=== PATIENT | male | born 1950 | race Caucasian/White ===

== ENCOUNTER 2021-11-23 09:53 | Inpatient (IN) | payer MEDICARE, MEDICAID, SELFPAY ==
[2021-11-23] VITALS (8 sets, daily range): BP systolic 106–170; BP diastolic 70–114; PULSE 82–105; RESP 17–20; TEMP 36.7–37.1; O2SAT 89–100; BMI 19.8; BMI 19.2
--- NOTE | ~2021-11-23 | US_ITS ---
EXAMINATION: US VENOUS ULTRASOUND WITH DOPPLER LOWER EXTREMITY, BILATERAL CLINICAL INFORMATION: Bilateral lower extremity swelling COMPARISON: None TECHNIQUE: Ultrasound of the deep veins is performed from the hip to the calf with compression sonography and color and pulse Doppler assessment. Spectral analysis with color-flow imaging is performed. FINDINGS: RIGHT: There is normal venous compression and respiratory variation and augmented flow. The visualized common femoral vein, superficial femoral vein, profunda femoral vein, popliteal vein, and the trifurcation region shows no evidence of deep venous thrombosis. There is no significant popliteal fossa cyst. LEFT: There is normal venous compression and respiratory variation and augmented flow. The visualized common femoral vein, superficial femoral vein, profunda femoral vein, popliteal vein, and the trifurcation region shows no evidence of deep venous thrombosis. There is no significant popliteal fossa cyst. If the patient's symptoms persist, followup ultrasound in 5 days 7 days might be of value to exclude proximal propagation from a non-visualized calf vein. US/US venous duplex LE BI IMPRESSION: No DVT demonstrated in either lower extremity.
--- NOTE | ~2021-11-23 | CT_ITS ---
EXAMINATION: CT ABDOMEN AND PELVIS WITHOUT CONTRAST CLINICAL INFORMATION: Abdominal pain and vomiting. COMPARISON: None TECHNIQUE: Multidetector volumetric imaging was performed from the superior aspect of the liver through the pubic symphysis. Sagittal and coronal reformatted images were obtained on the technologist's workstation. This CT examination was performed using dose optimization techniques as appropriate, variously including the following: *Automated exposure control *Adjustment of mA and/or kV according to patient size (this includes techniques or standardized protocols for targeted exams where dose is matched to indication/reason for exam; i.e. extremities or head) *Use of iterative reconstruction technique DLP: 376 mGy-cm FINDINGS: LUNG BASES: Severe emphysematous changes are present at the lung bases with what appears to be a large septated bullae at the left base. Small bilateral pleural effusions are seen. LIVER, GALLBLADDER, AND BILIARY TREE: The liver is normal in size, shape, and attenuation. Some mild periportal edema is present. No focal hepatic lesion or biliary ductal dilatation is present on this noncontrast study. The gallbladder is not well seen, if present. A tiny amount of ascites is present. PANCREAS: Unremarkable. SPLEEN: Unremarkable. ADRENAL GLANDS: Unremarkable. KIDNEYS AND URETERS: The kidneys are normal in size, shape, and attenuation. No hydronephrosis, hydroureter, or calculi seen. A right lower pole Bosniak class I renal cyst is present which needs no further imaging or follow up. No solid renal masses. No perinephric stranding. BLADDER: Unremarkable. GASTROINTESTINAL TRACT: Moderate diverticular disease is present especially in the sigmoid without evidence of diverticulitis. The small and large bowel are otherwise unremarkable. The appendix is unremarkable. ABDOMINAL WALL: No significant hernia is appreciated. LYMPH NODES: No retroperitoneal lymphadenopathy. VASCULAR: Aortoiliofemoral calcific atherosclerotic changes present without aneurysm. PELVIC VISCERA: Calcifications are present in the prostate which is upper limits of normal in size. OSSEOUS STRUCTURES: Generalized osteopenia is present with some mild degenerative changes. Vacuum phenomenon present at L2-L3. CT/CT abdomen pelvis wo con IMPRESSION: A cause for the patient's abdominal pain and vomiting is not found. Incidental note made of severe emphysema, mild periportal edema, bilateral pleural effusions, tiny amount of ascites and colonic diverticulosis. Fleischner guidelines were followed.
--- NOTE | ~2021-11-23 | XR_ITS ---
EXAMINATION: XR CHEST CLINICAL INFORMATION: Shortness of breath COMPARISON: None TECHNIQUE: Frontal view of the chest was obtained. FINDINGS: Coarsened interstitial lung markings throughout the bilateral lung rodriguez, nonspecific, may represent severe emphysematous changes versus interstitial lung disease versus prominence of the pulmonary vasculature. Bibasilar atelectasis. Biapical pleural parenchymal scarring. Bilateral pleural effusions, trace on the right and small on the left. No pneumothorax. Trachea is midline. Cardiomediastinal silhouette is enlarged. Aorta demonstrates atherosclerotic calcifications. Degenerative changes of the thoracolumbar spine. Soft tissues are unremarkable. XR/XR chest 1V IMPRESSION: 1. Coarsened interstitial lung markings throughout the bilateral lung rodriguez, nonspecific, may represent severe emphysematous changes versus interstitial lung disease versus prominence of the pulmonary vasculature. 2. Bibasilar atelectasis. 3. Biapical pleural parenchymal scarring. 4. Bilateral pleural effusions, trace on the right and small on the left.
--- NOTE | 2021-11-23 10:09 | ECG_ITS ---
Test Reason : sob Blood Pressure : / mmHG Vent. Rate : 081 BPM Atrial Rate : 081 BPM P-R Int : 156 ms QRS Dur : 090 ms QT Int : 396 ms P-R-T Axes : 077 -20 210 degrees QTc Int : 460 ms Sinus rhythm with Premature ventricular complexes or Fusion complexes Possible Left atrial enlargement Left ventricular hypertrophy with repolarization abnormality ( Sokolow-Brown , Narinder product , Romhilt-Brennan ) Abnormal ECG No previous ECGs available Referred By: Jeison Mandel Electronically Signed By:PIA AGUILAR
--- NOTE | 2021-11-23 10:11 | ED.GENADULT ---
HPI - General Adult General Chief complaint: Dyspnea Stated complaint: SOB,NAUSEA Time Seen by Provider: 11/23/21 10:08 Source: patient and EMS Mode of arrival: EMS Limitations: no limitations History of Present Illness HPI narrative: 71 years old male came in for evaluation of shortness of breath and nausea, abdominal pain. 71 years old male who is smoker and having seen a doctor for many years with no known medical problems woke up this morning with shortness of breath and feeling nausea with dry heaving and abdominal discomfort. Symptoms started since this morning at 03:00 o'clock in the morning with no improvement, patient for the past few days been waking up with shortness of breath, admitted to bilateral lower extremity swelling, no obvious gaining weight, no chest pain, no fever, no chills. Complains of abdominal pain with dry heaving and nausea but actual vomiting, chills. Normal bowel movement, dysuria frequency urination, no past abdominal surgical history. Related Data Home Medications Medication Instructions Recorded Confirmed buprenorphine HCl 8 mg sublingual 8 mg sublingual TID 11/23/21 11/23/21 tablet bupropion HCl 150 mg tablet,12 hr 150 mg PO BID 11/23/21 11/23/21 sustained-release escitalopram oxalate 20 mg tablet 20 mg PO DAILY 11/23/21 11/23/21 ibuprofen 800 mg tablet 800 mg PO Q8H PRN Pain (Scale 11/23/21 11/23/21 Score 4-6) linaclotide 290 mcg capsule 290 mcg PO DAILY 11/23/21 11/23/21 (Linzess) pantoprazole 40 mg tablet,delayed 1 tab PO DAILY 11/23/21 11/23/21 release sennosides 8.6 mg-docusate sodium 2 tab PO BEDTIME constipation 11/23/21 11/23/21 50 mg tablet (Senexon-S) tamsulosin 0.4 mg capsule 0.4 mg PO DAILY 11/23/21 11/23/21 Allergies Allergy/AdvReac Type Severity Reaction Status Date / Time No Known Allergies Allergy Verified 11/23/21 10:09 Review of Systems Review of Systems: All other systems are reviewed and are negative Constitutional: Reports as per HPI and Reports no additional constitutional complaints Eyes: Reports as per HPI and Reports no additional eye complaints Reports system reviewed and no additional complaints, except as documented Cardiovascular: Reports as per HPI and Reports no additional cardiovascular complaints Respiratory: Reports as per HPI and Reports no additional respiratory complaints Gastrointestinal: Reports as per HPI and Reports no additional gastrointestinal complaints Genitourinary: Reports no additional female genitourinary complaints Musculoskeletal: Reports no additional musculoskeletal complaints Skin/Breast: Reports system reviewed and no additional complaints, except as docu Psychiatric: Reports no additional psychiatric complaints Endocrine: Reports no additional endocrine complaints Hematologic/Lymphatic: Reports no additional hematologic/lymphatic complaints Allergic/Immunologic: Reports no additional allergic/immunologic complaints Reports system reviewed and no additional complaints, except as documented and Reports Abnormal speech present [facility] Past Medical History Medical History BPH (benign prostatic hyperplasia) COPD (chronic obstructive pulmonary disease) Endocarditis GERD (gastroesophageal reflux disease) HCV (hepatitis C virus) Opiate dependence Peripheral artery disease Family History Family History Mother Alzheimer disease Social History Social History Alcohol intake: never Patient Tobacco Use Status: Current everyday Tobacco user Use of substances other than those prescribed or required for medical reasons: No Substance Use Type Other:: remote history of iv opiates Advance Directives: No Advance Directives Information Provided: No Physical Exam ED Vital Signs: Vital Signs - 24 hr 11/23/21 10:23 11/23/21 12:13 11/23/21 12:12 Temperature 98.0 F Pulse Rate 90 95 Respiratory Rate 18 20 Blood Pressure 148/110 H 147/114 H Pulse Oximetry 93 92 89 L Oxygen Delivery Method Room Air Room Air Nasal Cannula Nasal Cannula Oxygen Flow Rate 4 2 BMI result Body Mass Index 19.8 Vital signs have been reviewed as appeared to be correct. Blood pressure normal. Heart rate normal. Respiration rate normal. Temperature normal. Oxygen saturation normal. Appearance: Alert. Oriented X3. No acute distress. Head: Normal external exam. Normocephalic. Atraumatic. No Dong signs noted. No raccoon eyes noted Eyes: PERRLA. EOMI. Conjunctiva and sclera normal. Eyelids normal. ENT: TM's Normal. Pharynx normal. Uvula midline. Moist mucous membranes. No trismus noted. No drooling noted. No muffled voice noted. Neck: Normal inspection. Neck supple. FROM. No adenopathy. Thyroid Normal. No meningeal signs. No neck mass noted. CVS: Normal heart rate and rhythm. Heart sound normal. No murmurs noted. Pulses normal throughout. Respiratory: No respiratory distress. Painless inspiration. Breath sounds normal. No wheezes/rhonchi noted, fine bilateral basilar rales.. Chest nontender. No accessory muscle usage noted or decreased air movement noted. Abdomen: Soft and nontender. Bowel sounds normal in all 4 quadrants. No distention noted. No organomegaly noted. No visible injury noted. Back: No CVA tenderness. Full range of motion noted. Skin: Skin warm and dry. Normal skin color. Normal skin turgor. No rashes/lesions/lacerations noted. Extremities: +1 lower extremity edema. Extremities exhibit normal range of motion. Extremities nontender. Neuro: Oriented X 3. Cranial nerve exam: II-XII are grossly intact No motor deficit. No sensory deficit. Reflexes normal. Course Course Course Narrative: Assessment and plan. 71-year-old male history of smoking came in with difficulty breathing, physical exam/finding on the x-ray/labs are consistent with new onset congestive heart failure. Will start the patient on Lasix in the ED and admitted for further cardiology evaluation. Medical Decision Making Lab Data Lab results reviewed: Yes I reviewed the patient's lab results. Result diagrams: 11/23/21 11:36 11/23/21 11:36 Labs: Lab Results 11/23/21 11/23/21 11/23/21 Range/Units 10:39 11:35 11:36 WBC 11.4 H (4.8-10.8) X10*3/uL RBC 4.71 (4.60-5.80) X10*6/uL Hgb 14.7 (14.0-18.0) g/dl Hct 44.6 (42.0-52.0) % MCV 94.7 (80.0-98.0) fL MCH 31.2 (27.0-33.0) pg MCHC 33.0 (31.0-36.0) g/dl RDW 13.9 (11.0-16.0) % Plt Count 221 (160-400) X10*3/uL MPV 10.0 (9.4-12.4) fL Immature Gran % (Auto) 0.3 (0.0-0.4) % Neut % (Auto) 81.0 H (45-73) % Lymph % (Auto) 11.3 L (20-40) % Gall[place] % (Auto) 5.7 (2-11) % Eos % (Auto) 1.2 (0-4) % Baso % (Auto) 0.5 (0-2) % Lymph # (Auto) 1.3 (1.2-4.9) X10*3/uL Gall[place] # (Auto) 0.7 (0.1-1.2) X10*3/uL Eos # (Auto) 0.1 (0.0-0.4) X10*3/uL Baso # (Auto) 0.1 (0.0-0.2) X10*3/uL Abs Immat Gran (auto) 0.04 H (0.00-0.03) X10*3/uL Absolute Neuts (auto) 9.3 H (2.0-8.3) x10*3/uL Absolute Nucleated RBC 0.000 (0.0-0.012) X10*3/uL Nucleated RBC % (auto) 0.0 (0.0-0.2) /100WBC Sodium (135-145) mmol/L Potassium (3.3-5.1) mmol/L Chloride (96-108) mmol/L Carbon Dioxide (22-29) mmol/L Anion Gap (12-20) BUN (9-16) mg/dL Creatinine (0.5-1.4) mg/dL Estim Creat Clear Calc Estimated GFR POC Glucose 130 H (60-115) mg/dL Random Glucose (60-115) mg/dL Calcium (8.4-10.2) mg/dL Total Bilirubin (0.0-1.0) mg/dL Direct Bilirubin (0.0-0.5) mg/dL AST (5-37) U/L ALT (0-40) U/L Alkaline Phosphatase (39-117) U/L Troponin I High Sens (<3.5-35.0) ng/L B-Natriuretic Peptide (<100) pg/mL Total Protein (6.5-8.0) g/dL Albumin (3.5-5.0) g/dL Lipase (8-78) U/L Urine Color Urine Appearance Urine pH (5.0-8.0) Ur Specific [place] (1.005-1.025) Urine Protein (NEG-TRACE) MG/DL Urine Glucose (UA) (NEG) MG/DL Urine Ketones (NEG) MG/DL Urine Blood (NEG) Urine Nitrite (NEG) Ur Leukocyte Esterase (NEG) Influenza Type A (PCR) NEGATIVE (Negative) Influenza Type B (PCR) NEGATIVE (Negative) RSV RNA Qual (PCR) NEGATIVE (Negative) SARS-CoV-2 RNA (RT-PCR) NEGATIVE (Negative) 11/23/21 11/23/21 11/23/21 Range/Units 11:36 11:36 12:20 WBC (4.8-10.8) X10*3/uL RBC (4.60-5.80) X10*6/uL Hgb (14.0-18.0) g/dl Hct (42.0-52.0) % MCV (80.0-98.0) fL MCH (27.0-33.0) pg MCHC (31.0-36.0) g/dl RDW (11.0-16.0) % Plt Count (160-400) X10*3/uL MPV (9.4-12.4) fL Immature Gran % (Auto) (0.0-0.4) % Neut % (Auto) (45-73) % Lymph % (Auto) (20-40) % Gallia % (Auto) (2-11) % Eos % (Auto) (0-4) % Baso % (Auto) (0-2) % Lymph # (Auto) (1.2-4.9) X10*3/uL [place] # (Auto) (0.1-1.2) X10*3/uL Eos # (Auto) (0.0-0.4) X10*3/uL Baso # (Auto) (0.0-0.2) X10*3/uL Abs Immat Gran (auto) (0.00-0.03) X10*3/uL Absolute Neuts (auto) (2.0-8.3) x10*3/uL Absolute Nucleated RBC (0.0-0.012) X10*3/uL Nucleated RBC % (auto) (0.0-0.2) /100WBC Sodium 138 (135-145) mmol/L Potassium 4.2 (3.3-5.1) mmol/L Chloride 103 (96-108) mmol/L Carbon Dioxide 27 (22-29) mmol/L Anion Gap 12 (12-20) BUN 22 H (9-16) mg/dL Creatinine 1.07 (0.5-1.4) mg/dL Estim Creat Clear Calc 61.6 Estimated GFR > 60 POC Glucose (60-115) mg/dL Random Glucose 146 H (60-115) mg/dL Calcium 9.0 (8.4-10.2) mg/dL Total Bilirubin 0.7 (0.0-1.0) mg/dL Direct Bilirubin 0.4 (0.0-0.5) mg/dL AST 78 H (5-37) U/L ALT 55 H (0-40) U/L Alkaline Phosphatase 154 H (39-117) U/L Troponin I High Sens 78.3 H (<3.5-35.0) ng/L B-Natriuretic Peptide 3987 H (<100) pg/mL Total Protein 6.7 (6.5-8.0) g/dL Albumin 3.9 (3.5-5.0) g/dL Lipase 22 (8-78) U/L Urine Color YELLOW Urine Appearance CLEAR Urine pH 5.5 (5.0-8.0) Ur Specific [place] >= 1.030 H (1.005-1.025) Urine Protein TRACE (NEG-TRACE) MG/DL Urine Glucose (UA) NEG (NEG) MG/DL Urine Ketones NEG (NEG) MG/DL Urine Blood NEG (NEG) Urine Nitrite NEG (NEG) Ur Leukocyte Esterase NEG (NEG) Influenza Type A (PCR) (Negative) Influenza Type B (PCR) (Negative) RSV RNA Qual (PCR) (Negative) SARS-CoV-2 RNA (RT-PCR) (Negative) Imaging Data Chest x-ray: Attestation: I personally reviewed and interpreted this imaging study as follows: Radiologist's impression: 1.? Coarsened interstitial lung markings throughout the bilateral lung rodriguez, nonspecific, may represent severe emphysematous changes versus interstitial lung disease versus prominence of the pulmonary vasculature. 2.? Bibasilar atelectasis. 3.? Biapical pleural parenchymal scarring. 4.? Bilateral pleural effusions, trace on the right and small on the left. ? CT scan - abdomen: Attestation: I personally reviewed and interpreted this imaging study as follows: Radiologist's impression: A cause for the patient's abdominal pain and vomiting is not found. Incidental note made of severe emphysema, mild periportal edema, bilateral pleural effusions, tiny amount of ascites and colonic diverticulosis.? ? Bilateral lower extremities venous ultrasound: Attestation: I personally reviewed and interpreted this imaging study as follows: Radiologist's impression: No DVT ECG Data Attestation: I personally reviewed and interpreted this ECG as follows: Interpretation: Normal sinus rhythm at 81 beats per minutes with PVCs, LVH Discharge Plan Discharge Clinical Impression: Congestive heart failure Patient Disposition: Admitted As Inpatient
[2021-11-23 10:42] LABS: Glucose, Whole Blood 130 mg/dL (60-115)
[2021-11-23 11:49] LABS: MANUAL DIFF FLAG NO
[2021-11-23 11:51] LABS: Basophils Absolute Auto 0.1 X10*3/uL (0.0-0.2); Basophils Percent Auto 0.5 % (0-2); Eosinophils Absolute Auto 0.1 X10*3/uL (0.0-0.4); Eosinophils Percent Auto 1.2 % (0-4); Hematocrit 44.6 % (42.0-52.0); Hemoglobin 14.7 g/dl (14.0-18.0); Imm Gran Abs Auto 0.04 X10*3/uL (0.00-0.03); Imm Gran Pct Auto 0.3 % (0.0-0.4); Lymphocytes Absolute Auto 1.3 X10*3/uL (1.2-4.9); Lymphocytes Percent Auto 11.3 % (20-40); Mean Corpuscular Hemoglobin 31.2 pg (27.0-33.0); Mean Corpuscular Volume 94.7 fL (80.0-98.0); Monocytes Absolute Auto 0.7 X10*3/uL (0.1-1.2); Monocytes Percent Auto 5.7 % (2-11); Neutrophils Absolute Auto 9.3 x10*3/uL (2.0-8.3); Platelet Count 221 X10*3/uL (160-400); Red Blood Count 4.71 X10*6/uL (4.60-5.80); Red Cell Distribution Width 13.9 % (11.0-16.0); White Blood Count 11.4 X10*3/uL (4.8-10.8)
[2021-11-23 12:05] LABS: Alanine Aminotransferase 55 U/L (0-40); Albumin Level 3.9 g/dL (3.5-5.0); Alkaline Phosphatase 154 U/L (39-117); Anion Gap 12 (12-20); Aspartate Amino Transferase 78 U/L (5-37); Bilirubin Direct 0.4 mg/dL (0.0-0.5); Bilirubin Total 0.7 mg/dL (0.0-1.0); Blood Urea Nitrogen 22 mg/dL (9-16); Carbon Dioxide 27 mmol/L (22-29); Chloride 103 mmol/L (96-108); Creatinine Clr Calc Pharmacy 61.6; Estimated Glomerular Filt Rate > 60; Glucose Random 146 mg/dL (60-115); Lipase 22 U/L (8-78); Potassium 4.2 mmol/L (3.3-5.1); Sodium 138 mmol/L (135-145); Total Protein 6.7 g/dL (6.5-8.0)
[2021-11-23 12:11] LABS: B Type Natriuretic Peptide 3987 pg/mL (<100); Troponin-I High Sensitivity 78.3 ng/L (<3.5-35.0)
--- NOTE | 2021-11-23 12:24 | PC.NURSE ---
pt just stood up on the side of the bed to use the urinal, started to feel very sob already on oxygen at 2l, sating at 89%, pt is diaphoretic, this rn can barely hear any lung sounds on the left lower bases, very diminished, pt bumped up to 4l and sating only 91%, hr 92 respirations about 19 and capnography at 27
[2021-11-23 12:31] LABS: Influenza A PCR NEGATIVE (Negative); Influenza B PCR NEGATIVE (Negative); Resp Syncy Virus RNA Qual PCR NEGATIVE (Negative); SARS COV2 PCR INHOUSE NEGATIVE (Negative)
[2021-11-23 12:36] LABS: Appearance Urine CLEAR; Color Urine YELLOW; Glucose Urine UA NEG (NEG); Leukocyte Esterase Urine NEG (NEG); Nitrite Urine NEG (NEG); PH 5.5 (5.0-8.0); Specific Gravity - Urine >= 1.030 (1.005-1.025); Urine Blood NEG (NEG); Urine Ketones NEG (NEG); Urine Protein TRACE MG/DL (NEG-TRACE)
[2021-11-23] MEDS: Furosemide 40 MG/4 ML VIAL IVPUSH ×2 (13:13→18:08)
--- NOTE | 2021-11-23 14:04 | PM.IMHP ---
History of Present Illness Date of Service: 11/23/21 Chief Complaint: sob 71M presented with sob. patient reports that over several days he has been having progressive sob, worst in the early AM, usually improving over the day. was still able to tolerate moderate exertion such as lawncare. however, on day of admission was severely sob even at rest so called EMS. patient also reporting productive cough with yellow sputum. he does notice occasional leg edema, currently does have L>R lower extremity edema. denies fever, chills, chest pain, orthopnea, PND, weight loss, loss of appetite. in ED found to be hypoxic, 86% on room air, low 90s on 4L. CXR shows evidence of severe emphysema, possible chf, bnp 3987. Review of Systems Review of Systems: Constitutional: Denies fever, denies Chills Eyes: denies blurry vision ENT: denies sore throat CVS: denies chest pain Respiratory: dyspnea GI: no abdominal pain : denies dysuria MSK: denies neck pain Skin: denies rash Neuro: denies specific motor weakness Psych: denies suicidal ideation Endocrine: denies heat/cold intolerance Hematologic: denies easy bleeding Allergy: denies hives [facility] Medical History BPH (benign prostatic hyperplasia) COPD (chronic obstructive pulmonary disease) Endocarditis GERD (gastroesophageal reflux disease) HCV (hepatitis C virus) Opiate dependence Peripheral artery disease Family History Mother Alzheimer disease Social History Alcohol intake: never Patient Tobacco Use Status: Current everyday Tobacco user Use of substances other than those prescribed or required for medical reasons: No Substance Use Type Other:: remote history of iv opiates Advance Directives: No Advance Directives Information Provided: No Meds Allergies Allergy/AdvReac Type Severity Reaction Status Date / Time No Known Allergies Allergy Verified 11/23/21 10:09 Active Medications: Current Medications Albuterol/Ipratropium (Albuterol/Iprat 2.5/0.5mg 3 Ml Ampul.Neb) 3 ml INHALE RQ4H PRN PRN Reason: sob Furosemide (Furosemide 40 Mg/4 Ml Vial) 40 mg IVPUSH BID@0900,1800 DWAYNE; Protocol Methylprednisolone Sodium Succinate (Methylprednisolone Sod Succ 40 Mg/Ml Vial) 40 mg IVPUSH Q12H [facility] Pharmacy Consult (Consult Rx Perform Med Rec) 1 each MISCELLANE ONCE PRN PRN Reason: Consult order Home Medications Medication Instructions Recorded Confirmed Last Taken Type buprenorphine HCl 8 mg sublingual 8 mg sublingual DAILY 11/23/21 Unknown History tablet bupropion HCl 150 mg tablet,12 hr 150 mg PO BID 11/23/21 11/23/21 Unknown History sustained-release escitalopram oxalate 20 mg tablet 20 mg PO DAILY 11/23/21 Unknown History ibuprofen 800 mg tablet 800 mg PO Q8H PRN Pain (Scale 11/23/21 11/23/21 Unknown History Score 4-6) linaclotide 290 mcg capsule 290 mcg PO DAILY 11/23/21 Unknown History (Linzess) pantoprazole 40 mg tablet,delayed 1 tab PO DAILY 11/23/21 Unknown History release sennosides 8.6 mg-docusate sodium 2 tab PO BEDTIME constipation 11/23/21 Unknown History 50 mg tablet (Senexon-S) tamsulosin 0.4 mg capsule 0.4 mg PO DAILY 11/23/21 Unknown History Physical Exam Vital Signs and Narrative: Vital Signs: Last Vital Signs Temp 98.0 F 11/23/21 10:23 Pulse 95 11/23/21 12:13 Resp 20 11/23/21 12:13 BP 147/114 H 11/23/21 12:13 Pulse Ox 92 11/23/21 12:13 O2 Del Method Nasal Cannula 11/23/21 12:13 O2 Flow Rate 4 11/23/21 12:13 BMI result Body Mass Index 19.8 General: lethargic, cachexic appearing HEENT: atraumatic, temporal wasting Neck: normal to visual inspection CVS: S1, S2, RRR Resp: diminshed sounds throughout Chest: non tender GI: soft, non tender, non distended : no CVA tenderness Skin: no rashes Extremities: R>L lower extremity edema Neuro: Oriented X3, grossly intact Psych: cooperative Results Labs CBC and Chem 7: 11/23/21 11:36 11/23/21 11:36 Labs: Laboratory Results - last 24 hr 11/23/21 11/23/21 11/23/21 10:39 11:35 11:36 MCV 94.7 MCH 31.2 MCHC 33.0 RDW 13.9 Plt Count 221 MPV 10.0 Immature Gran % (Auto) 0.3 Neut % (Auto) 81.0 H Lymph % (Auto) 11.3 L Wright % (Auto) 5.7 Eos % (Auto) 1.2 Baso % (Auto) 0.5 Lymph # (Auto) 1.3 Wright # (Auto) 0.7 Eos # (Auto) 0.1 Baso # (Auto) 0.1 Abs Immat Gran (auto) 0.04 H Absolute Neuts (auto) 9.3 H Absolute Nucleated RBC 0.000 Nucleated RBC % (auto) 0.0 Anion Gap Estim Creat Clear Calc Estimated GFR POC Glucose 130 H Random Glucose Calcium Total Bilirubin Direct Bilirubin AST ALT Alkaline Phosphatase Troponin I High Sens B-Natriuretic Peptide Total Protein Albumin Lipase Urine Color Urine Appearance Urine pH Ur Specific [place] Urine Protein Urine Glucose (UA) Urine Ketones Urine Blood Urine Nitrite Ur Leukocyte Esterase Influenza Type A (PCR) NEGATIVE Influenza Type B (PCR) NEGATIVE RSV RNA Qual (PCR) NEGATIVE SARS-CoV-2 RNA (RT-PCR) NEGATIVE 11/23/21 11/23/21 11/23/21 11:36 11:36 12:20 MCV MCH MCHC RDW Plt Count MPV Immature Gran % (Auto) Neut % (Auto) Lymph % (Auto) Wright % (Auto) Eos % (Auto) Baso % (Auto) Lymph # (Auto) Wright # (Auto) Eos # (Auto) Baso # (Auto) Abs Immat Gran (auto) Absolute Neuts (auto) Absolute Nucleated RBC Nucleated RBC % (auto) Anion Gap 12 Estim Creat Clear Calc 61.6 Estimated GFR > 60 POC Glucose Random Glucose 146 H Calcium 9.0 Total Bilirubin 0.7 Direct Bilirubin 0.4 AST 78 H ALT 55 H Alkaline Phosphatase 154 H Troponin I High Sens 78.3 H B-Natriuretic Peptide 3987 H Total Protein 6.7 Albumin 3.9 Lipase 22 Urine Color YELLOW Urine Appearance CLEAR Urine pH 5.5 Ur Specific [place] >= 1.030 H Urine Protein TRACE Urine Glucose (UA) NEG Urine Ketones NEG Urine Blood NEG Urine Nitrite NEG Ur Leukocyte Esterase NEG Influenza Type A (PCR) Influenza Type B (PCR) RSV RNA Qual (PCR) SARS-CoV-2 RNA (RT-PCR) Imaging Radiologist's Impressions: Impressions Chest X-Ray 11/23/21 10:37 IMPRESSION: 1. Coarsened interstitial lung markings throughout the bilateral lung rodriguez, nonspecific, may represent severe emphysematous changes versus interstitial lung disease versus prominence of the pulmonary vasculature. 2. Bibasilar atelectasis. 3. Biapical pleural parenchymal scarring. 4. Bilateral pleural effusions, trace on the right and small on the left. Assessment and Plan (1) Congestive heart failure: Status: Acute Plan 71M presented with sob acute hypoxic respiratory failure due to acute unspecified chf and copd with decompensation IV lasix, echo, monitor bmp iv solumedrol, bronchodilators wean o2 as tolerated, keep sats 90-94% check abg, venous us elevated lfts suspect hepatic congestion, follow up ctabd pvd would put on asa and statin motrin with gi prophylaxis mood disorder continue buproprion, lexapro opiate dependence suboxone bph flomax dvt prophylaxis - lovenox full code pateint is singificantly ill with acute hypoxia,advanced copd, chf, frailty, advanced age, therefore, likely to require atleast to midnights Quality Stroke Does the patient have a stroke diagnosis?: No VTE Prior VTE?: No VTE Risk Level:: Medical - moderate - high VTE Device Contraindication: Treatment Not Indicated VTE Drug Contraindication: N/A - Med Ordered
--- NOTE | 2021-11-23 14:11 | PHA.MEDREC ---
MED REC COMPLETE, NO ISSUES Pharmacy Consult ? Medication Reconciliation Pharmacy has completed the medication reconciliation.
[2021-11-23 14:34] LABS: ABG Refer to POC result
[2021-11-23 14:35] LABS: ABG HCO3 23 mmol/L (22-26); ABG pCO2 40 mmHg (32-45); ABG pH 7.36 (7.35-7.45); ABG pO2 58 mmHg (83-108)
[2021-11-23] MEDS: Enoxaparin Sodium 40 MG/0.4 ML SYRINGE SUBCUT (16:09)
[2021-11-23] MEDS: 0.9 % Sodium Chloride Flush 3 ML SYRINGE IVFLUSH ×2 (16:12→21:59)
--- NOTE | 2021-11-23 17:50 | PC.NURSE ---
called pharmacy in regards to suboxone, continuing on waiting for the medication
[2021-11-23] MEDS: methylPREDNISolone Sod Succ 40 MG/ML VIAL IVPUSH (18:08)
[2021-11-23] MEDS: Buprenorphine HCL 8 MG TAB.SUBL SUBLINGUAL ×2 (18:08→21:59)
--- NOTE | 2021-11-23 19:00 | PC.NURSE ---
Took report from Deweysaira to assume care of Pt, Pt resting, call light in reach, this RN continues to monitor.
[2021-11-23] MEDS: Atorvastatin Calcium 40 MG TABLET PO (21:59)
[2021-11-23] MEDS: Sennosides/Docusate Sodium TABLET 2 TAB PO (21:59)
[2021-11-24] VITALS (10 sets, daily range): BP systolic 114–165; BP diastolic 72–96; PULSE 59–86; RESP 17–20; TEMP 36.2–36.9; O2SAT 86–99
[2021-11-24] MEDS: methylPREDNISolone Sod Succ 40 MG/ML VIAL IVPUSH ×2 (05:44→17:34)
[2021-11-24 06:18] LABS: Hematocrit 42.8 % (42.0-52.0); Hemoglobin 14.3 g/dl (14.0-18.0); Mean Corpuscular HGB Conc 33.4 g/dl (31.0-36.0); Mean Corpuscular Hemoglobin 31.2 pg (27.0-33.0); Mean Corpuscular Volume 93.4 fL (80.0-98.0); Mean Platelet Volume 10.1 fL (9.4-12.4); Platelet Count 202 X10*3/uL (160-400); Red Blood Count 4.58 X10*6/uL (4.60-5.80); Red Cell Distribution Width 13.9 % (11.0-16.0); White Blood Count 11.3 X10*3/uL (4.8-10.8)
[2021-11-24 06:51] LABS: Anion Gap 13 (12-20); Blood Urea Nitrogen 22 mg/dL (9-16); Calcium 8.6 mg/dL (8.4-10.2); Carbon Dioxide 32 mmol/L (22-29); Chloride 102 mmol/L (96-108); Creatinine Clr Calc Pharmacy 58.8; Estimated Glomerular Filt Rate > 60; Glucose Fasting 118 mg/dL (60-99); Magnesium 1.6 mg/dL (1.6-2.6); Potassium 4.5 mmol/L (3.3-5.1); Sodium 142 mmol/L (135-145)
--- NOTE | 2021-11-24 07:00 | CA_ITS ---
Transthoracic Echocardiogram Patient (Last, First, Middle): Freddy Alanis, Gender: Male Date of : 1950 Age: 71 Procedure Date: 11/24/2021 Procedure Type: Transthoracic Echocardiogram Location: [facility] [place] Height: 187.96 cm Weight: 69.85 kg BSA: 1.94 m2 Heart Rate: bpm BP: 147 / 114 mmHg Latin American Studies Director: Referring MD: Prakash Tijerina MD Symptoms: chf Study Quality: Good/Contrast ECG Rhythm: Sinus Conclusions: - The left ventricular systolic function is severely decreased. The visually estimated ejection fraction is <10%. - No obvious valvular pathology seen on this study. - There is mild mitral valve regurgitation. - There is mild to moderate tricuspid valve regurgitation. - Moderate pulmonary hypertension is present. Findings Procedure Information Contrast agent, definity, is being given per protocol without apparent complications. Left Ventricle Mildly increased left ventricular cavity size. There is normal left ventricular wall thickness. The left ventricular systolic function is severely decreased. The visually estimated ejection fraction is <10%. There is severe global hypokinesis. E/E prime ratio is >15, consistent with elevated filling pressures. Evidence suggests grade I (mild) diastolic dysfunction. Right Ventricle Normal right ventricular cavity size. There is normal right ventricular systolic function. Atria The left atrium is severely dilated. The right atrium is normal in size. Aortic Valve The aortic valve was not well visualized. There is no aortic valve stenosis. There is no aortic valve regurgitation. Mitral Valve The mitral valve appears normal. There is mild mitral valve regurgitation. There is no mitral valve stenosis. Pulmonic Valve The pulmonic valve is likely normal. Tricuspid Valve Normal tricuspid valve structure. There is mild to moderate tricuspid valve regurgitation. The right ventricular systolic pressure is 53 mmHg. Moderate pulmonary hypertension is present. Great Vessels The aorta was not well visualized. The sinuses of valsalva is normal in size. Venous The inferior vena cava is normal in size and collapses greater than 50% with inspiration. Pericardium/Pleural There is no evidence of pericardial effusion. Prior Study Comparison No prior study available for comparison. Recommendations, Care & Conclusions No obvious valvular pathology seen on this study. Measurements 2D Linear Measurements IVSd: 1.01 0.6-0.9/0.6-1.0 cm LVIDd: 6.04 3.9-5.3/4.2-5.9 cm LVIDd Index: 3.11 2.4-3.2/2.2-3.1 cm/m2 LVIDs: 5.66 2.0-3.6 cm LVPWd: 0.99 0.7-1.1 cm Ao Root: 3.10 2.1-3.5 cm LA Diam: 4.70 2.7-3.8/3.0-4.0 cm LAIDs Index: 2.42 1.5-2.3 cm/m2 LV Mass: 310.94 67-162/88-224 g LV Mass Index: 160.28 43-95/49-115 g/m2 LVOT Diam: 2.00 3.0+(-)1.3 cm 2D Systolic Function EF 4C: 11.20 >55% EF 2C: 11.70 >55% EF BiP: 8.81 >55% Mitral Valve MV Pk E: 0.76 MV PK A: 1.22 MV Decel Time: 166.00 E/A: 0.60 E'Lateral: 3.26 E'Medial: 2.83 E/E' Med: 26.80 E/E' Lat: 23.30 PHT: 49.00 MVA PHT: 4.49 Decel Sterling: 4.57 Aortic Valve AoV Pk Stephan: 1.07 AoV Mn Stephan: 0.64 AoV VTI: 0.18 AoV Pk Grad: 5.00 Aov Mn Grad: 2.00 ALMAZ Cont.VTI: 1.87 LVOT LVOT Pk Stephan: 0.59 LVOT Mn Stephan: 0.37 LVOT VTI: 0.11 LVOT Pk Grad: 1.00 LVOT Mn Grad: 1.00 LVOT Diam: 2.00 LVOT Area: 3.14 Diastolic Function MV Pk E: 0.76 MV Pk A: 1.22 E/A: 0.60 E'Medial: 2.83 E/E' Med: 26.80 E' Laterial: 3.26 E/E' Lat: 23.30 Right Ventricle TAPSE (mm): 23.00 TVS' Stephan: 10.70 Tricuspid Valve TR Pk Stephan: 3.34 TR Pk Grad: 45.00 RA Press: 5.50 RVSP: 53.00 Great Vessels Aorta Ao Root-2D: 3.10 2.0-3.7 cm Sinus of Valsalva: 3.10 2.0-3.5 cm Pulmonary Valve PV Pk Stephan: 0.86 Peak PV Grad: 3.00 Updated in Other Vendor System with Status of Final Mustapha Newton MD electronically signed on 11/24/2021 2:48:07 PM with status of Final
[2021-11-24 07:51] LABS: Prothrombin Time 11.3 SEC (9.9-13.0)
[2021-11-24] MEDS: buPROPion HCl XL 300 MG TAB.ER.24H PO (08:51)
[2021-11-24] MEDS: Aspirin Enteric Coated 81 MG TABLET.DR PO (08:52)
[2021-11-24] MEDS: Omeprazole 20 MG CAPSULE.DR PO (08:52)
[2021-11-24] MEDS: Tamsulosin HCL 0.4 MG CAPSULE PO (08:52)
[2021-11-24] MEDS: Buprenorphine HCL 8 MG TAB.SUBL SUBLINGUAL ×3 (08:53→20:14)
[2021-11-24] MEDS: Escitalopram Oxalate 20 MG TABLET PO (08:53)
[2021-11-24] MEDS: Furosemide 40 MG/4 ML VIAL IVPUSH ×2 (08:53→17:34)
[2021-11-24] MEDS: 0.9 % Sodium Chloride Flush 3 ML SYRINGE IVFLUSH ×3 (08:53→20:14)
--- NOTE | 2021-11-24 09:00 | MHC.CM.PN ---
CM met with Patient at bedside. 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 Patient has a history of Opiate Dependence and he gets his Suboxone from [facility]. Patient has received 2 Moderna/Covid vax X2 and his PCP is DR. Bhaskar Villafuerte.
--- NOTE | 2021-11-24 11:30 | P.PNIM_ITS ---
Subjective Subjective Date of Service: 11/24/21 Interval History: cc: sob interval history:sob this morning, but now feeling much better Cardiovascular Cardiovascular: Reports no additional cardiovascular complaints Respiratory Respiratory: Reports no additional respiratory complaints Physical Exam Vital Signs: Vital Signs: Last Vital Signs Temp 97.3 F 11/24/21 11:19 Pulse 75 11/24/21 11:19 Resp 20 11/24/21 11:19 BP 123/79 11/24/21 11:19 Pulse Ox 92 11/24/21 11:19 O2 Del Method 11/24/21 11:19 O2 Flow Rate 1 11/24/21 11:19 BMI result Body Mass Index 19.2 General: AO X 3, no acute distress, cachexic appearing Resp: diminsihed bilateral, no accessory muscles used CVS: S1,S2,RRR, 1+ edema r>L GI: soft, non tender, non distended Neuro: motor grossly intact, alert Psych: appropriate affect, appropriate insight Objective Data Active Medications Acetaminophen (Acetaminophen 325 Mg Tablet) 650 mg PO Q6H PRN PRN Reason: Pain, Mild (Pain Scale 1-3) Albuterol/Ipratropium (Albuterol/Iprat 2.5/0.5mg 3 Ml Ampul.Neb) 3 ml INHALE RQ4H PRN PRN Reason: sob Aspirin (Aspirin Enteric Coated 81 Mg Tablet.) 81 mg PO DAILY [facility] Last Admin: 11/24/21 08:52 Dose: 81 mg Documented By: NARCISO Atorvastatin Calcium (Atorvastatin Calcium 40 Mg Tablet) 40 mg PO BEDTIME [facility] Last Admin: 11/23/21 21:59 Dose: 40 mg Documented By: YEIMY Buprenorphine HCl (Buprenorphine Hcl 8 Mg Tab.Subl) 8 mg SUBLINGUAL TID [facility] Last Admin: 11/24/21 08:53 Dose: 8 mg Documented By: NARCISO Bupropion HCl (Bupropion Hcl Xl 300 Mg Tab.Er.24h) 300 mg PO DAILY [facility] Last Admin: 11/24/21 08:51 Dose: 300 mg Documented By: NARCISO Enoxaparin Sodium (Enoxaparin Sodium 40 Mg/0.4 Ml Syringe) 40 mg SUBCUT Q24H [facility] Last Admin: 11/23/21 16:09 Dose: 40 mg Documented By: KOKO Escitalopram Oxalate (Escitalopram Oxalate 20 Mg Tablet) 20 mg PO DAILY [facility] Last Admin: 11/24/21 08:53 Dose: 20 mg Documented By: NARCISO Furosemide (Furosemide 40 Mg/4 Ml Vial) 40 mg IVPUSH BID@0900,1800 [facility]; Protocol Last Admin: 11/24/21 08:53 Dose: 40 mg Documented By: NARCISO Ibuprofen (Ibuprofen 800 Mg Tablet) 800 mg PO Q8H PRN PRN Reason: Pain (Scale Score 4-6) Methylprednisolone Sodium Succinate (Methylprednisolone Sod Succ 40 Mg/Ml Vial) 40 mg IVPUSH Q12H [facility] Last Admin: 11/24/21 05:44 Dose: 40 mg Documented By: YEIMY Non-Formulary Medication (Linaclotide [Linzess]) 290 mcg PO DAILY [facility] Omeprazole (Omeprazole 20 Mg Capsule.Dr) 20 mg PO DAILY [facility] Last Admin: 11/24/21 08:52 Dose: 20 mg Documented By: NARCISO Pharmacy Consult (Consult Rx Perform Med Rec) 1 each MISCELLANE ONCE PRN PRN Reason: Consult order Senna/Docusate Sodium (Sennosides/Docusate Sodium Tablet) 2 tab PO BEDTIME [facility] Last Admin: 11/23/21 21:59 Dose: 2 tab Documented By: YEIMY Sodium Chloride (0.9 % Sodium Chloride Flush 3 Ml Syringe) 3 ml IVFLUSH QSHIFT [facility] Last Admin: 11/24/21 08:53 Dose: 3 ml Documented By: NARCISO Tamsulosin HCl (Tamsulosin Hcl 0.4 Mg Capsule) 0.4 mg PO DAILY [facility] Last Admin: 11/24/21 08:52 Dose: 0.4 mg Documented By: NARCISO Labs CBC & Chem 7: 11/24/21 05:56 11/24/21 05:56 Labs: Laboratory Results - last 24 hr 11/23/21 11/23/21 11/23/21 11:35 11:36 11:36 MCV 94.7 MCH 31.2 MCHC 33.0 RDW 13.9 Plt Count 221 MPV 10.0 Immature Gran % (Auto) 0.3 Neut % (Auto) 81.0 H Lymph % (Auto) 11.3 L Waller % (Auto) 5.7 Eos % (Auto) 1.2 Baso % (Auto) 0.5 Lymph # (Auto) 1.3 Waller # (Auto) 0.7 Eos # (Auto) 0.1 Baso # (Auto) 0.1 Abs Immat Gran (auto) 0.04 H Absolute Neuts (auto) 9.3 H Absolute Nucleated RBC 0.000 Nucleated RBC % (auto) 0.0 PT INR O2 Saturation ABG pH at Pt Temp ABG pCO2 at Pt Temp ABG pO2 at Pt Temp ABG HCO3 ABG Base Excess (Actual) Anion Gap 12 Estim Creat Clear Calc 61.6 Estimated GFR > 60 Random Glucose 146 H Fasting Glucose Calcium 9.0 Magnesium Total Bilirubin 0.7 Direct Bilirubin 0.4 AST 78 H ALT 55 H Alkaline Phosphatase 154 H Troponin I High Sens B-Natriuretic Peptide Total Protein 6.7 Albumin 3.9 Lipase 22 Urine Color Urine Appearance Urine pH Ur Specific [place] Urine Protein Urine Glucose (UA) Urine Ketones Urine Blood Urine Nitrite Ur Leukocyte Esterase Influenza Type A (PCR) NEGATIVE Influenza Type B (PCR) NEGATIVE RSV RNA Qual (PCR) NEGATIVE SARS-CoV-2 RNA (RT-PCR) NEGATIVE 11/23/21 11/23/21 11/23/21 11:36 12:20 14:27 MCV MCH MCHC RDW Plt Count MPV Immature Gran % (Auto) Neut % (Auto) Lymph % (Auto) Wall[place] % (Auto) Eos % (Auto) Baso % (Auto) Lymph # (Auto) Waller # (Auto) Eos # (Auto) Baso # (Auto) Abs Immat Gran (auto) Absolute Neuts (auto) Absolute Nucleated RBC Nucleated RBC % (auto) PT INR O2 Saturation 85.0 ABG pH at Pt Temp 7.36 ABG pCO2 at Pt Temp 40 ABG pO2 at Pt Temp 58 L ABG HCO3 23 ABG Base Excess (Actual) -2.0 Anion Gap Estim Creat Clear Calc Estimated GFR Random Glucose Fasting Glucose Calcium Magnesium Total Bilirubin Direct Bilirubin AST ALT Alkaline Phosphatase Troponin I High Sens 78.3 H B-Natriuretic Peptide 3987 H Total Protein Albumin Lipase Urine Color YELLOW Urine Appearance CLEAR Urine pH 5.5 Ur Specific [place] >= 1.030 H Urine Protein TRACE Urine Glucose (UA) NEG Urine Ketones NEG Urine Blood NEG Urine Nitrite NEG Ur Leukocyte Esterase NEG Influenza Type A (PCR) Influenza Type B (PCR) RSV RNA Qual (PCR) SARS-CoV-2 RNA (RT-PCR) 11/24/21 11/24/21 11/24/21 05:56 05:56 06:56 MCV 93.4 MCH 31.2 MCHC 33.4 RDW 13.9 Plt Count 202 MPV 10.1 Immature Gran % (Auto) Neut % (Auto) Lymph % (Auto) Waller % (Auto) Eos % (Auto) Baso % (Auto) Lymph # (Auto) Waller # (Auto) Eos # (Auto) Baso # (Auto) Abs Immat Gran (auto) Absolute Neuts (auto) Absolute Nucleated RBC 0.000 Nucleated RBC % (auto) 0.0 PT 11.3 INR 1.0 O2 Saturation ABG pH at Pt Temp ABG pCO2 at Pt Temp ABG pO2 at Pt Temp ABG HCO3 ABG Base Excess (Actual) Anion Gap 13 Estim Creat Clear Calc 58.8 Estimated GFR > 60 Random Glucose Fasting Glucose 118 H Calcium 8.6 Magnesium 1.6 Total Bilirubin Direct Bilirubin AST ALT Alkaline Phosphatase Troponin I High Sens B-Natriuretic Peptide Total Protein Albumin Lipase Urine Color Urine Appearance Urine pH Ur Specific [place] Urine Protein Urine Glucose (UA) Urine Ketones Urine Blood Urine Nitrite Ur Leukocyte Esterase Influenza Type A (PCR) Influenza Type B (PCR) RSV RNA Qual (PCR) SARS-CoV-2 RNA (RT-PCR) Assessment and Plan (1) BPH (benign prostatic hyperplasia): Status: Acute Plan 71M presented with sob acute hypoxic respiratory failure due to acute unspecified chf and copd with decompensation some improvement continue IV lasix, follow up echo, monitor bmp iv solumedrol, bronchodilators wean o2 as tolerated, keep sats 90-94% venous us negative for dvt elevated lfts suspect hepatic congestion, pvd asa, statin motrin with gi prophylaxis mood disorder continue buproprion, lexapro opiate dependence suboxone bph flomax dvt prophylaxis - lovenox full code reason for continued hospitalization: still hypoxic, needing iv diuresis Quality Stroke Does the patient have a stroke diagnosis?: No VTE Prior VTE?: No VTE Risk Level:: Medical - moderate - high VTE Device Contraindication: Treatment Not Indicated VTE Drug Contraindication: N/A - Med Ordered
[2021-11-24] MEDS: Enoxaparin Sodium 40 MG/0.4 ML SYRINGE SUBCUT (15:06)
[2021-11-24] MEDS: Atorvastatin Calcium 40 MG TABLET PO (20:14)
[2021-11-24] MEDS: Sennosides/Docusate Sodium TABLET 2 TAB PO (20:14)
[2021-11-25] VITALS (8 sets, daily range): BP systolic 106–154; BP diastolic 73–87; PULSE 66–88; RESP 16–18; TEMP 36.3–37; O2SAT 94–97
[2021-11-25 05:36] LABS: Hematocrit 42.8 % (42.0-52.0); Hemoglobin 14.2 g/dl (14.0-18.0); Mean Corpuscular HGB Conc 33.2 g/dl (31.0-36.0); Mean Corpuscular Hemoglobin 31.4 pg (27.0-33.0); Mean Corpuscular Volume 94.7 fL (80.0-98.0); Mean Platelet Volume 10.4 fL (9.4-12.4); Platelet Count 203 X10*3/uL (160-400); Red Blood Count 4.52 X10*6/uL (4.60-5.80); White Blood Count 13.5 X10*3/uL (4.8-10.8)
[2021-11-25 05:54] LABS: Anion Gap 13 (12-20); Blood Urea Nitrogen 35 mg/dL (9-16); Calcium 9.1 mg/dL (8.4-10.2); Carbon Dioxide 36 mmol/L (22-29); Chloride 98 mmol/L (96-108); Creatinine Clr Calc Pharmacy 55.2; Estimated Glomerular Filt Rate > 60; Glucose Fasting 107 mg/dL (60-99); Sodium 143 mmol/L (135-145)
[2021-11-25] MEDS: methylPREDNISolone Sod Succ 40 MG/ML VIAL IVPUSH (05:54)
--- NOTE | 2021-11-25 10:40 | P.CONCA_ITS ---
History of Present Illness History of Present Illness Date of Service: 11/25/21 Chief complaint: CHF, hypoxia, copd Narrative: This is a cardiology consultation regarding cardiomyopathy. Patient was primarily admitted for acute onset shortness of breath. He has a long history of cigarette smoking and continues to smoke till the time of admission. There is also history of heroin use but last use was many years ago. Otherwise patient denies any cardiac issues like coronary artery disease myocardial infarction or cardiomyopathy or in fact any cardiac issues whatsoever in the past. He is admitted mainly for acute shortness of breath that has been happening in the last few days when he gets up in the morning. Some shortness of breath with activity as well. No anginal-type symptoms or other cardiac complaints. He got echocardiogram that showed markedly diminished LVEF and he nce we were consulted. Review of Systems Review of Systems: Yes all other systems are reviewed and are negative Constitutional: Constitutional: Reports as per HPI Eyes: Eyes: Reports as per HPI ENT: Reports as per HPI Cardiovascular: Cardiovascular: Reports as per HPI, Denies acrocyanosis, Denies cool extremities, Denies chest pain, Denies leg edema, Denies lightheadedness, Denies palpitations and Reports dyspnea Respiratory: Respiratory: Reports as per HPI, Reports no additional respiratory complaints and Reports dyspnea Gastrointestinal: Gastrointestinal: Reports as per HPI and Reports no additional gastrointestinal complaints Genitourinary: Genitourinary: Reports no additional male genitourinary complaints and Reports as per HPI Musculoskeletal: Musculoskeletal: Reports no additional musculoskeletal complaints and Reports as per HPI Integumentary/Breasts: Skin/Breast: Reports system reviewed and no additional complaints, except as docu Neurologic: Reports system reviewed and no additional complaints, except as documented and Reports as per HPI Psychiatric: Psychiatric: Reports no additional psychiatric complaints and Reports as per HPI Endocrine: Endocrine: Reports no additional endocrine complaints, Reports as per HPI and Denies palpitations Hematologic/Lymphatic: Hematologic/Lymphatic: Reports no additional hematologic/lymphatic complaints and Reports as per HPI Allergic/Immunologic: Allergic/Immunologic: Reports no additional allergic/immunologic complaints and Reports as per HPI [facility] Past Medical History Medical History BPH (benign prostatic hyperplasia) COPD (chronic obstructive pulmonary disease) Endocarditis GERD (gastroesophageal reflux disease) HCV (hepatitis C virus) Opiate dependence Peripheral artery disease Family History Family History (Updated 11/25/21 @ 10:42 by Mustapha Newton MD) Mother Alzheimer disease Father Myocardial infarct Social History Social History Household Members: Other Household Members Other:: daughter and grandaughter. Housing: House Do you presently have visiting nurse or other home services: No Alcohol intake: never Patient Tobacco Use Status: Current everyday Tobacco user Tobacco use type: Cigarette Cigarette Packs Per Day: 1 Cigarettes Per Day: 20.0 Years Smoked: 50 Substance Use Type: Marijuana service: Yes Current occupational status: [employer] Allergies Allergy/AdvReac Type Severity Reaction Status Date / Time No Known Allergies Allergy Verified 11/23/21 22:16 Active Medications: Current Medications Acetaminophen (Acetaminophen 325 Mg Tablet) 650 mg PO Q6H PRN PRN Reason: Pain, Mild (Pain Scale 1-3) Albuterol/Ipratropium (Albuterol/Iprat 2.5/0.5mg 3 Ml Ampul.Neb) 3 ml INHALE RQ4H PRN PRN Reason: sob Aspirin (Aspirin Enteric Coated 81 Mg Tablet.Dr) 81 mg PO DAILY [facility] Last Admin: 11/24/21 08:52 Dose: 81 mg Atorvastatin Calcium (Atorvastatin Calcium 40 Mg Tablet) 40 mg PO BEDTIME [facility] Last Admin: 11/24/21 20:14 Dose: 40 mg Buprenorphine HCl (Buprenorphine Hcl 8 Mg Tab.Subl) 8 mg SUBLINGUAL TID [facility] Last Admin: 11/24/21 20:14 Dose: 8 mg Bupropion HCl (Bupropion Hcl Xl 300 Mg Tab.Er.24h) 300 mg PO DAILY [facility] Last Admin: 11/24/21 08:51 Dose: 300 mg Enoxaparin Sodium (Enoxaparin Sodium 40 Mg/0.4 Ml Syringe) 40 mg SUBCUT Q24H [facility] Last Admin: 11/24/21 15:06 Dose: 40 mg Escitalopram Oxalate (Escitalopram Oxalate 20 Mg Tablet) 20 mg PO DAILY [facility] Last Admin: 11/24/21 08:53 Dose: 20 mg Methylprednisolone Sodium Succinate (Methylprednisolone Sod Succ 40 Mg/Ml Vial) 40 mg IVPUSH Q12H [facility] Last Admin: 11/25/21 05:54 Dose: 40 mg Non-Formulary Medication (Linaclotide [Linzess]) 290 mcg PO DAILY [facility] Omeprazole (Omeprazole 20 Mg Capsule.) 20 mg PO DAILY [facility] Last Admin: 11/24/21 08:52 Dose: 20 mg Pharmacy Consult (Consult Rx Perform Med Rec) 1 each MISCELLANE ONCE PRN PRN Reason: Consult order Sacubitril/Valsartan (Sacubitril/Valsartan 1 Tab Tablet) 1 tab PO BID [facility]; Protocol Senna/Docusate Sodium (Sennosides/Docusate Sodium Tablet) 2 tab PO BEDTIME [facility] Last Admin: 11/24/21 20:14 Dose: 2 tab Sodium Chloride (0.9 % Sodium Chloride Flush 3 Ml Syringe) 3 ml IVFLUSH QSHIFT [facility] Last Admin: 11/24/21 20:14 Dose: 3 ml Tamsulosin HCl (Tamsulosin Hcl 0.4 Mg Capsule) 0.4 mg PO DAILY [facility] Last Admin: 11/24/21 08:52 Dose: 0.4 mg Home Medications Medication Instructions Recorded Confirmed Last Taken Type buprenorphine HCl 8 mg sublingual 8 mg sublingual TID 11/23/21 11/23/21 Unknown History tablet bupropion HCl 150 mg tablet,12 hr 150 mg PO BID 11/23/21 11/23/21 Unknown History sustained-release escitalopram oxalate 20 mg tablet 20 mg PO DAILY 11/23/21 11/23/21 Unknown History ibuprofen 800 mg tablet 800 mg PO Q8H PRN Pain (Scale 11/23/21 11/23/21 Unknown History Score 4-6) linaclotide 290 mcg capsule 290 mcg PO DAILY 11/23/21 11/23/21 Unknown History (Kileyzess) pantoprazole 40 mg tablet,delayed 1 tab PO DAILY 11/23/21 11/23/21 Unknown History release sennosides 8.6 mg-docusate sodium 2 tab PO BEDTIME constipation 11/23/21 11/23/21 Unknown History 50 mg tablet (Senexon-S) tamsulosin 0.4 mg capsule 0.4 mg PO DAILY 11/23/21 11/23/21 Unknown History Physical Exam Vital Signs: Vital Signs: Last Vital Signs Temp 98.5 F 11/25/21 07:36 Pulse 82 11/25/21 07:36 Resp 16 11/25/21 07:36 BP 154/86 H 11/25/21 07:36 Pulse Ox 95 11/25/21 07:36 O2 Del Method 11/25/21 07:36 O2 Flow Rate 1 11/25/21 07:36 BMI result Body Mass Index 19.2 Const: General: comfortable and no acute distress Orientation/consci ousness: patient oriented x3 HEENT: Other: Unremarkable Head: Yes normal to inspection Neck: Neck: Yes normal visual inspection Chest: Chest palpation & inspection: normal inspection of the chest Resp: Other: few crackles Auscultation: diminished lung sounds Cardio: Palpation: normal PMI Heart sounds: S1 normal heart sound present, S2 normal heart sound present, no gallops, no murmurs and no rubs GI: Palpation (GI): Soft to palpation Back/Spine/Pelvis: Other: unremarkable Skin: General skin exam: no rashes or lesions noted Neuro: General: patient oriented x3 Extrem: General: Yes normal to inspection Psych: Mental Status: mental status grossly normal Objective Labs and Meds Result diagrams: 11/25/21 05:24 11/25/21 05:24 Lab results: Laboratory Results - last 24 hr 11/25/21 11/25/21 05:24 05:24 WBC 13.5 H RBC 4.52 L Hgb 14.2 Hct 42.8 MCV 94.7 MCH 31.4 MCHC 33.2 RDW 14.0 Plt Count 203 MPV 10.4 Absolute Nucleated RBC 0.000 Nucleated RBC % (auto) 0.0 Sodium 143 Potassium 4.0 Chloride 98 Carbon Dioxide 36 H Anion Gap 13 BUN 35 H D Creatinine 1.16 Estim Creat Clear Calc 55.2 Estimated GFR > 60 Fasting Glucose 107 H Calcium 9.1 ECG Interpretation: EKG with sinus rhythm at 81/Min; left ventricular hypertrophy with strain pattern with lateral T inversions. PVC. Assessment and Plan (1) Acute combined systolic and diastolic CHF, NYHA class 3: Status: Acute Plan High sensitivity troponin 78.3. Cardiac BNP 3987. Echocardiogram with severely depressed LVEF at less than 10%. There is mild mitral regurgitation; [id number] tricuspid regurgitation and moderate pulmonary hypertension. Overall, his shortness of breath is probably cardiac with additional co ntribution from pulmonary/COPD. Empiric diuresis although he does not look to volume overload at this time. We can start Entresto. Eventually some beta-blockers after the acute heart failure improves. He will need a diagnostic cardiac catheterization to assess coronary anatomy. Hence we will transfer to [facility] tomorrow. Discussed with patient about this and he understands. Discussed with Dr. Tijerina. Procedures Date of Service Date of Service: 11/25/21
--- NOTE | 2021-11-25 10:42 | HO.PM.IMPN ---
Subjective Subjective Date of Service: 11/25/21 Interval History: cc: sob interval history: much improved Cardiovascular Cardiovascular: Reports no additional cardiovascular complaints Respiratory Respiratory: Reports no additional respiratory complaints Physical Exam Vital Signs: Vital Signs: Last Vital Signs Temp 98.5 F 11/25/21 07:36 Pulse 82 11/25/21 07:36 Resp 16 11/25/21 07:36 BP 154/86 H 11/25/21 07:36 Pulse Ox 95 11/25/21 07:36 O2 Del Method 11/25/21 07:36 O2 Flow Rate 1 11/25/21 07:36 BMI result Body Mass Index 19.2 General: AO X 3, no acute distress, cachexic appearing Resp: diminsihed bilateral, no accessory muscles used CVS: S1,S2,RRR, edema resolved GI: soft, non tender, non distended Neuro: motor grossly intact, alert Psych: appropriate affect, appropriate insight Objective Data Active Medications Acetaminophen (Acetaminophen 325 Mg Tablet) 650 mg PO Q6H PRN PRN Reason: Pain, Mild (Pain Scale 1-3) Albuterol/Ipratropium (Albuterol/Iprat 2.5/0.5mg 3 Ml Ampul.Neb) 3 ml INHALE RQ4H PRN PRN Reason: sob Aspirin (Aspirin Enteric Coated 81 Mg Tablet.) 81 mg PO DAILY REPLACED BY [facility] Last Admin: 11/24/21 08:52 Dose: 81 mg Documented By: NARCISO Atorvastatin Calcium (Atorvastatin Calcium 40 Mg Tablet) 40 mg PO BEDTIME REPLACED BY [facility] Last Admin: 11/24/21 20:14 Dose: 40 mg Documented By: OSITO Buprenorphine HCl (Buprenorphine Hcl 8 Mg Tab.Subl) 8 mg SUBLINGUAL TID REPLACED BY [facility] Last Admin: 11/24/21 20:14 Dose: 8 mg Documented By: OSITO Bupropion HCl (Bupropion Hcl Xl 300 Mg Tab.Er.24h) 300 mg PO DAILY [facility]PL[facility] Last Admin: 11/24/21 08:51 Dose: 300 mg Documented By: NARCISO Enoxaparin Sodium (Enoxaparin Sodium 40 Mg/0.4 Ml Syringe) 40 mg SUBCUT Q24H REPLACED BY [facility] Last Admin: 11/24/21 15:06 Dose: 40 mg Documented By: NARCISO Escitalopram Oxalate (Escitalopram Oxalate 20 Mg Tablet) 20 mg PO DAILY [facility]PLAC[facility] BY [facility] Last Admin: 11/24/21 08:53 Dose: 20 mg Documented By: NARCISO Methylprednisolone Sodium Succinate (Methylprednisolone Sod Succ 40 Mg/Ml Vial) 40 mg IVPUSH Q12H REPLACED BY [facility] Last Admin: 11/25/21 05:54 Dose: 40 mg Documented By: OSITO Non-Formulary Medication (Linaclotide [Linzess]) 290 mcg PO DAILY REPLACED BY [facility] Omeprazole (Omeprazole 20 Mg Capsule.) 20 mg PO DAILY [facility] BY [facility] Last Admin: 11/24/21 08:52 Dose: 20 mg Documented By: NARCISO Pharmacy Consult (Consult Rx Perform Med Rec) 1 each MISCELLANE ONCE PRN PRN Reason: Consult order Sacubitril/Valsartan (Sacubitril/Valsartan 1 Tab Tablet) 1 tab PO BID [facility]PL[facility]ED BY [facility]; Protocol Senna/Docusate Sodium (Sennosides/Docusate Sodium Tablet) 2 tab PO BEDTIME REPLACED BY [facility] Last Admin: 11/24/21 20:14 Dose: 2 tab Documented By: OSITO Sodium Chloride (0.9 % Sodium Chloride Flush 3 Ml Syringe) 3 ml IVFLUSH QSHIFT REPLACED BY [facility] Last Admin: 11/24/21 20:14 Dose: 3 ml Documented By: OSITO Tamsulosin HCl (Tamsulosin Hcl 0.4 Mg Capsule) 0.4 mg PO DAILY REPLACED BY [facility] Last Admin: 11/24/21 08:52 Dose: 0.4 mg Documented By: NARCISO Labs CBC & Chem 7: 11/25/21 05:24 11/25/21 05:24 Labs: Laboratory Results - last 24 hr 11/25/21 11/25/21 05:24 05:24 MCV 94.7 MCH 31.4 MCHC 33.2 RDW 14.0 Plt Count 203 MPV 10.4 Absolute Nucleated RBC 0.000 Nucleated RBC % (auto) 0.0 Anion Gap 13 Estim Creat Clear Calc 55.2 Estimated GFR > 60 Fasting Glucose 107 H Calcium 9.1 Assessment and Plan (1) BPH (benign prostatic hyperplasia): Status: Acute Plan 71M presented with sob acute hypoxic respiratory failure due to acute systolic chf and copd with acute decompensation sob much improved echo with EF<10%, moderate pulm htn diuresed well, will dc lasix, needs ischemic work up, plan for transfer tomorrow to [facility] [place] for cath on 11/27/21 starting entresto - monitor bmp holding off on beta blockers for now change to prednisone, nebs as needed wean o2 as tolerated, keep sats 90-94% venous us negative for dvt elevated lfts suspect hepatic congestion pvd asa, statin mood disorder continue buproprion, lexapro opiate dependence suboxone bph flomax dvt prophylaxis - lovenox full code reason for continued hospitalization: severely depressed EF, plan for cath prior to dc Quality Stroke Does the patient have a stroke diagnosis?: No VTE Prior VTE?: No VTE Risk Level:: Medical - moderate - high VTE Device Contraindication: Treatment Not Indicated VTE Drug Contraindication: N/A - Med Ordered
[2021-11-25] MEDS: Escitalopram Oxalate 20 MG TABLET PO (11:26)
[2021-11-25] MEDS: Aspirin Enteric Coated 81 MG TABLET.DR PO (11:26)
[2021-11-25] MEDS: Sacubitril/Valsartan 24/26 1 TAB TABLET PO ×2 (11:26→20:56)
[2021-11-25] MEDS: buPROPion HCl XL 300 MG TAB.ER.24H PO (11:27)
[2021-11-25] MEDS: Tamsulosin HCL 0.4 MG CAPSULE PO (11:27)
[2021-11-25] MEDS: 0.9 % Sodium Chloride Flush 3 ML SYRINGE IVFLUSH ×3 (11:27→20:57)
[2021-11-25] MEDS: Omeprazole 20 MG CAPSULE.DR PO (11:27)
[2021-11-25] MEDS: Buprenorphine HCL 8 MG TAB.SUBL SUBLINGUAL ×3 (11:45→20:57)
[2021-11-25] MEDS: Enoxaparin Sodium 40 MG/0.4 ML SYRINGE SUBCUT (14:48)
[2021-11-25] MEDS: Sennosides/Docusate Sodium TABLET 2 TAB PO (20:56)
[2021-11-25] MEDS: Atorvastatin Calcium 40 MG TABLET PO (20:56)
[2021-11-26 02:55] VITALS: BP 130/72; PULSE 78; RESP 18; TEMP 36.4; O2SAT 97
[2021-11-26 06:19] LABS: Hematocrit 42.4 % (42.0-52.0); Mean Platelet Volume 10.5 fL (9.4-12.4); Platelet Count 183 X10*3/uL (160-400); Red Blood Count 4.51 X10*6/uL (4.60-5.80); Red Cell Distribution Width 13.7 % (11.0-16.0); White Blood Count 10.4 X10*3/uL (4.8-10.8)
[2021-11-26 07:29] LABS: Anion Gap 13 (12-20); Blood Urea Nitrogen 29 mg/dL (9-16); Calcium 8.7 mg/dL (8.4-10.2); Carbon Dioxide 30 mmol/L (22-29); Chloride 101 mmol/L (96-108); Creatinine Clr Calc Pharmacy 79.1; Estimated Glomerular Filt Rate > 60; Glucose Fasting 86 mg/dL (60-99); Potassium 3.5 mmol/L (3.3-5.1); Sodium 140 mmol/L (135-145)
[2021-11-26 07:51] VITALS: BP 131/88; PULSE 92; RESP 18; TEMP 36.8; O2SAT 97
[2021-11-26] MEDS: buPROPion HCl XL 300 MG TAB.ER.24H PO (09:38)
[2021-11-26] MEDS: 0.9 % Sodium Chloride Flush 3 ML SYRINGE IVFLUSH (09:38)
[2021-11-26] MEDS: Buprenorphine HCL 8 MG TAB.SUBL SUBLINGUAL (09:38)
[2021-11-26] MEDS: Aspirin Enteric Coated 81 MG TABLET.DR PO (09:38)
[2021-11-26] MEDS: Tamsulosin HCL 0.4 MG CAPSULE PO (09:38)
[2021-11-26] MEDS: predniSONE 20 MG TABLET 40 MG PO (09:38)
[2021-11-26] MEDS: Escitalopram Oxalate 20 MG TABLET PO (09:38)
[2021-11-26] MEDS: Omeprazole 20 MG CAPSULE.DR PO (09:39)
[2021-11-26] MEDS: Sacubitril/Valsartan 24/26 1 TAB TABLET PO (09:39)
--- NOTE | 2021-11-26 09:41 | P.DS_ITS ---
DS: Providers Provider Date of Service: 11/26/21 Date of admission: 11/23/21 14:02 Primary care physician: Bhaskar Villafuerte DO Consults: 11/24/21 14:49 Consult to Cardiology Routine Consulting Provider: Mustapha Newton Reason for consultation: chf DS: Diagnosis Discharge Diagnosis (1) BPH (benign prostatic hyperplasia): Status: Acute DS: Summary Hospital Course Hospital Course: from initial hpi: Chief Complaint: sob 71M presented with sob. patient reports that over several days he has been having progressive sob, worst in the early AM, usually improving over the day. was still able to tolerate moderate exertion such as lawncare. however, on day of admission was severely sob even at rest so called EMS. patient also reporting productive cough with yellow sputum. he does notice occasional leg edema, currently does have L>R lower extremity edema. denies fever, chills, chest pain, orthopnea, PND, weight loss, loss of appetite. in ED found to be hypoxic, 86% on room air, low 90s on 4L. CXR shows evidence of severe emphysema, possible chf, bnp 3987. hospital course: Patient was admitted for acute hypoxic respiratory failure found to be secondary to acute systolic CHF and COPD with acute decompensation. Patient was given IV Lasix and Solu-Medrol with bronchodilators. His echocardiogram revealed an EF of less than 10% with moderate pulmonary hypertension. He was seen by Cardiology recommended starting Entresto, holding off on beta-blockers for now, and transferring to [facility] for cardiac catheterization. Patient diuresed well and symptoms significantly improved. He feels like his breathing is back to baseline. For his peripheral vascular disease he continue aspirin statin, for his mood disorder he will continue bupropion and Lexapro. For his opiate dependence he reports long-term remission and is on Suboxone. For his BPH he is on Flomax. Time Spent with Patient Time attestation: Total time spent providing and/or coordinating discharge services: Discharge coordination time: Greater than 30 minutes Quality: Safe Use of Opioids Does Pt have an Active Cancer Diagnosis on the Problem List?: No Quality: Stroke Does the patient have a stroke diagnosis?: No Physical Exam Vital Signs: Vital Signs: Last Vital Signs Temp 98.3 F 11/26/21 07:51 Pulse 92 11/26/21 07:51 Resp 18 11/26/21 07:51 BP 131/88 11/26/21 07:51 Pulse Ox 97 11/26/21 07:51 O2 Del Method 11/26/21 07:51 O2 Flow Rate 0.5 11/26/21 07:51 BMI result Body Mass Index 19.2 General: AO X 3, no acute distress, cachexic appearing Resp: diminsihed bilateral, no accessory muscles used CVS: S1,S2,RRR, edema resolved GI: soft, non tender, non distended Neuro: motor grossly intact, alert Psych: appropriate affect, appropriate insight DS: Data Data Completed and Pending Labs on day of discharge: Laboratory Results - last 24 hr 11/26/21 11/26/21 05:32 06:45 WBC 10.4 RBC 4.51 L Hgb 14.0 Hct 42.4 MCV 94.0 MCH 31.0 MCHC 33.0 RDW 13.7 Plt Count 183 MPV 10.5 Absolute Nucleated RBC 0.000 Nucleated RBC % (auto) 0.0 Sodium 140 Potassium 3.5 Chloride 101 Carbon Dioxide 30 H Anion Gap 13 BUN 29 H Creatinine 0.81 Estim Creat Clear Calc 79.1 Estimated GFR > 60 Fasting Glucose 86 Calcium 8.7 Discharge Plan Discharge Patient Disposition: Xfer Acute Care Hospital Discharge Diagnosis: chf Referrals: Bhaskar Villafuerte DO [Primary Care Provider] - 1 Week Discharge Medications: New atorvastatin 40 mg Tablet 40 mg PO BEDTIME Qty: 0 0RF aspirin 81 mg Tablet,Delayed Release (Dr/Ec) 81 mg PO DAILY Qty: 0 0RF Entresto 24-26 mg Tablet 1 tab PO BID Qty: 0 0RF Protocol: Hold for SBP< HOLD for SBP < : 90 Continued bupropion HCl 150 mg tablet sustained-release 12 hr 150 mg PO BID Rx Instructions: PATIENT HAS NOT YET STARTED THIS MEDICATION YET sennosides-docusate sodium [Senexon-S] 8.6-50 mg tablet 2 tab PO BEDTIME tamsulosin 0.4 mg capsule 0.4 mg PO DAILY pantoprazole 40 mg tablet,delayed release (DR/EC) 1 tab PO DAILY escitalopram oxalate 20 mg tablet 20 mg PO DAILY buprenorphine HCl 8 mg tablet, sublingual 8 mg SUBLINGUAL TID Linzess 290 mcg capsule 290 mcg PO DAILY Discontinued ibuprofen 800 mg tablet 800 mg PO Q8H PRN (Reason: Pain (Scale Score 4-6)) Diet: advance to usual diet Activity on Discharge: As tolerated Stand Alone Forms: Patient Portal Discharge page Care Plan Goals: manage chf Health Concerns: chf, copd Plan of Treatment: transfer to [facility] [place] for cath Assessment: see above
--- NOTE | 2021-11-26 10:57 | PM.PNCARD ---
Subjective Subjective Date of Service: 11/26/21 Interval history: He states that he feels okay. Shortness of breath is improved. Review of Systems Review of Systems Yes all other systems are reviewed and are negative Constitutional: Reports as per HPI Eyes: Reports as per HPI Reports as per HPI Cardiovascular: Reports as per HPI, Denies acrocyanosis, Denies cool extremities, Denies chest pain, Denies leg edema, Denies lightheadedness, Denies palpitations and Denies dyspnea Respiratory: Reports as per HPI, Reports no additional respiratory complaints and Denies dyspnea Gastrointestinal: Reports as per HPI and Reports no additional gastrointestinal complaints Genitourinary: Reports no additional male genitourinary complaints and Reports as per HPI Musculoskeletal: Reports no additional musculoskeletal complaints and Reports as per HPI Skin/Breast: Reports system reviewed and no additional complaints, except as docu Reports system reviewed and no additional complaints, except as documented and Reports as per HPI Psychiatric: Reports no additional psychiatric complaints and Reports as per HPI Endocrine: Reports no additional endocrine complaints, Reports as per HPI and Denies palpitations Hematologic/Lymphatic: Reports no additional hematologic/lymphatic complaints and Reports as per HPI Allergic/Immunologic: Reports no additional allergic/immunologic complaints and Reports as per HPI Physical Exam Vital Signs: Last Vital Signs Temp 98.3 F 11/26/21 07:51 Pulse 92 11/26/21 07:51 Resp 18 11/26/21 07:51 BP 131/88 11/26/21 07:51 Pulse Ox 97 11/26/21 07:51 O2 Del Method 11/26/21 07:51 O2 Flow Rate 0.5 11/26/21 07:51 BMI result Body Mass Index 19.2 Const General: comfortable and no acute distress Orientation/consciousness: patient oriented x3 HEENT Other: Unremarkable Head: Yes normal to inspection Neck Neck: Yes normal visual inspection Chest Chest palpation & inspection: normal inspection of the chest Resp Other: few crackles Auscultation: diminished lung sounds Cardio Palpation: normal PMI Heart sounds: S1 normal heart sound present, S2 normal heart sound present, no gallops, no murmurs and no rubs GI Palpation (GI): Soft to palpation Back/Spine/Pelvis Other: unremarkable Skin General skin exam: no rashes or lesions noted Neuro General: patient oriented x3 Extrem General: Yes normal to inspection Psych Mental Status: mental status grossly normal Objective Labs and Meds Result diagrams: 11/26/21 05:32 11/26/21 06:45 Lab results: Laboratory Results - last 24 hr 11/26/21 11/26/21 05:32 06:45 WBC 10.4 RBC 4.51 L Hgb 14.0 Hct 42.4 MCV 94.0 MCH 31.0 MCHC 33.0 RDW 13.7 Plt Count 183 MPV 10.5 Absolute Nucleated RBC 0.000 Nucleated RBC % (auto) 0.0 Sodium 140 Potassium 3.5 Chloride 101 Carbon Dioxide 30 H Anion Gap 13 BUN 29 H Creatinine 0.81 Estim Creat Clear Calc 79.1 Estimated GFR > 60 Fasting Glucose 86 Calcium 8.7 Progress Note: A&P Assessment and plan (1) Acute combined systolic and diastolic CHF, NYHA class 3: Status: Acute Plan High sensitivity troponin 78.3. Cardiac BNP 3987. Echocardiogram with severely depressed LVEF at less than 10%. There is mild mitral regurgitation; [id number] tricuspid regurgitation and moderate pulmonary hypertension. Received IV diuretics but now clinically euvolemic. We will start Entresto. Eventually beta-blockers and more stable. Discussed with patient about a diagnostic catheterization to assess coronary status and he is agreeable. Will transfer to [facility] today. Plan for cardiac catheterization the next day or so. Discussed with . Time Spent With Patient Time: Total time spent is greater than 50% in coordination of care (as documented) at patient's floor/unit and/or counseling patient: 35min. Progress Note: Quality Stroke Does the patient have a stroke diagnosis?: No Procedures Date of Service Date of Service: 11/26/21
[2021-11-26 11:42] VITALS: BP 127/80; PULSE 85; RESP 18; TEMP 37.2; O2SAT 96
== END 2021-11-26 14:40 | disposition short-term general hospital (02) | DRG 291 ==
LOC: HO.ED 12:59 → HO.EDOVER 14:13 → HO.IMC 19:58
PROVIDERS: Admitting Provider Internal Medicine; Emergency Provider Emergency Medicine; PCP Internal Medicine; Visit Provider Internal Medicine
DX: I50.43 Acute on chronic combined systolic (congestive) and diastolic (congestive) heart failure (principal); J96.01 Acute respiratory failure with hypoxia; F11.20 Opioid dependence, uncomplicated; J44.1 Chronic obstructive pulmonary disease with (acute) exacerbation; K21.9 Gastro-esophageal reflux disease without esophagitis; N40.0 Benign prostatic hyperplasia without lower urinary tract symptoms; I08.1 Rheumatic disorders of both mitral and tricuspid valves; Z86.19 Personal history of other infectious and parasitic diseases; F17.210 Nicotine dependence, cigarettes, uncomplicated; Z20.822 Contact with and (suspected) exposure to COVID-19; Z71.6 Tobacco abuse counseling; Z79.82 Long term (current) use of aspirin; Z79.899 Other long term (current) drug therapy
CPT/HCPCS: 0241U; 36415; 71045; 74176; 80048; 80076; 81003; 82803; 82947; 83690; 83735; 83880; 84484; 85025; 85027; 85610; 93005; 93306; 93970; 96374; 99285; J0571; J1650; J1940; J2920; Q9957

== ENCOUNTER → 2021-12-12 15:20 | Outpatient (BNVA) | payer MEDICARE, MEDICAID, SELFPAY | PROVIDERS: PCP Internal Medicine; Visit Provider Internal Medicine | DX: I42.8 Other cardiomyopathies (principal); I25.10 Atherosclerotic heart disease of native coronary artery without angina pectoris; F17.210 Nicotine dependence, cigarettes, uncomplicated | CPT/HCPCS: 99212 ==

== ENCOUNTER 2022-01-16 09:46 | Inpatient (IN) | payer MEDICARE, MEDICAID, SELFPAY ==
[2022-01-16] VITALS (8 sets, daily range): BP systolic 121–138; BP diastolic 90–109; PULSE 87–119; RESP 14–25; TEMP 36.5–36.9; O2SAT 88–100; BMI 20.5; BMI 18.1
--- NOTE | ~2022-01-16 | CT_ITS ---
EXAMINATION: CT CHEST WITHOUT CONTRAST CLINICAL INFORMATION: Shortness of breath COMPARISON: Previous chest x-ray and abdominal and pelvic CT November 2021 and chest x-ray 01/16/2022 TECHNIQUE: Multidetector volumetric CT imaging of the chest was done. Axial MIP volume rendering provided. Sagittal and coronal reformatted images were obtained. This CT examination was performed using dose optimization techniques as appropriate, variously including the following: *Automated exposure control *Adjustment of mA and/or kV according to patient size (this includes techniques or standardized protocols for targeted exams where dose is matched to indication/reason for exam; i.e. extremities or head) *Use of iterative reconstruction technique DLP: 126 mGy-cm FINDINGS: LUNGS: There is evidence of emphysema. There is consolidation or airspace disease and cystic changes seen in the right lower lobe suggestive of pneumonia. There is consolidation and air bronchograms seen in the left lower lobe and inferior segment of the lingula. There is compressive atelectasis of the left lower lobe from the loculated left hydropneumothorax or large left. There are scattered areas of airspace disease change in both central upper lobes questionable pneumonia as well. No endobronchial or endotracheal lesion. MEDIASTINUM: The heart is upper normal in size. There is coronary artery calcification. The thoracic aorta is calcified but normal in caliber. There is question of a small amount of fluid seen in the posterior mediastinum surrounding the lower thoracic esophagus. There are no enlarged hilar or mediastinal lymph nodes. PLEURA: There is a small to moderate right pleural effusion. There is a large air-fluid levels seen in the posterior lower left chest adjacent to the left lower lobe. This is not appear appreciably changed from lung windows from abdominal and pelvic CT November 2021 and may be chronic. Differential would include a loculated hydropneumothorax and large bulla. This causes mass effect on the left lower lobe. AXILLA: No lymphadenopathy. UPPER ABDOMEN: Unremarkable. OSSEOUS STRUCTURES: Old left lateral and posterior rib fractures. Degenerative changes of the spine. CT/CT chest wo con IMPRESSION: Emphysema. Bilateral patchy areas of consolidation and cystic changes probably representing pneumonia largest in the bilateral lower lobes. Small to moderate right pleural effusion. Large air-fluid level adjacent to the posterior left lower lobe similar to lung windows from abdominal and pelvic CT scan 11/23/2021. Differential would fluid a loculated left hydropneumothorax and large labral bulla in the left lower lobe adjacent left pleural effusion. This appears chronic 4 unchanged from November 2021 exam and causes mass effect or compressive atelectasis of the left lower lobe. CT consultation is recommended. Left pigtail chest tube placement to see if the left lower lobe can reexpand may be helpful. Atherosclerotic disease and coronary artery calcification. Question small amount of fluid in the posterior mediastinum surrounding the distal thoracic esophagus. Fleischner guidelines were followed.
--- NOTE | ~2022-01-16 | XR_ITS ---
EXAMINATION: XR CHEST CLINICAL INFORMATION: Shortness of breath COMPARISON: Chest radiographs 11/23/2021, CT abdomen 11/23/2021 TECHNIQUE: Portable upright AP x2 views of the chest are obtained. FINDINGS: There are severe emphysematous changes with superimposed coarsening interstitial markings, left lower zone bulla, and small bilateral effusions similar to prior studies. There are chronic bilateral Francesca B lines which may suggest superimposed interstitial edema. No pneumothorax. Heart size normal. No lobar or segmental airspace consolidation is demonstrated. There is coarsening of the bronchovascular markings since prior exam and some vague right perihilar infrahilar round glass opacity which may represent early pneumonia. XR/XR chest 1V IMPRESSION: -Severe emphysematous changes with coarsened interstitial markings and small basilar effusions similar to prior exam. No pneumothorax. -Vague right perihilar and infrahilar groundglass opacity suspicious for early pneumonia.
--- NOTE | 2022-01-16 09:56 | ECG_ITS ---
Test Reason : SOB Blood Pressure : / mmHG Vent. Rate : 098 BPM Atrial Rate : 098 BPM P-R Int : 154 ms QRS Dur : 158 ms QT Int : 382 ms P-R-T Axes : 085 -62 103 degrees QTc Int : 487 ms Sinus rhythm with Premature atrial complexes Left axis deviation Left bundle branch block Abnormal ECG When compared with ECG of 23-NOV-2021 10:53, Fusion complexes are no longer Present Premature ventricular complexes are no longer Present Premature atrial complexes are now Present Left bundle branch block is now Present Referred By: Generic ED Physician Electronically Signed By:LONI JORDAN MD
--- NOTE | 2022-01-16 11:19 | ED.SOB ---
HPI - SOB/Dyspnea General Chief Complaint: Dyspnea Stated Complaint: Abnormal EKG Time Seen by Provider: 01/16/22 11:09 Source: patient Mode of arrival: wheelchair Limitations: no limitations History of Present Illness HPI Narrative: Patient comes to the emergency room from the cardiology office. Patient states that over the last 3 days, he has been having increased shortness of breath. Patient is known to have CHF with an ejection fraction of less than 10%, COPD. Patient complaining of chills, no fever. Today at the Cardiology visit, patient was short of breath, patient was sent to the emergency room. Patient states he has no chest pain but is complaining of shortness of breath. Patient states that lately he has been having trouble sleeping since he cannot lie flat and also due to frequent urination. Patient states that he ran out of Lasix approximately 2 weeks ago. At this time, patient complaining of feeling weak, tired, chills and short of breath, no chest pain. Related Data Home Medications Medication Instructions Recorded Confirmed buprenorphine HCl 8 mg sublingual 8 mg sublingual TID 11/23/21 01/16/22 tablet linaclotide 290 mcg capsule 290 mcg PO DAILY 11/23/21 01/16/22 (Linzess) pantoprazole 40 mg tablet,delayed 1 tab PO DAILY 11/23/21 01/16/22 release sennosides 8.6 mg-docusate sodium 2 tab PO BEDTIME constipation 11/23/21 01/16/22 50 mg tablet (Senexon-S) furosemide 20 mg tablet 20 mg PO DAILY 12/12/21 01/16/22 cilostazol 100 mg tablet 1 tab PO DAILY 01/16/22 01/16/22 fluticasone furoate 100 1 ea inhalation DAILY 01/16/22 01/16/22 mcg-vilanterol 25 mcg/dose inhalation powder (Breo Ellipta) Previous Rx's Medication Instructions Recorded aspirin 81 mg tablet,delayed 81 mg PO DAILY #0 tabs 11/26/21 release atorvastatin 40 mg tablet 40 mg PO BEDTIME #90 tabs 12/12/21 sacubitril 24 mg-valsartan 26 mg 1 tab PO BID #180 tabs 12/12/21 tablet (Entresto) Allergies Allergy/AdvReac Type Severity Reaction Status Date / Time No Known Allergies Allergy Verified 01/16/22 09:33 Review of Systems Review of Systems: Constitutional : No Weight loss, No Fever, complaining of Chills, No Night Sweats, bleeding of fatigue, generalized malaise ENT/Mouth : No Hearing loss, No Ear Pain, No Nasal Congestion, No Sinus Pain, No Hoarseness, No sore throat, No Rhinorrhea, No Swallowing Difficulty Eyes: No Eye Pain, No Swelling, No Redness, No Foreign Body, No Discharge, No Vision Changes Cardiovascular : No Chest Pain, complaining of shortness of breath, worse with exertion, complaining of orthopnea, no additional lower extremity edema than at baseline Respiratory : No Cough, No Sputum, No Wheezing, No Smoke Exposure, complaining of Dyspnea Gastrointestinal : No Nausea, No Vomiting, No Diarrhea, No Constipation, No abdominal Pain, No Hematochezia, No Melena Genitourinary : No Dysuria, No Urinary Frequency, No Hematuria, No Urinary Incontinence, No Urgency, No Flank Pain, No Urinary Flow Changes, No Hesitancy Musculoskeletal : No joint pain, No Myalgias, No Joint Swelling Skin : No Skin Lesions, No rash Neuro : No Weakness, No Numbness, No Paresthesias, No Loss of Consciousness, No Dizziness, No Headache Psych : No Anxiety/Panic, No Depression, No SI/HI/AH/VH, No Social Issues, Heme/Lymph: No Bruising, No Bleeding,No Lymphadenopathy Endocrine : No Polyuria, No Polydipsia, No Temperature Intolerance [facility] Past Medical History Medical History BPH (benign prostatic hyperplasia) COPD (chronic obstructive pulmonary disease) Endocarditis GERD (gastroesophageal reflux disease) HCV (hepatitis C virus) Opiate dependence Peripheral artery disease Surgical History History of cardiac catheterization Family History Family History Mother Alzheimer disease Father Myocardial infarct Social History Social History Household Members: Other Household Members Other:: daughter and grandaughter. Housing: House Do you presently have visiting nurse or other home services: No Alcohol intake: never Patient Tobacco Use Status: Current everyday Tobacco user Tobacco use type: Cigarette Cigarette Packs Per Day: 1 Cigarettes Per Day: 20.0 Years Smoked: 50 Substance Use Type: Marijuana Advance Directives: No Advance Directives Information Provided: Yes service: Yes Current occupational status: retired Physical Exam Vital Signs: Vital Signs: Last Vital Signs Temp 97.7 F 01/16/22 14:08 Pulse 108 H 01/16/22 14:08 Resp 24 H 01/16/22 15:41 BP 138/104 H 01/16/22 14:08 Pulse Ox 88 L 01/16/22 14:08 O2 Del Method 01/16/22 14:08 O2 Flow Rate 15 01/16/22 14:08 BMI result Body Mass Index 20.5 Const: Other: Appearance: Alert. Oriented X3. No acute distress. Seems weak Eyes: Pupils equal, round and reactive to light. ENT: Pharynx normal. Neck: Normal inspection. Neck supple. No lymph nodes noted. No crepitus CVS: Normal heart rate and rhythm. Pulses normal. Normal S1 and S2 Respiratory: No respiratory distress. Mild bibasilar crackles, no wheezing, no rales, oxygen saturation drops to 89% on 3 L when talking are with minimal exertion Abdomen: Soft and nontender. No rigidity. No distention. Skin: Skin warm and dry. Normal skin color. Normal skin turgor. Extremities: No lower extremity edema. No Lacerations. No Rash Neuro: Oriented X 3. No motor deficit. No sensory deficit. Moving all extremities. No slurred speech. CN 2 through 12 grossly intact Psych: calm, cooperative, normal affect Course Course Course Narrative: All patient's labs are pending. Patient likely to be admitted. Patient is not oxygen dependent, currently needing up to 3 L to keep an oxygen saturation in the low 90, with any exertion including talking, oxygen saturation dropped to the high 80s on 3 L Patients stood up from bed, oxygen saturation went to the mid 70s, patient was switched to a non-rebreather, oxygen saturation 100% , patient now on OxyMask. Patient was given 40 mg of IV Lasix, patient has a CHF exacerbation, additionally, patient has COVID. Patient states that he has been immunized for COVID. Chest x-ray shows opacities suspicious for early pneumonia. This is likely a viral pneumonia. Patient will be empirically covered with Levaquin. His lactic acid is 2.1, likely secondary to hypoxia. Sepsis is not suspected. I discussed the patient with nurse practitioner Hossein, patient being admitted MDM - SOB/Dyspnea MDM Narrative Medical decision making narrative: Patient's lactic is 4.0. Likely secondary to being hypoxic. Sepsis not suspected. Patient will not be receiving any fluids, patient has severe CHF, ejection fraction less than 10%, patient currently has a CHF exacerbation Lab Data Result diagrams: 01/16/22 11:35 01/16/22 11:35 Labs: Lab Results 01/16/22 01/16/22 01/16/22 Range/Units 11:35 11:35 11:35 WBC 11.9 H (4.8-10.8) X10*3/uL RBC 4.53 L (4.60-5.80) X10*6/uL Hgb 14.0 (14.0-18.0) g/dl Hct 43.1 (42.0-52.0) % MCV 95.1 (80.0-98.0) fL MCH 30.9 (27.0-33.0) pg MCHC 32.5 (31.0-36.0) g/dl RDW 14.3 (11.0-16.0) % Plt Count 218 (160-400) X10*3/uL MPV 10.3 (9.4-12.4) fL Immature Gran % (Auto) 0.3 (0.0-0.4) % Neut % (Auto) 82.4 H (45-73) % Lymph % (Auto) 10.1 L (20-40) % [place] % (Auto) 5.9 (2-11) % Eos % (Auto) 1.0 (0-4) % Baso % (Auto) 0.3 (0-2) % Lymph # (Auto) 1.2 (1.2-4.9) X10*3/uL [place] # (Auto) 0.7 (0.1-1.2) X10*3/uL Eos # (Auto) 0.1 (0.0-0.4) X10*3/uL Baso # (Auto) 0.0 (0.0-0.2) X10*3/uL Abs Immat Gran (auto) 0.04 H (0.00-0.03) X10*3/uL Absolute Neuts (auto) 9.8 H (2.0-8.3) x10*3/uL Absolute Nucleated RBC 0.000 (0.0-0.012) X10*3/uL Nucleated RBC % (auto) 0.0 (0.0-0.2) /100WBC PT 11.1 (10.0-13.1) SEC INR 1.0 (0.9-1.1) VBG pH (7.32-7.43) VBG pCO2 mmHg VBG pO2 mmHg VBG HCO3 (22-26) mmol/L VBG O2 Saturation % VBG Base Excess mmol/L Sodium 141 (135-145) mmol/L Potassium 4.9 D (3.3-5.1) mmol/L Chloride 105 (96-108) mmol/L Carbon Dioxide 24 (22-29) mmol/L Anion Gap 17 (12-20) BUN 23 H (9-16) mg/dL Creatinine 1.05 (0.5-1.4) mg/dL Estim Creat Clear Calc 65.2 Estimated GFR > 60 Random Glucose 138 H (60-115) mg/dL Lactic Acid (0.5-2.0) mmol/L Calcium 9.8 D (8.4-10.2) mg/dL Magnesium 2.0 (1.6-2.6) mg/dL Total Bilirubin 2.1 H (0.0-1.0) mg/dL Direct Bilirubin 0.9 H (0.0-0.5) mg/dL AST 31 D (5-37) U/L ALT 18 (0-40) U/L Alkaline Phosphatase 137 H (39-117) U/L Troponin I High Sens (<3.5-35.0) ng/L B-Natriuretic Peptide (<100) pg/mL Total Protein 7.7 (6.5-8.0) g/dL Albumin 4.3 (3.5-5.0) g/dL COVID-19 (LIS) (Negative) COVID-19 Clin Com 01/16/22 01/16/22 01/16/22 Range/Units 11:35 11:36 11:36 WBC (4.8-10.8) X10*3/uL RBC (4.60-5.80) X10*6/uL Hgb (14.0-18.0) g/dl Hct (42.0-52.0) % MCV (80.0-98.0) fL MCH (27.0-33.0) pg MCHC (31.0-36.0) g/dl RDW (11.0-16.0) % Plt Count (160-400) X10*3/uL MPV (9.4-12.4) fL Immature Gran % (Auto) (0.0-0.4) % Neut % (Auto) (45-73) % Lymph % (Auto) (20-40) % [place] % (Auto) (2-11) % Eos % (Auto) (0-4) % Baso % (Auto) (0-2) % Lymph # (Auto) (1.2-4.9) X10*3/uL [place] # (Auto) (0.1-1.2) X10*3/uL Eos # (Auto) (0.0-0.4) X10*3/uL Baso # (Auto) (0.0-0.2) X10*3/uL Abs Immat Gran (auto) (0.00-0.03) X10*3/uL Absolute Neuts (auto) (2.0-8.3) x10*3/uL Absolute Nucleated RBC (0.0-0.012) X10*3/uL Nucleated RBC % (auto) (0.0-0.2) /100WBC PT (10.0-13.1) SEC INR (0.9-1.1) VBG pH (7.32-7.43) VBG pCO2 mmHg VBG pO2 mmHg VBG HCO3 (22-26) mmol/L VBG O2 Saturation % VBG Base Excess mmol/L Sodium (135-145) mmol/L Potassium (3.3-5.1) mmol/L Chloride (96-108) mmol/L Carbon Dioxide (22-29) mmol/L Anion Gap (12-20) BUN (9-16) mg/dL Creatinine (0.5-1.4) mg/dL Estim Creat Clear Calc Estimated GFR Random Glucose (60-115) mg/dL Lactic Acid 2.1 H* (0.5-2.0) mmol/L Calcium (8.4-10.2) mg/dL Magnesium (1.6-2.6) mg/dL Total Bilirubin (0.0-1.0) mg/dL Direct Bilirubin (0.0-0.5) mg/dL AST (5-37) U/L ALT (0-40) U/L Alkaline Phosphatase (39-117) U/L Troponin I High Sens 44.2 H (<3.5-35.0) ng/L B-Natriuretic Peptide 9490 H (<100) pg/mL Total Protein (6.5-8.0) g/dL Albumin (3.5-5.0) g/dL COVID-19 (LIS) Positive A (Negative) COVID-19 Clin Com See Note 01/16/22 Range/Units 11:40 WBC (4.8-10.8) X10*3/uL RBC (4.60-5.80) X10*6/uL Hgb (14.0-18.0) g/dl Hct (42.0-52.0) % MCV (80.0-98.0) fL MCH (27.0-33.0) pg MCHC (31.0-36.0) g/dl RDW (11.0-16.0) % Plt Count (160-400) X10*3/uL MPV (9.4-12.4) fL Immature Gran % (Auto) (0.0-0.4) % Neut % (Auto) (45-73) % Lymph % (Auto) (20-40) % [place] % (Auto) (2-11) % Eos % (Auto) (0-4) % Baso % (Auto) (0-2) % Lymph # (Auto) (1.2-4.9) X10*3/uL [place] # (Auto) (0.1-1.2) X10*3/uL Eos # (Auto) (0.0-0.4) X10*3/uL Baso # (Auto) (0.0-0.2) X10*3/uL Abs Immat Gran (auto) (0.00-0.03) X10*3/uL Absolute Neuts (auto) (2.0-8.3) x10*3/uL Absolute Nucleated RBC (0.0-0.012) X10*3/uL Nucleated RBC % (auto) (0.0-0.2) /100WBC PT (10.0-13.1) SEC INR (0.9-1.1) VBG pH 7.31 L (7.32-7.43) VBG pCO2 39 mmHg VBG pO2 41 mmHg VBG HCO3 20 L (22-26) mmol/L VBG O2 Saturation 58.0 % VBG Base Excess -4.9 mmol/L Sodium (135-145) mmol/L Potassium (3.3-5.1) mmol/L Chloride (96-108) mmol/L Carbon Dioxide (22-29) mmol/L Anion Gap (12-20) BUN (9-16) mg/dL Creatinine (0.5-1.4) mg/dL Estim Creat Clear Calc Estimated GFR Random Glucose (60-115) mg/dL Lactic Acid (0.5-2.0) mmol/L Calcium (8.4-10.2) mg/dL Magnesium (1.6-2.6) mg/dL Total Bilirubin (0.0-1.0) mg/dL Direct Bilirubin (0.0-0.5) mg/dL AST (5-37) U/L ALT (0-40) U/L Alkaline Phosphatase (39-117) U/L Troponin I High Sens (<3.5-35.0) ng/L B-Natriuretic Peptide (<100) pg/mL Total Protein (6.5-8.0) g/dL Albumin (3.5-5.0) g/dL COVID-19 (LIS) (Negative) COVID-19 Clin Com Imaging Data Chest x-ray: Radiologist's impression: FINDINGS: There are severe emphysematous changes with superimposed coarsening interstitial markings, left lower zone bulla, and small bilateral effusions similar to prior studies. There are chronic bilateral Francesca B lines which may suggest superimposed interstitial edema. No pneumothorax. Heart size normal. No lobar or segmental airspace consolidation is demonstrated. There is coarsening of the bronchovascular markings since prior exam and some vague right perihilar infrahilar round glass opacity which may represent early pneumonia. XR/XR chest 1V IMPRESSION: -Severe emphysematous changes with coarsened interstitial markings and small basilar effusions similar to prior exam. No pneumothorax. ? -Vague right perihilar and infrahilar groundglass opacity suspicious for early pneumonia. Critical Care Time Critical Care Time Critical Care Time: Yes Total Critical Care Time: 60 Attestation: I have personally provided critical care time. Time includes review of lab data, radiology results, discussion with consultants, and monitoring for potential decompensation. Intervention performed as documented. Discharge Plan Discharge Clinical Impression: COVID-19, CHF (congestive heart failure) Patient Disposition: Admitted As Inpatient
[2022-01-16 11:42] LABS: MANUAL DIFF FLAG NO
[2022-01-16 11:44] LABS: Basophils Percent Auto 0.3 % (0-2); Eosinophils Absolute Auto 0.1 X10*3/uL (0.0-0.4); Hematocrit 43.1 % (42.0-52.0); Imm Gran Abs Auto 0.04 X10*3/uL (0.00-0.03); Imm Gran Pct Auto 0.3 % (0.0-0.4); Lymphocytes Absolute Auto 1.2 X10*3/uL (1.2-4.9); Lymphocytes Percent Auto 10.1 % (20-40); Mean Corpuscular HGB Conc 32.5 g/dl (31.0-36.0); Mean Corpuscular Hemoglobin 30.9 pg (27.0-33.0); Mean Corpuscular Volume 95.1 fL (80.0-98.0); Mean Platelet Volume 10.3 fL (9.4-12.4); Monocytes Absolute Auto 0.7 X10*3/uL (0.1-1.2); Monocytes Percent Auto 5.9 % (2-11); Neutrophils Absolute Auto 9.8 x10*3/uL (2.0-8.3); Neutrophils Percent Auto 82.4 % (45-73); Platelet Count 218 X10*3/uL (160-400); Red Blood Count 4.53 X10*6/uL (4.60-5.80); Red Cell Distribution Width 14.3 % (11.0-16.0); White Blood Count 11.9 X10*3/uL (4.8-10.8)
[2022-01-16 11:45] LABS: VBG Base Excess -4.9 mmol/L; VBG HCO3 20 mmol/L (22-26); VBG pCO2 39 mmHg; VBG pH 7.31 (7.32-7.43); VBG pO2 41 mmHg
[2022-01-16] MEDS: Furosemide 40 MG/4 ML VIAL IVPUSH ×2 (11:46→17:16)
[2022-01-16 11:47] LABS: Venous Blood Gas Refer to POC result
[2022-01-16 11:49] LABS: Prothrombin Time 11.1 SEC (10.0-13.1)
[2022-01-16 12:00] LABS: COVID-19 Test Positive (Negative)
[2022-01-16 12:03] LABS: Alanine Aminotransferase 18 U/L (0-40); Albumin Level 4.3 g/dL (3.5-5.0); Alkaline Phosphatase 137 U/L (39-117); Anion Gap 17 (12-20); Aspartate Amino Transferase 31 U/L (5-37); Bilirubin Direct 0.9 mg/dL (0.0-0.5); Bilirubin Total 2.1 mg/dL (0.0-1.0); Blood Urea Nitrogen 23 mg/dL (9-16); Calcium 9.8 mg/dL (8.4-10.2); Carbon Dioxide 24 mmol/L (22-29); Chloride 105 mmol/L (96-108); Creatinine Clr Calc Pharmacy 65.2; Estimated Glomerular Filt Rate > 60; Glucose Random 138 mg/dL (60-115); Potassium 4.9 mmol/L (3.3-5.1); Sodium 141 mmol/L (135-145); Total Protein 7.7 g/dL (6.5-8.0)
[2022-01-16 12:04] LABS: Lactic Acid 2.1 mmol/L (0.5-2.0)
[2022-01-16 12:14] LABS: Troponin-I High Sensitivity 44.2 ng/L (<3.5-35.0)
[2022-01-16 12:36] LABS: B Type Natriuretic Peptide 9490 pg/mL (<100)
--- NOTE | 2022-01-16 13:16 | PHA.MEDREC ---
Pharmacy Consult ? Medication Reconciliation Pharmacy has completed the medication reconciliation. Patient states he has stopped bupropion, escitalopram and tamsulosin.
[2022-01-16 13:40] LABS: Reflex Lactate? Lactic Acid Added
[2022-01-16] MEDS: levoFLOXacin/D5W 500 MG/100 ML PIGGYBACK 100 MG IV (13:56)
--- NOTE | 2022-01-16 13:59 | PM.IMHP ---
History of Present Illness Date of Service: 01/16/22 Chief Complaint: sob 71M sent from cardiology office for sob. 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 was treated with aspirin, entresto, no beta jose guadalupe due to low BPs. incidentally tested positive for covid 11/26/21 at [facility] and had mild course. on discharge patient was doing well. he did run out of lasix about 2-3 weeks prior to presentation. he has been having progressive sob over last several days, worse on exertion, positive orthopnea. pedal edema. was at [facility] office and sent to ED. in ED, severely hypoxic, saturating 70s on 3L, 90% on 15L. covid positive, cxr with coarse interstilial markings. Review of Systems Review of Systems: Constitutional: Denies fever, denies Chills Eyes: denies blurry vision ENT: denies sore throat CVS: denies chest pain Respiratory: dyspnea GI: no abdominal pain : denies dysuria MSK: denies neck pain Skin: denies rash Neuro: denies specific motor weakness Psych: denies suicidal ideation Endocrine: denies heat/cold intolerance Hematologic: denies easy bleeding Allergy: denies hives [facility] Medical History BPH (benign prostatic hyperplasia) COPD (chronic obstructive pulmonary disease) Endocarditis GERD (gastroesophageal reflux disease) HCV (hepatitis C virus) Opiate dependence Peripheral artery disease Family History Mother Alzheimer disease Father Myocardial infarct Surgical History History of cardiac catheterization Social History Household Members: Other Household Members Other:: daughter and grandaughter. Housing: House Do you presently have visiting nurse or other home services: No Alcohol intake: never Patient Tobacco Use Status: Current everyday Tobacco user Tobacco use type: Cigarette Cigarette Packs Per Day: 1 Cigarettes Per Day: 20.0 Years Smoked: 50 Substance Use Type: Marijuana Advance Directives: No Advance Directives Information Provided: Yes service: Yes Current occupational status: retired Meds Allergies Allergy/AdvReac Type Severity Reaction Status Date / Time No Known Allergies Allergy Verified 01/16/22 09:33 Active Medications: Current Medications Albuterol/Ipratropium (Albuterol/Iprat 2.5/0.5mg 3 Ml Ampul.Neb) 3 ml INHALE RQ4H WHILE AWAKE [facility] Aspirin (Aspirin Enteric Coated 81 Mg Tablet.Dr) 81 mg PO DAILY [facility] Atorvastatin Calcium (Atorvastatin Calcium 40 Mg Tablet) 40 mg PO BEDTIME [facility] Buprenorphine HCl (Buprenorphine Hcl 8 Mg Tab.Subl) 8 mg SUBLINGUAL TID [facility] Cilostazol (Cilostazol 100 Mg Tablet) 100 mg PO DAILY [facility] Dexamethasone Sodium Phosphate (Dexamethasone Sod Phosphate 4 Mg/Ml Vial) 6 mg IVPUSH DAILY [facility] Fluticasone/Vilanterol (Fluticasone/Vilanterol 100/25 Blst.W.Dev) 1 puff INHALE RDAILY [facility] Furosemide (Furosemide 40 Mg/4 Ml Vial) 40 mg IVPUSH BID@0900,1800 [facility]; Protocol Levofloxacin (Levaquin) 500 mg in 100 mls @ 100 mls/hr IV ONCE ONE Stop: 01/16/22 14:16 Last Admin: 01/16/22 13:56 Dose: 100 mls/hr Non-Formulary Medication (Linaclotide [Linzess]) 290 mcg PO DAILY [facility] Non-Formulary Medication (Pantoprazole) 1 tab PO DAILY [facility] Pharmacy Consult (Consult Rx Perform Med Rec) 1 each MISCELLANE ONCE PRN PRN Reason: Consult order Sacubitril/Valsartan (Sacubitril/Valsartan 1 Tab Tablet) 1 tab PO BID [facility]; Protocol Senna/Docusate Sodium (Sennosides/Docusate Sodium Tablet) 2 tab PO BEDTIME [facility] Home Medications Medication Instructions Recorded Confirmed Last Taken Type buprenorphine HCl 8 mg sublingual 8 mg sublingual TID 11/23/21 01/16/22 Unknown History tablet linaclotide 290 mcg capsule 290 mcg PO DAILY 11/23/21 01/16/22 Unknown History (Linzess) pantoprazole 40 mg tablet,delayed 1 tab PO DAILY 11/23/21 01/16/22 Unknown History release sennosides 8.6 mg-docusate sodium 2 tab PO BEDTIME constipation 11/23/21 01/16/22 Unknown History 50 mg tablet (Senexon-S) furosemide 20 mg tablet 20 mg PO DAILY 12/12/21 01/16/22 Unknown History cilostazol 100 mg tablet 1 tab PO DAILY 01/16/22 01/16/22 Unknown History fluticasone furoate 100 1 ea inhalation DAILY 01/16/22 01/16/22 Unknown History mcg-vilanterol 25 mcg/dose inhalation powder (Breo Ellipta) Physical Exam Vital Signs and Narrative: Vital Signs: Last Vital Signs Temp 98.2 F 01/16/22 10:23 Pulse 119 H 01/16/22 12:25 Resp 18 01/16/22 12:25 BP 136/109 H 01/16/22 12:25 Pulse Ox 97 01/16/22 12:25 O2 Del Method 01/16/22 12:25 O2 Flow Rate 15 01/16/22 12:25 BMI result Body Mass Index 20.5 General: significant dyspnea HEENT: atraumatic Neck: normal to visual inspection CVS: S1, S2, Rapid Resp: diminshed, tachypena, accesosry muscles, tripodding Chest: non tender GI: soft, non tender, non distended : no CVA tenderness Skin: no rashes Extremities: pedal edema Neuro: Oriented X3, grossly intact Psych: cooperative Results Labs CBC and Chem 7: 01/16/22 11:35 01/16/22 11:35 Labs: Laboratory Results - last 24 hr 01/16/22 01/16/22 01/16/22 11:35 11:35 11:35 MCV 95.1 MCH 30.9 MCHC 32.5 RDW 14.3 Plt Count 218 MPV 10.3 Immature Gran % (Auto) 0.3 Neut % (Auto) 82.4 H Lymph % (Auto) 10.1 L [place] % (Auto) 5.9 Eos % (Auto) 1.0 Baso % (Auto) 0.3 Lymph # (Auto) 1.2 [place] # (Auto) 0.7 Eos # (Auto) 0.1 Baso # (Auto) 0.0 Abs Immat Gran (auto) 0.04 H Absolute Neuts (auto) 9.8 H Absolute Nucleated RBC 0.000 Nucleated RBC % (auto) 0.0 PT 11.1 INR 1.0 VBG pH VBG pCO2 VBG pO2 VBG HCO3 VBG O2 Saturation VBG Base Excess Anion Gap 17 Estim Creat Clear Calc 65.2 Estimated GFR > 60 Random Glucose 138 H Lactic Acid Calcium 9.8 D Magnesium 2.0 Total Bilirubin 2.1 H Direct Bilirubin 0.9 H AST 31 D ALT 18 Alkaline Phosphatase 137 H B-Natriuretic Peptide Total Protein 7.7 Albumin 4.3 COVID-19 (LIS) COVID-19 [employer] Com 01/16/22 01/16/22 01/16/22 11:35 11:36 11:36 MCV MCH MCHC RDW Plt Count MPV Immature Gran % (Auto) Neut % (Auto) Lymph % (Auto) [place] % (Auto) Eos % (Auto) Baso % (Auto) Lymph # (Auto) [place] # (Auto) Eos # (Auto) Baso # (Auto) Abs Immat Gran (auto) Absolute Neuts (auto) Absolute Nucleated RBC Nucleated RBC % (auto) PT INR VBG pH VBG pCO2 VBG pO2 VBG HCO3 VBG O2 Saturation VBG Base Excess Anion Gap Estim Creat Clear Calc Estimated GFR Random Glucose Lactic Acid 2.1 H* Calcium Magnesium Total Bilirubin Direct Bilirubin AST ALT Alkaline Phosphatase B-Natriuretic Peptide 9490 H Total Protein Albumin COVID-19 (LIS) Positive A COVID-19 [employer] See Note 01/16/22 11:40 MCV MCH MCHC RDW Plt Count MPV Immature Gran % (Auto) Neut % (Auto) Lymph % (Auto) [place] % (Auto) Eos % (Auto) Baso % (Auto) Lymph # (Auto) [place] # (Auto) Eos # (Auto) Baso # (Auto) Abs Immat Gran (auto) Absolute Neuts (auto) Absolute Nucleated RBC Nucleated RBC % (auto) PT INR VBG pH 7.31 L VBG pCO2 39 VBG pO2 41 VBG HCO3 20 L VBG O2 Saturation 58.0 VBG Base Excess -4.9 Anion Gap Estim Creat Clear Calc Estimated GFR Random Glucose Lactic Acid Calcium Magnesium Total Bilirubin Direct Bilirubin AST ALT Alkaline Phosphatase B-Natriuretic Peptide Total Protein Albumin COVID-19 (LIS) COVID-19 [facility] Com Imaging Radiologist's Impressions: Impressions Chest X-Ray 01/16/22 11:46 IMPRESSION: -Severe emphysematous changes with coarsened interstitial markings and small basilar effusions similar to prior exam. No pneumothorax. -Vague right perihilar and infrahilar groundglass opacity suspicious for early pneumonia. Assessment and Plan (1) COVID-19: Status: Acute Plan 71M presented with sob acute hypoxic respiratory failure due to acute on chronic systolic chf (considered non ischemic, with underlying non obstructive CAD), and covid pneumonia, copd with acute decompensation IV lasix, decadron, duonebs, unclear if covid is recurrence or viral shedding, will hold of on antiviral for now cardio eval monitor electrolytes continue entresto, asa, statin, breo opiate dependence buprenorhpine SL dvt prophylaxis - lovenox full code patient severely dyspneice and hypoxic requiring high levels of o2, at risk for further decompensation due to copd, chf, covid, therefore, expected to require atleast 2 midnights in hospital. Quality Stroke Does the patient have a stroke diagnosis?: No VTE Prior VTE?: No VTE Risk Level:: Medical - moderate - high VTE Device Contraindication: Treatment Not Indicated VTE Drug Contraindication: N/A - Med Ordered
--- NOTE | 2022-01-16 17:14 | MHC.CM.PN ---
IMM 01/16. CM met with admitted patient with bed assignment pending. +Covid/PNA. Oxygen needed. Weakened. HCP reviewed, completed and signed. Copies given and uploaded into [facility] [employer] and [facility] [employer]. HCP/daughter Jo-Ann Alanis ([phone]). Moderna x2/no booster. Positive covid 4 weeks ago per daughter/asymptomatic. Per daughter, pt ran out of Lasix 2-3 weeks ago, daughter was not aware. Pt uses no DME/services. Lives with daughter. Daughter states she needs help at home. Contact info for [facility] given. 9 Referrals placed for VNA at D/C. D/C plan: VNA vs STR--depends on hospital course. Family to provide transport. CM to follow for d/c needs.
[2022-01-16] MEDS: Enoxaparin Sodium 40 MG/0.4 ML SYRINGE SUBCUT (17:16)
[2022-01-16] MEDS: dexAMETHasone sod phosphate 4 MG/ML VIAL 6 MG IVPUSH (17:16)
[2022-01-16] MEDS: 0.9 % Sodium Chloride Flush 3 ML SYRINGE IVFLUSH ×2 (17:17→22:27)
[2022-01-16] MEDS: Buprenorphine HCL 8 MG TAB.SUBL SUBLINGUAL (17:27)
[2022-01-16] MEDS: Acetaminophen 325 MG TABLET 650 MG PO (17:27)
[2022-01-16 17:28] LABS: Reflex Lactate? 2 Y
--- NOTE | 2022-01-16 18:15 | PC.NURSE ---
Pt restless, states he is uncomfortable due to back pain , constant repositioning in bed causing O2 to fluctuate. Requested additional pain medication from MD. Pt otherwise pleasant, alert and oriented. Aware of plan to admit.
[2022-01-16 18:22] LABS: ~Lactic Acid-LAB USE ONLY 4.3 mmol/L (0.5-2.0)
[2022-01-16] MEDS: Albuterol/Iprat 2.5/0.5MG 3 ML AMPUL.NEB INHALE (20:06)
[2022-01-16] MEDS: Sennosides/Docusate Sodium TABLET 2 TAB PO (21:25)
[2022-01-16] MEDS: Atorvastatin Calcium 40 MG TABLET PO (21:25)
--- NOTE | 2022-01-16 21:39 | PC.NURSE ---
Pt dislodged IV while moving around in bed. This RN made three unsuccessful attempts to regain IV access prior to pt being transferred up IMC.
[2022-01-16] MEDS: NaPROXEN 500 MG TABLET PO (22:55)
[2022-01-17] VITALS (14 sets, daily range): BP systolic 112–167; BP diastolic 75–97; PULSE 98–109; RESP 16–21; TEMP 36.1–36.6; O2SAT 94–100; BMI 18.1
[2022-01-17 07:35] LABS: Hematocrit 40.7 % (42.0-52.0); Hemoglobin 13.6 g/dl (14.0-18.0); Mean Corpuscular HGB Conc 33.4 g/dl (31.0-36.0); Mean Corpuscular Hemoglobin 31.6 pg (27.0-33.0); Mean Corpuscular Volume 94.4 fL (80.0-98.0); Mean Platelet Volume 10.9 fL (9.4-12.4); Platelet Count 197 X10*3/uL (160-400); Red Blood Count 4.31 X10*6/uL (4.60-5.80); Red Cell Distribution Width 14.4 % (11.0-16.0); White Blood Count 16.8 X10*3/uL (4.8-10.8)
[2022-01-17 07:53] LABS: Alanine Aminotransferase 15 U/L (0-40); Albumin Level 3.7 g/dL (3.5-5.0); Alkaline Phosphatase 116 U/L (39-117); Anion Gap 20 (12-20); Aspartate Amino Transferase 41 U/L (5-37); Bilirubin Direct 0.5 mg/dL (0.0-0.5); Bilirubin Total 1.4 mg/dL (0.0-1.0); Blood Urea Nitrogen 36 mg/dL (9-16); Carbon Dioxide 18 mmol/L (22-29); Chloride 107 mmol/L (96-108); Estimated Glomerular Filt Rate 44; Glucose Fasting 144 mg/dL (60-99); Magnesium 2.1 mg/dL (1.6-2.6); Potassium 5.2 mmol/L (3.3-5.1); Sodium 140 mmol/L (135-145)
[2022-01-17] MEDS: Albuterol/Iprat 2.5/0.5MG 3 ML AMPUL.NEB INHALE ×4 (08:16→20:13)
[2022-01-17] MEDS: Fluticasone/Vilanterol 100/25 BLST.W.DEV 1 PUFF INHALE (09:24)
[2022-01-17] MEDS: Sacubitril/Valsartan 24/26 1 TAB TABLET PO ×2 (09:39→22:09)
[2022-01-17] MEDS: cilostazoL 100 MG TABLET PO (09:39)
[2022-01-17] MEDS: dexAMETHasone sod phosphate 4 MG/ML VIAL 6 MG IVPUSH (09:40)
[2022-01-17] MEDS: Aspirin Enteric Coated 81 MG TABLET.DR PO (09:40)
[2022-01-17] MEDS: 0.9 % Sodium Chloride Flush 3 ML SYRINGE IVFLUSH ×2 (09:40→17:06)
[2022-01-17] MEDS: Lidocaine 4 % Patch ADH..PATCH 1 PATCH TRANSDERMA (09:44)
[2022-01-17] MEDS: Morphine Sulfate 2 MG/ML CARTRIDGE IVPUSH (09:45)
--- NOTE | 2022-01-17 10:13 | PM.CNCAR ---
History of Present Illness History of Present Illness Date of Service: 01/17/22 Requesting physician: Prakash Tijerina Consult reason: congestive heart failure Chief complaint: Resp failure, CHF, COVID, COPD Narrative: I was consulted to see Freddy in cardiology consultation today by hospitalist team for respiratory failure. Patient with prior history of nonischemic cardiomyopathy severe LV systolic dysfunction with LVEF of less than 10%, COPD came to the office yesterday to see Dr. Newton. He said that he ran out of Lasix that was prescribed from [facility] and thought that dizzy not needed and has not been taking Lasix for many days. Came to the office yesterday was progressively significant shortness of breath and was having some chills and shakiness. He was referred to the emergency room because of respiratory failure. He is noted to have significantly elevated BNP compared to his prior BNP and was started on IV Lasix for diuresis. However eyes and nose appear to be not adequate diuresis. He continues to be significantly short of breath and requiring high-flow oxygen. Chest x-ray is suggestive possible infiltrate with diffusely increased interstitial marking which could be due to heart failure. Patient has been started on his usual Entresto. He has not noticed significant leg edema, abdominal distension or weight gain but appears to have significant distress with breathing. Review of Systems Constitutional: Constitutional: Reports chills and Reports weakness Eyes: Eyes: Reports no additional eye complaints Cardiovascular: Cardiovascular: Denies chest pain, Denies lightheadedness, Denies Loss of Consciousness, Denies palpitations, Reports dyspnea on exertion and Reports orthopnea Respiratory: Respiratory: Reports dyspnea on exertion Gastrointestinal: Gastrointestinal: Reports no additional gastrointestinal complaints Genitourinary: Genitourinary: Reports no additional male genitourinary complaints Musculoskeletal: Musculoskeletal: Reports no additional musculoskeletal complaints Integumentary/Breasts: Skin/Breast: Reports system reviewed and no additional complaints, except as docu Neurologic: Reports system reviewed and no additional complaints, except as documented and Reports weakness Psychiatric: Psychiatric: Reports no additional psychiatric complaints Endocrine: Endocrine: Reports no additional endocrine complaints and Denies palpitations Hematologic/Lymphatic: Hematologic/Lymphatic: Reports no additional hematologic/lymphatic complaints PMFSH Past Medical History Medical History BPH (benign prostatic hyperplasia) COPD (chronic obstructive pulmonary disease) Endocarditis GERD (gastroesophageal reflux disease) HCV (hepatitis C virus) Opiate dependence Peripheral artery disease Family History Family History Mother Alzheimer disease Father Myocardial infarct Surgical History Surgical History History of cardiac catheterization Social History Social History Household Members: Family Household Members Other:: daughter and grandaughter. Housing: House Do you presently have visiting nurse or other home services: No Alcohol intake: never Patient Tobacco Use Status: Former Tobacco user Quit Date: about 2 months ago Tobacco use type: Cigarette Cigarette Packs Per Day: 1 Cigarettes Per Day: 20.0 Years Smoked: 50 Substance Use Type: Marijuana service: No Current occupational status: retired [employer] Allergies Allergy/AdvReac Type Severity Reaction Status Date / Time No Known Allergies Allergy Verified 01/16/22 09:33 Active Medications: Current Medications Acetaminophen (Acetaminophen 325 Mg Tablet) 650 mg PO Q6H PRN PRN Reason: Pain, Mild (Pain Scale 1-3) Albuterol/Ipratropium (Albuterol/Iprat 2.5/0.5mg 3 Ml Ampul.Neb) 3 ml INHALE RQ4H WHILE AWAKE [facility] Last Admin: 01/17/22 08:16 Dose: 3 ml Aspirin (Aspirin Enteric Coated 81 Mg Tablet.Dr) 81 mg PO DAILY [facility] Last Admin: 01/17/22 09:40 Dose: 81 mg Atorvastatin Calcium (Atorvastatin Calcium 40 Mg Tablet) 40 mg PO BEDTIME [facility] Last Admin: 01/16/22 21:25 Dose: 40 mg Buprenorphine HCl (Buprenorphine Hcl 8 Mg Tab.Subl) 8 mg SUBLINGUAL TID@1100,1700,2300 [facility] Last Admin: 01/16/22 22:27 Dose: Not Given Cilostazol (Cilostazol 100 Mg Tablet) 100 mg PO DAILY [facility] Last Admin: 01/17/22 09:39 Dose: 100 mg Dexamethasone Sodium Phosphate (Dexamethasone Sod Phosphate 4 Mg/Ml Vial) 6 mg IVPUSH DAILY [facility] Last Admin: 01/17/22 09:40 Dose: 6 mg Enoxaparin Sodium (Enoxaparin Sodium 40 Mg/0.4 Ml Syringe) 40 mg SUBCUT Q24H [facility] Last Admin: 01/16/22 17:16 Dose: 40 mg Fluticasone/Vilanterol (Fluticasone/Vilanterol 100/25 Blst.W.Dev) 1 puff INHALE RDAILY [facility] Last Admin: 01/17/22 09:24 Dose: 1 puff Furosemide 200 mg/ Sodium (Chloride) 100 mls @ 5 mls/hr IVCONT .Q20H [facility] Ceftriaxone Sodium 1 gm/ (Sodium Chloride) 50 mls @ 100 mls/hr IV Q24H DWAYNE Doxycycline Hyclate 100 mg/ (Sodium Chloride) 250 mls @ 166.67 mls/hr IV Q12H [facility] Lidocaine (Lidocaine 4 % Patch Adh..Patch) 1 patch TRANSDERMA DAILY [facility]; Protocol Last Admin: 01/17/22 09:44 Dose: 1 patch Morphine Sulfate (Morphine Sulfate 2 Mg/Ml Cartridge) 2 mg IVPUSH Q4H PRN; Protocol PRN Reason: sob Last Admin: 01/17/22 09:45 Dose: 2 mg Non-Formulary Medication (Linaclotide [Linzess]) 290 mcg PO DAILY [facility] Omeprazole (Omeprazole 20 Mg Capsule.Dr) 20 mg PO DAILY@0630 [facility] Last Admin: 01/17/22 09:41 Dose: Not Given Pharmacy Consult (Consult Rx Perform Med Rec) 1 each MISCELLANE ONCE PRN PRN Reason: Consult order Sacubitril/Valsartan (Sacubitril/Valsartan 1 Tab Tablet) 1 tab PO BID [facility]; Protocol Last Admin: 01/17/22 09:39 Dose: 1 tab Senna/Docusate Sodium (Sennosides/Docusate Sodium Tablet) 2 tab PO BEDTIME [facility] Last Admin: 01/16/22 21:25 Dose: 2 tab Sodium Chloride (0.9 % Sodium Chloride Flush 3 Ml Syringe) 3 ml IVFLUSH QSHIFT [facility] Last Admin: 01/17/22 09:40 Dose: 3 ml Home Medications Medication Instructions Recorded Confirmed Last Taken Type buprenorphine HCl 8 mg sublingual 8 mg sublingual TID 11/23/21 01/16/22 Unknown History tablet linaclotide 290 mcg capsule 290 mcg PO DAILY 11/23/21 01/16/22 Unknown History (Linzess) pantoprazole 40 mg tablet,delayed 1 tab PO DAILY 11/23/21 01/16/22 Unknown History release sennosides 8.6 mg-docusate sodium 2 tab PO BEDTIME constipation 11/23/21 01/16/22 Unknown History 50 mg tablet (Senexon-S) furosemide 20 mg tablet 20 mg PO DAILY 12/12/21 01/16/22 Unknown History cilostazol 100 mg tablet 1 tab PO DAILY 01/16/22 01/16/22 Unknown History fluticasone furoate 100 1 ea inhalation DAILY 01/16/22 01/16/22 Unknown History mcg-vilanterol 25 mcg/dose inhalation powder (Breo Ellipta) Physical Exam Vital Signs: Vital Signs: Last Vital Signs Temp 97.8 F 01/17/22 07:48 Pulse 108 H 01/17/22 09:33 Resp 19 01/17/22 09:33 BP 167/97 H 01/17/22 07:48 Pulse Ox 96 01/17/22 07:48 O2 Del Method 01/17/22 07:48 O2 Flow Rate 55 01/17/22 07:48 FiO2 100 01/17/22 07:48 BMI result Body Mass Index 18.1 Const: General: cooperative, alert, awake, in distress moderate and anxious Nutritional Appearance: thin Orientation/consciousness: patient oriented x3 HEENT: Head: Yes normocephalic and Yes atraumatic Neck: Neck: Yes trachea midline, Yes supple and Yes JVD Chest: Chest palpation & inspection: normal inspection of the chest Resp: Effort & Inspection: normal respiratory effort and tachypneic Auscultation: crackles bilateral at the base and diminished lung sounds Cardio: Jugular venous distension: JVD Rate: tachycardic Rhythm: regular rhythm Heart sounds: S1 normal heart sound present, S2 normal heart sound present, no click, Gallop heart sound present, no murmurs and no rubs Skin: General skin exam: no rashes or lesions noted Neuro: General: patient oriented x3 and no focal motor deficits Extrem: General: No no clubbing, cyanosis or edema Objective Labs and Meds Result diagrams: 01/17/22 06:30 01/17/22 06:30 Lab results: Laboratory Results - last 24 hr 01/16/22 01/16/22 01/16/22 11:35 11:35 11:35 WBC 11.9 H RBC 4.53 L Hgb 14.0 Hct 43.1 MCV 95.1 MCH 30.9 MCHC 32.5 RDW 14.3 Plt Count 218 MPV 10.3 Immature Gran % (Auto) 0.3 Neut % (Auto) 82.4 H Lymph % (Auto) 10.1 L Tyrrell % (Auto) 5.9 Eos % (Auto) 1.0 Baso % (Auto) 0.3 Lymph # (Auto) 1.2 Tyrrell # (Auto) 0.7 Eos # (Auto) 0.1 Baso # (Auto) 0.0 Abs Immat Gran (auto) 0.04 H Absolute Neuts (auto) 9.8 H Absolute Nucleated RBC 0.000 Nucleated RBC % (auto) 0.0 PT 11.1 INR 1.0 VBG pH VBG pCO2 VBG pO2 VBG HCO3 VBG O2 Saturation VBG Base Excess Sodium 141 Potassium 4.9 D Chloride 105 Carbon Dioxide 24 Anion Gap 17 BUN 23 H Creatinine 1.05 Estim Creat Clear Calc 65.2 Estimated GFR > 60 Random Glucose 138 H Fasting Glucose Lactic Acid Lactic Acid F/U @ 2Hr Lactic Acid F/U @ 4Hr Calcium 9.8 D Magnesium 2.0 Total Bilirubin 2.1 H Direct Bilirubin 0.9 H AST 31 D ALT 18 Alkaline Phosphatase 137 H Troponin I High Sens B-Natriuretic Peptide Total Protein 7.7 Albumin 4.3 COVID-19 (LIS) COVID-19 Clin Com 01/16/22 01/16/22 01/16/22 11:35 11:36 11:36 WBC RBC Hgb Hct MCV MCH MCHC RDW Plt Count MPV Immature Gran % (Auto) Neut % (Auto) Lymph % (Auto) Tyrrell % (Auto) Eos % (Auto) Baso % (Auto) Lymph # (Auto) Tyrrell # (Auto) Eos # (Auto) Baso # (Auto) Abs Immat Gran (auto) Absolute Neuts (auto) Absolute Nucleated RBC Nucleated RBC % (auto) PT INR VBG pH VBG pCO2 VBG pO2 VBG HCO3 VBG O2 Saturation VBG Base Excess Sodium Potassium Chloride Carbon Dioxide Anion Gap BUN Creatinine Estim Creat Clear Calc Estimated GFR Random Glucose Fasting Glucose Lactic Acid 2.1 H* Lactic Acid F/U @ 2Hr Lactic Acid F/U @ 4Hr Calcium Magnesium Total Bilirubin Direct Bilirubin AST ALT Alkaline Phosphatase Troponin I High Sens 44.2 H B-Natriuretic Peptide 9490 H Total Protein Albumin COVID-19 (LIS) Positive A COVID-19 Clin Com See Note 01/16/22 01/16/22 01/16/22 11:40 15:21 17:46 WBC RBC Hgb Hct MCV MCH MCHC RDW Plt Count MPV Immature Gran % (Auto) Neut % (Auto) Lymph % (Auto) Tyrrell % (Auto) Eos % (Auto) Baso % (Auto) Lymph # (Auto) Tyrrell # (Auto) Eos # (Auto) Baso # (Auto) Abs Immat Gran (auto) Absolute Neuts (auto) Absolute Nucleated RBC Nucleated RBC % (auto) PT INR VBG pH 7.31 L VBG pCO2 39 VBG pO2 41 VBG HCO3 20 L VBG O2 Saturation 58.0 VBG Base Excess -4.9 Sodium Potassium Chloride Carbon Dioxide Anion Gap BUN Creatinine Estim Creat Clear Calc Estimated GFR Random Glucose Fasting Glucose Lactic Acid Lactic Acid F/U @ 2Hr 4.0 H* Lactic Acid F/U @ 4Hr 4.3 H* Calcium Magnesium Total Bilirubin Direct Bilirubin AST ALT Alkaline Phosphatase Troponin I High Sens B-Natriuretic Peptide Total Protein Albumin COVID-19 (LIS) COVID-19 Clin Com 01/17/22 01/17/22 06:30 06:30 WBC 16.8 H RBC 4.31 L Hgb 13.6 L Hct 40.7 L MCV 94.4 MCH 31.6 MCHC 33.4 RDW 14.4 Plt Count 197 MPV 10.9 Immature Gran % (Auto) Neut % (Auto) Lymph % (Auto) Tyrrell % (Auto) Eos % (Auto) Baso % (Auto) Lymph # (Auto) Tyrrell # (Auto) Eos # (Auto) Baso # (Auto) Abs Immat Gran (auto) Absolute Neuts (auto) Absolute Nucleated RBC 0.000 Nucleated RBC % (auto) 0.0 PT INR VBG pH VBG pCO2 VBG pO2 VBG HCO3 VBG O2 Saturation VBG Base Excess Sodium 140 Potassium 5.2 H Chloride 107 Carbon Dioxide 18 L Anion Gap 20 BUN 36 H D Creatinine 1.55 H Estim Creat Clear Calc 39.0 Estimated GFR 44 Random Glucose Fasting Glucose 144 H D Lactic Acid Lactic Acid F/U @ 2Hr Lactic Acid F/U @ 4Hr Calcium 9.0 D Magnesium 2.1 Total Bilirubin 1.4 H Direct Bilirubin 0.5 AST 41 H ALT 15 Alkaline Phosphatase 116 Troponin I High Sens B-Natriuretic Peptide Total Protein 7.0 Albumin 3.7 COVID-19 (LIS) COVID-19 Clin Com Imaging Radiologist's impression: Impressions Chest X-Ray 01/16/22 11:46 IMPRESSION: -Severe emphysematous changes with coarsened interstitial markings and small basilar effusions similar to prior exam. No pneumothorax. -Vague right perihilar and infrahilar groundglass opacity suspicious for early pneumonia. Assessment and Plan (1) Acute respiratory failure: Status: Acute patient admitted with acute respiratory failure with markedly reduced LV systolic function secondary to nonischemic cardiomyopathy and not taking his Lasix. Clinically appears to be in heart failure with markedly elevated BNP along with some rales although no signs of significant fluid overload, in addition he has underlying significant COPD and possible pneumonic process and question COVID related interstitial disease. Would consider further evaluation with noncontrast CT as well as possible pulmonary evaluation. Continue high-flow oxygen therapy. His diuretic response has been tepid. Would start him on IV Lasix drip and maintain aggressive intake and output chart. Will also do preload reduction with nitropaste given that his blood pressure is elevated 1 in q.6 hours. Continue Entresto therapy. Continue monitor renal function as well as electrolytes. Hold off on beta-jose guadalupe therapy for now for acute heart failure. Will follow closely. Overall prognosis is guarded. Greater than 45 minutes was spent in managing his complex care. Procedures Date of Service Date of Service: 01/17/22
--- NOTE | 2022-01-17 10:26 | HO.PM.IMPN ---
Subjective Subjective Date of Service: 01/17/22 Interval History: cc: sob interval history:a bit better today, still very sob Cardiovascular Cardiovascular: Reports no additional cardiovascular complaints Gastrointestinal Gastrointestinal: Reports no additional gastrointestinal complaints Physical Exam Vital Signs: Vital Signs: Last Vital Signs Temp 97.8 F 01/17/22 07:48 Pulse 108 H 01/17/22 09:33 Resp 19 01/17/22 09:33 BP 167/97 H 01/17/22 07:48 Pulse Ox 96 01/17/22 07:48 O2 Del Method 01/17/22 07:48 O2 Flow Rate 55 01/17/22 07:48 FiO2 100 01/17/22 07:48 BMI result Body Mass Index 18.1 General: AO X 3, dyspneic Resp: diminished bilateral, accessory muscles used CVS: S1,S2,RRR GI: soft, non tender, non distended Neuro: motor grossly intact, alert Psych: appropriate affect, appropriate insight Objective Data Active Medications Acetaminophen (Acetaminophen 325 Mg Tablet) 650 mg PO Q6H PRN PRN Reason: Pain, Mild (Pain Scale 1-3) Albuterol/Ipratropium (Albuterol/Iprat 2.5/0.5mg 3 Ml Ampul.Neb) 3 ml INHALE RQ4H WHILE AWAKE [facility] Last Admin: 01/17/22 08:16 Dose: 3 ml Documented By: ANIKA Aspirin (Aspirin Enteric Coated 81 Mg Tablet.) 81 mg PO DAILY [facility] Last Admin: 01/17/22 09:40 Dose: 81 mg Documented By: RANDELL Atorvastatin Calcium (Atorvastatin Calcium 40 Mg Tablet) 40 mg PO BEDTIME [facility] Last Admin: 01/16/22 21:25 Dose: 40 mg Documented By: KELSEY Buprenorphine HCl (Buprenorphine Hcl 8 Mg Tab.Subl) 8 mg SUBLINGUAL TID@1100,1700,2300 [facility] Last Admin: 01/16/22 22:27 Dose: Not Given Documented By: PJ Non-Admin Reason: Patient Refused Cilostazol (Cilostazol 100 Mg Tablet) 100 mg PO DAILY [facility] Last Admin: 01/17/22 09:39 Dose: 100 mg Documented By: RANDELL Dexamethasone Sodium Phosphate (Dexamethasone Sod Phosphate 4 Mg/Ml Vial) 6 mg IVPUSH DAILY [facility] Last Admin: 01/17/22 09:40 Dose: 6 mg Documented By: RANDELL Enoxaparin Sodium (Enoxaparin Sodium 40 Mg/0.4 Ml Syringe) 40 mg SUBCUT Q24H [facility] Last Admin: 01/16/22 17:16 Dose: 40 mg Documented By: JIN Fluticasone/Vilanterol (Fluticasone/Vilanterol 100/25 Blst.W.Dev) 1 puff INHALE RDAILY [facility] Last Admin: 01/17/22 09:24 Dose: 1 puff Documented By: IVAN Furosemide 200 mg/ Sodium (Chloride) 100 mls @ 5 mls/hr IVCONT .Q20H DWAYNE Ceftriaxone Sodium 1 gm/ (Sodium Chloride) 50 mls @ 100 mls/hr IV Q24H [facility] Doxycycline Hyclate 100 mg/ (Sodium Chloride) 250 mls @ 166.67 mls/hr IV Q12H [facility] Lidocaine (Lidocaine 4 % Patch Adh..Patch) 1 patch TRANSDERMA DAILY [facility]; Protocol Last Admin: 01/17/22 09:44 Dose: 1 patch Documented By: RANDELL Morphine Sulfate (Morphine Sulfate 2 Mg/Ml Cartridge) 2 mg IVPUSH Q4H PRN; Protocol PRN Reason: sob Last Admin: 01/17/22 09:45 Dose: 2 mg Documented By: RANDELL Nitroglycerin (Nitroglycerin 0.4 Mg Tab.Subl) 0.4 mg SUBLINGUAL Q5MX3 PRN PRN Reason: mild pain Non-Formulary Medication (Linaclotide [Linzess]) 290 mcg PO DAILY [facility] Omeprazole (Omeprazole 20 Mg Capsule.) 20 mg PO DAILY@0630 [facility] Last Admin: 01/17/22 09:41 Dose: Not Given Documented By: LILLIAN Non-Admin Reason: Patient Asleep Pharmacy Consult (Consult Rx Perform Med Rec) 1 each MISCELLANE ONCE PRN PRN Reason: Consult order Sacubitril/Valsartan (Sacubitril/Valsartan 1 Tab Tablet) 1 tab PO BID [facility]; Protocol Last Admin: 01/17/22 09:39 Dose: 1 tab Documented By: RANDELL Senna/Docusate Sodium (Sennosides/Docusate Sodium Tablet) 2 tab PO BEDTIME [facility] Last Admin: 01/16/22 21:25 Dose: 2 tab Documented By: KELSEY Sodium Chloride (0.9 % Sodium Chloride Flush 3 Ml Syringe) 3 ml IVFLUSH QSHIFT [facility] Last Admin: 01/17/22 09:40 Dose: 3 ml Documented By: RANDELL Labs CBC & Chem 7: 01/17/22 06:30 01/17/22 06:30 Labs: Laboratory Results - last 24 hr 01/16/22 01/16/22 01/16/22 11:35 11:35 11:35 MCV 95.1 MCH 30.9 MCHC 32.5 RDW 14.3 Plt Count 218 MPV 10.3 Immature Gran % (Auto) 0.3 Neut % (Auto) 82.4 H Lymph % (Auto) 10.1 L [place] % (Auto) 5.9 Eos % (Auto) 1.0 Baso % (Auto) 0.3 Lymph # (Auto) 1.2 [place] # (Auto) 0.7 Eos # (Auto) 0.1 Baso # (Auto) 0.0 Abs Immat Gran (auto) 0.04 H Absolute Neuts (auto) 9.8 H Absolute Nucleated RBC 0.000 Nucleated RBC % (auto) 0.0 PT 11.1 INR 1.0 VBG pH VBG pCO2 VBG pO2 VBG HCO3 VBG O2 Saturation VBG Base Excess Anion Gap 17 Estim Creat Clear Calc 65.2 Estimated GFR > 60 Random Glucose 138 H Fasting Glucose Lactic Acid Lactic Acid F/U @ 2Hr Lactic Acid F/U @ 4Hr Calcium 9.8 D Magnesium 2.0 Total Bilirubin 2.1 H Direct Bilirubin 0.9 H AST 31 D ALT 18 Alkaline Phosphatase 137 H B-Natriuretic Peptide Total Protein 7.7 Albumin 4.3 COVID-19 (LIS) COVID-19 Clin Com 01/16/22 01/16/22 01/16/22 11:35 11:36 11:36 MCV MCH MCHC RDW Plt Count MPV Immature Gran % (Auto) Neut % (Auto) Lymph % (Auto) [place] % (Auto) Eos % (Auto) Baso % (Auto) Lymph # (Auto) [place] # (Auto) Eos # (Auto) Baso # (Auto) Abs Immat Gran (auto) Absolute Neuts (auto) Absolute Nucleated RBC Nucleated RBC % (auto) PT INR VBG pH VBG pCO2 VBG pO2 VBG HCO3 VBG O2 Saturation VBG Base Excess Anion Gap Estim Creat Clear Calc Estimated GFR Random Glucose Fasting Glucose Lactic Acid 2.1 H* Lactic Acid F/U @ 2Hr Lactic Acid F/U @ 4Hr Calcium Magnesium Total Bilirubin Direct Bilirubin AST ALT Alkaline Phosphatase B-Natriuretic Peptide 9490 H Total Protein Albumin COVID-19 (LIS) Positive A COVID-19 Clin Com See Note 01/16/22 01/16/22 01/16/22 11:40 15:21 17:46 MCV MCH MCHC RDW Plt Count MPV Immature Gran % (Auto) Neut % (Auto) Lymph % (Auto) [place] % (Auto) Eos % (Auto) Baso % (Auto) Lymph # (Auto) [place] # (Auto) Eos # (Auto) Baso # (Auto) Abs Immat Gran (auto) Absolute Neuts (auto) Absolute Nucleated RBC Nucleated RBC % (auto) PT INR VBG pH 7.31 L VBG pCO2 39 VBG pO2 41 VBG HCO3 20 L VBG O2 Saturation 58.0 VBG Base Excess -4.9 Anion Gap Estim Creat Clear Calc Estimated GFR Random Glucose Fasting Glucose Lactic Acid Lactic Acid F/U @ 2Hr 4.0 H* Lactic Acid F/U @ 4Hr 4.3 H* Calcium Magnesium Total Bilirubin Direct Bilirubin AST ALT Alkaline Phosphatase B-Natriuretic Peptide Total Protein Albumin COVID-19 (LIS) COVID-19 Future Ad Labs Com 01/17/22 01/17/22 06:30 06:30 MCV 94.4 MCH 31.6 MCHC 33.4 RDW 14.4 Plt Count 197 MPV 10.9 Immature Gran % (Auto) Neut % (Auto) Lymph % (Auto) [place] % (Auto) Eos % (Auto) Baso % (Auto) Lymph # (Auto) [place] # (Auto) Eos # (Auto) Baso # (Auto) Abs Immat Gran (auto) Absolute Neuts (auto) Absolute Nucleated RBC 0.000 Nucleated RBC % (auto) 0.0 PT INR VBG pH VBG pCO2 VBG pO2 VBG HCO3 VBG O2 Saturation VBG Base Excess Anion Gap 20 Estim Creat Clear Calc 39.0 Estimated GFR 44 Random Glucose Fasting Glucose 144 H D Lactic Acid Lactic Acid F/U @ 2Hr Lactic Acid F/U @ 4Hr Calcium 9.0 D Magnesium 2.1 Total Bilirubin 1.4 H Direct Bilirubin 0.5 AST 41 H ALT 15 Alkaline Phosphatase 116 B-Natriuretic Peptide Total Protein 7.0 Albumin 3.7 COVID-19 (LIS) COVID-19 Clin Com Assessment and Plan (1) BPH (benign prostatic hyperplasia): Status: Acute Plan 71M presented with sob acute hypoxic respiratory failure due to acute on chronic systolic chf (considered non ischemic, with underlying non obstructive CAD, EF 10%), and covid pneumonia with possible superimposed bacterial pneumonia, copd with acute decompensation continue IV lasix - poor response to 40mg bid iv, will change to 10mg/hr continue decadron day 2, duonebs, will start empiric rocpehin, doxy check ct chest, pulm eval cardio following monitor electrolytes continue entresto, asa, statin, breo opiate dependence buprenorhpine SL dvt prophylaxis - lovenox full code reason for continued hospitalization:ongoing severe hypoxia requiring high flow o2 Quality Stroke Does the patient have a stroke diagnosis?: No VTE Prior VTE?: No VTE Risk Level:: Medical - moderate - high VTE Device Contraindication: Treatment Not Indicated VTE Drug Contraindication: N/A - Med Ordered
--- NOTE | 2022-01-17 11:01 | MHC.CM.PN ---
Per ROUNDS discussion, Patient is not yet medically cleared for dc (IV Lasix, Buprenorphine will limit SNF choices, High Flow O2); Home new VNA VS STR Pending PT eval is the tentative plan and CM will continue to follow.
[2022-01-17] MEDS: Furosemide 200 MG in 0.9 % Sodium Chloride 80 ML IVCONT (11:48)
[2022-01-17] MEDS: cefTRIAXone sodium 1 GM in 0.9 % Sodium Chloride 50 ML IV (11:48)
[2022-01-17] MEDS: Buprenorphine HCL 8 MG TAB.SUBL SUBLINGUAL ×2 (12:25→17:11)
--- NOTE | 2022-01-17 13:03 | P.CONPL_ITS ---
History of Present Illness History of Present Illness Consult date: 01/17/22 Reason for consult: dyspnea, pneumonia and abnormal CXR/CT Chief complaint: Resp failure, CHF, COVID, COPD Narrative: I HAVE SEEN THIS 71 YEARS OLD GENTLEMAN FOR PULMONARY CONSULTATION. He has been admitted since yesterday with increased shortness of breath for the last several days. Denies fever or chills. Denies recent contact with sick person. In November, he was admitted here because of increased shortness of breath and leg edema, diagnosed to have cardiomyopathy. Was sent to [facility] where he had cardiac catheterization, treated conservatively, During that admission was found to have COVID infection. But he recovered to with the relatively minor treatment. Patient claims that he quit smoking after his admission in November. He does have history of getting short of breath on exertion, and has history of chronic obstructive pulmonary disease for some time. Now after admission since yesterday, he is found to have positive test for COVID-19, and he has developed progressive respiratory distress. He is now on high-flow O2 at 50 L/minute, to treat his hypoxemia. His chest x-ray and CT scan are grossly abnormal. [facility] I reviewed. Review of Systems Review of Systems: Yes all other systems are reviewed and are negative [facility] Past Medical History Medical History BPH (benign prostatic hyperplasia) COPD (chronic obstructive pulmonary disease) Endocarditis GERD (gastroesophageal reflux disease) HCV (hepatitis C virus) Opiate dependence Peripheral artery disease Family History Family History Mother Alzheimer disease Father Myocardial infarct Surgical History Surgical History History of cardiac catheterization Social History Social History Household Members: Family Household Members Other:: daughter and grandaughter. Housing: House Do you presently have visiting nurse or other home services: No Alcohol intake: never Patient Tobacco Use Status: Former Tobacco user Quit Date: about 2 months ago Tobacco use type: Cigarette Cigarette Packs Per Day: 1 Cigarettes Per Day: 20.0 Years Smoked: 50 Substance Use Type: Marijuana service: No Current occupational status: retired Meds Allergies Allergy/AdvReac Type Severity Reaction Status Date / Time No Known Allergies Allergy Verified 01/16/22 09:33 Active Medications: Current Medications Acetaminophen (Acetaminophen 325 Mg Tablet) 650 mg PO Q6H PRN PRN Reason: Pain, Mild (Pain Scale 1-3) Albuterol/Ipratropium (Albuterol/Iprat 2.5/0.5mg 3 Ml Ampul.Neb) 3 ml INHALE RQ4H WHILE AWAKE [facility] Last Admin: 01/17/22 11:49 Dose: 3 ml Aspirin (Aspirin Enteric Coated 81 Mg Tablet.Dr) 81 mg PO DAILY [facility] Last Admin: 01/17/22 09:40 Dose: 81 mg Atorvastatin Calcium (Atorvastatin Calcium 40 Mg Tablet) 40 mg PO BEDTIME [facility] Last Admin: 01/16/22 21:25 Dose: 40 mg Buprenorphine HCl (Buprenorphine Hcl 8 Mg Tab.Subl) 8 mg SUBLINGUAL TID@110 0,1700,2300 [facility] Last Admin: 01/17/22 12:25 Dose: 8 mg Cilostazol (Cilostazol 100 Mg Tablet) 100 mg PO DAILY [facility] Last Admin: 01/17/22 09:39 Dose: 100 mg Dexamethasone Sodium Phosphate (Dexamethasone Sod Phosphate 4 Mg/Ml Vial) 6 mg IVPUSH DAILY [facility] Last Admin: 01/17/22 09:40 Dose: 6 mg Enoxaparin Sodium (Enoxaparin Sodium 40 Mg/0.4 Ml Syringe) 40 mg SUBCUT Q24H [facility] Last Admin: 01/16/22 17:16 Dose: 40 mg Fluticasone/Vilanterol (Fluticasone/Vilanterol 100/25 Blst.W.Dev) 1 puff INHALE RDAILY [facility] Last Admin: 01/17/22 09:24 Dose: 1 puff Furosemide 200 mg/ Sodium (Chloride) 100 mls @ 5 mls/hr IVCONT .Q20H [facility] Last Admin: 01/17/22 11:48 Dose: 10 mg/hr, 5 mls/hr Ceftriaxone Sodium 1 gm/ (Sodium Chloride) 50 mls @ 100 mls/hr IV Q24H [facility] Last Infusion: 01/17/22 12:20 Dose: Infused Doxycycline Hyclate 100 mg/ (Sodium Chloride) 250 mls @ 166.67 mls/hr IV Q12H [facility] Lidocaine (Lidocaine 4 % Patch Adh..Patch) 1 patch TRANSDERMA DAILY [facility]; Protocol Last Admin: 01/17/22 09:44 Dose: 1 patch Morphine Sulfate (Morphine Sulfate 2 Mg/Ml Cartridge) 2 mg IVPUSH Q4H PRN; Protocol PRN Reason: sob Last Admin: 01/17/22 09:45 Dose: 2 mg Nitroglycerin (Nitroglycerin 0.4 Mg Tab.Subl) 0.4 mg SUBLINGUAL Q5MX3 PRN PRN Reason: mild pain Non-Formulary Medication (Linaclotide [Linzess]) 290 mcg PO DAILY [facility] Omeprazole (Omeprazole 20 Mg Capsule.Dr) 20 mg PO DAILY@0630 [facility] Last Admin: 01/17/22 09:41 Dose: Not Given Pharmacy Consult (Consult Rx Perform Med Rec) 1 each MISCELLANE ONCE PRN PRN Reason: Consult order Sacubitril/Valsartan (Sacubitril/Valsartan 1 Tab Tablet) 1 tab PO BID [facility]; Protocol Last Admin: 01/17/22 09:39 Dose: 1 tab Senna/Docusate Sodium (Sennosides/Docusate Sodium Tablet) 2 tab PO BEDTIME [facility] Last Admin: 01/16/22 21:25 Dose: 2 tab Sodium Chloride (0.9 % Sodium Chloride Flush 3 Ml Syringe) [address] [facility] [facility] Last Admin: 01/17/22 09:40 Dose: 3 ml Home Medications Medication Instructions Recorded Confirmed Last Taken Type buprenorphine HCl 8 mg sublingual 8 mg sublingual TID 11/23/21 01/16/22 Unknown History tablet linaclotide 290 mcg capsule 290 mcg PO DAILY 11/23/21 01/16/22 Unknown History (Linzess) pantoprazole 40 mg tablet,delayed 1 tab PO DAILY 11/23/21 01/16/22 Unknown History release sennosides 8.6 mg-docusate sodium 2 tab PO BEDTIME constipation 11/23/21 01/16/22 Unknown History 50 mg tablet (Senexon-S) furosemide 20 mg tablet 20 mg PO DAILY 12/12/21 01/16/22 Unknown History cilostazol 100 mg tablet 1 tab PO DAILY 01/16/22 01/16/22 Unknown History fluticasone furoate 100 1 ea inhalation DAILY 01/16/22 01/16/22 Unknown History mcg-vilanterol 25 mcg/dose inhalation powder (Breo Ellipta) Physical Exam Vital Signs: Vital Signs: Last Vital Signs Temp 97.2 F 01/17/22 11:45 Pulse 102 H 01/17/22 11:49 Resp 20 01/17/22 11:58 BP 141/80 H 01/17/22 11:45 Pulse Ox 95 01/17/22 11:45 O2 Del Method 01/17/22 11:45 O2 Flow Rate 50 01/17/22 11:45 FiO2 80 01/17/22 11:45 BMI result Body Mass Index 18.1 Const: Other: Chronically sick looking, of a thin build, conscious sent alert and conversing well. He has high-flow O2 on , and eating his lunch at this time. General: comfortable, no acute distress (Except mild dyspnea during examination), alert and awake Orientation/consciousness: patient oriented x3 HEENT: Head: Yes normal to inspection General nose exam: No nasal polyps present and No nasal discharge present Face and sinus: Yes sinuses nontender Mouth: oropharynx normal Throat: Yes posterior oropharynx normal Eyes: General: appearance normal, both eyes and all related structures Neck: Neck: Yes normal visual inspection, Yes no lymphadenopathy, Yes trachea midline and Yes no JVD Thyroid: Thyroid normal Chest: Chest palpation & inspection: normal inspection of the chest, normal palpation of entire chest wall and no tenderness Resp: Other: Percussion note is hyper-resonant in the upper parts of the chest. Breath sounds are distant, with prolonged expiratory phase. Coarse crepitations over the right lower lobe and left base. No wheezes. Cardio: Palpation: normal PMI Rate: regular rate Rhythm: regular rhythm Heart sounds: no gallops and no murmurs GI: Palpation (GI): Soft to palpation, nontender, No hepatosplenomegaly present and no masses Auscultation: normal bowel sounds Back/Spine/Pelvis: Other: Could not examine Thoracic/Lumbar Spine: thoracic and lumbar spine normal to inspection Skin: General skin exam: no rashes or lesions noted Neuro: General: patient oriented x3 and no focal motor deficits Cranial nerves: Yes CN's II-XII intact bilaterally Extrem: General: Yes normal to inspection, Yes no calf tenderness and Yes edema (moderate edema of legs) Psych: Speech and movement: Normal speech and movement present Results Laboratory Findings CBC and BMP: 01/17/22 06:30 01/17/22 06:30 ABG, PT/INR, D-dimer: PT/INR, D-dimer PT 11.1 SEC (10.0-13.1) 01/16/22 11:35 INR 1.0 (0.9-1.1) 01/16/22 11:35 Abnormal lab findings: Abnormal Labs 01/16/22 01/16/22 01/16/22 11:35 11:35 11:35 WBC 11.9 H RBC 4.53 L Hgb Hct Neut % (Auto) 82.4 H Lymph % (Auto) 10.1 L Abs Immat Gran (auto) 0.04 H Absolute Neuts (auto) 9.8 H VBG pH VBG HCO3 Potassium Carbon Dioxide BUN 23 H Creatinine Random Glucose 138 H Fasting Glucose Lactic Acid Lactic Acid F/U @ 2Hr Lactic Acid F/U @ 4Hr Total Bilirubin 2.1 H Direct Bilirubin 0.9 H AST Alkaline Phosphatase 137 H Troponin I High Sens 44.2 H B-Natriuretic Peptide 9490 H COVID-19 (LIS) 01/16/22 01/16/22 01/16/22 11:36 11:36 11:40 WBC RBC Hgb Hct Neut % (Auto) Lymph % (Auto) Abs Immat Gran (auto) Absolute Neuts (auto) VBG pH 7.31 L VBG HCO3 20 L Potassium Carbon Dioxide BUN Creatinine Random Glucose Fasting Glucose Lactic Acid 2.1 H* Lactic Acid F/U @ 2Hr Lactic Acid F/U @ 4Hr Total Bilirubin Direct Bilirubin AST Alkaline Phosphatase Troponin I High Sens B-Natriuretic Peptide COVID-19 (LIS) Positive A 01/16/22 01/16/22 01/17/22 15:21 17:46 06:30 WBC 16.8 H RBC 4.31 L Hgb 13.6 L Hct 40.7 L Neut % (Auto) Lymph % (Auto) Abs Immat Gran (auto) Absolute Neuts (auto) VBG pH VBG HCO3 Potassium Carbon Dioxide BUN Creatinine Random Glucose Fasting Glucose Lactic Acid Lactic Acid F/U @ 2Hr 4.0 H* Lactic Acid F/U @ 4Hr 4.3 H* Total Bilirubin Direct Bilirubin AST Alkaline Phosphatase Troponin I High Sens B-Natriuretic Peptide COVID-19 (LIS) 01/17/22 06:30 WBC RBC Hgb Hct Neut % (Auto) Lymph % (Auto) Abs Immat Gran (auto) Absolute Neuts (auto) VBG pH VBG HCO3 Potassium 5.2 H Carbon Dioxide 18 L BUN 36 H D Creatinine 1.55 H Random Glucose Fasting Glucose 144 H D Lactic Acid Lactic Acid F/U @ 2Hr Lactic Acid F/U @ 4Hr Total Bilirubin 1.4 H Direct Bilirubin AST 41 H Alkaline Phosphatase Troponin I High Sens B-Natriuretic Peptide COVID-19 (LIS) Diagnostic Findings Chest x-ray: report reviewed and image reviewed CT scan - chest: report reviewed and image reviewed Assessment and Plan (1) COVID-19: Status: Acute (2) Acute respiratory failure: Status: Acute (3) COPD (chronic obstructive pulmonary disease): Status: Acute (4) NICM (nonischemic cardiomyopathy): Status: Acute (5) Smoking: Status: Acute Plan This 71 years old gentleman with chronic advanced pulmonary emphysema/chronic obstructive pulmonary disease, and severe cardiomyopathy/congestive heart failure, Does have acute COVID-19 infection, and there is evidence of pneumonia right lower lobe , with some scattered alveolar densities in the left lung, I think we need to treat him for COVID-19 pneumonia causing respiratory distre ss, on top of his COPD. Possibility of is bacterial infection causing pneumonia right lower lobe cannot be ruled out. Recommendation : Agree with the current treatment plan, including dexamethasone, DuoNeb updrafts, O2. Also treatment with IV Rocephin and doxycycline is fine for possible super added bacterial pneumonia. Continue high-flow O2 , and try to wean down as soon as he is more stable. Procedures Date of Service Date of Service: 01/17/22
[2022-01-17] MEDS: Enoxaparin Sodium 40 MG/0.4 ML SYRINGE SUBCUT (15:01)
[2022-01-17] MEDS: Doxycycline Hyclate 100 MG in 0.9 % Sodium Chloride 250 ML 166.67 MG IV (15:02)
[2022-01-17] MEDS: Remdesivir 200 MG in 0.9 % Sodium Chloride 210 ML 105 MG IV (17:05)
[2022-01-17] MEDS: Atorvastatin Calcium 40 MG TABLET PO (22:08)
[2022-01-17] MEDS: Sennosides/Docusate Sodium TABLET 2 TAB PO (22:09)
[2022-01-18] VITALS (15 sets, daily range): BP systolic 98–137; BP diastolic 56–72; PULSE 65–100; RESP 16–20; TEMP 36.6–37.1; O2SAT 93–100
[2022-01-18] MEDS: Doxycycline Hyclate 100 MG in 0.9 % Sodium Chloride 250 ML 166.67 MG IV ×2 (01:39→14:31)
[2022-01-18] MEDS: 0.9 % Sodium Chloride Flush 3 ML SYRINGE IVFLUSH ×3 (01:40→16:07)
[2022-01-18] MEDS: Omeprazole 20 MG CAPSULE.DR PO (06:11)
[2022-01-18] MEDS: Furosemide 200 MG in 0.9 % Sodium Chloride 80 ML IVCONT (06:14)
[2022-01-18 06:32] LABS: Hematocrit 40.3 % (42.0-52.0); Hemoglobin 13.5 g/dl (14.0-18.0); Mean Corpuscular HGB Conc 33.5 g/dl (31.0-36.0); Mean Corpuscular Hemoglobin 31.5 pg (27.0-33.0); Mean Corpuscular Volume 94.2 fL (80.0-98.0); Mean Platelet Volume 10.6 fL (9.4-12.4); Platelet Count 185 X10*3/uL (160-400); Red Blood Count 4.28 X10*6/uL (4.60-5.80); Red Cell Distribution Width 14.6 % (11.0-16.0); White Blood Count 16.9 X10*3/uL (4.8-10.8)
[2022-01-18 06:48] LABS: Anion Gap 16 (12-20); Blood Urea Nitrogen 44 mg/dL (9-16); Calcium 8.5 mg/dL (8.4-10.2); Carbon Dioxide 32 mmol/L (22-29); Chloride 99 mmol/L (96-108); Creatinine Clr Calc Pharmacy 45.5; Estimated Glomerular Filt Rate 53; Glucose Fasting 95 mg/dL (60-99); Potassium 3.9 mmol/L (3.3-5.1); Sodium 143 mmol/L (135-145)
[2022-01-18] MEDS: Albuterol/Iprat 2.5/0.5MG 3 ML AMPUL.NEB INHALE ×4 (07:58→19:57)
[2022-01-18] MEDS: Fluticasone/Vilanterol 100/25 BLST.W.DEV 1 PUFF INHALE (09:22)
[2022-01-18] MEDS: cilostazoL 100 MG TABLET PO (09:59)
[2022-01-18] MEDS: Sacubitril/Valsartan 24/26 1 TAB TABLET PO (09:59)
[2022-01-18] MEDS: Lidocaine 4 % Patch ADH..PATCH 1 PATCH TRANSDERMA (09:59)
[2022-01-18] MEDS: dexAMETHasone sod phosphate 4 MG/ML VIAL 6 MG IVPUSH (09:59)
[2022-01-18] MEDS: Aspirin Enteric Coated 81 MG TABLET.DR PO (09:59)
[2022-01-18] MEDS: cefTRIAXone sodium 1 GM in 0.9 % Sodium Chloride 50 ML IV (10:00)
--- NOTE | 2022-01-18 10:23 | P.PNIM_ITS ---
Subjective Subjective Date of Service: 01/18/22 Interval History: cc: sob interval history:better today Cardiovascular Cardiovascular: Reports no additional cardiovascular complaints Gastrointestinal Gastrointestinal: Reports no additional gastrointestinal complaints Physical Exam Vital Signs: Vital Signs: Last Vital Signs Temp 97.9 F 01/18/22 07:48 Pulse 93 01/18/22 09:26 Resp 17 01/18/22 09:26 BP 136/56 L 01/18/22 07:48 Pulse Ox 99 01/18/22 07:48 O2 Del Method 01/18/22 07:48 O2 Flow Rate 50 01/18/22 07:48 FiO2 70 01/18/22 03:37 BMI result Body Mass Index 18.1 General: AO X 3, frail appearing, less dyspneic Resp: diminished bilateral, mild accessory muscles used CVS: S1,S2,RRR GI: soft, non tender, non distended Neuro: motor grossly intact, alert Psych: appropriate affect, appropriate insight Objective Data Active Medications Acetaminophen (Acetaminophen 325 Mg Tablet) 650 mg PO Q6H PRN PRN Reason: Pain, Mild (Pain Scale 1-3) Albuterol/Ipratropium (Albuterol/Iprat 2.5/0.5mg 3 Ml Ampul.Neb) 3 ml INHALE RQ4H WHILE AWAKE [facility] Last Admin: 01/18/22 07:58 Dose: 3 ml Documented By: ARCADIO Aspirin (Aspirin Enteric Coated 81 Mg Tablet.) 81 mg PO DAILY [facility] Last Admin: 01/18/22 09:59 Dose: 81 mg Documented By: HERMILA Atorvastatin Calcium (Atorvastatin Calcium 40 Mg Tablet) 40 mg PO BEDTIME [facility] Last Admin: 01/17/22 22:08 Dose: 40 mg Documented By: MIHAI Buprenorphine HCl (Buprenorphine Hcl 8 Mg Tab.Subl) 8 mg SUBLINGUAL TID@1100,1700,2300 [facility] Last Admin: 01/17/22 23:35 Dose: Not Given Documented By: MIHAI Non-Admin Reason: Patient Refused Cilostazol (Cilostazol 100 Mg Tablet) 100 mg PO DAILY [facility] Last Admin: 01/18/22 09:59 Dose: 100 mg Documented By: HERMILA Dexamethasone Sodium Phosphate (Dexamethasone Sod Phosphate 4 Mg/Ml Vial) 6 mg IVPUSH DAILY [facility] Last Admin: 01/18/22 09:59 Dose: 6 mg Documented By: HERMILA Enoxaparin Sodium (Enoxaparin Sodium 40 Mg/0.4 Ml Syringe) 40 mg SUBCUT Q24H [facility] Last Admin: 01/17/22 15:01 Dose: 40 mg Documented By: BROFátima Fluticasone/Vilanterol (Fluticasone/Vilanterol 100/25 Blst.W.Dev) 1 puff INHALE RDAILY [facility] Last Admin: 01/18/22 09:22 Dose: 1 puff Documented By: IVAN Furosemide 200 mg/ Sodium (Chloride) 100 mls @ 5 mls/hr IVCONT .Q20H [facility] Last Admin: 01/18/22 06:14 Dose: 10 mg/hr, 5 mls/hr Documented By: MIHAI Ceftriaxone Sodium 1 gm/ (Sodium Chloride) 50 mls @ 100 mls/hr IV Q24H [facility] Last Admin: 01/18/22 10:00 Dose: 100 mls/hr Documented By: HERMILA Doxycycline Hyclate 100 mg/ (Sodium Chloride) 250 mls @ 166.67 mls/hr IV Q12H [facility] Last Infusion: 01/18/22 03:14 Dose: 0 mls/hr Documented By: MIHAI Remdesivir 100 mg/ Sodium (Chloride) 230 mls @ 115 mls/hr IV Q24H [facility] Stop: 01/21/22 17:59 Lidocaine (Lidocaine 4 % Patch Adh..Patch) 1 patch TRANSDERMA DAILY [facility]; Protocol Last Admin: 01/18/22 09:59 Dose: 1 patch Documented By: HERMILA Morphine Sulfate (Morphine Sulfate 2 Mg/Ml Cartridge) 2 mg IVPUSH Q4H PRN; Protocol PRN Reason: sob Last Admin: 01/17/22 09:45 Dose: 2 mg Documented By: DIAZDEBrandy Nitroglycerin (Nitroglycerin 0.4 Mg Tab.Subl) 0.4 mg SUBLINGUAL Q5MX3 PRN PRN Reason: mild pain Non-Formulary Medication (Linaclotide [Linzess]) 290 mcg PO DAILY [facility] Omeprazole (Omeprazole 20 Mg Capsule.Dr) 20 mg PO DAILY@0630 [facility] Last Admin: 01/18/22 06:11 Dose: 20 mg Documented By: MIHAI Pharmacy Consult (Consult Rx Perform Med Rec) 1 each MISCELLANE ONCE PRN PRN Reason: Consult order Sacubitril/Valsartan (Sacubitril/Valsartan 1 Tab Tablet) 1 tab PO BID [facility]; Protocol Last Admin: 01/18/22 09:59 Dose: 1 tab Documented By: HERMILA Senna/Docusate Sodium (Sennosides/Docusate Sodium Tablet) 2 tab PO BEDTIME [facility] Last Admin: 01/17/22 22:09 Dose: 2 tab Documented By: MIHAI Sodium Chloride (0.9 % Sodium Chloride Flush 3 Ml Syringe) 3 ml IVFLUSH QSHIFT [facility] Last Admin: 01/18/22 10:00 Dose: 3 ml Documented By: HERMILA Labs CBC & Chem 7: 01/18/22 06:20 01/18/22 06:20 Labs: Laboratory Results - last 24 hr 01/18/22 01/18/22 06:20 06:20 MCV 94.2 MCH 31.5 MCHC 33.5 RDW 14.6 Plt Count 185 MPV 10.6 Absolute Nucleated RBC 0.000 Nucleated RBC % (auto) 0.0 Anion Gap 16 Estim Creat Clear Calc 45.5 Estimated GFR 53 Fasting Glucose 95 Calcium 8.5 Microbiology Microbiology Results: Microbiology 01/16/22 11:39 Blood Culture - Preliminary Blood - Venous No growth after 24 hours. 01/16/22 11:35 Blood Culture - Preliminary Blood - Venous No growth after 24 hours. Assessment and Plan (1) BPH (benign prostatic hyperplasia): Status: Acute Plan 71M presented with sob acute hypoxic respiratory failure due to acute on chronic systolic chf (considered non ischemic, with underlying non obstructive CAD, EF 10%), and cov id pneumonia with possible superimposed bacterial pneumonia, copd with acute decompensation continue IV lasix 10mg/hr, diuresed better continue decadron day 3, duonebs, remdisivir day 2 empiric rocpehin, doxy pulm appreciated cardio following monitor electrolytes continue entresto, asa, statin, breo opiate dependence buprenorhpine SL dvt prophylaxis - lovenox full code reason for continued hospitalization:ongoing severe hypoxia still weaning off high flow o2 Quality Stroke Does the patient have a stroke diagnosis?: No VTE Prior VTE?: No VTE Risk Level:: Medical - moderate - high VTE Device Contraindication: Treatment Not Indicated VTE Drug Contraindication: N/A - Med Ordered
--- NOTE | 2022-01-18 11:08 | PM.PNCARD ---
Subjective Subjective Date of Service: 01/18/22 Principal diagnosis: respiratory failure Interval history: patient says he is feeling a lot better. He is currently off high-flow oxygen. Still receiving IV Lasix drip and has diuresed adequately. Tolerating his medications. Blood pressures improved. No arrhythmias noted. Review of Systems Review of Systems Yes all other systems are reviewed and are negative Physical Exam Vital Signs: Last Vital Signs Temp 97.9 F 01/18/22 07:48 Pulse 93 01/18/22 09:26 Resp 17 01/18/22 09:26 BP 136/56 L 01/18/22 07:48 Pulse Ox 99 01/18/22 07:48 O2 Del Method 01/18/22 07:48 O2 Flow Rate 50 01/18/22 07:48 FiO2 70 01/18/22 03:37 BMI result Body Mass Index 18.1 Const General: cooperative, alert, awake, in distress moderate and anxious Nutritional Appearance: thin Orientation/consciousness: patient oriented x3 Neck Neck: Yes trachea midline, Yes supple and Yes no JVD Chest Chest palpation & inspection: normal inspection of the chest Resp Effort & Inspection: normal respiratory effort and tachypneic Auscultation: clear to auscultation bilaterally and diminished lung sounds Cardio Jugular venous distension: no JVD and JVD Palpation: abnormal PMI displaced PMI Rate: regular rate Rhythm: regular rhythm Heart sounds: S1 normal heart sound present, S2 normal heart sound present, no click, no gallops, no murmurs and no rubs Skin General skin exam: no rashes or lesions noted Neuro General: patient oriented x3 and no focal motor deficits Extrem General: No no clubbing, cyanosis or edema Objective Labs and Meds Result diagrams: 01/18/22 06:20 01/18/22 06:20 Lab results: Laboratory Results - last 24 hr 01/18/22 01/18/22 06:20 06:20 WBC 16.9 H RBC 4.28 L Hgb 13.5 L Hct 40.3 L MCV 94.2 MCH 31.5 MCHC 33.5 RDW 14.6 Plt Count 185 MPV 10.6 Absolute Nucleated RBC 0.000 Nucleated RBC % (auto) 0.0 Sodium 143 Potassium 3.9 D Chloride 99 Carbon Dioxide 32 H Anion Gap 16 BUN 44 H Creatinine 1.33 Estim Creat Clear Calc 45.5 Estimated GFR 53 Fasting Glucose 95 Calcium 8.5 Imaging Radiologist's impression: Impressions Chest CT 01/17/22 11:42 IMPRESSION: Emphysema. Bilateral patchy areas of consolidation and cystic changes probably representing pneumonia largest in the bilateral lower lobes. Small to moderate right pleural effusion. Large air-fluid level adjacent to the posterior left lower lobe similar to lung windows from abdominal and pelvic CT scan 11/23/2021. Differential would fluid a loculated left hydropneumothorax and large labral bulla in the left lower lobe adjacent left pleural effusion. This appears chronic 4 unchanged from November 2021 exam and causes mass effect or compressive atelectasis of the left lower lobe. CT consultation is recommended. Left pigtail chest tube placement to see if the left lower lobe can reexpand may be helpful. Atherosclerotic disease and coronary artery calcification. Question small amount of fluid in the posterior mediastinum surrounding the distal thoracic esophagus. Fleischner guidelines were followed. Progress Note: A&P Assessment and plan (1) Acute respiratory failure: Status: Acute Assessment and Plan: Acute respiratory failure with hypoxemia which is significantly improved significantly improved symptoms from diuresis. lot of symptoms probably related to acute decompensated heart failure. Continue IV diuresis with Lasix. Increase Entresto to 49-51 mg b.i.d.. Add Aldactone 12.5 mg to his regimen. Will hold off on beta-jose guadalupe till he is better diuresed till tomorrow. check BMP and BNP tomorrow. Out of bed to chair. Incentive spirometry. Continue pulmonary treatment as per the hospitalist/pulmonary team. Will continue to follow with you Time Spent With Patient Time: Total time spent is greater than 50% in coordination of care (as documented) at patient's floor/unit and/or counseling patient: Progress Note: Quality Stroke Does the patient have a stroke diagnosis?: No Procedures Date of Service Date of Service: 01/18/22
[2022-01-18] MEDS: Buprenorphine HCL 8 MG TAB.SUBL SUBLINGUAL ×2 (11:47→16:13)
[2022-01-18] MEDS: Enoxaparin Sodium 40 MG/0.4 ML SYRINGE SUBCUT (14:30)
[2022-01-18] MEDS: Remdesivir 100 MG in 0.9 % Sodium Chloride 230 ML 115 MG IV (16:06)
[2022-01-18] MEDS: Sennosides/Docusate Sodium TABLET 2 TAB PO (20:18)
[2022-01-18] MEDS: Atorvastatin Calcium 40 MG TABLET PO (20:18)
[2022-01-18] MEDS: Sacubitril/Valsartan 24/26 1 TAB TABLET 2 TAB PO (20:21)
[2022-01-19] VITALS (13 sets, daily range): BP systolic 80–158; BP diastolic 35–88; PULSE 62–155; RESP 17–20; TEMP 36.5–37.2; O2SAT 92–99
--- NOTE | 2022-01-19 | ECG_ITS ---
Test Reason : AFIB Blood Pressure : / mmHG Vent. Rate : 137 BPM Atrial Rate : 000 BPM P-R Int : 000 ms QRS Dur : 156 ms QT Int : 378 ms P-R-T Axes : 000 -47 132 degrees QTc Int : 570 ms Atrial fibrillation with rapid ventricular response Left axis deviation Left bundle branch block Abnormal ECG When compared with ECG of 16-JAN-2022 09:58, Atrial fibrillation has replaced Sinus rhythm Referred By: Prakash Tijerina Electronically Signed By:LONI JORDAN MD
[2022-01-19] MEDS: 0.9 % Sodium Chloride Flush 3 ML SYRINGE IVFLUSH ×4 (01:05→20:09)
[2022-01-19] MEDS: Doxycycline Hyclate 100 MG in 0.9 % Sodium Chloride 250 ML 166.67 MG IV ×2 (03:18→14:07)
[2022-01-19] MEDS: Furosemide 200 MG in 0.9 % Sodium Chloride 80 ML IVCONT (03:19)
[2022-01-19] MEDS: Omeprazole 20 MG CAPSULE.DR PO (06:11)
[2022-01-19 06:53] LABS: Hematocrit 40.3 % (42.0-52.0); Hemoglobin 13.6 g/dl (14.0-18.0); Mean Corpuscular HGB Conc 33.7 g/dl (31.0-36.0); Mean Corpuscular Hemoglobin 31.5 pg (27.0-33.0); Mean Corpuscular Volume 93.3 fL (80.0-98.0); Mean Platelet Volume 10.7 fL (9.4-12.4); Platelet Count 198 X10*3/uL (160-400); Red Blood Count 4.32 X10*6/uL (4.60-5.80); Red Cell Distribution Width 14.2 % (11.0-16.0)
[2022-01-19 07:11] LABS: B Type Natriuretic Peptide 2505 pg/mL (<100)
[2022-01-19 07:25] LABS: Anion Gap 17 (12-20); Blood Urea Nitrogen 46 mg/dL (9-16); Calcium 8.2 mg/dL (8.4-10.2); Carbon Dioxide 33 mmol/L (22-29); Chloride 93 mmol/L (96-108); Estimated Glomerular Filt Rate 59; Glucose Fasting 92 mg/dL (60-99); Magnesium 1.6 mg/dL (1.6-2.6); Potassium 2.9 mmol/L (3.3-5.1); Sodium 140 mmol/L (135-145)
[2022-01-19] MEDS: Albuterol/Iprat 2.5/0.5MG 3 ML AMPUL.NEB INHALE ×4 (07:49→19:04)
[2022-01-19] MEDS: Magnesium Oxide 400 MG TABLET 800 MG PO ×2 (08:39→17:20)
[2022-01-19] MEDS: Metoprolol Tartrate 5 MG/5 ML VIAL IVPUSH (08:39)
[2022-01-19] MEDS: Spironolactone 25 MG TABLET 12.5 MG PO (08:39)
[2022-01-19] MEDS: Potassium Chloride ER 20 MEQ TAB.ER.PRT 40 MEQ PO (08:40)
[2022-01-19] MEDS: cilostazoL 100 MG TABLET PO (08:41)
[2022-01-19] MEDS: Sacubitril/Valsartan 24/26 1 TAB TABLET 2 TAB PO (08:44)
[2022-01-19] MEDS: Aspirin Enteric Coated 81 MG TABLET.DR PO (08:44)
[2022-01-19] MEDS: dexAMETHasone sod phosphate 4 MG/ML VIAL 6 MG IVPUSH (08:45)
[2022-01-19] MEDS: Metoprolol Tartrate 25 MG TABLET PO (09:28)
[2022-01-19] MEDS: cefTRIAXone sodium 1 GM in 0.9 % Sodium Chloride 50 ML IV (09:34)
--- NOTE | 2022-01-19 09:49 | P.CDIC_ITS ---
CDI Concurrent Query Documentation Clarification: PHYSICIAN'S DOCUMENTATION REQUEST Date of Query: 01/19/22 0949 Patient Name: Freddy Alanis Admit Date: 01/16/22 Dear Doctor, A review of the medical record indicates additional documentation may be needed. Please review below and update the documentation accordingly. Clinical Indicators Risk Factors/Clinical Indicators/Treatments Clinical nutrition note 01/17 - Underweight BMI 18.1 Involuntary weight loss. Ensure BID to increase KCals. If possible, please provide an associated diagnosis related to the abnormal BMI, such as: For a BMI <= 19: * Underweight * Weight loss * Cachexia * Anorexia * Other (please specify) * Unable to determine Use of terms such as suspected, likely, concern for, or probable (associated with a specific diagnosis that is being evaluated, monitored, or treated as if it exists) are acceptable and can be coded in the inpatient setting, when documented at the time of discharge. Thank you, Keyona Gibbons [facility], CDIS Extension: [phone] Please use your independent medical judgment in providing your response. 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
[2022-01-19] MEDS: Buprenorphine HCL 8 MG TAB.SUBL SUBLINGUAL ×2 (10:25→18:12)
--- NOTE | 2022-01-19 11:07 | PM.PNPUL ---
Subjective Subjective Date of Service: 01/19/22 Principal diagnosis: respiratory failure Interval history: THIS GENTLEMAN IS IMPROVING . SHORTNESS OF BREATH IS MUCH BETTER. HE REMAINS AFEBRILE HAS BEEN WEANED OFF HIGH-FLOW O2, AND DOING WELL WITH NASAL CANNULA AT 5 L/MINUTE. Objective Data Labs CBC & Chem 7: 01/19/22 06:20 01/19/22 06:20 Labs: Laboratory Results - last 24 hr 01/19/22 01/19/22 01/19/22 06:20 06:20 06:20 WBC 14.0 H RBC 4.32 L Hgb 13.6 L Hct 40.3 L MCV 93.3 MCH 31.5 MCHC 33.7 RDW 14.2 Plt Count 198 MPV 10.7 Absolute Nucleated RBC 0.000 Nucleated RBC % (auto) 0.0 Sodium 140 Potassium 2.9 L D Chloride 93 L Carbon Dioxide 33 H Anion Gap 17 BUN 46 H Creatinine 1.21 Estim Creat Clear Calc 50.0 Estimated GFR 59 Fasting Glucose 92 Calcium 8.2 L Magnesium 1.6 B-Natriuretic Peptide 2505 H Microbiology Microbiology Results: Microbiology 01/16/22 11:39 Blood - Venous Blood Culture - Preliminary No growth after 48 hours. 01/16/22 11:35 Blood - Venous Blood Culture - Preliminary No growth after 48 hours. Physical Exam Vital Signs: Vital Signs: Last Vital Signs Temp 98.9 F 01/19/22 08:20 Pulse 155 H 01/19/22 08:50 Resp 20 01/19/22 08:20 BP 128/68 01/19/22 08:50 Pulse Ox 92 01/19/22 08:20 O2 Del Method 01/19/22 08:20 O2 Flow Rate 4 01/19/22 08:20 FiO2 70 01/18/22 03:37 BMI result Body Mass Index 18.1 Const: Other: Chronically sick looking, of a thin build, conscious sent alert and conversing well. He has high-flow O2 on , and eating his lunch at this time. General: comfortable, no acute distress (Except mild dyspnea during examination), alert and awake Orientation/consciousness: patient oriented x3 HEENT: Head: Yes normal to inspection General nose exam: No nasal polyps present and No nasal discharge present Face and sinus: Yes sinuses nontender Mouth: oropharynx normal Throat: Yes posterior oropharynx normal Eyes: General: appearance normal, both eyes and all related structures Neck: Neck: Yes normal visual inspection, Yes no lymphadenopathy, Yes trachea midline and Yes no JVD Thyroid: Thyroid normal Chest: Chest palpation & inspection: normal inspection of the chest, normal palpation of entire chest wall and no tenderness Resp: Other: Percussion note is hyper-resonant in the upper parts of the chest. Breath sounds are distant, with prolonged expiratory phase. Coarse crepitations over the right lower lobe and left base. No wheezes. Cardio: Palpation: normal PMI Rate: regular rate Rhythm: regular rhythm Heart sounds: no gallops and no murmurs GI: Palpation (GI): Soft to palpation, nontender, No hepatosplenomegaly present and no masses Auscultation: normal bowel sounds Back/Spine/Pelvis: Other: Could not examine Thoracic/Lumbar Spine: thoracic and lumbar spine normal to inspection Skin: General skin exam: no rashes or lesions noted Neuro: General: patient oriented x3 and no focal motor deficits Cranial nerves: Yes CN's II-XII intact bilaterally Extrem: General: Yes normal to inspection, Yes no calf tenderness and Yes edema (moderate edema of legs) Psych: Speech and movement: Normal speech and movement present Procedures Date of Service Date of Service: 01/19/22 Assessment and Plan Assessment and plan (1) COVID-19: Status: Acute (2) COPD (chronic obstructive pulmonary disease): Status: Acute (3) Acute respiratory failure: Status: Acute (4) Pneumonia due to 2019 novel coronavirus: Status: Acute Assessment and Plan: THIS THE 71 YEARS OLD GENTLEMAN, WITH THE HISTORY OF SMOKING, COPD, COVID PNEUMONIA, ON TOP OF HIS RECENTLY DIAGNOSE CARDIOMYOPATHY/CHF. IS CLINICALLY IMPROVING. RESPIRATORY STATUS HAS DEFINITELY IMPROVED. O2 REQUIREMENT IS MUCH LESS. HE IS DOING OKAY WITH NASAL CANNULA AT 5 L/MINUTE. THIS CAN BE WEANED DOWN FURTHER LONG O2 SAT STAYS ABOVE 90%. RECC : COMPLETE THE COURSE OF REMDESIVIR, AND DEXAMETHASONE. IV ROCEPHIN MAY BE CHANGED TO CEFTIN P.O., AND SIMILARLY DOXYCYCLINE CAN BE CHANGED TO P.O. COMPLETE THE COURSE FOR 7 DAYS. CONTINUE BREO-201 INHALATION DAILY, AND HE MAY NEED DUONEB UPDRAFT Q 4-6 HOURS P.R.N.. PATIENT SHOULD HAVE REPEAT CT SCAN OF THE CHEST BEFORE DISCHARGE, OR FUTURE REFERENCE. Time Spent With Patient Time: Total time spent is greater than 50% in coordination of care (as documented) at patient's floor/unit and/or counseling patient: Progress Note: Quality Stroke Does the patient have a stroke diagnosis?: No
--- NOTE | 2022-01-19 11:43 | PM.PNCARD ---
Subjective Subjective Date of Service: 01/19/22 Principal diagnosis: respiratory failure , atrial fibrillation with RVR Interval history: patient developed atrial fibrillation rapid ventricular response overnight. Surprisingly has no symptoms. Denies any worsening shortness of breath. Heart rate is difficult control. He has no prior history of atrial fibrillation. He says his breathing is significantly better. His BNP is improved significantly as well. Review of Systems Constitutional: Reports no additional constitutional complaints Cardiovascular: Denies leg edema, Denies lightheadedness, Denies Loss of Consciousness, Denies palpitations and Denies orthopnea Respiratory: Reports no additional respiratory complaints Gastrointestinal: Reports no additional gastrointestinal complaints Musculoskeletal: Reports no additional musculoskeletal complaints Reports system reviewed and no additional complaints, except as documented Endocrine: Denies palpitations Physical Exam Vital Signs: Last Vital Signs Temp 98.2 F 01/19/22 11:06 Pulse 101 H 01/19/22 11:13 Resp 18 01/19/22 11:13 BP 156/65 H 01/19/22 11:06 Pulse Ox 98 01/19/22 11:06 O2 Del Method 01/19/22 11:06 O2 Flow Rate 2 01/19/22 11:06 FiO2 70 01/18/22 03:37 BMI result Body Mass Index 18.1 Const General: cooperative, alert, awake, in distress moderate and anxious Nutritional Appearance: thin Orientation/consciousness: patient oriented x3 Neck Neck: Yes trachea midline, Yes supple and Yes no JVD Chest Chest palpation & inspection: normal inspection of the chest Resp Effort & Inspection: normal respiratory effort and tachypneic Auscultation: clear to auscultation bilaterally and diminished lung sounds Cardio Jugular venous distension: no JVD and JVD Palpation: abnormal PMI displaced PMI Rate: tachycardic Rhythm: abnormal rhythm irregularly irregular Heart sounds: S1 normal heart sound present, S2 normal heart sound present, no click, no gallops, no murmurs and no rubs Skin General skin exam: no rashes or lesions noted Neuro General: patient oriented x3 and no focal motor deficits Extrem General: No no clubbing, cyanosis or edema Objective Labs and Meds Result diagrams: 01/19/22 06:20 01/19/22 06:20 Lab results: Laboratory Results - last 24 hr 01/19/22 01/19/22 01/19/22 06:20 06:20 06:20 WBC 14.0 H RBC 4.32 L Hgb 13.6 L Hct 40.3 L MCV 93.3 MCH 31.5 MCHC 33.7 RDW 14.2 Plt Count 198 MPV 10.7 Absolute Nucleated RBC 0.000 Nucleated RBC % (auto) 0.0 Sodium 140 Potassium 2.9 L D Chloride 93 L Carbon Dioxide 33 H Anion Gap 17 BUN 46 H Creatinine 1.21 Estim Creat Clear Calc 50.0 Estimated GFR 59 Fasting Glucose 92 Calcium 8.2 L Magnesium 1.6 B-Natriuretic Peptide 2505 H Progress Note: A&P Assessment and plan (1) New onset atrial fibrillation: Status: Acute Assessment and Plan: patient with new onset atrial fibrillation rapid ventricular response. Surprising no symptoms related to it. However rate is difficult control. Given new onset atrial fibrillation and his overall poor LV systolic function would benefit with rhythm control approach. Will start him on IV amiodarone to chemically cardiovert him. Start him on a loading dose along with drip. If he cardioversion will switch him to oral amiodarone for rhythm control for the future in the short term and eventually plan for alternative antiarrhythmics if need be. Start on oral anticoagulation with Eliquis. If he fails to convert with IV amiodarone will plan for synchronized cardioversion tomorrow. Keep him NPO after midnight. Plan was discussed with the patient. He is agreeable. (2) Heart failure with reduced ejection fraction: Status: Acute Assessment and Plan: Heart failure with reduced ejection fraction with significantly improved symptoms of shortness of breath. At this point time can switch to p.o. Lasix 40 mg b.i.d.. Continue current neurohormonal modulation with Entresto, Aldactone, add metoprolol low-dose therapy to his regimen. Will continue to follow with the patient Time Spent With Patient Time: Total time spent is greater than 50% in coordination of care (as documented) at patient's floor/unit and/or counseling patient: Progress Note: Quality Stroke Does the patient have a stroke diagnosis?: No Procedures Date of Service Date of Service: 01/19/22
[2022-01-19] MEDS: Amiodarone/Dextrose 150 MG/100 ML PLAST..BAG 600 MG IV (11:55)
--- NOTE | 2022-01-19 11:57 | P.PNIM_ITS ---
Subjective Subjective Date of Service: 01/19/22 Interval History: cc: sob interval history:sob much improved, went into afib with rvr but did not seems to be symptomatic Cardiovascular Cardiovascular: Reports no additional cardiovascular complaints Respiratory Respiratory: Reports no additional respiratory complaints Physical Exam Vital Signs: Vital Signs: Last Vital Signs Temp 98.2 F 01/19/22 11:06 Pulse 101 H 01/19/22 11:13 Resp 18 01/19/22 11:13 BP 156/65 H 01/19/22 11:06 Pulse Ox 98 01/19/22 11:06 O2 Del Method 01/19/22 11:06 O2 Flow Rate 2 01/19/22 11:06 FiO2 70 01/18/22 03:37 BMI result Body Mass Index 18.1 General: AO X 3, no acute distress, frail, ill appearing Resp: diminished bilateral, mild accessory muscles used CVS: S1,S2, irregular rapid GI: soft, non tender, non distended Neuro: motor grossly intact, alert Psych: appropriate affect, appropriate insight Objective Data Active Medications Acetaminophen (Acetaminophen 325 Mg Tablet) 650 mg PO Q6H PRN PRN Reason: Pain, Mild (Pain Scale 1-3) Albuterol/Ipratropium (Albuterol/Iprat 2.5/0.5mg 3 Ml Ampul.Neb) 3 ml INHALE RQ4H WHILE AWAKE [facility] Last Admin: 01/19/22 11:13 Dose: 3 ml Documented By: KRANTHI Apixaban (Apixaban 5 Mg Tablet) 5 mg PO BID [facility] Aspirin (Aspirin Enteric Coated 81 Mg Tablet.Dr) 81 mg PO DAILY [facility] Last Admin: 01/19/22 08:44 Dose: 81 mg Documented By: HERMILA Atorvastatin Calcium (Atorvastatin Calcium 40 Mg Tablet) 40 mg PO BEDTIME [facility] Last Admin: 01/18/22 20:18 Dose: 40 mg Documented By: HIGINIO Buprenorphine HCl (Buprenorphine Hcl 8 Mg Tab.Subl) 8 mg SUBLINGUAL TID@1100,1700,2300 [facility] Last Admin: 01/19/22 10:25 Dose: 8 mg Documented By: HERMILA Cilostazol (Cilostazol 100 Mg Tablet) 100 mg PO DAILY [facility] Last Admin: 01/19/22 08:41 Dose: 100 mg Documented By: HERMILA Dexamethasone Sodium Phosphate (Dexamethasone Sod Phosphate 4 Mg/Ml Vial) 6 mg IVPUSH DAILY [facility] Last Admin: 01/19/22 08:45 Dose: 6 mg Documented By: HERMILA Fluticasone/Vilanterol (Fluticasone/Vilanterol 100/25 Blst.W.Dev) 1 puff INHALE RDAILY [facility] Last Admin: 01/19/22 07:50 Dose: Not Given Documented By: KRANTHI Non-Admin Reason: Med Not Available Furosemide (Furosemide 40 Mg Tablet) 40 mg PO BID@0900,1800 [facility]; Protocol Ceftriaxone Sodium 1 gm/ (Sodium Chloride) 50 mls @ 100 mls/hr IV Q24H [facility] Last Infusion: 01/19/22 10:26 Dose: 0 mls/hr Documented By: HERMILA Doxycycline Hyclate 100 mg/ (Sodium Chloride) 250 mls @ 166.67 mls/hr IV Q12H [facility] Last Infusion: 01/19/22 05:52 Dose: 0 mls/hr Documented By: MIGUEL Remdesivir 100 mg/ Sodium (Chloride) 230 mls @ 115 mls/hr IV Q24H [facility] Stop: 01/21/22 17:59 Last Infusion: 01/18/22 18:07 Dose: 0 mls/hr Documented By: HIGINIO Amiodarone HCl 900 mg/ Sodium (Chloride) 518 mls @ 34.533 mls/hr IVCONT .Q15H1M [facility]; Protocol Lidocaine (Lidocaine 4 % Patch Adh..Patch) 1 patch TRANSDERMA DAILY [facility]; Protocol Last Admin: 01/19/22 08:48 Dose: Not Given Documented By: HERMILA Non-Admin Reason: Patient Refused Magnesium Oxide (Magnesium Oxide 400 Mg Tablet) 800 mg PO BIDPC [facility] Last Admin: 01/19/22 08:39 Dose: 800 mg Documented By: HERMILA Morphine Sulfate (Morphine Sulfate 2 Mg/Ml Cartridge) 2 mg IVPUSH Q4H PRN; Protocol PRN Reason: sob Last Admin: 01/17/22 09:45 Dose: 2 mg Documented By: RANDELL Nitroglycerin (Nitroglycerin 0.4 Mg Tab.Subl) 0.4 mg SUBLINGUAL Q5MX3 PRN PRN Reason: mild pain Non-Formulary Medication (Linaclotide [Linzess]) 290 mcg PO DAILY [facility] Omeprazole (Omeprazole 20 Mg Capsule.Dr) 20 mg PO DAILY@0630 [facility] Last Admin: 01/19/22 06:11 Dose: 20 mg Documented By: MIGUEL Pharmacy Consult (Consult Rx Perform Med Rec) 1 each MISCELLANE ONCE PRN PRN Reason: Consult order Sacubitril/Valsartan (Sacubitril/Valsartan 1 Tab Tablet) 2 tab PO BID [facility]; Protocol Last Admin: 01/19/22 08:44 Dose: 2 tab Documented By: HERMILA Senna/Docusate Sodium (Sennosides/Docusate Sodium Tablet) 2 tab PO BEDTIME [facility] Last Admin: 01/18/22 20:18 Dose: 2 tab Documented By: HIGINIO Sodium Chloride (0.9 % Sodium Chloride Flush 3 Ml Syringe) 3 ml IVFLUSH QSHIFT [facility] Last Admin: 01/19/22 09:34 Dose: 3 ml Documented By: HERMILA Spironolactone (Spironolactone 25 Mg Tablet) 12.5 mg PO DAILY [facility]; Protocol Last Admin: 01/19/22 08:39 Dose: 12.5 mg Documented By: HERMILA Labs CBC & Chem 7: 01/19/22 06:20 01/19/22 06:20 Labs: Laboratory Results - last 24 hr 01/19/22 01/19/22 01/19/22 06:20 06:20 06:20 MCV 93.3 MCH 31.5 MCHC 33.7 RDW 14.2 Plt Count 198 MPV 10.7 Absolute Nucleated RBC 0.000 Nucleated RBC % (auto) 0.0 Anion Gap 17 Estim Creat Clear Calc 50.0 Estimated GFR 59 Fasting Glucose 92 Calcium 8.2 L Magnesium 1.6 B-Natriuretic Peptide 2505 H Microbiology Microbiology Results: Microbiology 01/16/22 11:39 Blood Culture - Preliminary Blood - Venous No growth after 48 hours. 01/16/22 11:35 Blood Culture - Preliminary Blood - Venous No growth after 48 hours. Assessment and Plan (1) BPH (benign prostatic hyperplasia): Status: Acute Plan 71M presented with sob acute hypoxic respiratory failure due to acute on chronic systolic chf (considered non ischemic, with underlying non obstructive CAD, EF 10%), and covid pneumonia with possible superimposed bacterial pneumonia, copd with acute decompensation diuresed well, weaned of high flow to 3L, will change to po lasix 40mg bid, continue decadron day 4, duonebs, remdisivir day 3 empiric rocpehin, doxy pulm appreciated cardio following monitor electrolytes continue entresto, asa, statin, breo, added low dose metoprolol new onset afib with rvr amio iv, eliquis, goal for rhythm control, npo after midnight for electrical CV if no chemical CV. opiate dependence buprenorhpine SL dvt prophylaxis - lovenox full code reason for continued hospitalization: afib with rvr needing iv meds, possible electrical cardioversion Quality Stroke Does the patient have a stroke diagnosis?: No VTE Prior VTE?: No VTE Risk Level:: Medical - moderate - high VTE Device Contraindication: Treatment Not Indicated VTE Drug Contraindication: N/A - Med Ordered
[2022-01-19] MEDS: Amiodarone HCL 900 MG in 0.9 % Sodium Chloride 500 ML 34.53 MG IVCONT (12:09)
[2022-01-19] MEDS: Apixaban 5 MG TABLET PO ×2 (12:15→20:08)
--- NOTE | 2022-01-19 12:49 | MHC.CM.PN ---
pt requires hospitliazation for continued iv meds and electrical cardio version
--- NOTE | 2022-01-19 13:05 | MHC.CLN ---
F/U PT IS UNDER WT FOR HT PT WITH RECENT 8% SIGNIFICANT WT LOSS X 2 MONTHS R/T ACUTE ILLNESS PO INTAKE VARIABLE DIET RX; CARDIAC-APPROPRIATE PT RECEIVING ENSURE BID TO INCREASE KCALS SUPP PROVIDES 700KCALS, 40G PROTEIN MONITOR PO INTAKE CLOSELY
[2022-01-19] MEDS: Remdesivir 100 MG in 0.9 % Sodium Chloride 230 ML 115 MG IV (17:20)
[2022-01-19] MEDS: Sennosides/Docusate Sodium TABLET 2 TAB PO (20:08)
[2022-01-19] MEDS: Atorvastatin Calcium 40 MG TABLET PO (20:08)
--- NOTE | 2022-01-19 22:00 | PC.NURSE ---
Report from [facility] said pt is on amiodarone drip at 1mg/min and it is to be titrated down to 0.5mg/min at 1800. Pt BP has been soft all day, systolic in the 80s and asymptomatic. On assessment, pt manual BP at 1900 was 85/40, which the MAP = 55. The amiodarone drip protocol says to hold if MAP < 65. Dr. Cuenca notified and ordered to HOLD drip. Manual BP taken at 2200 reading 80/60 still asymptomatic. Rhythm is showing NSR with occasional runs of nonrapid afib, and PVCs. EKG ordered by Dr. Cuenca, showing NSR with frequent PVCs. Amiodarone drip ordered to stay off by Dr. Anaya and Dr. Cuenca. To start PO amiodarone. Will continue to monitor.
[2022-01-20] VITALS (10 sets, daily range): BP systolic 99–160; BP diastolic 52–84; PULSE 54–90; RESP 12–18; TEMP 36.4–37.2; O2SAT 92–98
--- NOTE | 2022-01-20 01:58 | PC.NURSE ---
Pt noted to have 8 beat of vtach, asymptomatic. Will continue to monitor.
[2022-01-20] MEDS: Doxycycline Hyclate 100 MG in 0.9 % Sodium Chloride 250 ML 166.67 MG IV (03:00)
[2022-01-20 07:00] LABS: Hematocrit 38.3 % (42.0-52.0); Hemoglobin 12.9 g/dl (14.0-18.0); Mean Corpuscular HGB Conc 33.7 g/dl (31.0-36.0); Mean Corpuscular Hemoglobin 31.5 pg (27.0-33.0); Mean Corpuscular Volume 93.6 fL (80.0-98.0); Mean Platelet Volume 10.8 fL (9.4-12.4); Platelet Count 186 X10*3/uL (160-400); Red Blood Count 4.09 X10*6/uL (4.60-5.80); Red Cell Distribution Width 14.3 % (11.0-16.0)
[2022-01-20 07:17] LABS: Anion Gap 15 (12-20); Blood Urea Nitrogen 51 mg/dL (9-16); Calcium 8.6 mg/dL (8.4-10.2); Carbon Dioxide 34 mmol/L (22-29); Chloride 96 mmol/L (96-108); Creatinine Clr Calc Pharmacy 50.8; Estimated Glomerular Filt Rate > 60; Glucose Fasting 94 mg/dL (60-99); Potassium 3.8 mmol/L (3.3-5.1); Sodium 141 mmol/L (135-145)
[2022-01-20] MEDS: Albuterol/Iprat 2.5/0.5MG 3 ML AMPUL.NEB INHALE ×3 (08:32→18:49)
[2022-01-20] MEDS: Fluticasone/Vilanterol 100/25 BLST.W.DEV 1 PUFF INHALE (08:36)
[2022-01-20] MEDS: dexAMETHasone sod phosphate 4 MG/ML VIAL 6 MG IVPUSH (09:06)
[2022-01-20] MEDS: Aspirin Enteric Coated 81 MG TABLET.DR PO (09:06)
[2022-01-20] MEDS: Magnesium Oxide 400 MG TABLET 800 MG PO ×2 (09:06→16:55)
[2022-01-20] MEDS: Furosemide 40 MG TABLET PO (09:06)
[2022-01-20] MEDS: Apixaban 5 MG TABLET PO ×2 (09:07→20:25)
[2022-01-20] MEDS: Amiodarone HCL 200 MG TABLET 400 MG PO ×2 (09:07→20:25)
[2022-01-20] MEDS: cilostazoL 100 MG TABLET PO (09:07)
[2022-01-20] MEDS: 0.9 % Sodium Chloride Flush 3 ML SYRINGE IVFLUSH ×3 (09:08→20:26)
[2022-01-20] MEDS: cefTRIAXone sodium 1 GM in 0.9 % Sodium Chloride 50 ML IV (09:12)
[2022-01-20] MEDS: Sacubitril/Valsartan 24/26 1 TAB TABLET PO (11:45)
[2022-01-20] MEDS: Metoprolol Tartrate 12.5 MG HALFTAB PO ×2 (11:46→20:27)
--- NOTE | 2022-01-20 11:46 | P.PNIM_ITS ---
Subjective Subjective Date of Service: 01/20/22 Interval History: cc: sob interval history:sob continues to improve, now in sinus with pacs Cardiovascular Cardiovascular: Reports no additional cardiovascular complaints Respiratory Respiratory: Reports no additional respiratory complaints Physical Exam Vital Signs: Vital Signs: Last Vital Signs Temp 98.1 F 01/20/22 07:53 Pulse 76 01/20/22 11:23 Resp 16 01/20/22 11:23 BP 124/80 01/20/22 07:53 Pulse Ox 97 01/20/22 07:53 O2 Del Method 01/20/22 07:53 O2 Flow Rate 1 01/20/22 07:53 FiO2 70 01/18/22 03:37 BMI result Body Mass Index 18.1 General: AO X 3, no acute distress, frail, ill appearing Resp: diminished bilateral, no accessory muscles used CVS: S1,S2, irregular GI: soft, non tender, non distended Neuro: motor grossly intact, alert Psych: appropriate affect, appropriate insight Objective Data Active Medications Acetaminophen (Acetaminophen 325 Mg Tablet) 650 mg PO Q6H PRN PRN Reason: Pain, Mild (Pain Scale 1-3) Albuterol/Ipratropium (Albuterol/Iprat 2.5/0.5mg 3 Ml Ampul.Neb) 3 ml INHALE RQ4H WHILE AWAKE [facility] Last Admin: 01/20/22 11:22 Dose: 3 ml Documented By: CORWIN Amiodarone HCl (Amiodarone Hcl 200 Mg Tablet) 400 mg PO BID [facility] Last Admin: 01/20/22 09:07 Dose: 400 mg Documented By: ALO Apixaban (Apixaban 5 Mg Tablet) 5 mg PO BID [facility] Last Admin: 01/20/22 09:07 Dose: 5 mg Documented By: ALO Aspirin (Aspirin Enteric Coated 81 Mg Tablet.) 81 mg PO DAILY [facility] Last Admin: 01/20/22 09:06 Dose: 81 mg Documented By: ALO Atorvastatin Calcium (Atorvastatin Calcium 40 Mg Tablet) 40 mg PO BEDTIME [facility] Last Admin: 01/19/22 20:08 Dose: 40 mg Documented By: PJ Buprenorphine HCl (Buprenorphine Hcl 8 Mg Tab.Subl) 8 mg SUBLINGUAL TID@1100,1700,2300 [facility] Last Admin: 01/19/22 22:44 Dose: Not Given Documented By: PJ Non-Admin Reason: Patient Refused Cefuroxime Axetil (Cefuroxime Axetil 500 Mg Tablet) 500 mg PO Q12H [facility] Cilostazol (Cilostazol 100 Mg Tablet) 100 mg PO DAILY [facility] Last Admin: 01/20/22 09:07 Dose: 100 mg Documented By: ALO Dexamethasone Sodium Phosphate (Dexamethasone Sod Phosphate 4 Mg/Ml Vial) 6 mg IVPUSH DAILY [facility] Last Admin: 01/20/22 09:06 Dose: 6 mg Documented By: ALO Doxycycline Hyclate (Doxycycline Hyclate 100 Mg Tablet) 100 mg PO Q12H [facility] Fluticasone/Vilanterol (Fluticasone/Vilanterol 100/25 Blst.W.Dev) 1 puff INHALE RDAILY [facility] Last Admin: 01/20/22 08:36 Dose: 1 puff Documented By: CORWIN Furosemide (Furosemide 40 Mg Tablet) 40 mg PO DAILY [facility]; Protocol Remdesivir 100 mg/ Sodium (Chloride) 230 mls @ 115 mls/hr IV Q24H [facility] Stop: 01/21/22 17:59 Last Infusion: 01/19/22 20:07 Dose: 0 mls/hr Documented By: PJ Amiodarone HCl 900 mg/ Sodium (Chloride) 518 mls @ 34.533 mls/hr IVCONT .Q15H1M [facility]; Protocol Last Admin: 01/20/22 01:59 Dose: Not Given Documented By: PJ Non-Admin Reason: Physician Held Med Lidocaine (Lidocaine 4 % Patch Adh..Patch) 1 patch TRANSDERMA DAILY [facility]; Protocol Last Admin: 01/20/22 09:24 Dose: Not Given Documented By: ALO Non-Admin Reason: Patient Refused Magn[facility] ([facility] 400 Mg [facility] Admin: 01/20/22 09:06 Dose: 800 mg Documented By: ALO Metoprolol Tartrate (Metoprolol Tartrate 12.5 Mg Halftab) 12.5 mg PO BID [facility]; Protocol Last Admin: 01/20/22 10:37 Dose: Not Given Documented By: ALO Non-Admin Reason: Physician Held Med Morphine Sulfate (Morphine Sulfate 2 Mg/Ml Cartridge) 2 mg IVPUSH Q4H PRN; P rotocol PRN Reason: sob Last Admin: 01/17/22 09:45 Dose: 2 mg Documented By: CELYDEBrandy Nitroglycerin (Nitroglycerin 0.4 Mg Tab.Subl) 0.4 mg SUBLINGUAL Q5MX3 PRN PRN Reason: mild pain Non-Formulary Medication (Linaclotide [Linzess]) 290 mcg PO DAILY [facility] Omeprazole (Omeprazole 20 Mg Capsule.Dr) 20 mg PO DAILY@0630 [facility] Last Admin: 01/20/22 05:52 Dose: Not Given Documented By: PJ Non-Admin Reason: NPO Pharmacy Consult (Consult Rx Perform Med Rec) 1 each MISCELLANE ONCE PRN PRN Reason: Consult order Sacubitril/Valsartan (Sacubitril/Valsartan 1 Tab Tablet) 1 tab PO BID [facility]; Protocol Senna/Docusate Sodium (Sennosides/Docusate Sodium Tablet) 2 tab PO BEDTIME [facility] Last Admin: 01/19/22 20:08 Dose: 2 tab Documented By: PJ Sodium Chloride (0.9 % Sodium Chloride Flush 3 Ml Syringe) 3 ml IVFLUSH QSHIFT [facility] Last Admin: 01/20/22 09:08 Dose: 3 ml Documented By: ALO Spironolactone (Spironolactone 25 Mg Tablet) 12.5 mg PO DAILY [facility]; Protocol Last Admin: 01/20/22 10:37 Dose: Not Given Documented By: ALO Non-Admin Reason: Physician Held Med Labs CBC & Chem 7: 01/20/22 06:27 01/20/22 06:27 Labs: Laboratory Results - last 24 hr 01/20/22 01/20/22 06:27 06:27 MCV 93.6 MCH 31.5 MCHC 33.7 RDW 14.3 Plt Count 186 MPV 10.8 Absolute Nucleated RBC 0.000 Nucleated RBC % (auto) 0.0 Anion Gap 15 Estim Creat Clear Calc 50.8 Estimated GFR > 60 Fasting Glucose 94 Calcium 8.6 Magnesium 2.0 Assessment and Plan (1) BPH (benign prostatic hyperplasia): Status: Acute Plan 71M presented with sob acute hypoxic respiratory failure due to acute on chronic systolic chf (considered non ischemic, with underlying non obstructive CAD, EF 10%), and covid pneumonia with possible superimposed bacterial pneumonia, copd with acute decompensation diuresed well, weaned of high flow to 1L, (still hypoxic to low 80s on room air) continue po lasix 40mg daily continue decadron day 5, duonebs, remdisivir day 4 empiric rocpehin, doxy will change to po ceftin and doxy, plan for repeat ct chest on discharge to establish baseline pulm appreciated cardio following monitor electrolytes continue entresto - decreased back to due to hypotension, asa, statin, breo, low dose metoprolol, aldactone new onset afib with rvr amio 400mg bid for 2 weeks, then 200mg daily now in sinus with frequent pacs started eliquis outpatient follow up ?external defibrillator opiate dependence buprenorhpine SL dvt prophylaxis - lovenox full code reason for continued hospitalization: completing remdisviir, monitor for tolerance of neurohormonals, weaning o2 Quality Stroke Does the patient have a stroke diagnosis?: No VTE Prior VTE?: No VTE Risk Level:: Medical - moderate - high VTE Device Contraindication: Treatment Not Indicated VTE Drug Contraindication: N/A - Med Ordered
--- NOTE | 2022-01-20 12:17 | PM.PNCARD ---
Subjective Subjective Date of Service: 01/20/22 Principal diagnosis: respiratory failure , atrial fibrillation with RVR Interval history: Patient developed atrial fibrillation was started on amiodarone drip. Overnight since last evening converted to sinus rhythm. Yesterday had low blood pressure. His medications at night were held. He was given 500 cc of fluid. The morning his blood pressure is 120 and he was restarted on a low-dose of Entresto and cardio low-dose of metoprolol. Will switch to p.o. amiodarone. Aldactone was not given. After getting his medication blood pressure systolic is 99. He has no symptoms of lightheaded. His breathing remains significantly improved. Patient has lot of ventricular arrhythmias Review of Systems Review of Systems Yes all other systems are reviewed and are negative Physical Exam Vital Signs: Last Vital Signs Temp 98.6 F 01/20/22 11:46 Pulse 90 01/20/22 11:46 Resp 16 01/20/22 11:46 BP 99/52 L 01/20/22 11:46 Pulse Ox 95 01/20/22 11:46 O2 Del Method 01/20/22 11:46 O2 Flow Rate 1 01/20/22 11:46 FiO2 70 01/18/22 03:37 BMI result Body Mass Index 18.1 Const General: cooperative, alert, awake, in distress moderate and anxious Nutritional Appearance: thin Orientation/consciousness: patient oriented x3 Neck Neck: Yes trachea midline, Yes supple and Yes no JVD Chest Chest palpation & inspection: normal inspection of the chest Resp Effort & Inspection: normal respiratory effort and tachypneic Auscultation: clear to auscultation bilaterally and diminished lung sounds Cardio Jugular venous distension: no JVD and JVD Palpation: abnormal PMI displaced PMI Rate: regular rate Rhythm: abnormal rhythm with ectopic beats Heart sounds: S1 normal heart sound present, S2 normal heart sound present, no click, no gallops, no murmurs and no rubs Skin General skin exam: no rashes or lesions noted Neuro General: patient oriented x3 and no focal motor deficits Extrem General: No no clubbing, cyanosis or edema Objective Labs and Meds Result diagrams: 01/20/22 06:27 01/20/22 06:27 Lab results: Laboratory Results - last 24 hr 01/20/22 01/20/22 06:27 06:27 WBC 10.0 RBC 4.09 L Hgb 12.9 L Hct 38.3 L MCV 93.6 MCH 31.5 MCHC 33.7 RDW 14.3 Plt Count 186 MPV 10.8 Absolute Nucleated RBC 0.000 Nucleated RBC % (auto) 0.0 Sodium 141 Potassium 3.8 D Chloride 96 Carbon Dioxide 34 H Anion Gap 15 BUN 51 H Creatinine 1.19 Estim Creat Clear Calc 50.8 Estimated GFR > 60 Fasting Glucose 94 Calcium 8.6 Magnesium 2.0 Progress Note: A&P Assessment and plan (1) Heart failure with reduced ejection fraction: Status: Acute Assessment and Plan: Patient with heart failure with reduced ejection fraction markedly reduced LV ejection fraction. Nonischemic cardiomyopathy. Clinically euvolemic and well compensated. Reduce Lasix to 40 mg daily. I think patient will benefit given his body habitus as well as underlying COPD with CardioMEMS device. Will set up for outpatient follow-up with the same. Reduce Entresto to 24-26 mg b.i.d. and metoprolol 12.5 mg b.i.d. for neurohormonal modulation. Hold off on Aldactone therapy given his low blood pressure. Advised to monitor blood pressure at home. Daily weight monitoring and avoidance of salt loading was discussed. Taper and discontinue oxygen if possible. He has lot of ventricular arrhythmias and risk for sudden cardiac that. He is currently on amiodarone therapy. Will set him up for external vest defibrillator as outpatient. If his LV ejection fraction does not improve in 3 months will consider internal defibrillator. Importance of follow-up and compliance with medication was discussed with him. He understands. (2) New onset atrial fibrillation: Status: Acute Assessment and Plan: New onset atrial fibrillation status post amiodarone drip converted to sinus rhythm. Will switch to p.o. amiodarone 400 mg b.i.d. for 2 weeks followed by 200 mg daily. Continue full oral anticoagulation with Eliquis. Follow-up as outpatient. Will sign of the case. Patient ready for discharge tomorrow can be discharged home. Time Spent With Patient Time: Total time spent is greater than 50% in coordination of care (as documented) at patient's floor/unit and/or counseling patient: Progress Note: Quality Stroke Does the patient have a stroke diagnosis?: No Procedures Date of Service Date of Service: 01/20/22
[2022-01-20] MEDS: Buprenorphine HCL 8 MG TAB.SUBL SUBLINGUAL ×2 (12:21→17:37)
[2022-01-20] MEDS: Remdesivir 100 MG in 0.9 % Sodium Chloride 230 ML 115 MG IV (16:57)
[2022-01-20] MEDS: Sennosides/Docusate Sodium TABLET 2 TAB PO (20:25)
[2022-01-20] MEDS: Atorvastatin Calcium 40 MG TABLET PO (20:25)
[2022-01-21] VITALS (7 sets, daily range): BP systolic 86–127; BP diastolic 55–72; PULSE 65–85; RESP 14–18; TEMP 36.4–37.1; O2SAT 94–99
[2022-01-21 07:03] LABS: Hematocrit 36.9 % (42.0-52.0); Hemoglobin 12.5 g/dl (14.0-18.0); Mean Corpuscular HGB Conc 33.9 g/dl (31.0-36.0); Mean Corpuscular Hemoglobin 31.4 pg (27.0-33.0); Mean Corpuscular Volume 92.7 fL (80.0-98.0); Mean Platelet Volume 10.6 fL (9.4-12.4); Platelet Count 178 X10*3/uL (160-400); Red Blood Count 3.98 X10*6/uL (4.60-5.80); Red Cell Distribution Width 14.1 % (11.0-16.0); White Blood Count 7.2 X10*3/uL (4.8-10.8)
[2022-01-21 07:20] LABS: Anion Gap 11 (12-20); Blood Urea Nitrogen 50 mg/dL (9-16); Calcium 8.6 mg/dL (8.4-10.2); Carbon Dioxide 35 mmol/L (22-29); Chloride 95 mmol/L (96-108); Creatinine Clr Calc Pharmacy 53.1; Estimated Glomerular Filt Rate > 60; Glucose Fasting 94 mg/dL (60-99); Potassium 4.1 mmol/L (3.3-5.1); Sodium 137 mmol/L (135-145)
[2022-01-21] MEDS: Magnesium Oxide 400 MG TABLET 800 MG PO ×2 (09:15→17:02)
[2022-01-21] MEDS: dexAMETHasone sod phosphate 4 MG/ML VIAL 6 MG IVPUSH (09:15)
[2022-01-21] MEDS: Metoprolol Tartrate 12.5 MG HALFTAB PO (09:15)
[2022-01-21] MEDS: cilostazoL 100 MG TABLET PO (09:16)
[2022-01-21] MEDS: Sacubitril/Valsartan 24/26 1 TAB TABLET PO (09:16)
[2022-01-21] MEDS: Furosemide 40 MG TABLET PO (09:16)
[2022-01-21] MEDS: 0.9 % Sodium Chloride Flush 3 ML SYRINGE IVFLUSH (09:17)
[2022-01-21] MEDS: Aspirin Enteric Coated 81 MG TABLET.DR PO (09:17)
[2022-01-21] MEDS: Amiodarone HCL 200 MG TABLET 400 MG PO (09:17)
[2022-01-21] MEDS: Apixaban 5 MG TABLET PO (09:17)
[2022-01-21] MEDS: Omeprazole 20 MG CAPSULE.DR PO (09:19)
--- NOTE | 2022-01-21 11:32 | PM.PNCARD ---
Subjective Subjective Date of Service: 01/21/22 Principal diagnosis: respiratory failure , atrial fibrillation with RVR Interval history: Patient feeling well. Continues to have ventricular arrhythmias. No atrial fibrillation. Blood pressure is stable. Oxygenation is good. Review of Systems Review of Systems Yes all other systems are reviewed and are negative Physical Exam Vital Signs: Last Vital Signs Temp 98.0 F 01/21/22 11:30 Pulse 65 01/21/22 11:30 Resp 16 01/21/22 11:30 BP 103/68 01/21/22 11:30 Pulse Ox 98 01/21/22 11:30 O2 Del Method 01/21/22 11:30 O2 Flow Rate 1 01/21/22 08:00 FiO2 70 01/18/22 03:37 BMI result Body Mass Index 18.1 Const General: cooperative, alert, awake, in distress moderate and anxious Nutritional Appearance: thin Orientation/consciousness: patient oriented x3 Neck Neck: Yes trachea midline, Yes supple and Yes no JVD Chest Chest palpation & inspection: normal inspection of the chest Resp Effort & Inspection: normal respiratory effort and tachypneic Auscultation: clear to auscultation bilaterally and diminished lung sounds Cardio Jugular venous distension: no JVD and JVD Palpation: abnormal PMI displaced PMI Rate: regular rate Rhythm: abnormal rhythm with ectopic beats Heart sounds: S1 normal heart sound present, S2 normal heart sound present, no click, no gallops, no murmurs and no rubs Skin General skin exam: no rashes or lesions noted Neuro General: patient oriented x3 and no focal motor deficits Extrem General: No no clubbing, cyanosis or edema Objective Labs and Meds Result diagrams: 01/21/22 06:43 01/21/22 06:43 Lab results: Laboratory Results - last 24 hr 01/21/22 01/21/22 06:43 06:43 WBC 7.2 RBC 3.98 L Hgb 12.5 L Hct 36.9 L MCV 92.7 MCH 31.4 MCHC 33.9 RDW 14.1 Plt Count 178 MPV 10.6 Absolute Nucleated RBC 0.000 Nucleated RBC % (auto) 0.0 Sodium 137 Potassium 4.1 Chloride 95 L Carbon Dioxide 35 H Anion Gap 11 L BUN 50 H Creatinine 1.14 Estim Creat Clear Calc 53.1 Estimated GFR > 60 Fasting Glucose 94 Calcium 8.6 Progress Note: A&P Assessment and plan (1) Heart failure with reduced ejection fraction: Status: Acute Assessment and Plan: Heart failure with reduced ejection fraction, much improved. Can you current management. Continue current Entresto as well as metoprolol for neurohormonal modulation. Reduce Lasix to 40 mg daily. Heart failure management was discussed in details. Daily weight monitoring and avoidance of salt loading was discussed. May benefit with CardioMEMS device. Will follow-up in the clinic in 7-10 days. Having lot of ventricular arrhythmias, currently on amiodarone therapy. Will set up for outpatient vest defibrillator. (2) New onset atrial fibrillation: Status: Acute Assessment and Plan: Atrial fibrillation currently suppressed. Continue amiodarone loading 400 mg b.i.d.. Continue full oral anticoagulation as prescribed. Outpatient follow-up with Holter monitor. Continue rhythm control approach. Will follow with him in 7-10 days. Time Spent With Patient Time: Total time spent is greater than 50% in coordination of care (as documented) at patient's floor/unit and/or counseling patient: Progress Note: Quality Stroke Does the patient have a stroke diagnosis?: No Procedures Date of Service Date of Service: 01/21/22
[2022-01-21] MEDS: Albuterol/Iprat 2.5/0.5MG 3 ML AMPUL.NEB INHALE ×2 (11:35→15:18)
--- NOTE | 2022-01-21 11:51 | P.DS_ITS ---
DS: Providers Provider Date of Service: 01/21/22 Date of admission: 01/16/22 13:58 Primary care physician: Bhaskar Villafuerte DO Consults: 01/16/22 13:56 Consult to Cardiology Routine Consulting Provider: Ezio Asher Reason for consultation: chf 01/17/22 09:48 Consult to Pulmonology Routine Consulting Provider: Alanis Garcia Reason for consultation: severe copd, positive covid, hypoxia DS: Diagnosis Discharge Diagnosis (1) Heart failure with reduced ejection fraction: Status: Acute (2) New onset atrial fibrillation: Status: Acute DS: Summary Hospital Course Hospital Course: from initial hpi: Chief Complaint: sob 71M sent from cardiology office for sob. patient was admitted to [facility] [place] in november 2021 for new diagnosis of cardiomyopathy, [place] [facility] [place] that showed 50% diffuse disease LAD, 70% stenosis mid LAD and ostial second diagnonal brnach, did not require intervention and was considered non ischemic cardiomyopathy with EF of 10%. was treated with aspirin, entresto, no beta jose guadalupe due to low BPs. incidentally tested [place] 11[place]26/21 [place] [facility] [place] and had mild course. on discharge patient was doing well. he did run out of lasix about 2-3 weeks prior to presentation. he has been having progressive sob over last several days, worse on exertion, positive orthopnea. pedal edema. was at plasma table operator office and sent to ED. in ED, severely hypoxic, saturating 70s on 3L, 90% on 15L. covid positive, cxr with coarse interstilial markings. hospital course: Patient was admitted for acute hypoxic respiratory failure due to acute on chronic systolic CHF, COVID pneumonia, possible superimposed bacterial pneumonia, COPD with acute decompensation. He was treated with continuous Lasix infusion and diuresed well. He was able to be weaned from high-flow oxygen all the way down to room air on discharge. He will be transitioned to p.o. Lasix 40 mg daily. He was given empiric ceftriaxone and doxycycline then transition to Ceftin and doxycycline. He was given Decadron and remdesivir for 5 days. Course was complicated by new onset atrial fibrillation with rapid ventricular response. Patient was started on Eliquis and given IV infusion of amiodarone. He converted to sinus rhythm with frequent PACs. He was transitioned to amiodarone 400 mg b.i.d. for 2 weeks and then he will decrease to 200 mg daily. He will follow up with Cardiology as outpatient. For his opiate dependence he will continue Buprenorphine sublingual. patient is feeling much better will be discharged home. Patient has some moderate protein calorie malnutrition due to his CHF and COPD. Time Spent with Patient Time attestation: Total time spent providing and/or coordinating discharge services: Discharge coordination time: Greater than 30 minutes Quality: Safe Use of Opioids Does Pt have an Active Cancer Diagnosis on the Problem List?: No Quality: Stroke Does the patient have a stroke diagnosis?: No Physical Exam Vital Signs: Vital Signs: Last Vital Signs Temp 98.0 F 01/21/22 11:30 Pulse 84 01/21/22 11:35 Resp 18 01/21/22 11:35 BP 103/68 01/21/22 11:30 Pulse Ox 98 01/21/22 11:30 O2 Del Method 01/21/22 11:30 O2 Flow Rate 1 01/21/22 08:00 FiO2 70 01/18/22 03:37 BMI result Body Mass Index 18.1 General: AO X 3, no acute distress, frail appearing Resp: diminished bilateral, no accessory muscles used CVS: S1,S2, irregular GI: soft, non tender, non distended Neuro: motor grossly intact, alert Psych: appropriate affect, appropriate insight DS: Data Data Completed and Pending Labs on day of discharge: Laboratory Results - last 24 hr 01/21/22 01/21/22 06:43 06:43 WBC 7.2 RBC 3.98 L Hgb 12.5 L Hct 36.9 L MCV 92.7 MCH 31.4 MCHC 33.9 RDW 14.1 Plt Count 178 MPV 10.6 Absolute Nucleated RBC 0.000 Nucleated RBC % (auto) 0.0 Sodium 137 Potassium 4.1 Chloride 95 L Carbon Dioxide 35 H Anion Gap 11 L BUN 50 H Creatinine 1.14 Estim Creat Clear Calc 53.1 Estimated GFR > 60 Fasting Glucose 94 Calcium 8.6 Preliminary micro results at discharge 01/16/22 11:39 Blood Culture - Preliminary Blood - Venous No growth after 48 hours. 01/16/22 11:35 Blood Culture - Preliminary Blood - Venous No growth after 48 hours. Discharge Plan Discharge Patient Disposition: Home, Self-Care Discharge Diagnosis: chf, covid, copd, afib Referrals: Bhaskar Villafuerte DO [Primary Care Provider] - 1 Week Discharge Medications: New furosemide 40 mg Tablet 40 mg PO DAILY Qty: 30 0RF Protocol: Hold for SBP< HOLD for SBP < : 90 amiodarone 200 mg Tablet 400 mg PO BID Qty: 60 0RF Rx Instructions: 400mg bid for 2 weeks then decrease to 200mg daily Eliquis 5 mg Tablet 5 mg PO BID Qty: 60 0RF Continued sennosides-docusate sodium [Senexon-S] 8.6-50 mg tablet 2 tab PO BEDTIME pantoprazole 40 mg tablet,delayed release (DR/EC) 1 tab PO DAILY buprenorphine HCl 8 mg tablet, sublingual 8 mg SUBLINGUAL TID Linzess 290 mcg capsule 290 mcg PO DAILY aspirin 81 mg Tablet,Delayed Release (Dr/Ec) 81 mg PO DAILY Qty: 0 0RF cilostazol 100 mg tablet 1 tab PO DAILY fluticasone furoate-vilanterol [Breo Ellipta] 100-25 mcg/dose blister with device 1 ea INHALATION DAILY atorvastatin 40 mg tablet 40 mg PO BEDTIME Qty: 90 3RF Entresto 24-26 mg tablet 1 tab PO BID Qty: 180 3RF Protocol: Hold for SBP< HOLD for SBP < : 90 Discontinued furosemide 20 mg tablet 20 mg PO DAILY Discharge Orders: Discharge Order (Routine); Ordered 01/21/22 Ordered By: Prakash Tijerina Diet: Advance to usual diet Activity on Discharge: As tolerated Stand Alone Forms: Patient Portal Discharge page Other Ambulatory Orders: CT chest wo con (Routine) Timeframe: 1 Week Facility: [facility] - Location: CT Scan Ordered By: Prakash Tijerina Care Plan Goals: manage chf, copd Health Concerns: chf, copd, covid, afib Plan of Treatment: starting eliquis, restart lasix, start amiodaron 400mg twice daily for 2 weeks, then decrease to 200mg daily, follow up with caridology Assessment: see above
[2022-01-21] MEDS: Buprenorphine HCL 8 MG TAB.SUBL SUBLINGUAL ×2 (11:57→17:02)
--- NOTE | 2022-01-21 12:05 | MHC.CM.PN ---
order for home, self care. CM acknowledge.
== END 2022-01-21 19:31 | disposition home or self-care (01) | DRG 177 ==
LOC: HO.ED 13:19 → HO.EDOVER 14:07 → HO.IMC 20:27
PROVIDERS: Admitting Provider Internal Medicine; Emergency Provider Emergency Medicine; PCP Internal Medicine; Visit Provider Internal Medicine
DX: U07.1 COVID-19 (principal); I50.23 Acute on chronic systolic (congestive) heart failure; J12.82 Pneumonia due to coronavirus disease 2019; J96.01 Acute respiratory failure with hypoxia; J18.9 Pneumonia, unspecified organism; J15.9 Unspecified bacterial pneumonia; E44.0 Moderate protein-calorie malnutrition; F11.20 Opioid dependence, uncomplicated; I42.8 Other cardiomyopathies; R64 Cachexia; Z68.1 Body mass index [BMI] 19.9 or less, adult; I49.1 Atrial premature depolarization; J43.9 Emphysema, unspecified; I25.10 Atherosclerotic heart disease of native coronary artery without angina pectoris; I48.91 Unspecified atrial fibrillation; N40.0 Benign prostatic hyperplasia without lower urinary tract symptoms; K21.9 Gastro-esophageal reflux disease without esophagitis; Z87.891 Personal history of nicotine dependence; Z79.01 Long term (current) use of anticoagulants; Z79.51 Long term (current) use of inhaled steroids; Z79.82 Long term (current) use of aspirin; Z79.899 Other long term (current) drug therapy
CPT/HCPCS: 36415; 71045; 71250; 80048; 80076; 82803; 83605; 83735; 83880; 84484; 85025; 85027; 85610; 87040; 87635; 93005; 94640; 94664; 96374; 96375; 99212; 99285; J0248; J0282; J0571; J0696; J1100; J1650; J1940; J1956; J2270

== ENCOUNTER → 2022-01-25 07:10 | Outpatient (REF) | payer MEDICARE, MEDICAID, SELFPAY ==
--- NOTE | 2022-01-25 07:13 | HM_ITS ---
* Total monitoring time 3 days and 17 hours. * Underlying rhythm is sinus. Average rate 72/Min. Range 56 to 118/Min. * No atrial fibrillation or flutter or AV blocks or pauses. * Occasional supraventricular ectopy. [place] of about 2%. * Occasional ventricular ectopy. [place] of about 1.5%. 2 morphologies; no runs. * No patient events. MTDD
== END ==
LOC: HO.CARD 07:10
PROVIDERS: PCP Internal Medicine; Visit Provider Internal Medicine
DX: I48.91 Unspecified atrial fibrillation (principal)
CPT/HCPCS: 93242

== ENCOUNTER → 2022-02-01 12:48 | Outpatient (BNVA) | payer MEDICARE, MEDICAID, SELFPAY | PROVIDERS: PCP Hospitalist; Visit Provider Internal Medicine | DX: I50.32 Chronic diastolic (congestive) heart failure (principal); I42.8 Other cardiomyopathies; I25.10 Atherosclerotic heart disease of native coronary artery without angina pectoris; I48.0 Paroxysmal atrial fibrillation; Z71.89 Other specified counseling | CPT/HCPCS: 93005; 99212 ==

== ENCOUNTER 2022-02-16 14:05 | Outpatient (REF) | payer MEDICARE, MEDICAID, SELFPAY ==
[2022-02-16 15:00] LABS: Anion Gap 16 (12-20); Blood Urea Nitrogen 40 mg/dL (9-16); Calcium 9.1 mg/dL (8.4-10.2); Carbon Dioxide 25 mmol/L (22-29); Chloride 106 mmol/L (96-108); Estimated Glomerular Filt Rate 57; Glucose Random 108 mg/dL (60-115); Sodium 143 mmol/L (135-145)
[2022-02-16 15:09] LABS: B Type Natriuretic Peptide 429 pg/mL (<100)
== END 2022-02-16 14:06 | disposition home or self-care (01) ==
LOC: HO.LAB 14:05
PROVIDERS: Visit Provider Internal Medicine
DX: I50.32 Chronic diastolic (congestive) heart failure (principal); I50.22 Chronic systolic (congestive) heart failure
CPT/HCPCS: 36415; 80048; 83880

== ENCOUNTER → 2022-02-20 08:34 | Outpatient (REF) | payer MEDICARE, MEDICAID, SELFPAY ==
--- NOTE | 2022-02-20 08:37 | CA_ITS ---
Transthoracic Echocardiogram Patient (Last, First, Middle): Freddy Alanis, Gender: Male Date of : 1950 Age: 71 Procedure Date: 02/20/2022 Procedure Type: Transthoracic Echocardiogram Location: OP Height: 185.42 cm Weight: 63.5 kg BSA: 1.85 m2 Heart Rate: 58 bpm BP: 125 / 70 mmHg Freight Loader: SHARYN Referring MD: Mustapha Newton MD Symptoms: I42.8 - Other cardiomyopathies Study Quality: Adequate ECG Rhythm: Bradycardia Conclusions: - The left ventricular systolic function is severely decreased. The visually estimated ejection fraction is between 15-20%. Findings Procedure Information Contrast agent, definity, is being given per protocol without apparent complications. Left Ventricle Normal left ventricular cavity size. The left ventricular systolic function is severely decreased. The visually estimated ejection fraction is between 15-20%. There is paradoxical septal motion consistent with a left bundle branch block. LV peak GLS -6.6%. Tricuspid Valve There is trace tricuspid valve regurgitation. There is no evidence of pulmonary hypertension. Venous The inferior vena cava is normal in size and collapses greater than 50% with inspiration. Prior Study Comparison Changes noted compared to prior study dated: 11/24/2021. Slight improvement in LVEF. Measurements 2D Linear Measurements IVSd: 0.90 0.6-0.9/0.6-1.0 cm LVIDd: 5.41 3.9-5.3/4.2-5.9 cm LVIDd Index: 2.92 2.4-3.2/2.2-3.1 cm/m2 LVIDs: 4.75 2.0-3.6 cm LVPWd: 1.05 0.7-1.1 cm LA Diam: 4.20 2.7-3.8/3.0-4.0 cm LAIDs Index: 2.27 1.5-2.3 cm/m2 LV Mass: 250.64 67-162/88-224 g LV Mass Index: 135.48 43-95/49-115 g/m2 LVOT Diam: 2.20 3.0+(-)1.3 cm 2D Systolic Function EF 4C: 20.40 >55% EF 2C: 45.90 >55% EF BiP: 34.70 >55% LVOT LVOT Pk Stephan: 0.88 LVOT Mn Stephan: 0.56 LVOT VTI: 0.18 LVOT Pk Grad: 3.00 LVOT Mn Grad: 2.00 LVOT Diam: 2.20 LVOT Area: 3.80 Tricuspid Valve TR Pk Stephan: 2.25 TR Pk Grad: 20.00 RA Press: 3.00 RVSP: 23.00 Great Vessels Aorta Sinus of Valsalva: 3.20 2.0-3.5 cm Updated in Other Vendor System with Status of Final Mustapha Newton MD electronically signed on 02/20/2022 11:46:28 AM with status of Final
== END ==
LOC: HO.CARD 08:34
PROVIDERS: PCP Internal Medicine; Visit Provider Internal Medicine
DX: I42.8 Other cardiomyopathies (principal)
CPT/HCPCS: 93308; 93356; Q9957

== ENCOUNTER → 2022-02-28 08:53 | Outpatient (BNVA) | payer MEDICARE, MEDICAID, SELFPAY | PROVIDERS: PCP Internal Medicine; Visit Provider Internal Medicine | DX: I42.8 Other cardiomyopathies (principal); I48.0 Paroxysmal atrial fibrillation; I25.10 Atherosclerotic heart disease of native coronary artery without angina pectoris; F17.210 Nicotine dependence, cigarettes, uncomplicated; Z71.89 Other specified counseling | CPT/HCPCS: 99212 ==

== ENCOUNTER 2022-03-06 07:52 | Outpatient (REF) | payer MEDICARE, MEDICAID, SELFPAY ==
[2022-03-06 12:50] LABS: Cholesterol 146 mg/dL; HDL Cholesterol 64 mg/dL; LDL Cholesterol Calculated 71 mg/dl; Triglycerides 56 mg/dL
[2022-03-06 13:14] LABS: TSH reflex Free T4 2.69 uIU/mL (0.32-4.0)
== END 2022-03-06 07:53 | disposition home or self-care (01) ==
LOC: HO.WFDLDS 07:52
PROVIDERS: Internal Medicine; Visit Provider Hospitalist
DX: I48.0 Paroxysmal atrial fibrillation (principal); I25.10 Atherosclerotic heart disease of native coronary artery without angina pectoris
CPT/HCPCS: 36415; 80061; 84443

== ENCOUNTER → 2022-03-27 07:36 | Outpatient (BNVA) | payer MEDICARE, MEDICAID, SELFPAY | PROVIDERS: PCP Hospitalist; Referring Provider Hospitalist; Visit Provider Physician Assistant | DX: K21.9 Gastro-esophageal reflux disease without esophagitis (principal); K59.01 Slow transit constipation; I50.20 Unspecified systolic (congestive) heart failure | CPT/HCPCS: 99202; 99212 ==

== ENCOUNTER → 2022-04-30 14:45 | Outpatient (BNVA) | payer MEDICARE, MEDICAID, SELFPAY | PROVIDERS: PCP Hospitalist; Referring Provider Hospitalist; Visit Provider Internal Medicine | DX: Z45.02 Encounter for adjustment and management of automatic implantable cardiac defibrillator (principal); I42.8 Other cardiomyopathies; I25.10 Atherosclerotic heart disease of native coronary artery without angina pectoris; I48.0 Paroxysmal atrial fibrillation; F17.210 Nicotine dependence, cigarettes, uncomplicated | CPT/HCPCS: 93005; 99212 ==

== ENCOUNTER → 2022-05-02 14:11 | Outpatient (BNVA) | payer MEDICARE, MEDICAID, SELFPAY | PROVIDERS: PCP Hospitalist; Visit Provider Nurse Practitioner Psychiatric/Mental Health | DX: F11.20 Opioid dependence, uncomplicated (principal); M79.671 Pain in right foot; I73.9 Peripheral vascular disease, unspecified; B19.20 Unspecified viral hepatitis C without hepatic coma; Z51.81 Encounter for therapeutic drug level monitoring | CPT/HCPCS: 80305; 99212 ==

== ENCOUNTER → 2022-05-30 14:12 | Outpatient (BNVA) | payer MEDICARE, MEDICAID, SELFPAY | PROVIDERS: PCP Hospitalist; Visit Provider Nurse Practitioner Psychiatric/Mental Health | DX: F11.20 Opioid dependence, uncomplicated (principal) | CPT/HCPCS: 80305; 99212 ==

== ENCOUNTER → 2022-06-27 16:28 | Outpatient (BNVA) | payer MEDICARE, MEDICAID, SELFPAY | PROVIDERS: PCP Hospitalist; Visit Provider Nurse Practitioner Psychiatric/Mental Health | DX: F11.20 Opioid dependence, uncomplicated (principal); Z51.81 Encounter for therapeutic drug level monitoring; Z79.899 Other long term (current) drug therapy | CPT/HCPCS: 99212 ==

== ENCOUNTER → 2022-08-22 12:45 | Outpatient (REF) | payer MEDICARE, MEDICAID, SELFPAY ==
--- NOTE | 2022-08-22 12:48 | CA_ITS ---
Transthoracic Echocardiogram Patient (Last, First, Middle): Freddy Alanis, Gender: Male Date of : 1950 Age: 71 Procedure Date: 08/22/2022 Procedure Type: Transthoracic Echocardiogram Location: OP Height: 185.42 cm Weight: 72.58 kg BSA: 1.96 m2 Heart Rate: bpm BP: 122 / 70 mmHg Nitroglycerin Neutralizer: Referring MD: Mustapha Newton MD Symptoms: I42.8 - Other cardiomyopathies Study Quality: Adequate ECG Rhythm: Ventriculary paced rhythm Conclusions: - The left ventricular systolic function is moderately decreased. The calculated ejection fraction is 34% by biplane method. - No obvious valvular pathology seen on this study. Findings Left Ventricle Normal left ventricular cavity size. There is normal left ventricular wall thickness. The left ventricular systolic function is moderately decreased. The calculated ejection fraction is 34% by biplane method. There is moderate global hypokinesis. E/E prime ratio is between 8 and 15 consistent with indeterminate filling pressures. Evidence suggests grade I (mild) diastolic dysfunction. LV peak GLS -13%. Right Ventricle Normal right ventricular cavity size and systolic function. There is an ICD wire seen in the right ventricle. Atria Both atria are normal in size. Aortic Valve The aortic valve was not well visualized. There is no aortic valve stenosis. There is no aortic valve regurgitation. Mitral Valve The mitral valve appears normal. There is no mitral valve regurgitation. There is no mitral valve stenosis. Pulmonic Valve The pulmonic valve is likely normal. Tricuspid Valve There is trace tricuspid valve regurgitation. Mild pulmonary hypertension is present. Great Vessels The aorta was not well visualized. The aortic annulus is normal in size. Venous The inferior vena cava is mildly dilated and collapses less than 50% with inspiration. Pericardium/Pleural There is no evidence of pericardial effusion. Prior Study Comparison Changes noted compared to prior study dated: 02/20/2022. Improved LVEF. Recommendations, Care & Conclusions No obvious valvular pathology seen on this study. Measurements 2D Linear Measurements IVSd: 0.99 0.6-0.9/0.6-1.0 cm LVIDd: 4.70 3.9-5.3/4.2-5.9 cm LVIDd Index: 2.40 2.4-3.2/2.2-3.1 cm/m2 LVIDs: 3.64 2.0-3.6 cm LVPWd: 1.01 0.7-1.1 cm Ao Root: 3.10 2.1-3.5 cm LA Diam: 4.00 2.7-3.8/3.0-4.0 cm LAIDs Index: 2.04 1.5-2.3 cm/m2 LV Mass: 204.40 67-162/88-224 g LV Mass Index: 104.28 43-95/49-115 g/m2 LVOT Diam: 2.20 3.0+(-)1.3 cm 2D Systolic Function EF 4C: 37.70 >55% EF 2C: 33.50 >55% EF BiP: 33.90 >55% Mitral Valve MV Pk E: 0.63 MV PK A: 0.99 MV Decel Time: 208.00 E/A: 0.60 E'Lateral: 5.66 E'Medial: 4.68 E/E' Med: 13.50 E/E' Lat: 11.10 PHT: 61.00 MVA PHT: 3.61 Decel [place]: 3.03 Aortic Valve AoV Pk Stephan: 1.45 AoV Mn Stephan: 0.87 AoV VTI: 0.33 AoV Pk Grad: 8.00 Aov Mn Grad: 4.00 ALMAZ Cont.VTI: 2.41 LVOT LVOT Pk Stephan: 0.95 LVOT Mn Stephan: 0.59 LVOT VTI: 0.21 LVOT Pk Grad: 4.00 LVOT Mn Grad: 2.00 LVOT Diam: 2.20 LVOT Area: 3.80 Diastolic Function MV Pk E: 0.63 MV Pk A: 0.99 E/A: 0.60 E'Medial: 4.68 E/E' Med: 13.50 E' Laterial: 5.66 E/E' Lat: 11.10 Right Ventricle TAPSE (mm): 25.00 TVS' Stephan: 13.00 Tricuspid Valve TR Pk Stephan: 2.74 TR Pk Grad: 30.00 RA Press: 15.00 RVSP: 45.00 Great Vessels Aorta Ao Root-2D: 3.10 2.0-3.7 cm Ao Asc: 3.70 2.1-3.4 cm Pulmonary Valve PV Pk Stephan: 1.02 Peak PV Grad: 4.00 Updated in Other Vendor System with Status of Final Mustapha Newton MD electronically signed on 08/24/2022 1:20:38 PM with status of Final
== END ==
LOC: HO.CARD 12:45
PROVIDERS: PCP Hospitalist; Visit Provider Internal Medicine
DX: I42.8 Other cardiomyopathies (principal)
CPT/HCPCS: 93306; 93356

== ENCOUNTER → 2022-08-27 13:28 | Outpatient (BNVA) | payer MEDICARE, MEDICAID, SELFPAY | PROVIDERS: PCP Hospitalist; Referring Provider Hospitalist; Visit Provider Internal Medicine | DX: Z45.02 Encounter for adjustment and management of automatic implantable cardiac defibrillator (principal); I42.8 Other cardiomyopathies; I25.10 Atherosclerotic heart disease of native coronary artery without angina pectoris; I48.0 Paroxysmal atrial fibrillation; R94.31 Abnormal electrocardiogram [ECG] [EKG]; I45.4 Nonspecific intraventricular block; F11.20 Opioid dependence, uncomplicated | CPT/HCPCS: 93005; 99212 ==

== ENCOUNTER → 2022-10-23 13:22 | Outpatient (BNVA) | payer MEDICARE, MEDICAID, SELFPAY | PROVIDERS: PCP Hospitalist; Visit Provider Nurse Practitioner Psychiatric/Mental Health | DX: Z51.81 Encounter for therapeutic drug level monitoring (principal); F11.20 Opioid dependence, uncomplicated | CPT/HCPCS: 99212 ==

== ENCOUNTER → 2022-10-29 10:28 | Outpatient (BNVA) | payer MEDICARE, MEDICAID, SELFPAY | PROVIDERS: PCP Hospitalist; Visit Provider Surgery Vascular Surgery | DX: I73.9 Peripheral vascular disease, unspecified (principal); I83.11 Varicose veins of right lower extremity with inflammation | CPT/HCPCS: 99202 ==

== ENCOUNTER 2022-10-31 07:58 | Outpatient (REF) | payer MEDICARE, MEDICAID, SELFPAY ==
--- NOTE | ~2022-10-31 | US_ITS ---
EXAMINATION: US RETROPERITONEAL LIMITED (AORTA) CLINICAL INFORMATION: Peripheral vascular disease. COMPARISON: CT abdomen and pelvis 11/23/2021. TECHNIQUE: Pereira-scale, color Doppler and spectral Doppler evaluation of the abdominal aorta. FINDINGS: The aorta is normal. The measurements of the aorta in maximum AP and transverse dimensions respectively are as follows: Proximal: 2.8 cm. Mid: 1.0 cm. Distal: 0.8 cm. PSV: 208 cm/s in the distal small diminutive segment. The measurements of the common iliac arteries in maximum AP and TRV dimensions are as follows: Right Common Iliac Artery: 1.2 cm. Left Common Iliac Artery: 1.2 cm. US/US abdominal aortic aneurysm IMPRESSION: No evidence of abdominal aortic aneurysm. Significant atherosclerotic disease is present in the aorta and iliac vessels.
--- NOTE | ~2022-10-31 | US_ITS ---
EXAMINATION: US NONINVASIVE ASSESSMENT OF THE ARTERIES OF BOTH LOWER EXTREMITIES INCLUDING PVR EXAM AND BILATERAL LOWER EXTREMITY DUPLEX CLINICAL INFORMATION: History of right venous insufficiency. COMPARISON: None TECHNIQUE: Ankle pulse volume recordings, ankle pressure measurements and ankle brachial indices were obtained of the lower extremity arterial system bilaterally in addition to duplex Doppler techniques with wave form analysis and measurement of velocities in the common femoral, profunda femoral, superficial femoral, popliteal, tibial and peroneal arteries. The study was performed only at rest. FINDINGS: There is a discrepancy in blood pressure between the arms measuring 167 on the right and 128 on the left suggesting left subclavian disease. RIGHT LEG 1. THE RIGHT ANKLE-BRACHIAL INDEX IS: 0.35 -calculated with posterior tibial as well as DP occluded. >0.97-1.25 = normal - no significant arterial disease 0.75-0.96 = mild peripheral arterial disease 0.5-0.74 = moderate peripheral arterial disease <0.50 = severe peripheral arterial disease <0.30 = critical arterial disease 2. SEGMENTAL PRESSURES (mmHg): Ankle: PT 59, DP occluded 3. PVR WAVEFORMS: Ankle: Mildly blunted 4. DIRECT DUPLEX: Common femoral artery: 86 cm/s, biphasic Profunda femoris artery: 94 cm/s, biphasic Superficial femoral artery (proximal): 66 cm/s, occludes proximally Superficial femoral artery (mid): 99 cm/s, reconstituted monophasic Superficial femoral artery (distal): 33 cm/s, monophasic Proximal Popliteal artery: 57 cm/s, monophasic Mid posterior tibial artery: 36 cm/s, monophasic Peroneal artery: 30 cm/s, monophasic LEFT LE. THE LEFT ANKLE-BRACHIAL INDEX IS: 0.60 (higher of the DP/PT) >0.97-1.25 = normal - no significant arterial disease 0.75-0.96 = mild peripheral arterial disease 0.5-0.74 = moderate peripheral arterial disease <0.50 = severe peripheral arterial disease <0.30 = critical arterial disease 2. SEGMENTAL PRESSURES: Ankle: PT 101, DP 89 3. PVR WAVEFORMS: Ankle: Mildly blunted 4. DIRECT DUPLEX: Common femoral artery: 132 cm/s, biphasic Profunda femoris artery: 152 cm/s, biphasic Superficial femoral artery (proximal): 64 cm/s, occludes proximally Superficial femoral artery (mid): 39 cm/s, reconstituted monophasic Superficial femoral artery (distal): 50 cm/s, monophasic Proximal Popliteal artery: 45 cm/s, monophasic Mid posterior tibial artery: 47 cm/s, monophasic Peroneal artery: 50 cm/s, monophasic US/US arterial duplex LE BI IMPRESSION: 1. Right: Severe peripheral arterial disease with occlusion of the proximal superficial femoral artery with monophasic flow below this level. 2. Left: Occluded proximal superficial femoral artery with reconstitution of the mid superficial femoral artery with monophasic flow below this level. 3. JOSE A of 0.60 on the right and 0.60 on the left suggesting moderate peripheral arterial disease. 4. There is discrepancy in blood pressure between the arms measuring 167 on the right and 128 on the left suggesting left subclavian disease.
== END 2022-10-31 07:59 | disposition home or self-care (01) ==
LOC: HO.US 07:58
PROVIDERS: PCP Hospitalist; Visit Provider Surgery Vascular Surgery
DX: I73.9 Peripheral vascular disease, unspecified (principal)
CPT/HCPCS: 76706; 93923; 93925

== ENCOUNTER → 2022-11-13 11:05 | Outpatient (BNVA) | payer MEDICARE, MEDICAID, SELFPAY | PROVIDERS: PCP Hospitalist; Visit Provider Surgery Vascular Surgery | DX: I73.9 Peripheral vascular disease, unspecified (principal) | CPT/HCPCS: 99212 ==

== ENCOUNTER → 2022-11-16 13:03 | Outpatient (BNVA) | payer MEDICARE, MEDICAID, SELFPAY | PROVIDERS: PCP Hospitalist; Visit Provider Nurse Practitioner Psychiatric/Mental Health | DX: Z51.81 Encounter for therapeutic drug level monitoring (principal); F11.20 Opioid dependence, uncomplicated | CPT/HCPCS: 99212 ==

== ENCOUNTER → 2022-11-21 06:08 | Day surgery (SDC) | payer MEDICARE, MEDICAID, SELFPAY ==
[2022-11-21 06:24] LABS: MANUAL DIFF FLAG NO
[2022-11-21 06:27] LABS: Basophils Absolute Auto 0.1 X10*3/uL (0.0-0.2); Basophils Percent Auto 0.7 % (0-2); Eosinophils Absolute Auto 0.7 X10*3/uL (0.0-0.4); Eosinophils Percent Auto 6.3 % (0-4); Hematocrit 39.3 % (42.0-52.0); Hemoglobin 12.4 g/dl (14.0-18.0); Imm Gran Abs Auto 0.04 X10*3/uL (0.00-0.03); Imm Gran Pct Auto 0.4 % (0.0-0.4); Lymphocytes Absolute Auto 4.5 X10*3/uL (1.2-4.9); Lymphocytes Percent Auto 39.9 % (20-40); Mean Corpuscular HGB Conc 31.6 g/dl (31.0-36.0); Mean Corpuscular Volume 91.8 fL (80.0-98.0); Mean Platelet Volume 9.7 fL (9.4-12.4); Monocytes Absolute Auto 1.3 X10*3/uL (0.1-1.2); Monocytes Percent Auto 11.8 % (2-11); Neutrophils Absolute Auto 4.6 x10*3/uL (2.0-8.3); Neutrophils Percent Auto 40.9 % (45-73); Platelet Count 135 X10*3/uL (160-400); Red Blood Count 4.28 X10*6/uL (4.60-5.80); Red Cell Distribution Width 15.8 % (11.0-16.0); White Blood Count 11.1 X10*3/uL (4.8-10.8)
[2022-11-21 06:42] LABS: Blood Urea Nitrogen 43 mg/dL (9-16); Estimated Glomerular Filt Rate 29
--- NOTE | 2022-11-21 08:01 | PC.NURSE ---
late entry. text to dr. boo re: chest pain r sided x3 days with cough and deep breath only;. denies sob. state argueta productive cough fine crackles ra. sat 96-97% ra. pt advised lab work pending results for decision to proceed - abnormal. pt referred to pcp. iv removed & pressure dressing applied. hematoma noted to left hand. after seeping through dsd. on eliquis. pressure constant applied x 10 minutes & pressure dressing applied. pt sat x 10 minutes. no oozing through dressing. advised to leave dressing in place. d/c'd pt ambulatory asymptomatic
--- NOTE | 2022-11-21 08:07 | PM.EVENT ---
Event Note Date of Service: 11/21/22 Event Note: Patient seen and examined this morning. He was scheduled for procedure today. Discovered to have a productive cough and some some chest discomfort which he describes more of a pleuritic rib pain. Upon workup he was discovered to have white count of 11.1 in addition to a severe drop in his GFR from near normal to 29. We decided to reschedule the case. Will need evaluation by Nephrology prior to intervention. Will need follow-up by primary care as well. This was all discussed with the patient and he was in agreement. Time Spent With Patient Time: Total time managing care of this patient today ____ minutes.
== END ==
PROVIDERS: PCP Hospitalist; Visit Provider Surgery Vascular Surgery
DX: I73.9 Peripheral vascular disease, unspecified (principal); Z53.8 Procedure and treatment not carried out for other reasons; R79.9 Abnormal finding of blood chemistry, unspecified
CPT/HCPCS: 36415; 82565; 84520; 85025; J1643; J2250; J3010; Q9967

== ENCOUNTER → 2022-12-05 13:05 | Outpatient (BNVA) | payer MEDICARE, MEDICAID, SELFPAY | PROVIDERS: PCP Hospitalist; Visit Provider Nurse Practitioner Psychiatric/Mental Health | DX: F11.20 Opioid dependence, uncomplicated (principal) | CPT/HCPCS: 80305; 99212 ==

== ENCOUNTER 2022-12-14 11:03 | Outpatient (REF) | payer MEDICARE, MEDICAID, SELFPAY ==
[2022-12-14 11:15] LABS: MANUAL DIFF FLAG NO
[2022-12-14 12:00] LABS: Basophils Absolute Auto 0.1 X10*3/uL (0.0-0.2); Basophils Percent Auto 0.6 % (0-2); Eosinophils Absolute Auto 0.5 X10*3/uL (0.0-0.4); Eosinophils Percent Auto 5.1 % (0-4); Hematocrit 39.3 % (42.0-52.0); Hemoglobin 12.4 g/dl (14.0-18.0); Imm Gran Abs Auto 0.03 X10*3/uL (0.00-0.03); Imm Gran Pct Auto 0.3 % (0.0-0.4); Immature Retic Fraction 11.7 % (2.3-13.4); Lymphocytes Absolute Auto 2.6 X10*3/uL (1.2-4.9); Lymphocytes Percent Auto 29.2 % (20-40); Mean Corpuscular HGB Conc 31.6 g/dl (31.0-36.0); Mean Corpuscular Hemoglobin 28.8 pg (27.0-33.0); Mean Corpuscular Volume 91.2 fL (80.0-98.0); Mean Platelet Volume 9.8 fL (9.4-12.4); Monocytes Absolute Auto 0.9 X10*3/uL (0.1-1.2); Monocytes Percent Auto 9.7 % (2-11); Neutrophils Percent Auto 55.1 % (45-73); Platelet Count 156 X10*3/uL (160-400); Red Blood Count 4.31 X10*6/uL (4.60-5.80); Red Cell Distribution Width 16.2 % (11.0-16.0); Reticulocyte Percent 1.5 % (0.5-1.8); Reticulocytes Absolute 0.066 X10*6/uL (0.026-0.095)
[2022-12-14 12:37] LABS: Blood Urea Nitrogen 58 mg/dL (9-16); Estimated Glomerular Filt Rate 26
[2022-12-14 13:01] LABS: Folate 11.9 ng/mL (> or = 4.0); Vitamin B12 445 pg/mL (200-900)
== END 2022-12-14 11:04 | disposition home or self-care (01) ==
LOC: HO.LAB 11:03
PROVIDERS: PCP Hospitalist; Visit Provider Nurse Practitioner Family
DX: D72.829 Elevated white blood cell count, unspecified (principal); N28.9 Disorder of kidney and ureter, unspecified; D64.9 Anemia, unspecified
CPT/HCPCS: 36415; 82565; 82607; 82746; 84520; 85025; 85045

== ENCOUNTER 2023-01-01 10:40 | Outpatient (REF) | payer MEDICARE, MEDICAID, SELFPAY ==
--- NOTE | ~2023-01-01 | US_ITS ---
EXAMINATION: ULTRASOUND RENAL WITH DOPPLER CLINICAL INFORMATION: Chronic kidney disease stage IV COMPARISON: None. TECHNIQUE: Real-time grayscale, color Doppler, and duplex Doppler evaluation of the kidneys and renal vasculature was performed. FINDINGS: RENAL MEASUREMENTS: Right: 10.9 x 4.6 x 4.9 cm (Sag x AP x TV) Left: 9.8 x 4.0 x 4.2 cm (Sag x AP x TV) 2.2 cm simple cyst in the lower pole left kidney. No follow-up imaging is recommended. DOPPLER INTERROGATION: AORTA: Mid aorta: 38 cm/sec RIGHT RENAL ARTERY #1: Proximal: 109 cm/sec Mid: 31 cm/sec Distal: 61 cm/sec RIGHT RENAL ARTERY #2: Proximal: 89 cm/sec Mid: 83 cm/sec Distal: 131 cm/sec LEFT MAIN RENAL ARTERY: Proximal: 69 cm/sec Mid: 43 cm/sec Distal: 54 cm/sec RENAL-AORTIC RATIO (RAR): Right: Not calculated due to mid aortic velocity outside of range 40-100 cm/s making RAR inaccurate. Left: Not calculated due to mid aortic velocity outside of range 40-100 cm/s making RAR inaccurate. SEGMENTAL RESISTIVE INDICES: Right: 0.69-0.76 Left: 0.70-0.76 RENAL VEINS: Right: Patent with normal waveform. Left: Patent with normal waveform. US/US renal BI IMPRESSION: No evidence of hemodynamically significant renal artery stenosis.
--- NOTE | ~2023-01-01 | US_ITS ---
EXAMINATION: ULTRASOUND RENAL WITH DOPPLER CLINICAL INFORMATION: Chronic kidney disease stage IV COMPARISON: None. TECHNIQUE: Real-time grayscale, color Doppler, and duplex Doppler evaluation of the kidneys and renal vasculature was performed. FINDINGS: RENAL MEASUREMENTS: Right: 10.9 x 4.6 x 4.9 cm (Sag x AP x TV) Left: 9.8 x 4.0 x 4.2 cm (Sag x AP x TV) 2.2 cm simple cyst in the lower pole left kidney. No follow-up imaging is recommended. DOPPLER INTERROGATION: AORTA: Mid aorta: 38 cm/sec RIGHT RENAL ARTERY #1: Proximal: 109 cm/sec Mid: 31 cm/sec Distal: 61 cm/sec RIGHT RENAL ARTERY #2: Proximal: 89 cm/sec Mid: 83 cm/sec Distal: 131 cm/sec LEFT MAIN RENAL ARTERY: Proximal: 69 cm/sec Mid: 43 cm/sec Distal: 54 cm/sec RENAL-AORTIC RATIO (RAR): Right: Not calculated due to mid aortic velocity outside of range 40-100 cm/s making RAR inaccurate. Left: Not calculated due to mid aortic velocity outside of range 40-100 cm/s making RAR inaccurate. SEGMENTAL RESISTIVE INDICES: Right: 0.69-0.76 Left: 0.70-0.76 RENAL VEINS: Right: Patent with normal waveform. Left: Patent with normal waveform. US/US renal doppler IMPRESSION: No evidence of hemodynamically significant renal artery stenosis.
== END 2023-01-01 10:41 | disposition home or self-care (01) ==
LOC: HO.US 10:40
PROVIDERS: PCP Hospitalist; Visit Provider Internal Medicine Nephrology
DX: N18.4 Chronic kidney disease, stage 4 (severe) (principal); N25.0 Renal osteodystrophy
CPT/HCPCS: 76775; 93975

== ENCOUNTER 2023-01-02 08:03 | Outpatient (REF) | payer MEDICARE, MEDICAID, SELFPAY ==
[2023-01-02 08:31] LABS: MANUAL DIFF FLAG NO
[2023-01-02 08:56] LABS: Appearance Urine Clear; Color Urine Yellow; Glucose Urine UA Negative (Negative); Leukocyte Esterase Urine Negative (Negative); Nitrite Urine Negative (Negative); PH 5.5 (5.0-9.0); Specific Gravity - Urine <= 1.005 (1.005-1.025); Urine Blood Negative (Negative); Urine Ketones Negative (Negative); Urine Protein Negative (Neg-Trace)
[2023-01-02 08:59] LABS: Basophils Absolute Auto 0.1 X10*3/uL (0.0-0.2); Basophils Percent Auto 0.8 % (0-2); Eosinophils Absolute Auto 0.6 X10*3/uL (0.0-0.4); Hematocrit 41.2 % (42.0-52.0); Imm Gran Abs Auto 0.02 X10*3/uL (0.00-0.03); Imm Gran Pct Auto 0.2 % (0.0-0.4); Lymphocytes Absolute Auto 3.1 X10*3/uL (1.2-4.9); Lymphocytes Percent Auto 35.4 % (20-40); Mean Corpuscular HGB Conc 31.6 g/dl (31.0-36.0); Mean Corpuscular Hemoglobin 29.5 pg (27.0-33.0); Mean Corpuscular Volume 93.4 fL (80.0-98.0); Mean Platelet Volume 9.5 fL (9.4-12.4); Monocytes Absolute Auto 0.8 X10*3/uL (0.1-1.2); Monocytes Percent Auto 8.9 % (2-11); Neutrophils Absolute Auto 4.1 x10*3/uL (2.0-8.3); Neutrophils Percent Auto 47.7 % (45-73); Platelet Count 159 X10*3/uL (160-400); Red Blood Count 4.41 X10*6/uL (4.60-5.80); Red Cell Distribution Width 15.6 % (11.0-16.0); White Blood Count 8.7 X10*3/uL (4.8-10.8)
[2023-01-02 09:07] LABS: Bacteria Urine None Seen (None Seen); Hyaline Casts Urine 0-2 /LPF (0-2); RBC Urine 0-2 /HPF (0-2); Squamous Epithelial Cell Urine 0-2 /HPF (0-2); WBC Urine 0-5 /HPF (0-5)
[2023-01-02 09:30] LABS: Albumin Level 4.1 g/dL (3.5-5.0); Anion Gap 16 (12-20); Blood Urea Nitrogen 26 mg/dL (9-16); Calcium 9.5 mg/dL (8.4-10.2); Carbon Dioxide 28 mmol/L (22-29); Chloride 101 mmol/L (96-108); Estimated Glomerular Filt Rate 31; Phosphorus 2.5 mg/dL (2.7-4.5); Potassium 3.5 mmol/L (3.3-5.1); Sodium 141 mmol/L (135-145)
[2023-01-02 09:34] LABS: Creatinine Urine 14.34 mg/dL; Microalbumin Urine < 5.0 mg/L; Total Protein Urine Random < 7 mg/dL (<12)
[2023-01-02 09:45] LABS: HBS Num1 5.09 mIU/mL (0-7.99); HBc Num1 6.37 S/CO (0.00-0.79); HBsAGNum1 0.33 S/CO (0.00-0.99); Hepatitis B Surface Antigen Negative (Negative); ~HepC Num1 13.73 S/CO (0.00-0.79); ~Hepatitis B Surface Antibody NONREACTIVE (Nonreactive); ~Hepatitis C Antibody Reactive (Nonreactive)
[2023-01-02 09:51] LABS: Vitamin D 25-OH Total 14.4 ng/mL (>30)
[2023-01-02 11:13] LABS: HBc Num2 6.35 S/CO; HBc Num3 6.31 S/CO; Hepatitis B Core Antibody Reactive (Nonreactive)
[2023-01-04 18:28] LABS: Complement C3 85 mg/dL (82-185)
[2023-01-05 02:03] LABS: Hepatitis B Core Antibody IgM NON-REACTIVE (NON-REACTIVE)
[2023-01-05 05:43] LABS: Calcium (PTHI) 9.1 mg/dL (8.6-10.3); PTHI 143 pg/mL (16-77)
[2023-01-08 13:39] LABS: Anti Nuclear Antibody Screen POSITIVE (NEGATIVE)
[2023-01-08 22:53] LABS: Prot Elec - Albumin 3.9 g/dL (3.8-4.8); Prot Elec - Alpha1 0.4 g/dL (0.2-0.3); Prot Elec - Alpha2 0.8 g/dL (0.5-0.9); Prot Elec - Beta 1 0.5 g/dL (0.4-0.6); Prot Elec - Beta 2 0.4 g/dL (0.2-0.5); Prot Elec - Gamma 1.2 g/dL (0.8-1.7); Prot Elec - Total Protein 7.1 g/dL (6.1-8.1)
[2023-01-11 00:19] LABS: Kappa, Serum 348 mg/dL (176-443); Kappa/Lambda Ratio, Serum 2.25 (1.29-2.55); Lambda, Serum 155 mg/dL (91-240)
== END 2023-01-02 08:04 | disposition home or self-care (01) ==
LOC: HO.LAB 08:03
PROVIDERS: PCP Hospitalist; Visit Provider Internal Medicine Nephrology
DX: N18.4 Chronic kidney disease, stage 4 (severe) (principal); N25.0 Renal osteodystrophy; Z11.59 Encounter for screening for other viral diseases; Z72.89 Other problems related to lifestyle
CPT/HCPCS: 36415; 80051; 81001; 82040; 82043; 82306; 82310; 82565; 83735; 83883; 83970; 84100; 84156; 84165; 84520; 85025; 86038; 86039; 86160; 86704; 86705; 86706; 86803; 87340

== ENCOUNTER 2023-01-10 13:13 | Outpatient (AMB) | payer MEDICARE, MEDICAID, SELFPAY ==
--- NOTE | 2023-01-10 13:16 | A.OFFVIS_ITS ---
Intake Vital Signs 01/10/23 13:20 BP 110/72 Blood Pressure Location Lt radial Position Sitting 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: mat visit Intake Note: the patient presents for a mat visit Loss Control Consultant Required: No Allergies No Known Allergies Allergy (Verified 01/10/23 13:21) Do you need a note to return to daycare/school/sports/work: No HPI mat visit HPI Details Patient presents for follow up Down to 4mg daily Will be holding at this dose for now as he has other medical issues he is addressing Denies any withdrawal sx. Reports feeling overall unwell with discomfort in his foot. [facility] Medical History BPH (benign prostatic hyperplasia) COPD (chronic obstructive pulmonary disease) Endocarditis GERD (gastroesophageal reflux disease) HCV (hepatitis C virus) Opiate dependence Peripheral artery disease Pneumonia due to 2019 novel coronavirus Surgical History History of cardiac catheterization Family History Mother Alzheimer disease Father Myocardial infarct Social History Household Members: Family Household Members Other:: daughter and grandaughter. Housing: House Do you presently have visiting nurse or other home services: No Alcohol intake: never Patient Tobacco Use Status: Former Tobacco user Quit Date: about 2 months ago Years Smoked: 50 e-Cigarette/Vaping Use: Never Used Substance Use Type: Marijuana service: No Current occupational status: retired Cognitive needs: No Hearing needs: No Vision needs: No Review of Systems Const Reports as per HPI and Reports no additional complaints Physical Exam Vital Signs: Last Vital Signs BP 110/72 01/10/23 13:20 Const General: cooperative, no acute distress and alert Nutritional Appearance: average body habitus Orientation/consciousness: patient oriented x3 Limitations: no limitations Neuro General: patient oriented x3 Psych Appearance: grossly normal Mental Status: mental status grossly normal Speech and movement: Normal speech and movement present Affect: normal affect Attitude: cooperative Thought process: Normal thought process present Thought content: Normal thought content present Insight: Good insight present (Psych) Judgement: Good judgement present (Psych) Assessment & Plan Assessment & Plan (1) Opiate dependence: Code(s): F11.20 - Opioid dependence, uncomplicated Plan: * continue at 4mg * does not need a refill * would like to follow up in 4 weeks---offered telehealth due to discomfort with ambulation Coding Level of Care Code Est Pt Level 3 (95653) Diagnoses Opiate dependence F11.20
[2023-01-10 13:20] VITALS: BP 110/72
== END 2023-01-10 13:40 | disposition home or self-care (01) ==
LOC: HO.HCC 13:13
PROVIDERS: PCP Hospitalist; Visit Provider Nurse Practitioner Psychiatric/Mental Health
DX: F11.20 Opioid dependence, uncomplicated (principal)
CPT/HCPCS: 99213

== ENCOUNTER → 2023-01-10 13:13 | Outpatient (BNVA) | payer MEDICARE, MEDICAID, SELFPAY | PROVIDERS: PCP Hospitalist; Visit Provider Nurse Practitioner Psychiatric/Mental Health | DX: F11.20 Opioid dependence, uncomplicated (principal); I73.9 Peripheral vascular disease, unspecified; B19.20 Unspecified viral hepatitis C without hepatic coma; Z51.81 Encounter for therapeutic drug level monitoring; Z79.899 Other long term (current) drug therapy | CPT/HCPCS: 99212 ==

== ENCOUNTER → 2023-01-12 23:59 | Outpatient (BNV) | payer MEDICARE, MEDICAID, SELFPAY ==
--- NOTE | 2023-01-17 21:09 | A.OFFVIS_ITS ---
Intake 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: Remote HF Monitoring- Medtronic Allergies No Known Allergies Allergy (Verified 01/10/23 13:21) [facility] Medical History BPH (benign prostatic hyperplasia) COPD (chronic obstructive pulmonary disease) Endocarditis GERD (gastroesophageal reflux disease) HCV (hepatitis C virus) Opiate dependence Peripheral artery disease Pneumonia due to 2019 novel coronavirus Surgical History History of cardiac catheterization Family History Mother Alzheimer disease Father Myocardial infarct Social History Household Members: Family Household Members Other:: daughter and grandaughter. Housing: House Do you presently have visiting nurse or other home services: No Alcohol intake: never Patient Tobacco Use Status: Former Tobacco user Quit Date: about 2 months ago Years Smoked: 50 e-Cigarette/Vaping Use: Never Used Substance Use Type: Marijuana service: No Current occupational status: retired Cognitive needs: No Hearing needs: No Vision needs: No Office Procedures Cardiac Device Check Cardiac Device Check Details: Date of service- 01/12/2023; based on impedance data, there is increase in optivol fluid index. May indicate CHF. [id number] Cardiac Device Interrogation, cardio physiologic monitor Procedure code (CPT) selection complete Assessment & Plan Assessment & Plan (1) NICM (nonischemic cardiomyopathy): Code(s): I42.8 - Other cardiomyopathies (2) Acute combined systolic and diastolic CHF, NYHA class 3: Code(s): I50.41 - Acute combined systolic (congestive) and diastolic (congestive) heart failure Coding Level of Care Code Procedure Only Diagnoses NICM (nonischemic cardiomyopathy) I42.8 Acute combined systolic and diastolic CHF, NYHA class 3 I50.41 CPT Codes Cardiac Device Check - Cardiac Device 15: [id number] Cardiac Device In [facility], cardio physiologic monitor ([id number])
== END ==
PROVIDERS: PCP Hospitalist; Visit Provider Internal Medicine
DX: I50.41 Acute combined systolic (congestive) and diastolic (congestive) heart failure (principal)
CPT/HCPCS: 93297

== ENCOUNTER 2023-02-08 08:59 | Outpatient (AMB) | payer MEDICARE, MEDICAID, SELFPAY ==
--- NOTE | 2023-02-08 09:01 | A.OFFVIS_ITS ---
Intake 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: mat visit Allergies No Known Allergies Allergy (Verified 01/10/23 13:21) HPI mat visit HPI Details Patient presents for follow up Continues to taper dose 1/3 of an 8mg --has been at this dose for 2 weeks requesting 2mg film be sent to him Sleeping okay, denies withdrawal sx [facility] Medical History BPH (benign prostatic hyperplasia) COPD (chronic obstructive pulmonary disease) Endocarditis GERD (gastroesophageal reflux disease) HCV (hepatitis C virus) Opiate dependence Peripheral artery disease Pneumonia due to 2019 novel coronavirus Surgical History History of cardiac catheterization Family History Mother Alzheimer disease Father Myocardial infarct Social History Household Members: Family Household Members Other:: daughter and grandaughter. Housing: House Do you presently have visiting nurse or other home services: No Alcohol intake: never Patient Tobacco Use Status: Former Tobacco user Quit Date: about 2 months ago Years Smoked: 50 e-Cigarette/Vaping Use: Never Used Substance Use Type: Marijuana service: No Current occupational status: retired Cognitive needs: No Hearing needs: No Vision needs: No Review of Systems Const Reports as per HPI and Reports no additional complaints Assessment & Plan Assessment & Plan (1) Opiate dependence: Code(s): F11.20 - Opioid dependence, uncomplicated Plan: * Patient will continue to taper dose at a rate that feels comfortable to him * 2 mg films sent in * Follow-up 4 weeks * Encouraged to call the office should he need to be seen before then or if he needs an increase in dose Medications: New buprenorphine-naloxone 2-0.5 mg (Suboxone) 1 film sublingual DAILY 30 ea 0RF Telehealth Telehealth Location of provider rendering services: practice address Location of patient: address on file Patient Identification confirmed using: Name, : Yes Telehealth method: voice only Patient verbally consented to treatment: Yes Patient verbally consented to billing insurance company: Yes Coding Level of Care Code Tele Est Pt Level 3 (39997) Diagnoses Opiate dependence F11.20 Time Spent (min) 15
== END 2023-02-08 09:14 | disposition home or self-care (01) ==
LOC: HO.HCC 08:59
PROVIDERS: PCP Hospitalist; Visit Provider Nurse Practitioner Psychiatric/Mental Health
DX: F11.20 Opioid dependence, uncomplicated (principal)
CPT/HCPCS: 99442

== ENCOUNTER → 2023-02-08 08:59 | Outpatient (BNVA) | payer MEDICARE, MEDICAID, SELFPAY | PROVIDERS: PCP Hospitalist; Visit Provider Nurse Practitioner Psychiatric/Mental Health | DX: Z51.81 Encounter for therapeutic drug level monitoring (principal); F11.20 Opioid dependence, uncomplicated ==

== ENCOUNTER 2023-02-12 13:09 | Outpatient (AMB) | payer MEDICARE, MEDICAID, SELFPAY ==
--- NOTE | 2023-02-12 13:10 | A.OFFVIS_ITS ---
Intake Vital Signs 02/12/23 13:14 Height 6 ft 1 in Weight 158 lb BMI 20.8 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: follow up, needs angio s/p renal clearance Intake Note: follow up, was scheduled for an angio of the Right LE 11/21/22, his labs came back that he was referred to . Was seen by Dr. Andrade and given clearance to get the angiogram done Accompanied by: Self / Same As Patient Allergies No Known Allergies Allergy (Verified 02/12/23 13:18) HPI follow up, needs angio s/p renal clearance HPI Details Pleasant 72-year-old gentleman presents for follow-up regarding peripheral vascular disease. He was actually present for angiogram and at the time of angiogram he was discovered to have an extremely low a GFR. It was new to him. He was subsequently canceled and underwent renal evaluation. He now presents for follow-up regarding his peripheral vascular disease he notes that he has pain right more so than left. He can ambulate 20 ft at most. [facility] Medical History BPH (benign prostatic hyperplasia) COPD (chronic obstructive pulmonary disease) Endocarditis GERD (gastroesophageal reflux disease) HCV (hepatitis C virus) Opiate dependence Peripheral artery disease Pneumonia due to 2019 novel coronavirus Surgical History History of cardiac catheterization Family History Mother Alzheimer disease Father Myocardial infarct Social History Household Members: Family Household Members Other:: daughter and grandaughter. Housing: House Do you presently have visiting nurse or other home services: No Alcohol intake: never Patient Tobacco Use Status: Former Tobacco user Quit Date: about 2 months ago Years Smoked: 50 e-Cigarette/Vaping Use: Never Used Substance Use Type: Marijuana service: No Current occupational status: retired Cognitive needs: No Hearing needs: No Vision needs: No Review of Systems Const All systems reviewed & are unremarkable except as noted in HPI and below Reports no additional complaints ENT Reports Normal hearing present Card Denies chest pain, Denies chest pain at rest, Denies chest pain with activity and Denies pedal edema Resp Denies cough GI Denies abdominal pain Musc Denies abnormal gait, Denies muscle cramps and Denies radiating pain into limb Skin/Breast Denies skin ulcer and Denies wounds Neuro Reports Normal hearing present and Denies abnormal gait Psych Reports no additional complaints Physical Exam Vital Signs: BMI result Body Mass Index 20.8 Const General: cooperative, healthy appearing and comfortable Orientation/consciousness: oriented to person, oriented to place and oriented to time HEENT Head: Yes normal to inspection Neck Neck: Yes normal visual inspection Carotids: no bruits Chest Chest palpation & inspection: normal inspection of the chest Resp Effort & Inspection: normal respiratory effort and able to speak in complete sentences Auscultation: clear to auscultation bilaterally, no crackles, no rales, no rhonchi and no wheezes Cardio Other: Bilateral DP signals Rate: regular rate Rhythm: regular rhythm Heart sounds: S1 normal heart sound present and S2 normal heart sound present Bruits: no carotid bruits Peripheral pulses: Peripheral pulses 2+ throughout GI Inspection: Yes normal to inspection Skin Wounds: no wounds Hair: normal Neuro General: oriented to person, oriented to place and oriented to time Cranial nerves: Yes CN's II-XII intact bilaterally and Yes Normal hearing present Cognition (Neuro): normal cognition Motor exam (neuro): 5/5 motor strength present throughout Extrem Other: venous exam: No significant superficial varicosities or spider telangiectasias, minimal edema General: No clubbing, No cyanosis and No edema Psych Appearance: grossly normal Mental Status: mental status grossly normal Speech and movement: Normal speech and movement present Results Reviewed Results Reviewed: Noninvasive arterial testing dated 10/31/2022 demonstrates JOSE A on the right of 0.35 and on the left of 0.6. Written report and images were reviewed. Concern of SFA disease Assessment & Plan Assessment & Plan (1) Peripheral artery disease: Code(s): I73.9 - Peripheral vascular disease, unspecified Plan: Patient notes leg pain when walking distances. I have discussed the pathophysiology of peripheral vascular disease with the patient. I have also discussed risk factor modification. I have reviewed the patient's arterial testing which reveals JOSE A on the right of 0.35. the patient would benefit from a right leg endovascular peripheral angiogram with possible angioplasty, stent, and/or atherectomy. This has been discussed in detail with the patient along with risks, benefits, and complications. This includes but is not limited to bleeding, infection, heart attack, need for emergent surgical repair, limb ischemia, blood vessel damage, bleeding, puncture, kidney injury, bruising, allergic reaction, and skin reaction. He recognizes that he is at an increased risk of kidney failure. We will hold Lasix, Entresto 1 day prior to procedure and Eliquis 2 days prior to procedure. The patient demonstrates a clear understanding. We will schedule for the next appropriate time. Thank you for allowing us to assist in this patient's care. Coding Level of Care Code Est Pt Level 4 (08715) Diagnoses Peripheral artery disease I73.9
[2023-02-12 13:14] VITALS: BMI 20.8
== END 2023-02-12 14:05 | disposition home or self-care (01) ==
PROVIDERS: PCP Hospitalist; Visit Provider Surgery Vascular Surgery
DX: I73.9 Peripheral vascular disease, unspecified (principal)
CPT/HCPCS: 99214

== ENCOUNTER → 2023-02-12 13:09 | Outpatient (BNVA) | payer MEDICARE, MEDICAID, SELFPAY | PROVIDERS: PCP Hospitalist; Visit Provider Surgery Vascular Surgery | DX: I73.9 Peripheral vascular disease, unspecified (principal) | CPT/HCPCS: 99212 ==

== ENCOUNTER → 2023-02-12 23:59 | Outpatient (BNV) | payer MEDICARE, MEDICAID, SELFPAY ==
--- NOTE | 2023-02-14 15:05 | A.OFFVIS_ITS ---
Intake 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: Remote HF Monitoring- Medtronic Allergies No Known Allergies Allergy (Verified 02/12/23 13:18) [facility] Medical History BPH (benign prostatic hyperplasia) COPD (chronic obstructive pulmonary disease) Endocarditis GERD (gastroesophageal reflux disease) HCV (hepatitis C virus) Opiate dependence Peripheral artery disease Pneumonia due to 2019 novel coronavirus Surgical History History of cardiac catheterization Family History Mother Alzheimer disease Father Myocardial infarct Social History Household Members: Family Household Members Other:: daughter and grandaughter. Housing: House Do you presently have visiting nurse or other home services: No Alcohol intake: never Patient Tobacco Use Status: Former Tobacco user Quit Date: about 2 months ago Years Smoked: 50 e-Cigarette/Vaping Use: Never Used Substance Use Type: Marijuana service: No Current occupational status: retired Cognitive needs: No Hearing needs: No Vision needs: No Office Procedures Cardiac Device Check Cardiac Device Check Details: Date of service- 02/12/2023; impedance data reviewed and there is change in OptiVol. It is beginning to go up in the last few days and crossed the threshold. Limited patient activity at only 1 hour a day. Adequate heart rate variability. [id number] Cardiac Device Interrogation, cardio physiologic monitor Procedure code (CPT) selection complete Assessment & Plan Assessment & Plan (1) NICM (nonischemic cardiomyopathy): Code(s): I42.8 - Other cardiomyopathies Coding Level of Care Code Procedure Only Diagnoses NICM (nonischemic cardiomyopathy) I42.8 CPT Codes Cardiac Device Check - Cardiac Device 15: [id number] Cardiac Device Interrogation, cardio physiologic monitor ([id number])
== END ==
PROVIDERS: PCP Hospitalist; Visit Provider Internal Medicine
DX: I50.20 Unspecified systolic (congestive) heart failure (principal); I42.8 Other cardiomyopathies
CPT/HCPCS: 93297

== ENCOUNTER 2023-02-20 08:10 | Day surgery (SDC) | payer MEDICARE, MEDICAID, SELFPAY ==
[2023-02-20] VITALS (7 sets, daily range): BP systolic 97–128; BP diastolic 57–72; PULSE 60–62; RESP 16–18; TEMP 36.9–37; O2SAT 95–99; BMI 20.1
[2023-02-20 08:41] LABS: Basophils Absolute Auto 0.1 X10*3/uL (0.0-0.2); Basophils Percent Auto 0.6 % (0-2); Eosinophils Absolute Auto 0.5 X10*3/uL (0.0-0.4); Eosinophils Percent Auto 4.4 % (0-4); Hematocrit 38.3 % (42.0-52.0); Hemoglobin 12.5 g/dl (14.0-18.0); Imm Gran Abs Auto 0.04 X10*3/uL (0.00-0.03); Imm Gran Pct Auto 0.4 % (0.0-0.4); Lymphocytes Absolute Auto 3.2 X10*3/uL (1.2-4.9); Lymphocytes Percent Auto 28.8 % (20-40); MANUAL DIFF FLAG NO; Mean Corpuscular HGB Conc 32.6 g/dl (31.0-36.0); Mean Platelet Volume 9.5 fL (9.4-12.4); Monocytes Absolute Auto 1.4 X10*3/uL (0.1-1.2); Monocytes Percent Auto 12.2 % (2-11); Neutrophils Percent Auto 53.6 % (45-73); Platelet Count 159 X10*3/uL (160-400); Red Blood Count 4.03 X10*6/uL (4.60-5.80); Red Cell Distribution Width 14.3 % (11.0-16.0); White Blood Count 11.3 X10*3/uL (4.8-10.8)
[2023-02-20 08:54] LABS: Anion Gap 16 (12-20); Blood Urea Nitrogen 29 mg/dL (9-16); Calcium 9.6 mg/dL (8.4-10.2); Carbon Dioxide 24 mmol/L (22-29); Chloride 107 mmol/L (96-108); Creatinine Clr Calc Pharmacy 30.8; Estimated Glomerular Filt Rate 31; Glucose Random 109 mg/dL (60-115); Potassium 3.9 mmol/L (3.3-5.1); Sodium 143 mmol/L (135-145)
--- NOTE | 2023-02-20 09:06 | PC.NURSE ---
Dr. Darnell made aware of preop BUN and Creat. No new orders, may proceed with surgery at this time.
--- NOTE | 2023-02-20 11:21 | P.OP_ITS ---
Operative Note Operative Note Date of Service: 02/20/23 Narrative: Angiogram report from [facility] Preoperative diagnosis: Atherosclerosis of right lower extremity with activity limiting claudication Postoperative diagnosis: Same Procedure: 1. Ultrasound-guided left common femoral access 2. Aortogram with right lower extremity runoff 3. Right SFA plasty and stent 4. Right popliteal plasty Surgeon:Miguel Darnell M.D., FACS, RPVI Bulk Driver:None Anesthesia: Local with moderate conscious sedation. Total intraservice moderate sedation time was 70 minutes. I monitored the patient's level of consciousness and physiologic status continuously throughout the procedure. Specimens:none Drains:none Estimated blood loss: Less than 10 ml Implant: Medtronic Ev 3 stent 6 x 200, 6 x 150. Medtronic Impact DCB 6 x 40 Indications: Very pleasant 72-year-old gentleman with a prior history of activity limiting claudication now presents for endovascular intervention. Risks benefits complications of the procedure were discussed in detail with the patient. He understood and consented. The patient has signed the informed consent after reviewing risks, complications, benefits, and alternatives previously discussed with the patient. The patient was given the opportunity to ask any additional questions or voice any concerns. All questions were answered to the patient's satisfaction. Procedure in detail: Patient was brought to the angiography suite prior to which a time-out was called for patient identification and site verification. Bilateral groins were prepped and draped in the standard surgical fashion. Under ultrasound guidance left common femoral was punctured with micro puncture needle and wire. Subsequently a precision 4 [place] sheath was then placed. Bentson wire was advanced to the level of the aorta. 4 [place] Flush catheter was brought up and parked at the level of the renal arteries. Aortogram was then undertaken. Catheter was brought down to the level of the iliac bifurcation. Iliacs were subsequently imaged. Catheter was then brought in up and over to the right side SFA. Runoff study was then undertaken. Total SFA occlusion was noted. We then exchanged out for a stiff angled Glidewire. We were able to engage the origin of the SFA and slowly traverse the entire SFA lesion. We were following this with a now be cross catheter and eventually switched over to trail Blazer catheter. Below Erlin's canal we were able to reenter into true lumen. And we were able to traverse this entire lesion. We then exchanged out for glidewire Advantage. This time we administered 5000 units of systemic heparin. Up and over 6 Citizen [place] sheath was then placed. We plasty this entire area with a 5 x 150 balloon. We subsequently placed from distal to proximal a 6 x 200 stent and then subsequently a 6 x 150 stent. Once this was all accomplished we then post plasty did with a 6 x 200 balloon. This was to obtain good wall apposition. Two subsequent insufflations were required of this. Once this was all accomplished we recognize at the P1 segment there was a behind knee popliteal high-grade stenosis. We plasty this with a 6 x 40 regular balloon. Subsequently we brought in a drug coated balloon 6 x 40. This was brought into position in under 3 minutes and insufflated for a total of 3 minutes in duration. Once this was all accomplished completion angiogram demonstrated good result. Catheter wire sheath was brought back to the ipsilateral side. StarClose closure device was deployed. Patient tolerated the procedure well. Returned to recovery with stable vitals. Interpretation of films: 1. Ultrasound demonstrates appropriate femoral puncture. Image of which was saved. 2. Aortogram demonstrates appropriate caliber aorta. Minimal disease. Appropriate take-off of the renals. 3. Iliac images demonstrate no significant disease small in caliber 4. Right Leg Common femoral artery: No significant disease Profundus Femoris: No significant disease Superficial femoral artery: Total occlusion for most of its length. Completion demonstrated appropriate stenting Popliteal artery (p1,p2,p3): P1 segment high with grade stenosis Anterior tibial artery: Occluded Peroneal artery: Patent all the way to the foot Posterior tibial artery: Patent all the way to the foot Dorsalis pedis/plantar arch: Incomplete Conclusion: 1. Successful right SFA stent and right popliteal plasty 2. Anticoagulation status: Resume Eliquis This note is constructed using voice recognition software. While every effort has been made to ensure accuracy, head stock transfer clerk errors may have been included. Thank you for allowing me to participate in the care of your patient. Yours sincerely, Miguel Darnell MD, FACS, R.P.V.I.
[2023-02-20] MEDS: Lidocaine HCl 1 % MPF 5 ML VIAL 7 ML SUBCUT (11:36)
== END 2023-02-20 15:15 | disposition home or self-care (01) ==
PROVIDERS: PCP Hospitalist; Visit Provider Surgery Vascular Surgery
DX: I70.211 Atherosclerosis of native arteries of extremities with intermittent claudication, right leg (principal); Z79.01 Long term (current) use of anticoagulants; J44.9 Chronic obstructive pulmonary disease, unspecified; I38 Endocarditis, valve unspecified; B19.20 Unspecified viral hepatitis C without hepatic coma; F11.20 Opioid dependence, uncomplicated; Z87.891 Personal history of nicotine dependence; Z87.01 Personal history of pneumonia (recurrent); Z86.16 Personal history of COVID-19; F12.90 Cannabis use, unspecified, uncomplicated
CPT/HCPCS: 36415; 37226; 76937; 80048; 85025; 99152; 99153; C1725; C1760; C1769; C1876; C1887; J1643; J2250; J3010; Q9967

== ENCOUNTER → 2023-02-20 08:10 | Outpatient (BNV) | payer MEDICARE, MEDICAID, SELFPAY | PROVIDERS: PCP Hospitalist; Visit Provider Surgery Vascular Surgery | DX: I70.211 Atherosclerosis of native arteries of extremities with intermittent claudication, right leg (principal) | CPT/HCPCS: 37226; 75625; 75710; 76937; 99152 ==

== ENCOUNTER 2023-02-28 14:27 | Outpatient (AMB) | payer MEDICARE, MEDICAID, SELFPAY ==
--- NOTE | 2023-02-28 14:29 | A.OFFVIS_ITS ---
Intake Vital Signs 02/28/23 14:31 Height 6 ft 1 in Weight 152 lb 1.903 oz BMI 20.1 BP 88/64 L Blood Pressure Location Lt brachial Position Sitting Pulse 60 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: 6 month follow up Intake Note: 6 month follow up Tassel Snipper Required: No Allergies No Known Allergies Allergy (Verified 02/28/23 14:32) Medication List - Last Reconciled 02/28/23 by Mustapha Newton MD amiodarone 200 mg PO DAILY apixaban (Eliquis) 5 mg PO BID 90 days atorvastatin 40 mg PO BEDTIME buprenorphine-naloxone 2-0.5 mg (Suboxone) 1 film sublingual DAILY fluticasone furoate-vilanterol 100-25 mcg/dose (Breo Ellipta) 1 ea inhalation DAILY furosemide (Lasix) 20 mg PO . NEEDED furosemide 40 mg PO DAILY 90 days linaclotide (Linzess) 290 mcg PO DAILY metoprolol succinate ER (Toprol XL) 12.5 mg (1/2 x 25 mg) PO DAILY 90 days pantoprazole 40 mg PO DAILY sacubitril-valsartan 24-26 mg (Entresto) 1 tab See Protocol PO BID tamsulosin 0.4 mg PO DAILY 30 days HPI HPI Comments History of Present Illness Details Freddy returns for follow-up regarding cardiomyopathy, atrial fibrillation, Bi V ICD. He states he is doing fine. Denies any shortness of breath or in fact anything cardiac sounding symptoms. He states he is getting along fine. Daughter is also here for the appointment. COUNTS INCLUDE 234 BEDS AT THE [facility] Medical History Pneumonia due to 2019 novel coronavirus BPH (benign prostatic hyperplasia) Endocarditis Opiate dependence HCV (hepatitis C virus) COPD (chronic obstructive pulmonary disease) GERD (gastroesophageal reflux disease) Peripheral artery disease Surgical History History of cardiac catheterization Family History Mother Alzheimer disease Father Myocardial infarct Social History Household Members: Family Household Members Other:: daughter and grandaughter. Housing: House Do you presently have visiting nurse or other home services: No Alcohol intake: never Patient Tobacco Use Status: Former Tobacco user Quit Date: about 2 months ago Years Smoked: 50 e-Cigarette/Vaping Use: Never Used Substance Use Type: Marijuana service: No Current occupational status: retired Cognitive needs: No Hearing needs: No Vision needs: No Review of Systems Const Denies weakness ENT Denies dizziness Card Denies chest pain, Denies chest pain with activity, Denies syncope, Denies rapid heart rate, Denies pedal edema, Denies edema, Denies leg edema, Denies lightheadedness, Denies palpitations, Denies dyspnea, Denies dyspnea on exertion and Denies orthopnea Resp Denies cough, Denies dyspnea and Denies dyspnea on exertion GI Denies hematochezia and Denies change in stool character Musc Denies abnormal gait, Denies muscle cramps, Denies muscle weakness, Denies numbness, Denies radiating pain into limb and Denies tingling Neuro Denies abnormal gait, Denies dizziness, Denies syncope, Denies numbness, Denies tingling and Denies weakness Endo Denies palpitations Physical Exam Vital Signs: Last Vital Signs Pulse 60 02/28/23 14:31 BP 88/64 L 02/28/23 14:31 BMI result Body Mass Index 20.1 Const General: comfortable and no acute distress Orientation/consciousness: patient oriented x3 HEENT Other: Unremarkable Head: Yes normal to inspection Neck Neck: Yes normal visual inspection Chest Chest palpation & inspection: normal inspection of the chest Resp Auscultation: clear to auscultation bilaterally Cardio Palpation: normal PMI Heart sounds: S1 normal heart sound present, S2 normal heart sound present, no gallops, no murmurs and no rubs GI Palpation (GI): Soft to palpation Back/Spine/Pelvis Other: unremarkable Skin General skin exam: no rashes or lesions noted Neuro General: patient oriented x3 Extrem General: Yes normal to inspection Psych Mental Status: mental status grossly normal Office Procedures EKG Details: EKG with ventricular paced rhythm at 60/Min; difficult to say if atrial sensed or paced. [id number], Complete Assessment & Plan Assessment & Plan (1) NICM (nonischemic cardiomyopathy): Code(s): I42.8 - Other cardiomyopathies Plan: In the echocardiogram from 11/2019, LVEF was less than 10%. Unclear chronicity. In the most recent echocardiogram, LVEF 34%. There seems to be improvement. We can recheck with next visit. Findings on cardiac catheterization not able to explain the echo findings. Continue metoprolol ER, Entresto, diuretics. Due to low blood pressure, not on spironolactone or Farxiga. He has baseline renal insufficiency. We will recheck labs in 3 months. Based on OptiVol, there is a slight up trend but patient has absolutely no symptoms of heart failure and there is no evidence of fluid overload either. As the creatinine is already high, we can just continue to monitor. Advised him to contact us if any issues. (2) Atherosclerotic cardiovascular disease: Code(s): I25.10 - Atherosclerotic heart disease of ute coronary artery without angina pectoris Plan: In the cardiac catheterization, there was moderate disease in the LAD but nothing obstructive. Otherwise unremarkable. He can continue statins. Based on labs from [facility], last LDL 82 mg/dL. Triglycerides 64 mg/dL. (3) Paroxysmal atrial fibrillation: Code(s): I48.0 - Paroxysmal atrial fibrillation Plan: There is only 1 documented episode during hospitalization with COVID. Hence we can stop the amiodarone. Continue Eliquis. Plan Discussed with daughter. Orders: Orders CA echo transthoracic complete 6 Months I42.8 - Other cardiomyopathies Medications: Discontinued amiodarone Discontinued Reason: Doctor's Order 200 mg PO DAILY 90 tabs 2RF Coding Level of Care Code Est Pt Level 4 (36214) Diagnoses NICM (nonischemic cardiomyopathy) I42.8 Atherosclerotic cardiovascular disease I25.10 Paroxysmal atrial fibrillation I48.0 CPT Codes EKG - CPT: 18152-[id number], Complete ([id number])
[2023-02-28 14:31] VITALS: BP 88/64; PULSE 60; BMI 20.1
== END 2023-02-28 14:52 | disposition home or self-care (01) ==
PROVIDERS: PCP Hospitalist; Referring Provider Hospitalist; Visit Provider Internal Medicine
DX: I42.8 Other cardiomyopathies (principal); I25.10 Atherosclerotic heart disease of native coronary artery without angina pectoris; I48.0 Paroxysmal atrial fibrillation
CPT/HCPCS: 93010; 99214

== ENCOUNTER → 2023-02-28 14:27 | Outpatient (BNVA) | payer MEDICARE, MEDICAID, SELFPAY | PROVIDERS: PCP Hospitalist; Referring Provider Hospitalist; Visit Provider Internal Medicine | DX: I42.8 Other cardiomyopathies (principal); I25.10 Atherosclerotic heart disease of native coronary artery without angina pectoris; I48.0 Paroxysmal atrial fibrillation; Z79.01 Long term (current) use of anticoagulants; Z79.899 Other long term (current) drug therapy | CPT/HCPCS: 93005; 99212 ==

== ENCOUNTER 2023-03-07 11:35 | Outpatient (AMB) | payer MEDICARE, MEDICAID, SELFPAY ==
--- NOTE | 2023-03-07 11:43 | A.OFFVIS_ITS ---
Intake Vital Signs 03/07/23 11:44 Height 6 ft 1 in Weight 152 lb BMI 20.1 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: 2 week follow up right leg angiogram Intake Note: 2 week follow up Right LE angio 02/20/23. Pt states that leg feels much better, no more pain in the right foot. Accompanied by: Self / Same As Patient Allergies No Known Allergies Allergy (Verified 03/07/23 11:46) HPI 2 week follow up right leg angiogram HPI Details Pleasant 72-year-old gentleman status post endovascular intervention. He has undergone right SFA plasty and stent. Reports he is doing extremely well with this. Ambulating with no pain on the right lower extremity. Now for routine postprocedure follow-up. [facility] Medical History (Updated 03/07/23 @ 12:03 by Miguel Darnell MD) Pneumonia due to 2019 novel coronavirus BPH (benign prostatic hyperplasia) Endocarditis Opiate dependence HCV (hepatitis C virus) COPD (chronic obstructive pulmonary disease) GERD (gastroesophageal reflux disease) Peripheral artery disease Surgical History (Updated 03/07/23 @ 11:48 by MAI Dominguez) S/P angiogram of extremity (02/20/23) History of cardiac catheterization Family History Mother Alzheimer disease Father Myocardial infarct Social History Household Members: Family Household Members Other:: daughter and grandaughter. Housing: House Do you presently have visiting nurse or other home services: No Alcohol intake: never Patient Tobacco Use Status: Former Tobacco user Quit Date: about 2 months ago Years Smoked: 50 e-Cigarette/Vaping Use: Never Used Substance Use Type: Marijuana service: No Current occupational status: retired Cognitive needs: No Hearing needs: No Vision needs: No Review of Systems Const All systems reviewed & are unremarkable except as noted in HPI and below Reports no additional complaints ENT Reports Normal hearing present Card Denies chest pain, Denies chest pain at rest, Denies chest pain with activity and Denies pedal edema Resp Denies cough GI Denies abdominal pain Musc Denies abnormal gait, Denies muscle cramps and Denies radiating pain into limb Skin/Breast Denies skin ulcer and Denies wounds Neuro Reports Normal hearing present and Denies abnormal gait Psych Reports no additional complaints Physical Exam Vital Signs: BMI result Body Mass Index 20.1 Const General: cooperative, healthy appearing and comfortable Orientation/consciousness: oriented to person, oriented to place and oriented to time HEENT Head: Yes normal to inspection Neck Neck: Yes normal visual inspection Carotids: no bruits Chest Chest palpation & inspection: normal inspection of the chest Resp Effort & Inspection: normal respiratory effort and able to speak in complete sentences Auscultation: clear to auscultation bilaterally, no crackles, no rales, no rhonchi and no wheezes Cardio Other: Bilateral DP signal Rate: regular rate Rhythm: regular rhythm Heart sounds: S1 normal heart sound present and S2 normal heart sound present Bruits: no carotid bruits Peripheral pulses: Peripheral pulses 2+ throughout GI Inspection: Yes normal to inspection Skin Wounds: no wounds Hair: normal Neuro General: oriented to person, oriented to place and oriented to time Cranial nerves: Yes CN's II-XII intact bilaterally and Yes Normal hearing present Cognition (Neuro): normal cognition Motor exam (neuro): 5/5 motor strength present throughout Extrem Other: venous exam: No significant superficial varicosities or spider telangiectasias, minimal edema General: No clubbing, No cyanosis and No edema Psych Appearance: grossly normal Mental Status: mental status grossly normal Speech and movement: Normal speech and movement present Assessment & Plan Assessment & Plan (1) Peripheral artery disease: Comment: 02/20/2023 right SFA plasty and stent, right popliteal plasty with DCB Code(s): I73.9 - Peripheral vascular disease, unspecified Plan: In short patient has stable claudication. He has done well with endovascular intervention I did review the pathophysiology of peripheral vascular disease with the patient. In addition we did discuss routine conservative measures including a healthy diet and the importance of exercise and ambulation. We did discuss risk factor modification. The patient will continue to to follow-up with surveillance follow-up in approximately 3 months. Thank you for allowing us to participate in this patient's care. If there are any questions or concerns please do not hesitate to contact us. Orders: Orders US arterial duplex LE BI 3 Months I73.9 - Peripheral vascular disease, unspecified Coding Level of Care Code Est Pt Level 4 (90112) Diagnoses Peripheral artery disease I73.9
[2023-03-07 11:44] VITALS: BMI 20.1
== END 2023-03-07 11:58 | disposition home or self-care (01) ==
PROVIDERS: PCP Hospitalist; Visit Provider Surgery Vascular Surgery
DX: I73.9 Peripheral vascular disease, unspecified (principal)
CPT/HCPCS: 99213

== ENCOUNTER → 2023-03-07 11:35 | Outpatient (BNVA) | payer MEDICARE, MEDICAID, SELFPAY | PROVIDERS: PCP Hospitalist; Visit Provider Surgery Vascular Surgery | DX: I73.9 Peripheral vascular disease, unspecified (principal); Z95.828 Presence of other vascular implants and grafts | CPT/HCPCS: 99212 ==

== ENCOUNTER 2023-03-08 12:58 | Outpatient (AMB) | payer MEDICARE, MEDICAID, SELFPAY ==
[2023-03-08 13:03] VITALS: BP 102/68
--- NOTE | 2023-03-08 13:03 | A.OFFVIS_ITS ---
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 Pleased with how taper is progressing and hopes to discontinue fully soon. [facility] Medical History (Updated 03/08/23 @ 14:26 by Gina Sharma CNP) Pneumonia due to 2019 novel coronavirus BPH (benign prostatic hyperplasia) Endocarditis Opiate dependence HCV (hepatitis C virus) COPD (chronic obstructive pulmonary disease) GERD (gastroesophageal reflux disease) Peripheral artery disease Surgical History (Updated 03/07/23 @ 11:48 by MAI Dominguez) S/P angiogram of extremity (02/20/23) History of cardiac catheterization Family History Mother Alzheimer disease Father Myocardial infarct Social History Household Members: Family Household Members Other:: daughter and grandaughter. Housing: House Do you presently have visiting nurse or other home services: No Alcohol intake: never Patient Tobacco Use Status: Former Tobacco user Quit Date: about 2 months ago Years Smoked: 50 e-Cigarette/Vaping Use: Never Used Substance Use Type: Marijuana service: No Current occupational status: retired Cognitive needs: No Hearing needs: No Vision needs: No Review of Systems Const Reports as per HPI and Reports no additional complaints Physical Exam Vital Signs: Last Vital Signs BP 102/68 03/08/23 13:03 Const General: cooperative, no acute distress and alert Nutritional Appearance: average body habitus Orientation/consciousness: patient oriented x3 Limitations: no limitations Neuro General: patient oriented x3 Psych Appearance: grossly normal Mental Status: mental status grossly normal Speech and movement: Normal speech and movement present Affect: normal affect Attitude: cooperative Thought process: Normal thought process present Thought content: Normal thought content present Insight: Good insight present (Psych) Judgement: Good judgement present (Psych) Assessment & Plan Assessment & Plan (1) Opiate dependence: Code(s): F11.20 - Opioid dependence, uncomplicated Qualifiers: Substance use status: in remission Qualified Code(s): F11.21 - Opioid dependence, in remission Plan: * patient reports he will continue to decrease dose with goal of discontinuing over the next month * follow up one month telehealth Coding Level of Care Code Est Pt Level 3 (92248) Diagnoses Opioid dependence in remission F11.21 Substance use status: in remission
== END 2023-03-08 13:27 | disposition home or self-care (01) ==
LOC: HO.HCC 12:58
PROVIDERS: PCP Hospitalist; Visit Provider Nurse Practitioner Psychiatric/Mental Health
DX: F11.21 Opioid dependence, in remission (principal)
CPT/HCPCS: 99213

== ENCOUNTER → 2023-03-08 12:58 | Outpatient (BNVA) | payer MEDICARE, MEDICAID, SELFPAY | PROVIDERS: PCP Hospitalist; Visit Provider Nurse Practitioner Psychiatric/Mental Health | DX: F11.20 Opioid dependence, uncomplicated (principal) | CPT/HCPCS: 99212 ==

== ENCOUNTER → 2023-03-15 23:59 | Outpatient (BNV) | payer MEDICARE, MEDICAID, SELFPAY ==
--- NOTE | 2023-03-17 10:33 | MHC.OFFVIS ---
Intake 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: Remote HF Monitoring- [employer] Allergies No Known Allergies Allergy (Verified 03/08/23 13:04) [facility] Medical History (Updated 03/08/23 @ 14:26 by Gina Sharma CNP) Pneumonia due to 2019 novel coronavirus BPH (benign prostatic hyperplasia) Endocarditis Opiate dependence HCV (hepatitis C virus) COPD (chronic obstructive pulmonary disease) GERD (gastroesophageal reflux disease) Peripheral artery disease Surgical History (Updated 03/07/23 @ 11:48 by MAI Dominguez) S/P angiogram of extremity (02/20/23) History of cardiac catheterization Family History Mother Alzheimer disease Father Myocardial infarct Social History Household Members: Family Household Members Other:: daughter and grandaughter. Housing: House Do you presently have visiting nurse or other home services: No Alcohol intake: never Patient Tobacco Use Status: Former Tobacco user Quit Date: about 2 months ago Years Smoked: 50 e-Cigarette/Vaping Use: Never Used Substance Use Type: Marijuana service: No Current occupational status: retired Cognitive needs: No Hearing needs: No Vision needs: No Office Procedures Cardiac Device Check Cardiac Device Check Details: Date of service- 03/15/2023; based on impedance data and physiological variables, there is suggestion of optivol fluid accumulation last few days- starting sep 20. Call made to patient to assess. Patient activity </= 1 hr/day. [id number] Cardiac Device Interrogation, cardio physiologic monitor Procedure code (CPT) selection complete Assessment & Plan Assessment & Plan (1) NICM (nonischemic cardiomyopathy): Code(s): I42.8 - Other cardiomyopathies Coding Level of Care Code Procedure Only Diagnoses NICM (nonischemic cardiomyopathy) I42.8 CPT Codes Cardiac Device Check - Cardiac Device 15: [id number] Cardiac Device Interrogation, cardio physiologic monitor ([id number])
== END ==
PROVIDERS: PCP Hospitalist; Visit Provider Internal Medicine
DX: I42.8 Other cardiomyopathies (principal)
CPT/HCPCS: 93297

== ENCOUNTER → 2023-03-15 23:59 | Outpatient (BNV) | payer MEDICARE, MEDICAID, SELFPAY ==
--- NOTE | 2023-03-17 10:35 | A.OFFVIS_ITS ---
Intake 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: Remote ICD Check- [employer] Allergies No Known Allergies Allergy (Verified 03/08/23 13:04) [facility] Medical History (Updated 03/08/23 @ 14:26 by Gina Sharma CNP) Pneumonia due to 2019 novel coronavirus BPH (benign prostatic hyperplasia) Endocarditis Opiate dependence HCV (hepatitis C virus) COPD (chronic obstructive pulmonary disease) GERD (gastroesophageal reflux disease) Peripheral artery disease Surgical History (Updated 03/07/23 @ 11:48 by MAI Dominguez) S/P angiogram of extremity (02/20/23) History of cardiac catheterization Family History Mother Alzheimer disease Father Myocardial infarct Social History Household Members: Family Household Members Other:: daughter and grandaughter. Housing: House Do you presently have visiting nurse or other home services: No Alcohol intake: never Patient Tobacco Use Status: Former Tobacco user Quit Date: about 2 months ago Years Smoked: 50 e-Cigarette/Vaping Use: Never Used Substance Use Type: Marijuana service: No Current occupational status: retired Cognitive needs: No Hearing needs: No Vision needs: No Office Procedures Cardiac Device Check Cardiac Device Check Details: Date of service 03/15/2023; Battery life >9 years; normal lead parameters; no treated VT/VF; effective UPHOLSTERY TRIMMER 97% ; normal ICD function. [id number] Cardiac Interrogation, implant defibrillator w/interim Procedure code (CPT) selection complete Assessment & Plan Assessment & Plan (1) NICM (nonischemic cardiomyopathy): Code(s): I42.8 - Other cardiomyopathies Coding Level of Care Code Procedure Only Diagnoses NICM (nonischemic cardiomyopathy) I42.8 CPT Codes Cardiac Device Check - Cardiac Device 13: [id number] Cardiac Interrogation, implant defibrillator w/interim ([id number])
== END ==
PROVIDERS: PCP Hospitalist; Visit Provider Internal Medicine
DX: I42.8 Other cardiomyopathies (principal); Z95.810 Presence of automatic (implantable) cardiac defibrillator
CPT/HCPCS: 93295

== ENCOUNTER 2023-03-21 12:52 | Outpatient (AMB) | payer MEDICARE, MEDICAID, SELFPAY ==
[2023-03-21 12:56] VITALS: BP 102/58; PULSE 56; O2SAT 92; BMI 19.5
--- NOTE | 2023-03-21 12:56 | MHC.PC.OV ---
Vital Signs 03/21/23 12:56 Height 6 ft 1 in Weight 148 lb BMI 19.5 BP 102/58 L Blood Pressure Location Lt brachial Position Sitting Pulse 56 Pulse Source Pulse Oximeter Pulse Oximetry (%) 92 Oxygen Delivery Method Room Air 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: Transfer of care Maciel/Heart failure/Kidney Allergies No Known Allergies Allergy (Verified 03/21/23 12:56) Medication List - Last Reconciled 03/21/23 by Fco Vasquez MD apixaban (Eliquis) 5 mg PO BID 90 days atorvastatin 40 mg PO BEDTIME buprenorphine-naloxone 2-0.5 mg (Suboxone) 1 film sublingual DAILY fluticasone furoate-vilanterol 100-25 mcg/dose (Breo Ellipta) 1 ea inhalation DAILY furosemide 40 mg PO DAILY 90 days linaclotide (Linzess) 290 mcg PO DAILY metoprolol succinate ER (Toprol XL) 12.5 mg (1/2 x 25 mg) PO DAILY 90 days pantoprazole 40 mg PO DAILY sacubitril-valsartan 24-26 mg (Entresto) 1 tab See Protocol PO BID tamsulosin 0.4 mg PO DAILY 30 days Tobacco use date assessed: 10/25/22 Fall risk assessment: 1 Fall in past year Last assessed Fall Risk: 03/21/23 Dental Screening Dental Screen Date: 03/21/23 Did you have a dental visit in the last 12 months?: No Did you have a dental problem in the last 6 months where you did not have access to dental care?: No Was dental information given to patient?: No HPI Transfer of care Maciel/Heart failure/Kidney HPI Details 72-year-old male with multiple medical problems COPD nonischemic cardiomyopathy with ICD coronary artery disease congestive heart failure atrial fibrillation GERD peripheral vascular disease and chronic kidney disease coming in for the 1st time to see me. Patient has a history of polysubstance abuse presently on Suboxone and follows up with compressive care. Patient also follows up with vascular surgeon for peripheral arterial disease with a history of right SFA plasty and stent and right popliteal l plasty February 2023 patient was recently seen also by Cardiology echocardiogram most recent 1 with ejection fraction of 34% continuing metoprolol or Entresto and diuretics coronary artery disease cardiac catheterization had moderate disease in the LAD nothing obstructive medical management LDL goal of less than 70 and triglyceride of less than 150 atrial fibrillation with 1 episode only during hospitalization with COVID amiodarone taken off. Continuing with anticoagulation. Patient also follows up with Nephrology chronic kidney disease stage 4 hypertension and peripheral vascular disease [facility] Medical History (Updated 03/21/23 @ 13:32 by Foc Vasquez MD) Kidney disease Varicose veins of right lower extremity with inflammation Constipation by delayed colonic transit Pneumonia due to 2019 novel coronavirus Acute respiratory failure COVID-19 Smoking Acute combined systolic and diastolic CHF, NYHA class 3 BPH (benign prostatic hyperplasia) Endocarditis Opiate dependence HCV (hepatitis C virus) COPD (chronic obstructive pulmonary disease) GERD (gastroesophageal reflux disease) Peripheral artery disease Surgical History (Updated 03/07/23 @ 11:48 by MAI Dominguez) S/P angiogram of extremity (02/20/23) History of cardiac catheterization Family History (Updated 03/21/23 @ 13:02 by Nette Delgado CMA) Mother Alzheimer disease Father Myocardial infarct Daughter No problems noted. Social History Household Members: Family Household Members Other:: daughter and grandaughter. Housing: House Do you presently have visiting nurse or other home services: No Alcohol intake: never Patient Tobacco Use Status: Former Tobacco user Quit Date: about 2 months ago Tobacco use type: Cigarette Years Smoked: 50 e-Cigarette/Vaping Use: Never Used Second Hand Smoke Exposure: No Substance Use Type: Marijuana service: No Current occupational status: retired Cognitive needs: No Hearing needs: No Vision needs: No Questionnaire PHQ-9 Over the last 2 weeks, how often have you been bothered by any of the following problems? 1. Little interest or pleasure in doing things: not at all 2. Feeling down, depressed, or hopeless: not at all 3. Trouble falling or staying asleep, or sleeping too much: not at all 4. Feeling tired or having little energy: several days 5. Poor appetite or overeating: not at all 6. Feeling bad about yourself - or that you are a failure or have let yourself or your family down: not at all 7. Trouble concentrating on things, such as reading the newspaper or watching television: not at all 8. Moving or speaking so slowly that other people could have noticed. Or the opposite - being so fidgety or restless that you have been moving around a lot more than usual: not at all 9. Thoughts that you would be better off or of hurting yourself in some way: not at all Total score: 1 Source: Developed by Drs. Nadeem Waters, Nelson Koch and colleagues, with an educational azul from [employer]. Thrive Questionnaire Date Thrive assessed: 10/25/22 AUDIT C Alcohol Use Questionnaire (AUDIT-C) 1. How often do you have a drink containing alcohol?: Monthly or less 2. How many drinks containing alcohol do you have on a typical day when you are drinking?: 1 or 2 3. How often do you have six or more drinks on one occasion?: Never Total Score: 1 ILIR-7 AMB Questionnaire ILIR-7 Date ILIR - 7 assessed: 10/25/22 Source: Developed by Drs. Nadeem Waters, Denisha Hutton, Nelson Borrego and colleagues, with an educational azul from [employer]. Physical exam (Primary Care) Vital Signs: Last Vital Signs Pulse 56 03/21/23 12:56 BP 102/58 L 03/21/23 12:56 Pulse Ox 92 03/21/23 12:56 Oxygen Delivery Method Room Air 03/21/23 12:56 BMI result Body Mass Index 19.5 Tobacco/Smoking Status: Tobacco use Status Tobacco use date assessed 10/25/22 03/21/23 13:06 Patient Tobacco Use Status Former Tobacco user 03/21/23 13:06 Tobacco use type Cigarette 03/21/23 13:06 e-Cigarette/Vaping Use Never Used 03/21/23 13:06 PHQ-9: PHQ-9 Score PHQ-9: Total score 1 03/21/23 13:06 Thrive Assessment: Date of Thrive Assessment Date Thrive assessed 10/25/22 03/21/23 13:06 Const General: alert; No acute distress Eyes Conjunctivae: conjunctivae normal Resp Auscultation: clear to auscultation bilaterally Cardio Rate: regular rate Rhythm: regular rhythm GI Inspection: Yes normal to inspection Extrem General: Yes normal to inspection and No edema Office Procedures Flu Questionnaire Does the patient have a severe egg allergy?: No Does the patient have severe life threatening allergies?: No Does the patient have a fever or illness today?: No Has the patient ever had Guillain-West Coxsackie Syndrome?: No Has the patient ever had any past reaction to a flu shot?: No Immunizations flu vacc [id number] 6mos up(PF) 60 mcg(15 mcgx4)/0.5 mL IM syringe Performing Provider: Fco Vasquez MD [facility] Administered by: Nette Delgado CMA on 03/21/23 13:07 Dose Route Admin Location Dispensed Lot Number Expiration Date [employer]DC [employer] 0.5 mL IM Left Deltoid 0.5 mL [id number] 12/15/23 [id number] [employer] VIS Given Date VIS Provided VIS Publication Date 03/21/23 Single Vaccine 21 Eligibility Eligibility Date Funding Source Not VFC Eligible 03/21/23 Private Assessment and Plan Assessment & Plan (1) NICM (nonischemic cardiomyopathy): Comment: echo August 2022 ef 34% Code(s): I42.8 - Other cardiomyopathies Plan: Continue to follow-up with Cardiology echocardiogram has been ordered (2) Atherosclerotic cardiovascular disease: Code(s): I25.10 - Atherosclerotic heart disease of [place] coronary artery without angina pectoris Plan: Control the cholesterol, weight, blood pressure continue with anticoagulation (3) Paroxysmal atrial fibrillation: Code(s): I48.0 - Paroxysmal atrial fibrillation Plan: Continue with anticoagulation (4) Heart failure with reduced ejection fraction: Comment: Heather Merida undergoing cardiac care/ defibrillator implantation Code(s): I50.20 - Unspecified systolic (congestive) heart failure Plan: Weigh daily continue with diuretic 40 mg of furosemide, on metoprolol 12.5 mg once a day Entresto 24/26 mg once a day (5) Opiate dependence: Code(s): F11.20 - Opioid dependence, uncomplicated Qualifiers: Substance use status: in remission Qualified Code(s): F11.21 - Opioid dependence, in remission Plan: Continue to follow-up with [facility] care patient on Suboxone (6) COPD (chronic obstructive pulmonary disease): Code(s): J44.9 - Chronic obstructive pulmonary disease, unspecified Plan: Stop smoking! Continue with the inhalers (7) Peripheral artery disease: Comment: 02/20/2023 right SFA plasty and stent, right popliteal plasty with DCB Code(s): I73.9 - Peripheral vascular disease, unspecified Plan: When sitting down elevate the legs, exercise, and support stockings patient follows up with vascular surgeon (8) GERD (gastroesophageal reflux disease): Comment: Multiple cardiac- Continue ppi avoid culprits- Assess after cardiac-Dr. Mitchell Will pursue GI workup as appropriate Code(s): K21.9 - Gastro-esophageal reflux disease without esophagitis Plan: Avoid the foods that causes that usually spicy foods, tomato products, juices, coffee, soda and foods that your sensitive to. After eating do not lie down, allow 3-4 hours before in lie down. And keep the head of bed above 30 degrees to avoid the acid from going up. (9) Chronic kidney disease, stage 4 (severe): Code(s): N18.4 - Chronic kidney disease, stage 4 (severe) Plan: Avoid NSAIDs keep well hydrated continue to monitor (10) Anemia: Code(s): D64.9 - Anemia, unspecified Plan: Secondary to chronic kidney disease (11) BPH (benign prostatic hyperplasia): Code(s): N40.0 - Benign prostatic hyperplasia without lower urinary tract symptoms Plan: Continue with tamsulosin Orders: Orders Influenza [id number] Immunization Today Z23 - Encounter for immunization Comprehensive Met. Panel 2 Months I48.0 - Paroxysmal atrial fibrillation Free T4 (Free Thyroxine) 2 Months I48.0 - Paroxysmal atrial fibrillation Thyroid Stimulating Hormone 2 Months I48.0 - Paroxysmal atrial fibrillation Vitamin B12 and Folate 2 Months I48.0 - Paroxysmal atrial fibrillation Lipid Panel 2 Months E78.00 - Pure hypercholesterolemia, unspecified, I48.0 - Paroxysmal atrial fibrillation Reticulocyte Count 2 Months I48.0 - Paroxysmal atrial fibrillation Complete Blood Count Auto Diff 2 Months I48.0 - Paroxysmal atrial fibrillation Ferritin 2 Months I48.0 - Paroxysmal atrial fibrillation IRON PROFILE 2 Months I48.0 - Paroxysmal atrial fibrillation Medications: New fluticasone furoate-vilanterol 100-25 mcg/dose (Breo Ellipta) 1 ea inhalation DAILY 60 ea 11RF J44.9 - Chronic obstructive pulmonary disease, unspecified Coding Level of Care Code Est Pt Level 4 (64526) Diagnoses NICM (nonischemic cardiomyopathy) I42.8 Atherosclerotic cardiovascular disease I25.10 Paroxysmal atrial fibrillation I48.0 Heart failure with reduced ejection fraction I50.20 Opioid dependence in remission F11.21 Substance use status: in remission COPD (chronic obstructive pulmonary disease) J44.9 Peripheral artery disease I73.9 GERD (gastroesophageal reflux disease) K21.9 Chronic kidney disease, stage 4 (severe) N18.4 Anemia D64.9 BPH (benign prostatic hyperplasia) N40.0
== END 2023-03-21 13:46 | disposition home or self-care (01) ==
PROVIDERS: PCP Hospitalist; Visit Provider Internal Medicine
DX: I42.8 Other cardiomyopathies (principal); I48.0 Paroxysmal atrial fibrillation; I50.20 Unspecified systolic (congestive) heart failure; F11.21 Opioid dependence, in remission; Z23 Encounter for immunization; J44.9 Chronic obstructive pulmonary disease, unspecified; I73.9 Peripheral vascular disease, unspecified; I25.10 Atherosclerotic heart disease of native coronary artery without angina pectoris; K21.9 Gastro-esophageal reflux disease without esophagitis; N18.4 Chronic kidney disease, stage 4 (severe); D64.9 Anemia, unspecified; N40.0 Benign prostatic hyperplasia without lower urinary tract symptoms
CPT/HCPCS: 90471; 90686; 99214

== ENCOUNTER → 2023-04-08 09:01 | Outpatient (BNVA) | payer MEDICARE, MEDICAID, SELFPAY | PROVIDERS: PCP Hospitalist; Visit Provider Nurse Practitioner Psychiatric/Mental Health ==

== ENCOUNTER 2023-04-08 09:02 | Outpatient (AMB) | payer MEDICARE, MEDICAID, SELFPAY ==
--- NOTE | 2023-04-08 09:03 | MHC.AM.SUB ---
Intake 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: mat visit Allergies No Known Allergies Allergy (Verified 03/21/23 12:56) HPI mat visit HPI Details Patient presents for telehealth follow up Has been tapering dose Skipping doses, has been going 2-3 days without a dose. Reporting very mild withdrawal sx, but also experiencing low energy which he attributes to other health conditions [facility] Medical History (Updated 03/21/23 @ 13:32 by Fco Vasquez MD) Kidney disease Varicose veins of right lower extremity with inflammation Constipation by delayed colonic transit Pneumonia due to 2019 novel coronavirus Acute respiratory failure COVID-19 Smoking Acute combined systolic and diastolic CHF, NYHA class 3 BPH (benign prostatic hyperplasia) Endocarditis Opiate dependence HCV (hepatitis C virus) COPD (chronic obstructive pulmonary disease) GERD (gastroesophageal reflux disease) Peripheral artery disease Surgical History (Updated 03/07/23 @ 11:48 by MAI Dominguez) S/P angiogram of extremity (02/20/23) History of cardiac catheterization Family History (Updated 03/21/23 @ 13:02 by Nette Delgado [facility]) Mother Alzheimer disease Father Myocardial infarct Daughter No problems noted. Social History Household Members: Family Household Members Other:: daughter and grandaughter. Housing: House Do you presently have visiting nurse or other home services: No Alcohol intake: never Patient Tobacco Use Status: Former Tobacco user Quit Date: about 2 months ago Tobacco use type: Cigarette Years Smoked: 50 e-Cigarette/Vaping Use: Never Used Second Hand Smoke Exposure: No Substance Use Type: Marijuana service: No Current occupational status: retired Cognitive needs: No Hearing needs: No Vision needs: No Review of Systems Const Reports as per HPI and Reports no additional complaints Assessment & Plan Assessment & Plan (1) Opiate dependence: Code(s): F11.20 - Opioid dependence, uncomplicated Qualifiers: Substance use status: in remission Qualified Code(s): F11.21 - Opioid dependence, in remission Plan: patient to continue self taper plan follow up one month encouraged to call office prior to next appt if necessary--does not require a refill at this time Telehealth Telehealth Location of provider rendering services: practice address Location of patient: address on file Patient Identification confirmed using: Name, : Yes Telehealth method: voice only Patient verbally consented to treatment: Yes Patient verbally consented to billing insurance company: Yes Coding Level of Care Code Tele Est Pt Level 3 (39445) Diagnoses Opioid dependence in remission F11.21 Substance use status: in remission Time Spent (min) 20 Comment 10 mins with patient, remainder on chart review and documentation
== END 2023-04-08 09:14 | disposition home or self-care (01) ==
PROVIDERS: PCP Hospitalist; Visit Provider Nurse Practitioner Psychiatric/Mental Health
DX: F11.21 Opioid dependence, in remission (principal)
CPT/HCPCS: 99442

== ENCOUNTER → 2023-04-15 23:59 | Outpatient (BNV) | payer MEDICARE, MEDICAID, SELFPAY ==
--- NOTE | 2023-04-17 08:50 | MHC.OFFVIS ---
Intake 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: Remote HF Monitoring- [employer] Allergies No Known Allergies Allergy (Verified 03/21/23 12:56) [facility] Medical History (Updated 03/21/23 @ 13:32 by Fco Vasquez MD) Kidney disease Varicose veins of right lower extremity with inflammation Constipation by delayed colonic transit Pneumonia due to 2019 novel coronavirus Acute respiratory failure COVID-19 Smoking Acute combined systolic and diastolic CHF, NYHA class 3 BPH (benign prostatic hyperplasia) Endocarditis Opiate dependence HCV (hepatitis C virus) COPD (chronic obstructive pulmonary disease) GERD (gastroesophageal reflux disease) Peripheral artery disease Surgical History (Updated 03/07/23 @ 11:48 by MAI Dominguez) S/P angiogram of extremity (02/20/23) History of cardiac catheterization Family History (Updated 03/21/23 @ 13:02 by Nette Delgado CMA) Mother Alzheimer disease Father Myocardial infarct Daughter No problems noted. Social History Household Members: Family Household Members Other:: daughter and grandaughter. Housing: House Do you presently have visiting nurse or other home services: No Alcohol intake: never Patient Tobacco Use Status: Former Tobacco user Quit Date: about 2 months ago Tobacco use type: Cigarette Years Smoked: 50 e-Cigarette/Vaping Use: Never Used Second Hand Smoke Exposure: No Substance Use Type: Marijuana service: No Current occupational status: retired Cognitive needs: No Hearing needs: No Vision needs: No Office Procedures Cardiac Device Check Cardiac Device Check Details: Date of service- 04/15/2023; based on impedance data and physiological variables, there is possible Optivol accumulation Mar [place] . [id number] Cardiac Device Interrogation, cardio physiologic monitor Procedure code (CPT) selection complete Assessment & Plan Assessment & Plan (1) NICM (nonischemic cardiomyopathy): Comment: echo August 2022 ef 34% Code(s): I42.8 - Other cardiomyopathies Coding Level of Care Code Procedure Only Diagnoses NICM (nonischemic cardiomyopathy) I42.8 CPT Codes Cardiac Device Check - Cardiac Device 15: [id number] Cardiac Device Interrogation, cardio physiologic monitor ([id number])
== END ==
PROVIDERS: PCP Hospitalist; Visit Provider Internal Medicine
DX: I50.20 Unspecified systolic (congestive) heart failure (principal)
CPT/HCPCS: 93297

== ENCOUNTER → 2023-05-13 08:42 | Outpatient (BNVA) | payer MEDICARE, MEDICAID, SELFPAY | PROVIDERS: PCP Hospitalist; Visit Provider Nurse Practitioner Family ==

== ENCOUNTER → 2023-05-13 09:06 | Outpatient (AMB) | payer MEDICARE, MEDICAID, SELFPAY ==
--- NOTE | 2023-05-13 08:42 | A.OFFVIS_ITS ---
Intake 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: mat visit Allergies No Known Allergies Allergy (Verified 03/21/23 12:56) HPI mat visit HPI Details Patient presents for follow up via telehealth Has been tapering suboxone dose unable to decrease past 1mg --reports increase in frequency of urination Denies any other sx Currently taking 1-2mg every 2-3 days Sleep impacted due frequency of urination [facility] Medical History (Updated 03/21/23 @ 13:32 by Fco Vasquez MD) Kidney disease Varicose veins of right lower extremity with inflammation Constipation by delayed colonic transit Pneumonia due to 2019 novel coronavirus Acute respiratory failure COVID-19 Smoking Acute combined systolic and diastolic CHF, NYHA class 3 BPH (benign prostatic hyperplasia) Endocarditis Opiate dependence HCV (hepatitis C virus) COPD (chronic obstructive pulmonary disease) GERD (gastroesophageal reflux disease) Peripheral artery disease Surgical History (Updated 03/07/23 @ 11:48 by MAI Dominguez) S/P angiogram of extremity (02/20/23) History of cardiac catheterization Family History (Updated 03/21/23 @ 13:02 by Nette Delgado CMA) Mother Alzheimer disease Father Myocardial infarct Daughter No problems noted. Social History Household Members: Family Household Members Other:: daughter and grandaughter. Housing: House Do you presently have visiting nurse or other home services: No Alcohol intake: never Patient Tobacco Use Status: Former Tobacco user Quit Date: about 2 months ago Tobacco use type: Cigarette Years Smoked: 50 e-Cigarette/Vaping Use: Never Used Second Hand Smoke Exposure: No Substance Use Type: Marijuana service: No Current occupational status: retired Cognitive needs: No Hearing needs: No Vision needs: No Review of Systems Const Reports as per HPI Assessment & Plan Assessment & Plan (1) Opiate dependence: Code(s): F11.20 - Opioid dependence, uncomplicated Qualifiers: Substance use status: in remission Qualified Code(s): F11.21 - Opioid dependence, in remission Plan: * patient wishes to continue at current taper rate * 2mg films refilled * follo wup 6 weeks Medications: Refilled buprenorphine-naloxone 2-0.5 mg (Suboxone) 1 film sublingual DAILY 30 ea 0RF Telehealth Telehealth Location of provider rendering services: practice address Location of patient: address on file Patient Identification confirmed using: Name, : Yes Telehealth method: voice only Patient verbally consented to treatment: Yes Patient verbally consented to billing insurance company: Yes Minutes spent on Phone/Video with Pt.: 20 Coding Level of Care Code Tele Est Pt Level 3 (17590) Diagnoses Opioid dependence in remission F11.21 Substance use status: in remission
== END | disposition home or self-care (01) ==
PROVIDERS: PCP Hospitalist; Visit Provider Nurse Practitioner Psychiatric/Mental Health
DX: F11.21 Opioid dependence, in remission (principal)
CPT/HCPCS: 99442

== ENCOUNTER → 2023-05-16 23:59 | Outpatient (BNV) | payer MEDICARE, MEDICAID, SELFPAY ==
--- NOTE | 2023-05-19 10:36 | A.OFFVIS_ITS ---
Intake 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: Remote HF monitoring Allergies No Known Allergies Allergy (Verified 03/21/23 12:56) [facility] Medical History (Updated 03/21/23 @ 13:32 by Fco Vasquez MD) Kidney disease Varicose veins of right lower extremity with inflammation Constipation by delayed colonic transit Pneumonia due to 2019 novel coronavirus Acute respiratory failure COVID-19 Smoking Acute combined systolic and diastolic CHF, NYHA class 3 BPH (benign prostatic hyperplasia) Endocarditis Opiate dependence HCV (hepatitis C virus) COPD (chronic obstructive pulmonary disease) GERD (gastroesophageal reflux disease) Peripheral artery disease Surgical History (Updated 03/07/23 @ 11:48 by MAI Dominguez) S/P angiogram of extremity (02/20/23) History of cardiac catheterization Family History (Updated 03/21/23 @ 13:02 by Nette Delgado CMA) Mother Alzheimer disease Father Myocardial infarct Daughter No problems noted. Social History Household Members: Family Household Members Other:: daughter and grandaughter. Housing: House Do you presently have visiting nurse or other home services: No Alcohol intake: never Patient Tobacco Use Status: Former Tobacco user Quit Date: about 2 months ago Tobacco use type: Cigarette Years Smoked: 50 e-Cigarette/Vaping Use: Never Used Second Hand Smoke Exposure: No Substance Use Type: Marijuana service: No Current occupational status: retired Cognitive needs: No Hearing needs: No Vision needs: No Office Procedures Cardiac Device Check Cardiac Device Check Details: Date of service- 05/16/2023; based on impedance data and physiological variables, there is possible Optivol fluid accumulation 29 nov to ongoing. [id number] Cardiac Device Interrogation, cardio physiologic monitor Procedure code (CPT) selection complete Assessment & Plan Assessment & Plan (1) NICM (nonischemic cardiomyopathy): Comment: echo August 2022 ef 34% Code(s): I42.8 - Other cardiomyopathies Plan x Coding Level of Care Code Procedure Only Diagnoses NICM (nonischemic cardiomyopathy) I42.8 CPT Codes Cardiac Device Check - Cardiac Device 15: [id number] Cardiac Device Interrogation, cardio physiologic monitor ([id number])
== END ==
PROVIDERS: PCP Hospitalist; Visit Provider Internal Medicine
DX: I50.20 Unspecified systolic (congestive) heart failure (principal)
CPT/HCPCS: 93297

== ENCOUNTER 2023-05-27 12:31 | Outpatient (REF) | payer MEDICARE, MEDICAID, SELFPAY ==
--- NOTE | ~2023-05-27 | US_ITS ---
EXAMINATION: NONINVASIVE ASSESSMENT OF THE ARTERIES OF BOTH LOWER EXTREMITIES WITH PVR EXAM AND BILATERAL LOWER EXTREMITY DUPLEX Julieta Riggs MD CLINICAL INFORMATION: Peripheral vascular disease TECHNIQUE: Ankle pulse volume recordings, ankle pressure measurements and ankle brachial indices were obtained of the lower extremity arterial system bilaterally in addition to duplex Doppler techniques with wave form analysis and measurement of velocities in the common femoral, profunda femoral, superficial femoral, popliteal and tibial arteries. The study was performed only at rest. COMPARISON: Noninvasive arterial exam on 10/31/2022 FINDINGS: a) AT REST: RIGHT LE. The right ankle-brachial index is: 0.69 * >0.97-1.25 = normal - no significant arterial disease * 0.75-0.96 = mild peripheral arterial disease * 0.5-0.74 = moderate peripheral arterial disease * <0.50 = severe peripheral arterial disease 2. Right ankle pressure: Abnormal 3. Right ankle PVR waveform: Abnormal 4. Right direct duplex Doppler findings: Common femoral artery: 52 cm/s, monophasic Profunda femoris artery: 51 cm/s, monophasic Superficial femoral artery (proximal): Patent stent without significant stenosis Superficial femoral artery (mid): Patent stent without significant stenosis Superficial femoral artery (distal): 75 cm/s, monophasic Proximal Popliteal artery: 53 cm/s, monophasic Mid posterior tibial artery: 36 cm/s, monophasic LEFT LE. The left ankle-brachial index is: 0.66 * >0.97-1.25 = normal - no significant arterial disease * 0.75-0.96 = mild peripheral arterial disease * 0.5-0.74 = moderate peripheral arterial disease * <0.50 = severe peripheral arterial disease 2. Left ankle pressure: Abnormal 3. Left ankle PVR waveform: Abnormal 4. Left direct duplex Doppler findings: Common femoral artery: 148 cm/s, monophasic Profunda femoris artery: 72 cm/s, monophasic Superficial femoral artery (proximal): 28 cm/s, monophasic Superficial femoral artery (mid): Occluded Superficial femoral artery (distal): 23 cm/s, monophasic Proximal Popliteal artery: 27 cm/s, monophasic Mid posterior tibial artery: 16 cm/s, monophasic US/US JOSE A complete IMPRESSION: RIGHT LEG: Moderate peripheral arterial disease, patent superficial femoral artery stent. LEFT LEG: Moderate peripheral arterial disease with occlusion of the mid superficial femoral artery.
--- NOTE | ~2023-05-27 | US_ITS ---
EXAMINATION: NONINVASIVE ASSESSMENT OF THE ARTERIES OF BOTH LOWER EXTREMITIES WITH PVR EXAM AND BILATERAL LOWER EXTREMITY DUPLEX Julieta Riggs MD CLINICAL INFORMATION: Peripheral vascular disease TECHNIQUE: Ankle pulse volume recordings, ankle pressure measurements and ankle brachial indices were obtained of the lower extremity arterial system bilaterally in addition to duplex Doppler techniques with wave form analysis and measurement of velocities in the common femoral, profunda femoral, superficial femoral, popliteal and tibial arteries. The study was performed only at rest. COMPARISON: Noninvasive arterial exam on 10/31/2022 FINDINGS: a) AT REST: RIGHT LE. The right ankle-brachial index is: 0.69 * >0.97-1.25 = normal - no significant arterial disease * 0.75-0.96 = mild peripheral arterial disease * 0.5-0.74 = moderate peripheral arterial disease * <0.50 = severe peripheral arterial disease 2. Right ankle pressure: Abnormal 3. Right ankle PVR waveform: Abnormal 4. Right direct duplex Doppler findings: Common femoral artery: 52 cm/s, monophasic Profunda femoris artery: 51 cm/s, monophasic Superficial femoral artery (proximal): Patent stent without significant stenosis Superficial femoral artery (mid): Patent stent without significant stenosis Superficial femoral artery (distal): 75 cm/s, monophasic Proximal Popliteal artery: 53 cm/s, monophasic Mid posterior tibial artery: 36 cm/s, monophasic LEFT LE. The left ankle-brachial index is: 0.66 * >0.97-1.25 = normal - no significant arterial disease * 0.75-0.96 = mild peripheral arterial disease * 0.5-0.74 = moderate peripheral arterial disease * <0.50 = severe peripheral arterial disease 2. Left ankle pressure: Abnormal 3. Left ankle PVR waveform: Abnormal 4. Left direct duplex Doppler findings: Common femoral artery: 148 cm/s, monophasic Profunda femoris artery: 72 cm/s, monophasic Superficial femoral artery (proximal): 28 cm/s, monophasic Superficial femoral artery (mid): Occluded Superficial femoral artery (distal): 23 cm/s, monophasic Proximal Popliteal artery: 27 cm/s, monophasic Mid posterior tibial artery: 16 cm/s, monophasic US/US arterial duplex LE BI IMPRESSION: RIGHT LEG: Moderate peripheral arterial disease, patent superficial femoral artery stent. LEFT LEG: Moderate peripheral arterial disease with occlusion of the mid superficial femoral artery.
--- NOTE | ~2023-05-27 | US_ITS ---
EXAMINATION: US RETROPERITONEAL LIMITED (AORTA) CLINICAL INFORMATION: Peripheral vascular disease, aortic aneurysm evaluation. COMPARISON: Abdominal aortic ultrasound on 10/31/2022 TECHNIQUE: Pereira-scale, color Doppler and spectral Doppler evaluation of the abdominal aorta. FINDINGS: There is atherosclerotic disease. The measurements of the aorta in maximum AP and transverse dimensions respectively are as follows: Proximal: 2.1 cm. Mid: 2.4 cm. Distal: 1.3 cm. PSV: 85 cm/s. The measurements of the common iliac arteries in maximum AP and TRV dimensions are as follows: Right Common Iliac Artery: 1.3 cm. Elevated velocities. Left Common Iliac Artery: 1.1 cm. Elevated velocities. US/US abdominal aortic aneurysm IMPRESSION: 1. No abdominal aortic or iliac artery aneurysm. 2. Elevated velocities in the bilateral common iliac arteries suggesting at least moderate stenosis.
== END 2023-05-27 12:32 | disposition home or self-care (01) ==
LOC: HO.US 12:31
PROVIDERS: PCP Hospitalist; Visit Provider Surgery Vascular Surgery
DX: I73.9 Peripheral vascular disease, unspecified (principal)
CPT/HCPCS: 76706; 93923; 93925

== ENCOUNTER → 2023-06-16 23:59 | Outpatient (BNV) | payer MEDICARE, MEDICAID, SELFPAY ==
--- NOTE | 2023-06-18 14:55 | A.OFFVIS_ITS ---
Intake 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: Remote HF Monitoring- [employer] Allergies No Known Allergies Allergy (Verified 03/21/23 12:56) [facility] Medical History (Updated 03/21/23 @ 13:32 by Fco Vasquez MD) Kidney disease Varicose veins of right lower extremity with inflammation Constipation by delayed colonic transit Pneumonia due to 2019 novel coronavirus Acute respiratory failure COVID-19 Smoking Acute combined systolic and diastolic CHF, NYHA class 3 BPH (benign prostatic hyperplasia) Endocarditis Opiate dependence HCV (hepatitis C virus) COPD (chronic obstructive pulmonary disease) GERD (gastroesophageal reflux disease) Peripheral artery disease Surgical History (Updated 03/07/23 @ 11:48 by MAI Dominguez) S/P angiogram of extremity (02/20/23) History of cardiac catheterization Family History (Updated 03/21/23 @ 13:02 by Nette Delgado CMA) Mother Alzheimer disease Father Myocardial infarct Daughter No problems noted. Social History Household Members: Family Household Members Other:: daughter and grandaughter. Housing: House Do you presently have visiting nurse or other home services: No Alcohol intake: never Patient Tobacco Use Status: Former Tobacco user Quit Date: about 2 months ago Tobacco use type: Cigarette Years Smoked: 50 e-Cigarette/Vaping Use: Never Used Second Hand Smoke Exposure: No Substance Use Type: Marijuana service: No Current occupational status: retired Cognitive needs: No Hearing needs: No Vision needs: No Office Procedures Cardiac Device Check Cardiac Device Check Details: Date of service- 06/16/2023; based on impedance data and physiological variables, there is possible OptiVol fluid accumulation from 15 of May to . [id number] Cardiac Device Interrogation, cardio physiologic monitor Procedure code (CPT) selection complete Assessment & Plan Assessment & Plan (1) NICM (nonischemic cardiomyopathy): Comment: echo August 2022 ef 34% Code(s): I42.8 - Other cardiomyopathies Plan x Coding Level of Care Code Procedure Only Diagnoses NICM (nonischemic cardiomyopathy) I42.8 CPT Codes Cardiac Device Check - Cardiac Device 15: [id number] Cardiac Device Interrogation, cardio physiologic monitor ([id number])
== END ==
PROVIDERS: PCP Hospitalist; Visit Provider Internal Medicine
DX: I50.20 Unspecified systolic (congestive) heart failure (principal)
CPT/HCPCS: 93297

== ENCOUNTER 2023-06-24 09:12 | Outpatient (AMB) | payer MEDICARE, MEDICAID, SELFPAY ==
--- NOTE | 2023-06-26 17:46 | A.OFFVISCC_ITS ---
Intake 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: mat visit Allergies No Known Allergies Allergy (Verified 03/21/23 12:56) HPI mat visit HPI Details Patient presents for follow up via telehealth Still taking 1mg suboxone almost daily no changes to dose, no side effects to report doiong well overall [facility] Medical History (Updated 03/21/23 @ 13:32 by Fco Vasquez MD) Kidney disease Varicose veins of right lower extremity with inflammation Constipation by delayed colonic transit Pneumonia due to 2019 novel coronavirus Acute respiratory failure COVID-19 Smoking Acute combined systolic and diastolic CHF, NYHA class 3 BPH (benign prostatic hyperplasia) Endocarditis Opiate dependence HCV (hepatitis C virus) COPD (chronic obstructive pulmonary disease) GERD (gastroesophageal reflux disease) Peripheral artery disease Surgical History (Updated 03/07/23 @ 11:48 by MAI Dominguez) S/P angiogram of extremity (02/20/23) History of cardiac catheterization Family History (Updated 03/21/23 @ 13:02 by Nette Delgado CMA) Mother Alzheimer disease Father Myocardial infarct Daughter No problems noted. Social History Household Members: Family Household Members Other:: daughter and grandaughter. Housing: House Do you presently have visiting nurse or other home services: No Alcohol intake: never Patient Tobacco Use Status: Former Tobacco user Quit Date: about 2 months ago Tobacco use type: Cigarette Years Smoked: 50 e-Cigarette/Vaping Use: Never Used Second Hand Smoke Exposure: No Substance Use Type: Marijuana service: No Current occupational status: retired Cognitive needs: No Hearing needs: No Vision needs: No Review of Systems Const Reports as per HPI Assessment & Plan Assessment & Plan (1) Opiate dependence: Code(s): F11.20 - Opioid dependence, uncomplicated Qualifiers: Substance use status: in remission Qualified Code(s): F11.21 - Opioid dependence, in remission Plan: * refill sent * no changes to dose * follow up 2 months or sooner if patient wishes Medications: Refilled buprenorphine-naloxone 2-0.5 mg (Suboxone) 1 film sublingual DAILY 30 ea 0RF Telehealth Telehealth Location of provider rendering services: practice address Location of patient: address on file Patient Identification confirmed using: Name, : Yes Telehealth method: voice only Patient verbally consented to treatment: Yes Patient verbally consented to billing insurance company: Yes Coding Level of Care Code Tele Est Pt Level 2 (94461) Diagnoses Opioid dependence in remission F11.21 Substance use status: in remission Time Spent (min) 20 Comment ten mins with patient remainder on chart review and documentation
== END 2023-06-24 09:22 | disposition home or self-care (01) ==
PROVIDERS: PCP Hospitalist; Visit Provider Nurse Practitioner Psychiatric/Mental Health
DX: F11.21 Opioid dependence, in remission (principal)
CPT/HCPCS: 99442

== ENCOUNTER → 2023-06-24 09:12 | Outpatient (BNVA) | payer MEDICARE, MEDICAID, SELFPAY | PROVIDERS: PCP Hospitalist; Visit Provider Nurse Practitioner Psychiatric/Mental Health ==

== ENCOUNTER 2023-07-09 10:18 | Outpatient (AMB) | payer MEDICARE, MEDICAID, SELFPAY ==
--- NOTE | 2023-07-09 10:33 | MHC.OFFVIS ---
Intake Vital Signs 07/09/23 10:34 Height 6 ft 1 in Weight 152 lb BMI 20.1 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: FU Arterial US Intake Note: 3 mo follow up Arterial US 05/27/23 w/ hx of Right LE Angio 02/20/23. Pt states he is walking more and has less foot pain. States that he still gets some tingling sensations on the bottom right foot. Accompanied by: Self / Same As Patient Allergies No Known Allergies Allergy (Verified 07/09/23 10:37) HPI FU Arterial US HPI Details Very pleasant 72-year-old gentleman presents for routine arterial surveillance. He had undergone endovascular intervention about 3 months go for the right SFA. He reports he is doing extremely well since that time. Can easily climb 3 flights of stairs with no issues. Now for routine surveillance follow-up. Of note he is being maintained on Eliquis and statin PFSH Medical History Kidney disease Varicose veins of right lower extremity with inflammation Constipation by delayed colonic transit Pneumonia due to 2019 novel coronavirus Acute respiratory failure COVID-19 Smoking Acute combined systolic and diastolic CHF, NYHA class 3 BPH (benign prostatic hyperplasia) Endocarditis Opiate dependence HCV (hepatitis C virus) COPD (chronic obstructive pulmonary disease) GERD (gastroesophageal reflux disease) Peripheral artery disease Surgical History S/P angiogram of extremity (02/20/23) History of cardiac catheterization Family History Mother Alzheimer disease Father Myocardial infarct Daughter No problems noted. Social History Household Members: Family Household Members Other:: daughter and grandaughter. Housing: House Do you presently have visiting nurse or other home services: No Alcohol intake: never Patient Tobacco Use Status: Former Tobacco user Quit Date: about 2 months ago Tobacco use type: Cigarette Years Smoked: 50 e-Cigarette/Vaping Use: Never Used Second Hand Smoke Exposure: No Substance Use Type: Marijuana service: No Current occupational status: retired Cognitive needs: No Hearing needs: No Vision needs: No Review of Systems Const All systems reviewed & are unremarkable except as noted in HPI and below Reports no additional complaints ENT Reports Normal hearing present Card Denies chest pain, Denies chest pain at rest, Denies chest pain with activity and Denies pedal edema Resp Denies cough GI Denies abdominal pain Musc Denies abnormal gait, Denies muscle cramps and Denies radiating pain into limb Skin/Breast Denies skin ulcer and Denies wounds Neuro Reports Normal hearing present and Denies abnormal gait Psych Reports no additional complaints Physical Exam Vital Signs: BMI result Body Mass Index 20.1 Const General: cooperative, healthy appearing and comfortable Orientation/consciousness: oriented to person, oriented to place and oriented to time HEENT Head: Yes normal to inspection Neck Neck: Yes normal visual inspection Carotids: no bruits Chest Chest palpation & inspection: normal inspection of the chest Resp Effort & Inspection: normal respiratory effort and able to speak in complete sentences Auscultation: clear to auscultation bilaterally, no crackles, no rales, no rhonchi and no wheezes Cardio Rate: regular rate Rhythm: regular rhythm Heart sounds: S1 normal heart sound present and S2 normal heart sound present Bruits: no carotid bruits Peripheral pulses: Peripheral pulses 2+ throughout GI Inspection: Yes normal to inspection Skin Wounds: no wounds Hair: normal Neuro General: oriented to person, oriented to place and oriented to time Cranial nerves: Yes CN's II-XII intact bilaterally and Yes Normal hearing present Cognition (Neuro): normal cognition Motor exam (neuro): 5/5 motor strength present throughout Extrem Other: venous exam: No significant superficial varicosities or spider telangiectasias, minimal edema General: No clubbing, No cyanosis and No edema Psych Appearance: grossly normal Mental Status: mental status grossly normal Speech and movement: Normal speech and movement present Results Reviewed Results Reviewed: Arterial ultrasound dated 05/27/2023 demonstrates JOSE A on the right of 0.69 and on the left of 0.66. Written report and images were reviewed. Assessment & Plan Assessment & Plan (1) Peripheral artery disease: Comment: 02/20/2023 right SFA plasty and stent, right popliteal plasty with DCB Code(s): I73.9 - Peripheral vascular disease, unspecified Plan: In short patient has stable claudication. I did review the pathophysiology of peripheral vascular disease with the patient. In addition we did discuss routine conservative measures including a healthy diet and the importance of exercise and ambulation. We did discuss risk factor modification. The patient will continue to to follow-up with surveillance follow-up in approximately 6 months. Thank you for allowing us to participate in this patient's care. If there are any questions or concerns please do not hesitate to contact us. Orders: Orders US arterial duplex LE BI 6 Months I73.9 - Peripheral vascular disease, unspecified Coding Level of Care Code Est Pt Level 4 (41984) Diagnoses Peripheral artery disease I73.9
[2023-07-09 10:34] VITALS: BMI 20.1
== END 2023-07-09 11:02 | disposition home or self-care (01) ==
PROVIDERS: PCP Internal Medicine; Visit Provider Surgery Vascular Surgery
DX: I73.9 Peripheral vascular disease, unspecified (principal); Z95.820 Peripheral vascular angioplasty status with implants and grafts
CPT/HCPCS: 99213

== ENCOUNTER → 2023-07-09 10:18 | Outpatient (BNVA) | payer MEDICARE, MEDICAID, SELFPAY | PROVIDERS: PCP Internal Medicine; Visit Provider Surgery Vascular Surgery | DX: I73.9 Peripheral vascular disease, unspecified (principal); Z95.820 Peripheral vascular angioplasty status with implants and grafts | CPT/HCPCS: 99212 ==

== ENCOUNTER → 2023-07-17 23:59 | Outpatient (BNV) | payer MEDICARE, MEDICAID, SELFPAY ==
--- NOTE | 2023-07-18 09:06 | A.OFFVIS_ITS ---
Intake 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: Remote HF Monitoring- [employer] Allergies No Known Allergies Allergy (Verified 07/09/23 10:37) PFS Medical History Kidney disease Varicose veins of right lower extremity with inflammation Constipation by delayed colonic transit Pneumonia due to 2019 novel coronavirus Acute respiratory failure COVID-19 Smoking Acute combined systolic and diastolic CHF, NYHA class 3 BPH (benign prostatic hyperplasia) Endocarditis Opiate dependence HCV (hepatitis C virus) COPD (chronic obstructive pulmonary disease) GERD (gastroesophageal reflux disease) Peripheral artery disease Surgical History S/P angiogram of extremity (02/20/23) History of cardiac catheterization Family History Mother Alzheimer disease Father Myocardial infarct Daughter No problems noted. Social History Household Members: Family Household Members Other:: daughter and grandaughter. Housing: House Do you presently have visiting nurse or other home services: No Alcohol intake: never Patient Tobacco Use Status: Former Tobacco user Quit Date: about 2 months ago Tobacco use type: Cigarette Years Smoked: 50 e-Cigarette/Vaping Use: Never Used Second Hand Smoke Exposure: No Substance Use Type: Marijuana service: No Current occupational status: retired Cognitive needs: No Hearing needs: No Vision needs: No Office Procedures Cardiac Device Check Cardiac Device Check Details: Date of service- 07/17/2023; based on impedance data and physiological variables, there is possible OptiVol fluid accumulation from 07/11/2023 to [facility]. [id number] Cardiac Device Interrogation, cardio physiologic monitor Procedure code (CPT) selection complete Assessment & Plan Assessment & Plan (1) NICM (nonischemic cardiomyopathy): Comment: echo August 2022 ef 34% Code(s): I42.8 - Other cardiomyopathies Plan x Coding Level of Care Code Procedure Only Diagnoses NICM (nonischemic cardiomyopathy) I42.8 CPT Codes Cardiac Device Check - Cardiac Device 15: [id number] Cardiac Device Interrogation, cardio physiologic monitor ([id number])
== END ==
PROVIDERS: PCP Internal Medicine; Visit Provider Internal Medicine
DX: I50.20 Unspecified systolic (congestive) heart failure (principal)
CPT/HCPCS: 93297

== ENCOUNTER → 2023-08-17 23:59 | Outpatient (BNV) | payer MEDICARE, MEDICAID, SELFPAY ==
--- NOTE | 2023-08-19 18:32 | A.OFFVIS_ITS ---
Intake 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: Remote HF Monitoring- [employer] Allergies No Known Allergies Allergy (Verified 07/09/23 10:37) PENDING SALE TO [facility] Medical History Kidney disease Varicose veins of right lower extremity with inflammation Constipation by delayed colonic transit Pneumonia due to 2019 novel coronavirus Acute respiratory failure COVID-19 Smoking Acute combined systolic and diastolic CHF, NYHA class 3 BPH (benign prostatic hyperplasia) Endocarditis Opiate dependence HCV (hepatitis C virus) COPD (chronic obstructive pulmonary disease) GERD (gastroesophageal reflux disease) Peripheral artery disease Surgical History S/P angiogram of extremity (02/20/23) History of cardiac catheterization Family History Mother Alzheimer disease Father Myocardial infarct Daughter No problems noted. Social History Household Members: Family Household Members Other:: daughter and grandaughter. Housing: House Do you presently have visiting nurse or other home services: No Alcohol intake: never Patient Tobacco Use Status: Former Tobacco user Quit Date: about 2 months ago Tobacco use type: Cigarette Years Smoked: 50 e-Cigarette/Vaping Use: Never Used Second Hand Smoke Exposure: No Substance Use Type: Marijuana service: No Current occupational status: retired Cognitive needs: No Hearing needs: No Vision needs: No Office Procedures Cardiac Device Check Cardiac Device Check Details: Date of service- 08/17/2023; based on impedance data and physiological variables, there is possible optivol fluid accumulation from 07/11 to . [id number] Cardiac Device Interrogation, cardio physiologic monitor Procedure code (CPT) selection complete Assessment & Plan Assessment & Plan (1) Heart failure with reduced ejection fraction: Comment: Pleasant Gent undergoing cardiac care/ defibrillator implantation Code(s): I50.20 - Unspecified systolic (congestive) heart failure Plan x Coding Level of Care Code Procedure Only Diagnoses Heart failure with reduced ejection fraction I50.20 CPT Codes Cardiac Device Check - Cardiac Device 15: [id number] Cardiac Device Interrogation, cardio physiologic monitor ([id number])
== END ==
PROVIDERS: PCP Internal Medicine; Visit Provider Internal Medicine
DX: I50.20 Unspecified systolic (congestive) heart failure (principal)
CPT/HCPCS: 93297

== ENCOUNTER 2023-08-20 10:02 | Outpatient (AMB) | payer MEDICARE, MEDICAID, SELFPAY ==
--- NOTE | 2023-08-20 10:08 | MHC.AM.SUB ---
Intake 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: mat visit Allergies No Known Allergies Allergy (Verified 07/09/23 10:37) HPI mat visit HPI Details Pt presents for MAT visit via telehealth Tolerating dose well, takes 1-2 mg of his films daily Feels comfortable with this dose for now, not ready to try to taper down more although he would like to stop taking it eventually He feels as though the suboxone helps his sleep at night- he has urinary frequency that wakes him up No concerns today PFSH Medical History Kidney disease Varicose veins of right lower extremity with inflammation Constipation by delayed colonic transit Pneumonia due to 2019 novel coronavirus Acute respiratory failure COVID-19 Smoking Acute combined systolic and diastolic CHF, NYHA class 3 BPH (benign prostatic hyperplasia) Endocarditis Opiate dependence HCV (hepatitis C virus) COPD (chronic obstructive pulmonary disease) GERD (gastroesophageal reflux disease) Peripheral artery disease Surgical History S/P angiogram of extremity (02/20/23) History of cardiac catheterization Family History Mother Alzheimer disease Father Myocardial infarct Daughter No problems noted. Social History Household Members: Family Household Members Other:: daughter and grandaughter. Housing: House Do you presently have visiting nurse or other home services: No Alcohol intake: never Patient Tobacco Use Status: Former Tobacco user Quit Date: about 2 months ago Tobacco use type: Cigarette Years Smoked: 50 e-Cigarette/Vaping Use: Never Used Second Hand Smoke Exposure: No Substance Use Type: Marijuana service: No Current occupational status: retired Cognitive needs: No Hearing needs: No Vision needs: No Review of Systems Const Reports as per HPI Assessment & Plan Assessment & Plan (1) Opiate dependence: Code(s): F11.20 - Opioid dependence, uncomplicated Qualifiers: Substance use status: in remission Qualified Code(s): F11.21 - Opioid dependence, in remission Plan: -Mass pat reviewed -Suboxone refilled at 2mg daily -Follow up 2 months Medications: Refilled buprenorphine-naloxone 2-0.5 mg (Suboxone) 1 film sublingual DAILY 30 ea 0RF Telehealth Telehealth Location of provider rendering services: practice address Location of patient: address on file Patient Identification confirmed using: Name, : Yes Telehealth method: voice only Patient verbally consented to treatment: Yes Patient verbally consented to billing insurance company: Yes Patient informed of any privacy concerns related to visit: Yes Minutes spent on Phone/Video with Pt.: 10 Coding Level of Care Code Tele Est Pt Level 2 (36182) Diagnoses Opioid dependence in remission F11.21 Substance use status: in remission Time Spent (min) 20
== END 2023-08-20 10:22 | disposition home or self-care (01) ==
PROVIDERS: PCP Internal Medicine; Visit Provider Nurse Practitioner Family
DX: F11.21 Opioid dependence, in remission (principal)
CPT/HCPCS: 99441

== ENCOUNTER → 2023-08-20 12:41 | Outpatient (REF) | payer MEDICARE, MEDICAID, SELFPAY ==
--- NOTE | 2023-08-20 12:44 | CA_ITS ---
Transthoracic Echocardiogram Patient (Last, First, Middle): Freddy Alanis, Gender: Male Date of : 1950 Age: 72 Procedure Date: 08/20/2023 Procedure Type: Transthoracic Echocardiogram Location: OP Height: 185.42 cm Weight: 69.85 kg BSA: 1.93 m2 Heart Rate: bpm BP: 100 / 60 mmHg Commercial Litigation Paralegal: TO Referring MD: Mustapha Newton MD Symptoms: I42.8 - Other cardiomyopathies Study Quality: Technically Difficult ECG Rhythm: Sinus Conclusions: - Visually estimated LVEF about 40%. - No obvious valvular pathology seen on this study. - The inferior vena cava is dilated and collapses less than 50% with inspiration. Findings Procedure Information The study quality is limited by patients body habitus. The patient declines contrast. Left Ventricle Normal left ventricular cavity size. There is normal left ventricular wall thickness. Diastolic function is normal for age. Moderate global hypokinesis with regional variation. Visually estimated LVEF about 40%. Right Ventricle Normal right ventricular cavity size. There is mildly decreased right ventricular systolic function. There is an ICD wire seen in the right ventricle. Atria Both atria are normal in size. Aortic Valve There is a normal trileaflet aortic valve. There is no aortic valve stenosis. There is no aortic valve regurgitation. Mitral Valve The mitral valve appears normal. There is mild mitral valve regurgitation. There is no mitral valve stenosis. Pulmonic Valve The pulmonic valve is likely normal. Tricuspid Valve There is mild tricuspid valve regurgitation. There is no evidence of pulmonary hypertension. Great Vessels The asc aorta is normal in size. Moderate plaque is seen in the sino tubular ridge. Venous The inferior vena cava is dilated and collapses less than 50% with inspiration. Pericardium/Pleural There is no evidence of pericardial effusion. Prior Study Comparison Changes noted compared to prior study dated: 08/22/2022. Slightly improved LVEF. Recommendations, Care & Conclusions No obvious valvular pathology seen on this study. Measurements 2D Linear Measurements IVSd: 1.00 0.6-0.9/0.6-1.0 cm LVIDd: 4.77 3.9-5.3/4.2-5.9 cm LVIDd Index: 2.47 2.4-3.2/2.2-3.1 cm/m2 LVIDs: 3.82 2.0-3.6 cm LVPWd: 1.02 0.7-1.1 cm LA Diam: 3.10 2.7-3.8/3.0-4.0 cm LAIDs Index: 1.61 1.5-2.3 cm/m2 LV Mass: 212.41 67-162/88-224 g LV Mass Index: 110.06 43-95/49-115 g/m2 LVOT Diam: 2.20 3.0+(-)1.3 cm 2D Systolic Function EF 4C: 51.10 >55% EF 2C: 45.50 >55% EF BiP: 48.30 >55% Mitral Valve MV VTI: 0.24 MV Pk Stephan: 0.92 MV Mn Stephan: 0.40 MV Pk Grad: 3.00 MV Mn Grad: 1.00 MV Pk E: 0.43 MV PK A: 0.72 MV Decel Time: 288.00 E/A: 0.60 E'Lateral: 10.00 E'Medial: 6.31 E/E' Med: 6.80 E/E' Lat: 4.30 PHT: 84.00 MVA PHT: 2.62 MVA Continuity: 2.37 Decel Meriwether: 1.49 Aortic Valve AoV Pk Stephan: 1.16 AoV Mn Stephan: 0.86 AoV VTI: 0.24 AoV Pk Grad: 5.00 Aov Mn Grad: 3.00 ALMAZ Cont.VTI: 2.42 LVOT LVOT Pk Stephan: 0.74 LVOT Mn Stephan: 0.49 LVOT VTI: 0.15 LVOT Pk Grad: 2.00 LVOT Mn Grad: 1.00 LVOT Diam: 2.20 LVOT Area: 3.80 Diastolic Function MV Pk E: 0.43 MV Pk A: 0.72 E/A: 0.60 E'Medial: 6.31 E/E' Med: 6.80 E' Laterial: 10.00 E/E' Lat: 4.30 Right Ventricle TAPSE (mm): 17.80 TVS' Stephan: 9.79 Tricuspid Valve TR Pk Stephan: 2.34 TR Pk Grad: 22.00 RA Press: 15.00 RVSP: 37.00 Great Vessels Aorta Sinus of Valsalva: 3.31 2.0-3.5 cm Ao Asc: 3.30 2.1-3.4 cm Updated in Other Vendor System with Status of Final Mustapha Newton MD electronically signed on 08/21/2023 5:58:56 AM with status of Final
== END ==
LOC: HO.CARD 12:41
PROVIDERS: PCP Internal Medicine; Visit Provider Internal Medicine
DX: I42.8 Other cardiomyopathies (principal)
CPT/HCPCS: 93306

== ENCOUNTER → 2023-08-20 12:44 | Outpatient (BNV) | payer MEDICARE, MEDICAID, SELFPAY | PROVIDERS: PCP Internal Medicine; Visit Provider Internal Medicine | DX: I42.8 Other cardiomyopathies (principal) | CPT/HCPCS: 93306 ==

== ENCOUNTER 2023-08-26 14:45 | Outpatient (AMB) | payer MEDICARE, MEDICAID, SELFPAY ==
[2023-08-26 15:07] VITALS: BP 109/57; PULSE 60; BMI 20.9
--- NOTE | 2023-08-26 15:07 | MHC.OFFVIS ---
Intake Vital Signs 08/26/23 15:07 Height 6 ft 1 in Weight 158 lb 11.725 oz BMI 20.9 BP 109/57 L Blood Pressure Location Rt brachial Position Sitting Pulse 60 Pulse Source Monitor 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: 6M Echo & Metronic Allergies No Known Allergies Allergy (Verified 08/26/23 15:13) Medication List - Last Reconciled 08/26/23 by Eleonora Butler, LICENSED INVESTMENT SALES ASSISTANT-C apixaban (Eliquis) 5 mg PO BID 90 days atorvastatin 40 mg PO BEDTIME buprenorphine-naloxone 2-0.5 mg (Suboxone) 1 film sublingual DAILY fluticasone furoate-vilanterol 100-25 mcg/dose (Breo Ellipta) 1 ea inhalation DAILY furosemide 40 mg PO DAILY 90 days linaclotide (Linzess) 290 mcg PO DAILY metoprolol succinate ER (Toprol XL) 12.5 mg (1/2 x 25 mg) PO DAILY 90 days pantoprazole 40 mg PO DAILY sacubitril-valsartan 24-26 mg (Entresto) 1 tab PO BID spironolactone 25 mg PO DAILY 90 days tamsulosin 0.4 mg PO DAILY 30 days HPI 6M Echo & Metronic HPI Details Freddy is a 72-year-old male past medical history of paroxysmal atrial fibrillation, CAD with moderate LAD stenosis, nonischemic cardiomyopathy, Bi V ICD in place who presents for follow-up. Today he reports that he has not been doing much over the last few months due to the cold weather. He states that when the weather is better he will increase his walking. He denies having chest discomfort at rest or with activity. He does have some shortness of breath with activity. No shortness of breath at rest, PND, orthopnea or edema. No palpitations, lightheadedness, presyncope, syncope, falls. Taking all meds as directed. No bleeding issues reported. States he is going to be seeing Nephrology and they started him on Aldactone 25 mg daily recently. He does smoke marijuana periodically. [facility] Medical History Kidney disease Varicose veins of right lower extremity with inflammation Constipation by delayed colonic transit Pneumonia due to 2019 novel coronavirus Acute respiratory failure COVID-19 Smoking Acute combined systolic and diastolic CHF, NYHA class 3 BPH (benign prostatic hyperplasia) Endocarditis Opiate dependence HCV (hepatitis C virus) COPD (chronic obstructive pulmonary disease) GERD (gastroesophageal reflux disease) Peripheral artery disease Surgical History S/P angiogram of extremity (02/20/23) History of cardiac catheterization Family History Mother Alzheimer disease Father Myocardial infarct Daughter No problems noted. Social History Household Members: Family Household Members Other:: daughter and grandaughter. Housing: House Do you presently have visiting nurse or other home services: No Alcohol intake: never Patient Tobacco Use Status: Former Tobacco user Quit Date: about 2 months ago Tobacco use type: Cigarette Years Smoked: 50 e-Cigarette/Vaping Use: Never Used Second Hand Smoke Exposure: No Substance Use Type: Marijuana service: No Current occupational status: retired Cognitive needs: No Hearing needs: No Vision needs: No Review of Systems Const All systems reviewed & are unremarkable except as noted in HPI and below ENT Denies dizziness Card Denies chest pain, Denies chest pain at rest, Denies chest pain with activity, Denies rapid heart rate, Denies pedal edema, Denies edema, Denies leg edema, Denies lightheadedness, Denies palpitations, Reports dyspnea, Reports dyspnea on exertion and Denies orthopnea Resp Denies cough, Reports dyspnea and Reports dyspnea on exertion GI Denies hematochezia and Denies change in stool character Musc Denies abnormal gait, Denies limited range of motion, Denies muscle cramps, Denies muscle weakness, Denies numbness, Denies radiating pain into limb, Denies stiffness and Denies tingling Neuro Denies abnormal gait, Denies dizziness, Denies numbness and Denies tingling Endo Denies palpitations Physical Exam Vital Signs: Last Vital Signs Pulse 60 08/26/23 15:07 BP 109/57 L 08/26/23 15:07 BMI result Body Mass Index 20.9 Const General: cooperative, healthy appearing, comfortable and no acute distress Orientation/consciousness: patient oriented x3 Neck Neck: Yes normal visual inspection and Yes no JVD Resp Effort & Inspection: normal respiratory effort Auscultation: clear to auscultation bilaterally, no rales, no rhonchi and no wheezes Cardio Jugular venous distension: no JVD Rate: regular rate Rhythm: regular rhythm Heart sounds: S1 normal heart sound present, S2 normal heart sound present, no murmurs and no rubs Neuro General: patient oriented x3 Extrem General: Yes normal to inspection and No no pedal edema Psych Appearance: grossly normal Mental Status: mental status grossly normal Speech and movement: Normal speech and movement present Office Procedures Cardiac Device Check Cardiac Device Check Details: Medtronic Bi V ICD interrogation today, battery 6 0.3 years, DDD mode, low rate 60, total V pacing 97.2%, effective pacing 97%, 80 AF less than 0.1%, OptiVol above threshold, RA threshold 0.75 volts at 0.4 milliseconds, RV threshold 0 0.75 volts at 0.4 milliseconds, LV threshold 1.0 volts at 0.4 milliseconds, FFR W on atrial lead increased atrial sensitivity from 0.3 mV up to 0.45 mV [id number] Cardiac Device Check, multi lead pacemaker Procedure code (CPT) selection complete EKG Details: Today, read by me, atrial paced with occasional A V paced rhythm, anterior lateral infarct possible, rate 60, QTC 414 millisecond [id number], Complete Assessment & Plan Assessment & Plan (1) Paroxysmal atrial fibrillation: Code(s): I48.0 - Paroxysmal atrial fibrillation Plan: History of paroxysmal atrial fibrillation. Currently suppressed. On metoprolol for heart rate control. On Eliquis for anticoagulation. No bleeding issues reported. Labs done 02/20/2023 showed creatinine 2.08 which is similar to prior values. No med changes made. (2) Atherosclerotic cardiovascular disease: Code(s): I25.10 - Atherosclerotic heart disease of [place] coronary artery without angina pectoris Plan: History CAD. Notes indicate that prior cardiac catheterization showed moderate LAD stenosis. He denies any anginal sounding symptoms. An EKG done today shows atrial paced rhythm, occasional AV paced beats, can not exclude anterior lateral infarct, rate 60. He is not on aspirin as he is on Eliquis. He is on atorvastatin with ideal LDL goal less than 70. Labs done 03/06/2022 showed LDL 71. He is on metoprolol XL. Signs and symptoms of angina reviewed with him. (3) Biventricular ICD (implantable cardioverter-defibrillator) in place: Code(s): Z95.810 - Presence of automatic (implantable) cardiac defibrillator Plan: Bi V ICD in place. Functioning normal on interrogation today. Next office interrogation due in 6 months. Remote monitoring in use. (4) Cardiomyopathy: Code(s): I42.9 - Cardiomyopathy, unspecified Plan: History of nonischemic cardiomyopathy. Echocardiogram done 08/22/2022 showed EF 34%. He has been on metoprolol XL, Entresto for neurohormonal modulation. He is on Lasix and now Aldactone. An echocardiogram done 08/20/2023 showed EF 40%, inferior vena cava dilated and collapses less than 50% with inspiration. Since that time the Aldactone was added. OptiVol is elevated on device check. On exam today he does not appear fluid overloaded. He does report some shortness of breath with exertion. Discussed possible CardioMEMS device with him and he adamantly declines. Discussed possible cardiac rehab and he is agreeable. Will send referral. Signs and symptoms of heart failure reviewed with him. Discussed low-salt diet, home weight monitoring, continue current med management. Plan Time spent on chart review, documentation, interview and assessment Coding Level of Care Code Est Pt Level 4 (83759) Diagnoses Paroxysmal atrial fibrillation I48.0 Atherosclerotic cardiovascular disease I25.10 Biventricular ICD (implantable cardioverter-defibrillator) in place Z95.810 Cardiomyopathy I42.9 CPT Codes Cardiac Device Check - Cardiac Device 3: [id number] Cardiac Device Check, multi lead pacemaker ([id number]) EKG - CPT: 86753-[id number], Complete ([id number]) Time Spent (min) 28
== END 2023-08-26 15:58 | disposition home or self-care (01) ==
PROVIDERS: PCP Internal Medicine; Visit Provider Nurse Practitioner Family
DX: I48.0 Paroxysmal atrial fibrillation (principal); I42.9 Cardiomyopathy, unspecified; Z95.810 Presence of automatic (implantable) cardiac defibrillator; I25.10 Atherosclerotic heart disease of native coronary artery without angina pectoris
CPT/HCPCS: 93281; 99214

== ENCOUNTER → 2023-08-26 14:45 | Outpatient (BNVA) | payer MEDICARE, MEDICAID, SELFPAY | PROVIDERS: PCP Internal Medicine; Visit Provider Nurse Practitioner Family | DX: Z45.02 Encounter for adjustment and management of automatic implantable cardiac defibrillator (principal); I48.0 Paroxysmal atrial fibrillation; I25.10 Atherosclerotic heart disease of native coronary artery without angina pectoris; I42.9 Cardiomyopathy, unspecified | CPT/HCPCS: 93005; 99212 ==

== ENCOUNTER 2023-09-06 11:32 | Outpatient (REF) | payer MEDICARE, MEDICAID, SELFPAY ==
[2023-09-06 13:32] LABS: Anion Gap 20 (12-20); Blood Urea Nitrogen 51 mg/dL (9-16); Carbon Dioxide 23 mmol/L (22-29); Chloride 99 mmol/L (96-108); Estimated Glomerular Filt Rate 28; Glucose Random 127 mg/dL (60-115); Potassium 4.5 mmol/L (3.3-5.1); Sodium 137 mmol/L (135-145)
== END 2023-09-06 11:33 | disposition home or self-care (01) ==
LOC: HO.LAB 11:32
PROVIDERS: Absent Provider Nurse Practitioner; PCP Internal Medicine; Visit Provider Internal Medicine
DX: I50.20 Unspecified systolic (congestive) heart failure (principal); N18.4 Chronic kidney disease, stage 4 (severe); I25.10 Atherosclerotic heart disease of native coronary artery without angina pectoris; I15.0 Renovascular hypertension; I48.91 Unspecified atrial fibrillation; I73.9 Peripheral vascular disease, unspecified
CPT/HCPCS: 36415; 80048; 99202

== ENCOUNTER 2023-09-06 11:51 | Outpatient (AMB) | payer MEDICARE, MEDICAID, SELFPAY ==
--- NOTE | 2023-09-06 11:54 | HO.NEPHOV_ITS ---
HPI HPI Comments History of Present Illness Details I had the privilege of seeing Freddy in consultation who is a 72-year-old male with nonischemic cardiomyopathy with AICD, coronary artery disease , congestive heart failure ,atrial fibrillation, peripheral vascular disease and chronic kidney disease. He has history of hepatitis C and was treated. Patient has a history of polysubstance abuse presently on Suboxone. He has peripheral arterial disease with a history of right SFA plasty and stent and right popliteal angioplasty in February 2023. His last echocardiogram showed ejection fraction of 34%. He had cardiac catheterization which showed moderate disease in the LAD. He is on anticoagulation. He is not a diabetic. He has prostatic symptoms. He is taking tamsulosin. He is on Entresto, spironolactone, metoprolol, furosemide as well as statins. He has Raynaud's. He denies taking nonsteroidal anti-inflammatories. He denies having sinusitis, epistaxis, hemoptysis, hematuria, nephrolithiasis, dizziness, chest pain, shortness of breath, paroxysmal nocturnal dyspnea, orthopnea. He has not very good with a low-sodium diet. He claims to be compliant with medications and follow ups. His last serum creatinine was 2.28 [facility] Medical History (Updated 09/06/23 @ 12:49 by Fco Vasquez MD) Tobacco abuse New onset atrial fibrillation Kidney disease Varicose veins of right lower extremity with inflammation Constipation by delayed colonic transit Pneumonia due to 2019 novel coronavirus Acute respiratory failure COVID-19 Smoking Acute combined systolic and diastolic CHF, NYHA class 3 BPH (benign prostatic hyperplasia) Endocarditis Opiate dependence HCV (hepatitis C virus) COPD (chronic obstructive pulmonary disease) GERD (gastroesophageal reflux disease) Peripheral artery disease Surgical History S/P angiogram of extremity (02/20/23) History of cardiac catheterization Family History Mother Alzheimer disease Father Myocardial infarct Daughter No problems noted. Social History Household Members: Family Household Members Other:: daughter and grandaughter. Housing: House Do you presently have visiting nurse or other home services: No Alcohol intake: never Patient Tobacco Use Status: Former Tobacco user Quit Date: about 2 months ago Tobacco use type: Cigarette Years Smoked: 50 e-Cigarette/Vaping Use: Never Used Second Hand Smoke Exposure: No Substance Use Type: Marijuana service: No Current occupational status: retired Cognitive needs: No Hearing needs: No Vision needs: No Vital Signs 09/06/23 11:55 Height 6 ft 1 in Weight 151 lb 6 oz BMI 20.0 Physical Exam Vital Signs: BMI result Body Mass Index 20.0 Const General: comfortable and no acute distress Orientation/consciousness: patient oriented x3 HEENT Head: Yes normocephalic Mouth: Normal oral and palatal mucosa present Eyes EOM: EOMs intact bilaterally Neck Neck: Yes supple Resp Auscultation: clear to auscultation bilaterally Cardio Jugular venous distension: no JVD Rate: regular rate GI Palpation (GI): Soft to palpation Auscultation: normal bowel sounds General: Yes no CVA tenderness Back/Spine/Pelvis Back: no CVA tenderness Skin General skin exam: no rashes or lesions noted Neuro General: patient oriented x3 and moves all extremities Extrem Other: Raynaud's in both UE Assessment & Plan Assessment & Plan (1) Chronic kidney disease, stage 4 (severe): Code(s): N18.4 - Chronic kidney disease, stage 4 (severe) (2) Peripheral artery disease: Comment: 02/20/2023 right SFA plasty and stent, right popliteal plasty with DCB Code(s): I73.9 - Peripheral vascular disease, unspecified (3) Hypertension: Code(s): I10 - Essential (primary) hypertension Qualifiers: Hypertension type: renovascular hypertension Qualified Code(s): I15.0 - Renovascular hypertension Plan Liliam has chronic kidney disease most likely due to vascular disease. He has history of cardiomyopathy as well as peripheral arterial disease. He is on Entresto, spironolactone, furosemide. He does not have any orthostatic symptoms. He has prostatic symptoms and is on tamsulosin. He had Doppler of renal arteries which did not show any renal artery stenosis. If his serum creatinine rises I will cut back on his diuretics and we may have to back off on Entresto based on what his cardiac function is. He avoids nonsteroidal anti- inflammatories. His renal functions currently are stable. I did not make any medication changes today but ordered further workup . More than 50% time spent discussing about all these issues. I answered all his questions and follow-up appointment given. Further management is pending evolving data. Orders: Orders Creatinine Today N18.4 - Chronic kidney disease, stage 4 (severe) Blood Urea Nitrogen Today N18.4 - Chronic kidney disease, stage 4 (severe) Electrolytes Today N18.4 - Chronic kidney disease, stage 4 (severe) Phosphorus Today N18.4 - Chronic kidney disease, stage 4 (severe) Ferritin Today N18.4 - Chronic kidney disease, stage 4 (severe) IRON PROFILE Today N18.4 - Chronic kidney disease, stage 4 (severe) Protein Creatinine Ratio, Ur Today N18.4 - Chronic kidney disease, stage 4 (severe) Vitamin D 25-OH Total Today N18.4 - Chronic kidney disease, stage 4 (severe) Calcium Today N18.4 - Chronic kidney disease, stage 4 (severe) Parathyroid Hormone Intact Today N18.4 - Chronic kidney disease, stage 4 (severe) Complete Blood Count Auto Diff Today N18.4 - Chronic kidney disease, stage 4 (severe) Immunofixation Pnl, Serum Today N18.4 - Chronic kidney disease, stage 4 (severe) Coding Level of Care Code New Pt Level 4 (45944) Diagnoses Chronic kidney disease, stage 4 (severe) N18.4 Peripheral artery disease I73.9 Renovascular hypertension I15.0 Hypertension type: renovascular hypertension Results Reviewed Nephrology Results: Sodium 137 mmol/L (135-145) 09/06/23 Potassium 4.5 mmol/L (3.3-5.1) 09/06/23 Chloride 99 mmol/L (96-108) 09/06/23 Carbon Dioxide 23 mmol/L (22-29) 09/06/23 BUN 51 mg/dL (9-16) H 09/06/23 Creatinine 2.28 mg/dL (0.5-1.4) H 09/06/23 Calcium 10.0 mg/dL (8.4-10.2) 09/06/23
== END 2023-09-06 12:24 | disposition home or self-care (01) ==
PROVIDERS: PCP Internal Medicine; Referring Provider Nurse Practitioner; Visit Provider Internal Medicine Nephrology
DX: N18.4 Chronic kidney disease, stage 4 (severe) (principal); I73.9 Peripheral vascular disease, unspecified; I15.0 Renovascular hypertension
CPT/HCPCS: 99204

== ENCOUNTER 2023-09-06 12:33 | Outpatient (AMB) | payer MEDICARE, MEDICAID, SELFPAY ==
--- NOTE | 2023-09-06 12:37 | MHC.PC.OV ---
Vital Signs 09/06/23 12:40 Height 6 ft 1 in Weight 150 lb 2 oz BMI 19.8 BP 110/62 Blood Pressure Location Lt brachial Position Sitting 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: cad Intake Note: Patient is here to follow up on CAD. 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 Required: No Tube Coater: Not Required per policy Accompanied by: Self / Same As Patient Allergies No Known Allergies Allergy (Verified 09/06/23 12:40) Tobacco use date assessed: 09/06/23 Fall risk assessment: No Falls in past year Last assessed Fall Risk: 09/06/23 Dental Screening Dental Screen Date: 09/06/23 Did you have a dental visit in the last 12 months?: No Did you have a dental problem in the last 6 months where you did not have access to dental care?: No Was dental information given to patient?: No HPI cad HPI Details 72-year-old male with nonischemic cardiomyopathy coronary artery disease atrial fibrillation congestive heart failure COPD peripheral arterial disease GERD chronic kidney disease chronic anemia BPH last seen in March 2023. Patient is here for follow-up. Review of the notes has seen Nephrology August 2023 diagnosis of chronic kidney disease stage 4 workup advised. Patient also has followed up with Cardiology August 2023 has a biventricular ICD has some mild shortness of breath with activity on metoprolol on anticoagulation continue with aspirin LDL ideal less than 70. Echocardiogram August 2022 EF of 34% echocardiogram August 2023 EF of 40% advised cardiac rehab. Echocardiogram August 2023Visually estimated LVEF about 40%. - No obvious valvular pathology seen on this study. - The inferior vena cava is dilated and collapses less than 50% with inspiration. For the opiate dependence goes to [facility] Suboxone treatment. Patient also has seen the vascular surgeon has had endovascular intervention for the right SFA plasty and stent, right popliteal plasty with DC be [facility] Medical History (Updated 09/06/23 @ 12:49 by Fco Vasquez MD) Tobacco abuse New onset atrial fibrillation Kidney disease Varicose veins of right lower extremity with inflammation Constipation by delayed colonic transit Pneumonia due to 2019 novel coronavirus Acute respiratory failure COVID-19 Smoking Acute combined systolic and diastolic CHF, NYHA class 3 BPH (benign prostatic hyperplasia) Endocarditis Opiate dependence HCV (hepatitis C virus) COPD (chronic obstructive pulmonary disease) GERD (gastroesophageal reflux disease) Peripheral artery disease Surgical History S/P angiogram of extremity (02/20/23) History of cardiac catheterization Family History Mother Alzheimer disease Father Myocardial infarct Daughter No problems noted. Social History Household Members: Family Household Members Other:: daughter and grandaughter. Housing: House Do you presently have visiting nurse or other home services: No Alcohol intake: never Patient Tobacco Use Status: Former Tobacco user Quit Date: about 2 months ago Tobacco use type: Cigarette Years Smoked: 50 e-Cigarette/Vaping Use: Never Used Second Hand Smoke Exposure: No Substance Use Type: Marijuana service: No Current occupational status: retired Cognitive needs: No Hearing needs: No Vision needs: No Questionnaire PHQ-9 Over the last 2 weeks, how often have you been bothered by any of the following problems? 1. Little interest or pleasure in doing things: not at all 2. Feeling down, depressed, or hopeless: not at all 3. Trouble falling or staying asleep, or sleeping too much: not at all 4. Feeling tired or having little energy: not at all 5. Poor appetite or overeating: not at all 6. Feeling bad about yourself - or that you are a failure or have let yourself or your family down: not at all 7. Trouble concentrating on things, such as reading the newspaper or watching television: not at all 8. Moving or speaking so slowly that other people could have noticed. Or the opposite - being so fidgety or restless that you have been moving around a lot more than usual: not at all 9. Thoughts that you would be better off or of hurting yourself in some way: not at all Total score: 0 Depression Screening Interpretation: Negative Depression Screening Done: Yes Source: Developed by Drs. Nadeem Waters, Denisha Hutton, Nelson Borrego and colleagues, with an educational azul from [employer]. Thrive Questionnaire Date Thrive assessed: 09/06/23 I am a: Patient What is your living situation today?: I have a steady place to live Within the past 12 months, did the food you bought not last and you didn't have the money to get more?: Never true Within the past 12 months, did you worry whether your food would run out before you got money to buy more?: Never true Do you have trouble paying for medicines?: No Do you have trouble getting transportation to medical appointments?: No Do you have trouble paying your heating and electricity bill?: No Do you have trouble taking care of your child, family member or friend?: No Do you have trouble with day-to-day activities such as bathing, preparing meals, shopping, managing finances, etc.?: No Are you currently unemployed and looking for a job?: No Are you interested in more education?: No Currently or been in a relationship where the following occur: no concerns reported THRIVE Score: 0 AUDIT C Alcohol Use Questionnaire (AUDIT-C) 1. How often do you have a drink containing alcohol?: Monthly or less 2. How many drinks containing alcohol do you have on a typical day when you are drinking?: 1 or 2 Total Score: 1 ILIR-7 AMB Questionnaire ILIR-7 Date ILIR - 7 assessed: 09/06/23 Feeling nervous, anxious, or on edge: 0 = Not at all Not being able to stop or control worryin = Not at all Worrying too much about different things: 0 = Not at all Trouble relaxin = Not at all Being so restless that it is hard to sit still: 0 = Not at all Becoming easily annoyed or irritable: 0 = Not at all Feeling afraid as if something awful might happen: 0 = Not at all Total ILIR-7 score (0-4 normal; 5-9 mild; 10-14 moderate; 15-21 severe): 0 Source: Developed by Drs. Nadeem Waters, Denisha Hutton, Nelson Borrego and colleagues, with an educational azul from [employer]. Physical exam (Primary Care) Tobacco/Smoking Status: Tobacco use Status Tobacco use date assessed 10/25/22 08/26/23 15:55 Patient Tobacco Use Status Former Tobacco user 08/26/23 15:55 Tobacco use type Cigarette 08/26/23 15:55 e-Cigarette/Vaping Use Never Used 08/26/23 15:55 Depression Screening Interpretation: Negative Thrive Assessment: Date of Thrive Assessment Date Thrive assessed 10/25/22 08/26/23 15:55 Currently or been in a relationship where the following occur: no concerns reported Const General: alert; No acute distress Eyes Conjunctivae: conjunctivae normal Resp Auscultation: clear to auscultation bilaterally Cardio Rate: regular rate Rhythm: regular rhythm GI Inspection: Yes normal to inspection Extrem General: Yes normal to inspection and No edema Assessment and Plan Assessment & Plan (1) Chronic kidney disease, stage 4 (severe): Code(s): N18.4 - Chronic kidney disease, stage 4 (severe) Plan: Patient follows up with Nephrology and workup pending. (2) Paroxysmal atrial fibrillation: Code(s): I48.0 - Paroxysmal atrial fibrillation Plan: Continue with anticoagulation and monitoring on renal function. (3) Heart failure with reduced ejection fraction: Comment: [place] undergoing cardiac care/ defibrillator implantation Code(s): I50.20 - Unspecified systolic (congestive) heart failure Plan: Continue with diuretics continue to follow-up renal function in the blood work and the on Entresto as well as Aldactone (4) Atherosclerotic cardiovascular disease: Code(s): I25.10 - Atherosclerotic heart disease of kashia coronary artery without angina pectoris Plan: Control the cholesterol, weight, blood pressure continue with anticoagulation (5) NICM (nonischemic cardiomyopathy): Comment: echo August 2022 ef 34% Code(s): I42.8 - Other cardiomyopathies Plan: ICD being monitored by Cardiology (6) COPD (chronic obstructive pulmonary disease): Code(s): J44.9 - Chronic obstructive pulmonary disease, unspecified Plan: Continue with inhalers always remember to rinse mouth after using Breo (7) Peripheral artery disease: Comment: 02/20/2023 right SFA plasty and stent, right popliteal plasty with DCB Code(s): I73.9 - Peripheral vascular disease, unspecified Plan: Continue to follow-up with vascular surgeon on anticoagulation. (8) Opiate dependence: Code(s): F11.20 - Opioid dependence, uncomplicated Qualifiers: Substance use status: in remission Qualified Code(s): F11.21 - Opioid dependence, in remission Plan: Continues follow-up with comprehensive care. Coding Level of Care Code Est Pt Level 4 (14387) Diagnoses Chronic kidney disease, stage 4 (severe) N18.4 Paroxysmal atrial fibrillation I48.0 Heart failure with reduced ejection fraction I50.20 Atherosclerotic cardiovascular disease I25.10 NICM (nonischemic cardiomyopathy) I42.8 COPD (chronic obstructive pulmonary disease) J44.9 Peripheral artery disease I73.9 Opioid dependence in remission F11.21 Substance use status: in remission
[2023-09-06 12:40] VITALS: BP 110/62; BMI 19.8
== END 2023-09-06 13:26 | disposition home or self-care (01) ==
PROVIDERS: PCP Internal Medicine; Visit Provider Internal Medicine
DX: N18.4 Chronic kidney disease, stage 4 (severe) (principal); I48.0 Paroxysmal atrial fibrillation; I50.20 Unspecified systolic (congestive) heart failure; I42.8 Other cardiomyopathies; J44.9 Chronic obstructive pulmonary disease, unspecified; I73.9 Peripheral vascular disease, unspecified; F11.21 Opioid dependence, in remission; I25.10 Atherosclerotic heart disease of native coronary artery without angina pectoris
CPT/HCPCS: 99214

== ENCOUNTER → 2023-09-17 23:59 | Outpatient (BNV) | payer MEDICARE, MEDICAID, SELFPAY ==
--- NOTE | 2023-09-19 15:15 | A.OFFVIS_ITS ---
Intake 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: Remote HF Monitoring- [employer] Allergies No Known Allergies Allergy (Verified 09/06/23 12:40) [facility] Medical History (Updated 09/06/23 @ 12:49 by Fco Vasquez MD) Tobacco abuse New onset atrial fibrillation Kidney disease Varicose veins of right lower extremity with inflammation Constipation by delayed colonic transit Pneumonia due to 2019 novel coronavirus Acute respiratory failure COVID-19 Smoking Acute combined systolic and diastolic CHF, NYHA class 3 BPH (benign prostatic hyperplasia) Endocarditis Opiate dependence HCV (hepatitis C virus) COPD (chronic obstructive pulmonary disease) GERD (gastroesophageal reflux disease) Peripheral artery disease Surgical History S/P angiogram of extremity (02/20/23) History of cardiac catheterization Family History Mother Alzheimer disease Father Myocardial infarct Daughter No problems noted. Social History Household Members: Family Household Members Other:: daughter and grandaughter. Housing: House Do you presently have visiting nurse or other home services: No Alcohol intake: never Patient Tobacco Use Status: Former Tobacco user Quit Date: about 2 months ago Tobacco use type: Cigarette Years Smoked: 50 e-Cigarette/Vaping Use: Never Used Second Hand Smoke Exposure: No Substance Use Type: Marijuana service: No Current occupational status: retired Cognitive needs: No Hearing needs: No Vision needs: No Office Procedures Cardiac Device Check Cardiac Device Check Details: Date of service- 09/17/2023; based on impedance data and physiological variables, OptiVol has been up and down for the last few months. Most recently was up in August but seems to have come down since then. [id number] Cardiac Device Interrogation, cardio physiologic monitor Procedure code (CPT) selection complete Assessment & Plan Assessment & Plan (1) Cardiomyopathy: Code(s): I42.9 - Cardiomyopathy, unspecified Plan x Coding Level of Care Code Procedure Only Diagnoses Cardiomyopathy I42.9 CPT Codes Cardiac Device Check - Cardiac Device 15: [id number] Cardiac Device Interrogation, cardio physiologic monitor ([id number])
== END ==
PROVIDERS: PCP Internal Medicine; Visit Provider Internal Medicine
DX: I42.9 Cardiomyopathy, unspecified (principal); Z95.810 Presence of automatic (implantable) cardiac defibrillator
CPT/HCPCS: 93297

== ENCOUNTER → 2023-09-17 23:59 | Outpatient (BNV) | payer MEDICARE, MEDICAID, SELFPAY ==
--- NOTE | 2023-09-19 15:17 | A.OFFVIS_ITS ---
Intake 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: Remote ICD Check- [employer] Allergies No Known Allergies Allergy (Verified 09/06/23 12:40) [facility] Medical History (Updated 09/06/23 @ 12:49 by Fco Vasquez MD) Tobacco abuse New onset atrial fibrillation Kidney disease Varicose veins of right lower extremity with inflammation Constipation by delayed colonic transit Pneumonia due to 2019 novel coronavirus Acute respiratory failure COVID-19 Smoking Acute combined systolic and diastolic CHF, NYHA class 3 BPH (benign prostatic hyperplasia) Endocarditis Opiate dependence HCV (hepatitis C virus) COPD (chronic obstructive pulmonary disease) GERD (gastroesophageal reflux disease) Peripheral artery disease Surgical History S/P angiogram of extremity (02/20/23) History of cardiac catheterization Family History Mother Alzheimer disease Father Myocardial infarct Daughter No problems noted. Social History Household Members: Family Household Members Other:: daughter and grandaughter. Housing: House Do you presently have visiting nurse or other home services: No Alcohol intake: never Patient Tobacco Use Status: Former Tobacco user Quit Date: about 2 months ago Tobacco use type: Cigarette Years Smoked: 50 e-Cigarette/Vaping Use: Never Used Second Hand Smoke Exposure: No Substance Use Type: Marijuana service: No Current occupational status: retired Cognitive needs: No Hearing needs: No Vision needs: No Office Procedures Cardiac Device Check Cardiac Device Check Details: Date of service 09/17/2023; Battery life >6 years; normal lead parameters; effective V pacing 93%; no treated VT/VF; normal ICD function. [id number] Cardiac Interrogation, implant defibrillator w/interim Procedure code (CPT) selection complete Assessment & Plan Assessment & Plan (1) NICM (nonischemic cardiomyopathy): Comment: echo August 2022 ef 34% Code(s): I42.8 - Other cardiomyopathies Plan x Coding Level of Care Code Procedure Only Diagnoses NICM (nonischemic cardiomyopathy) I42.8 CPT Codes Cardiac Device Check - Cardiac Device 13: [id number] Cardiac Interrogation, implant defibrillator w/interim ([id number])
== END ==
PROVIDERS: PCP Internal Medicine; Visit Provider Internal Medicine
DX: I42.8 Other cardiomyopathies (principal); Z95.810 Presence of automatic (implantable) cardiac defibrillator
CPT/HCPCS: 93295

== ENCOUNTER 2023-10-15 10:04 | Outpatient (AMB) | payer MEDICARE, MEDICAID, SELFPAY ==
--- NOTE | 2023-10-15 10:01 | A.OFFVISCC_ITS ---
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: mat visit Allergies No Known Allergies Allergy (Verified 09/06/23 12:40) [facility] mat visit: Details: Patient presents via telehealth appt States things are going well Taking 1-2 mg suboxone daily Denies withdrawal symptoms, is happy with this current dose No concerns or questions today [facility] Medical History (Updated 09/06/23 @ 12:49 by Fco Vasquez MD) Tobacco abuse New onset atrial fibrillation Kidney disease Varicose veins of right lower extremity with inflammation Constipation by delayed colonic transit Pneumonia due to 2019 novel coronavirus Acute respiratory failure COVID-19 Smoking Acute combined systolic and diastolic CHF, NYHA class 3 BPH (benign prostatic hyperplasia) Endocarditis Opiate dependence HCV (hepatitis C virus) COPD (chronic obstructive pulmonary disease) GERD (gastroesophageal reflux disease) Peripheral artery disease Surgical History S/P angiogram of extremity (02/20/23) History of cardiac catheterization Family History Mother Alzheimer disease Father Myocardial infarct Daughter No problems noted. Social History Household Members: Family Household Members Other:: daughter and grandaughter. Housing: House Do you presently have visiting nurse or other home services: No Alcohol intake: never Patient Tobacco Use Status: Former Tobacco user Quit Date: about 2 months ago Tobacco use type: Cigarette Years Smoked: 50 e-Cigarette/Vaping Use: Never Used Second Hand Smoke Exposure: No Substance Use Type: Marijuana service: No Current occupational status: retired Cognitive needs: No Hearing needs: No Vision needs: No Review of Systems Const Reports as per [facility] Telehealth Platform: Telephone Location of provider rendering services: practice address Location of patient: address on file Patient Identification confirmed using: Name, : Yes Telehealth method: voice only Patient verbally consented to treatment: Yes Patient verbally consented to billing insurance company: Yes Patient informed of any privacy concerns related to visit: Yes Minutes spent on Phone/Video with Pt.: 10 Assessment & Plan Assessment & Plan (1) Opiate dependence: Code(s): F11.20 - Opioid dependence, uncomplicated Category: Medical Qualifiers: Substance use status: in remission Qualified Code(s): F11.21 - Opioid dependence, in remission Plan: -Continue suboxone current dose -MAss pat reviewed -Follow up 2 months Medications: Refilled buprenorphine-naloxone 2-0.5 mg (Suboxone) 1 film sublingual DAILY 30 ea 1RF
== END 2023-10-15 10:14 | disposition home or self-care (01) ==
PROVIDERS: PCP Internal Medicine; Visit Provider Nurse Practitioner Family
DX: F11.21 Opioid dependence, in remission (principal)
CPT/HCPCS: 99441

== ENCOUNTER → 2023-10-15 10:04 | Outpatient (BNVA) | payer MEDICARE, MEDICAID, SELFPAY | PROVIDERS: PCP Internal Medicine; Visit Provider Nurse Practitioner Family ==

== ENCOUNTER → 2023-10-18 23:59 | Outpatient (BNV) | payer MEDICARE, MEDICAID, SELFPAY ==
--- NOTE | 2023-10-20 17:13 | A.OFFVIS_ITS ---
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: REmote HF monitoring- [employer] Allergies No Known Allergies Allergy (Verified 09/06/23 12:40) [facility] Medical History (Updated 09/06/23 @ 12:49 by Fco Vasquez MD) Tobacco abuse New onset atrial fibrillation Kidney disease Varicose veins of right lower extremity with inflammation Constipation by delayed colonic transit Pneumonia due to 2019 novel coronavirus Acute respiratory failure COVID-19 Smoking Acute combined systolic and diastolic CHF, NYHA class 3 BPH (benign prostatic hyperplasia) Endocarditis Opiate dependence HCV (hepatitis C virus) COPD (chronic obstructive pulmonary disease) GERD (gastroesophageal reflux disease) Peripheral artery disease Surgical History S/P angiogram of extremity (02/20/23) History of cardiac catheterization Family History Mother Alzheimer disease Father Myocardial infarct Daughter No problems noted. Social History Household Members: Family Household Members Other:: daughter and grandaughter. Housing: House Do you presently have visiting nurse or other home services: No Alcohol intake: never Patient Tobacco Use Status: Former Tobacco user Quit Date: about 2 months ago Tobacco use type: Cigarette Years Smoked: 50 e-Cigarette/Vaping Use: Never Used Second Hand Smoke Exposure: No Substance Use Type: Marijuana service: No Current occupational status: retired Cognitive needs: No Hearing needs: No Vision needs: No Office Procedures Cardiac Device Check Cardiac Device Check Details: Date of service- 10/18/2023; based on impedance data and physiological variables, there is no evidence of worsening congestive heart failure. [id number] Cardiac Device Interrogation, cardio physiologic monitor Procedure code (CPT) selection complete Assessment & Plan Assessment & Plan (1) NICM (nonischemic cardiomyopathy): Comment: echo August 2022 ef 34% Code(s): I42.8 - Other cardiomyopathies Category: Medical Plan x Coding Level of Care Code Procedure Only Diagnoses NICM (nonischemic cardiomyopathy) I42.8 CPT Codes Cardiac Device Check - Cardiac Device 15: [id number] Cardiac Device Interrogation, cardio physiologic monitor ([id number])
== END ==
PROVIDERS: PCP Internal Medicine; Visit Provider Internal Medicine
DX: I42.8 Other cardiomyopathies (principal); Z95.810 Presence of automatic (implantable) cardiac defibrillator
CPT/HCPCS: 93297

== ENCOUNTER 2023-11-06 07:00 | Outpatient (RCR) | payer MEDICARE, MEDICAID, SELFPAY | END 2023-11-07 12:48 | disposition home or self-care (01) | LOC: HO.CR 07:00 | PROVIDERS: PCP Internal Medicine; Visit Provider Nurse Practitioner Family | DX: I50.20 Unspecified systolic (congestive) heart failure (principal) | CPT/HCPCS: 93798 ==

== ENCOUNTER → 2023-11-17 23:59 | Outpatient (BNV) | payer MEDICARE, MEDICAID, SELFPAY ==
--- NOTE | 2023-11-19 10:29 | MHC.OFFVIS ---
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: Remote HF monitoring- [employer] Allergies No Known Allergies Allergy (Verified 09/06/23 12:40) [facility] Medical History (Updated 09/06/23 @ 12:49 by Fco Vasquez MD) Tobacco abuse New onset atrial fibrillation Kidney disease Varicose veins of right lower extremity with inflammation Constipation by delayed colonic transit Pneumonia due to 2019 novel coronavirus Acute respiratory failure COVID-19 Smoking Acute combined systolic and diastolic CHF, NYHA class 3 BPH (benign prostatic hyperplasia) Endocarditis Opiate dependence HCV (hepatitis C virus) COPD (chronic obstructive pulmonary disease) GERD (gastroesophageal reflux disease) Peripheral artery disease Surgical History S/P angiogram of extremity (02/20/23) History of cardiac catheterization Family History Mother Alzheimer disease Father Myocardial infarct Daughter No problems noted. Social History Household Members: Family Household Members Other:: daughter and grandaughter. Housing: House Do you presently have visiting nurse or other home services: No Alcohol intake: never Patient Tobacco Use Status: Former Tobacco user Tobacco use type: Cigarette Years Smoked: 50 e-Cigarette/Vaping Use: Never Used Second Hand Smoke Exposure: No Substance Use Type: Marijuana service: No Current occupational status: retired Cognitive needs: No Hearing needs: No Vision needs: No Office Procedures Cardiac Device Check Cardiac Device Check Details: Date of service- 11/17/2023; based on impedance data and physiological variables, there is possible optivol fluid accumulation from 10/29 to 11/05. [id number] Cardiac Device Interrogation, cardio physiologic monitor Procedure code (CPT) selection complete Assessment & Plan Assessment & Plan (1) NICM (nonischemic cardiomyopathy): Comment: echo August 2022 ef 34% Code(s): I42.8 - Other cardiomyopathies Category: Medical Plan x Coding Level of Care Code Procedure Only Diagnoses NICM (nonischemic cardiomyopathy) I42.8 CPT Codes Cardiac Device Check - Cardiac Device 15: [id number] Cardiac Device Interrogation, cardio physiologic monitor ([id number])
== END ==
PROVIDERS: PCP Internal Medicine; Visit Provider Internal Medicine
DX: I42.8 Other cardiomyopathies (principal); Z95.810 Presence of automatic (implantable) cardiac defibrillator
CPT/HCPCS: 93297

== ENCOUNTER 2023-12-10 10:06 | Outpatient (AMB) | payer MEDICARE, MEDICAID, SELFPAY ==
--- NOTE | 2023-12-10 10:08 | MHC.AM.SUB ---
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: MAT Tele Allergies No Known Allergies Allergy (Verified 09/06/23 12:40) [facility] MAT Tele: Details: Patient presents for follow up via telehealth Continues with same dose 1-2mg daily No issues with medication. Denies any side effects PCP appt next month and urology tomorrow [facility] Medical History (Updated 09/06/23 @ 12:49 by Fco Vasquez MD) Tobacco abuse New onset atrial fibrillation Kidney disease Varicose veins of right lower extremity with inflammation Constipation by delayed colonic transit Pneumonia due to 2019 novel coronavirus Acute respiratory failure COVID-19 Smoking Acute combined systolic and diastolic CHF, NYHA class 3 BPH (benign prostatic hyperplasia) Endocarditis Opiate dependence HCV (hepatitis C virus) COPD (chronic obstructive pulmonary disease) GERD (gastroesophageal reflux disease) Peripheral artery disease Surgical History S/P angiogram of extremity (02/20/23) History of cardiac catheterization Family History Mother Alzheimer disease Father Myocardial infarct Daughter No problems noted. Social History Household Members: Family Household Members Other:: daughter and grandaughter. Housing: House Do you presently have visiting nurse or other home services: No Alcohol intake: never Patient Tobacco Use Status: Former Tobacco user Tobacco use type: Cigarette Years Smoked: 50 e-Cigarette/Vaping Use: Never Used Second Hand Smoke Exposure: No Substance Use Type: Marijuana service: No Current occupational status: retired Cognitive needs: No Hearing needs: No Vision needs: No Review of Systems Const Reports as per [facility] Telehealth Telehealth Telehealth Platform: Telephone Location of provider rendering services: practice address Location of patient: address on file Patient Identification confirmed using: Name, : Yes Telehealth method: voice only Patient verbally consented to treatment: Yes Patient verbally consented to billing insurance company: Yes Patient informed of any privacy concerns related to visit: Yes Minutes spent on Phone/Video with Pt.: 15 Assessment & Plan Assessment & Plan (1) Opiate dependence: Code(s): F11.20 - Opioid dependence, uncomplicated Category: Medical Qualifiers: Substance use status: in remission Qualified Code(s): F11.21 - Opioid dependence, in remission Plan: continue suboxone at current dose follow up 3 months Medications: Refilled buprenorphine-naloxone 2-0.5 mg (Suboxone) 1 film sublingual DAILY 30 ea 2RF
== END 2023-12-10 10:18 | disposition home or self-care (01) ==
PROVIDERS: PCP Internal Medicine; Visit Provider Nurse Practitioner Psychiatric/Mental Health
DX: F11.21 Opioid dependence, in remission (principal)
CPT/HCPCS: 99442

== ENCOUNTER → 2023-12-10 10:06 | Outpatient (BNVA) | payer MEDICARE, MEDICAID, SELFPAY | PROVIDERS: PCP Internal Medicine; Visit Provider Nurse Practitioner Psychiatric/Mental Health | DX: F11.21 Opioid dependence, in remission (principal) ==

== ENCOUNTER → 2023-12-18 23:59 | Outpatient (BNV) | payer MEDICARE, MEDICAID, SELFPAY ==
--- NOTE | 2023-12-22 10:45 | A.OFFVIS_ITS ---
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: Remote HF monitoring- [employer] Allergies No Known Allergies Allergy (Verified 09/06/23 12:40) [facility] Medical History (Updated 09/06/23 @ 12:49 by Fco Vasquez MD) Tobacco abuse New onset atrial fibrillation Kidney disease Varicose veins of right lower extremity with inflammation Constipation by delayed colonic transit Pneumonia due to 2019 novel coronavirus Acute respiratory failure COVID-19 Smoking Acute combined systolic and diastolic CHF, NYHA class 3 BPH (benign prostatic hyperplasia) Endocarditis Opiate dependence HCV (hepatitis C virus) COPD (chronic obstructive pulmonary disease) GERD (gastroesophageal reflux disease) Peripheral artery disease Surgical History S/P angiogram of extremity (02/20/23) History of cardiac catheterization Family History Mother Alzheimer disease Father Myocardial infarct Daughter No problems noted. Social History Household Members: Family Household Members Other:: daughter and grandaughter. Housing: House Do you presently have visiting nurse or other home services: No Alcohol intake: never Patient Tobacco Use Status: Former Tobacco user Tobacco use type: Cigarette Years Smoked: 50 e-Cigarette/Vaping Use: Never Used Second Hand Smoke Exposure: No Substance Use Type: Marijuana service: No Current occupational status: retired Cognitive needs: No Hearing needs: No Vision needs: No Office Procedures Cardiac Device Check Cardiac Device Check Details: Date of service- 12/18/2023; based on impedance data and physiological variables, there is no evidence of worsening congestive heart failure. [id number] Cardiac Device Interrogation, cardio physiologic monitor Procedure code (CPT) selection complete Assessment & Plan Assessment & Plan (1) Cardiomyopathy: Code(s): I42.9 - Cardiomyopathy, unspecified Category: Medical Plan x Coding Level of Care Code Procedure Only Diagnoses Cardiomyopathy I42.9 CPT Codes Cardiac Device Check - Cardiac Device 15: [id number] Cardiac Device Interrogation, cardio physiologic monitor ([id number])
--- NOTE | 2023-12-22 10:48 | A.OFFVIS_ITS ---
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: Remote HF monitoring- [employer] Allergies No Known Allergies Allergy (Verified 09/06/23 12:40) [facility] Medical History (Updated 09/06/23 @ 12:49 by Fco Vasquez MD) Tobacco abuse New onset atrial fibrillation Kidney disease Varicose veins of right lower extremity with inflammation Constipation by delayed colonic transit Pneumonia due to 2019 novel coronavirus Acute respiratory failure COVID-19 Smoking Acute combined systolic and diastolic CHF, NYHA class 3 BPH (benign prostatic hyperplasia) Endocarditis Opiate dependence HCV (hepatitis C virus) COPD (chronic obstructive pulmonary disease) GERD (gastroesophageal reflux disease) Peripheral artery disease Surgical History S/P angiogram of extremity (02/20/23) History of cardiac catheterization Family History Mother Alzheimer disease Father Myocardial infarct Daughter No problems noted. Social History Household Members: Family Household Members Other:: daughter and grandaughter. Housing: House Do you presently have visiting nurse or other home services: No Alcohol intake: never Patient Tobacco Use Status: Former Tobacco user Tobacco use type: Cigarette Years Smoked: 50 e-Cigarette/Vaping Use: Never Used Second Hand Smoke Exposure: No Substance Use Type: Marijuana service: No Current occupational status: retired Cognitive needs: No Hearing needs: No Vision needs: No Office Procedures Cardiac Device Check Cardiac Device Check Details: Date of service- 12/18/2023; based on impedance data and physiological variables, there is no evidence of worsening congestive heart failure. [id number] Cardiac Device Interrogation, cardio physiologic monitor Procedure code (CPT) selection complete Cardiac Device Check Cardiac Device Check Details: Date of service 12/18/2023; Battery life >6 years; normal lead parameters; no treated VT/VF; adequate Biv pacing; normal ICD function. [id number] Cardiac Interrogation, implant defibrillator w/interim Procedure code (CPT) selection complete Assessment & Plan Assessment & Plan (1) Cardiomyopathy: Code(s): I42.9 - Cardiomyopathy, unspecified Category: Medical Plan x Coding Level of Care Code Procedure Only Diagnoses Cardiomyopathy I42.9 CPT Codes Cardiac Device Check - Cardiac Device 15: [id number] Cardiac Device Interrogation, cardio physiologic monitor ([id number]) Cardiac Device Check - Cardiac Device 13: [id number] Cardiac Interrogation, implant defibrillator w/interim ([id number])
== END ==
PROVIDERS: PCP Internal Medicine; Visit Provider Internal Medicine
DX: I42.9 Cardiomyopathy, unspecified (principal); Z95.810 Presence of automatic (implantable) cardiac defibrillator
CPT/HCPCS: 93295; 93297

== ENCOUNTER 2023-12-31 11:45 | Outpatient (REF) | payer MEDICARE, MEDICAID, SELFPAY ==
[2023-12-31 12:14] LABS: MANUAL DIFF FLAG NO
[2023-12-31 12:26] LABS: Basophils Absolute Auto 0.1 X10*3/uL (0.0-0.2); Basophils Percent Auto 0.7 % (0-2); Eosinophils Absolute Auto 0.2 X10*3/uL (0.0-0.4); Eosinophils Percent Auto 1.8 % (0-4); Hematocrit 37.5 % (42.0-52.0); Hemoglobin 12.1 g/dl (14.0-18.0); Imm Gran Abs Auto 0.05 X10*3/uL (0.00-0.03); Imm Gran Pct Auto 0.6 % (0.0-0.4); Immature Retic Fraction 15.4 % (2.3-13.4); Lymphocytes Absolute Auto 1.4 X10*3/uL (1.2-4.9); Lymphocytes Percent Auto 15.2 % (20-40); Mean Corpuscular HGB Conc 32.3 g/dl (31.0-36.0); Mean Corpuscular Hemoglobin 31.2 pg (27.0-33.0); Mean Corpuscular Volume 96.6 fL (80.0-98.0); Mean Platelet Volume 8.9 fL (9.4-12.4); Monocytes Percent Auto 10.6 % (2-11); Neutrophils Absolute Auto 6.4 x10*3/uL (2.0-8.3); Neutrophils Percent Auto 71.1 % (45-73); Platelet Count 202 X10*3/uL (160-400); Red Blood Count 3.88 X10*6/uL (4.60-5.80); Red Cell Distribution Width 13.7 % (11.0-16.0); Reticulocyte Percent 1.9 % (0.5-1.8); Reticulocytes Absolute 0.072 X10*6/uL (0.026-0.095); White Blood Count 8.9 X10*3/uL (4.8-10.8)
[2023-12-31 12:54] LABS: Parathyroid Hormone Intact 119.3 pg/mL (8.7-77.1)
[2023-12-31 13:22] LABS: Alanine Aminotransferase 9 U/L (0-40); Albumin Level 4.2 g/dL (3.5-5.0); Alkaline Phosphatase 186 U/L (39-117); Anion Gap 18 (12-20); Aspartate Amino Transferase 18 U/L (5-37); Bilirubin Total 0.9 mg/dL (0.0-1.0); Blood Urea Nitrogen 33 mg/dL (9-16); Calcium 10.3 mg/dL (8.4-10.2); Carbon Dioxide 21 mmol/L (22-29); Chloride 107 mmol/L (96-108); Cholesterol 120 mg/dL (<200); Estimated Glomerular Filt Rate 46; Glucose Random 124 mg/dL (60-115); HDL Cholesterol 50 mg/dL (>40); Iron 64 mcg/dL (45-160); LDL Cholesterol Calculated 53 mg/dL (<100); Percent Iron Saturation 25 % (15-50); Phosphorus 3.5 mg/dL (2.7-4.5); Potassium 4.7 mmol/L (3.3-5.1); Sodium 141 mmol/L (135-145); Total Iron Binding Capacity 255 mcg/dL (228-428); Triglycerides 88 mg/dL (<150); Unsaturated Iron Binding 191 ug/dL
[2023-12-31 13:23] LABS: Folate 8.4 ng/mL (> or = 4.0); Vitamin B12 375 pg/mL (200-900)
[2023-12-31 13:35] LABS: Vitamin D 25-OH Total 10.9 ng/mL (>30)
[2023-12-31 13:36] LABS: Ferritin 129 ng/mL (20-250); Free T4 (Free Thyroxine) 1.24 ng/dL (0.71-1.85); Thyroid Stimulating Hormone 0.13 uIU/mL (0.32-4.0)
[2023-12-31 14:44] LABS: Creatinine Urine 171.64 mg/dL; Protein/Creatinine Ratio, Ur 1.08 (<0.2); Total Protein Urine Random 185 mg/dL (<12)
[2024-01-03 09:28] LABS: IgA 497 mg/dL (70-320); IgG 1723 mg/dL (600-1540); IgM 91 mg/dL (50-300)
== END 2023-12-31 11:46 | disposition home or self-care (01) ==
LOC: HO.LAB 11:45
PROVIDERS: Absent Provider Internal Medicine; PCP Internal Medicine; Visit Provider Internal Medicine Nephrology
DX: I48.0 Paroxysmal atrial fibrillation (principal); E78.00 Pure hypercholesterolemia, unspecified; N18.4 Chronic kidney disease, stage 4 (severe); R79.89 Other specified abnormal findings of blood chemistry
CPT/HCPCS: 36415; 80053; 80061; 82306; 82570; 82607; 82728; 82746; 82784; 83540; 83970; 84100; 84156; 84439; 84443; 85025; 85045; 86334

== ENCOUNTER 2023-12-31 12:24 | Outpatient (AMB) | payer MEDICARE, MEDICAID, SELFPAY ==
[2023-12-31 12:35] VITALS: BP 86/54; PULSE 58; BMI 18.7
--- NOTE | 2023-12-31 12:35 | MHC.PC.OV ---
Vital Signs 12/31/23 12:35 Height 6 ft 1 in Weight 142 lb BMI 18.7 BP 86/54 L Blood Pressure Location Lt brachial Position Sitting Pulse 58 Pulse Source Pulse Oximeter Oxygen Delivery Method Room Air 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: cad,a fib CHF Allergies No Known Allergies Allergy (Verified 12/31/23 12:37) Tobacco use date assessed: 09/06/23 Fall risk assessment: No Falls in past year Last assessed Fall Risk: 12/31/23 Dental Screening Dental Screen Date: 09/06/23 HPI cad,a fib CHF HPI Details 73-year-old male with a history of chronic kidney disease stage 4 paroxysmal atrial fibrillation congestive heart failure coronary artery disease with cardiomyopathy COPD for opiate dependence and peripheral artery disease coming in for follow-up. Last seen in August 2023. Review of the notes follows up with Cardiology seen in December 21 monitoring on the ICD. With opiate dependence follows up with comprehensive care on Suboxone patient is in cardiac rehab. Did receive vaccination history of the COVID-19, Shingrix and Prevnar . PAtient smokes weed still and does get sob. BP low - and advised to increase fluids, decline change dose for now L groin mass noted and getting worse PFSH Medical History (Updated 12/31/23 @ 13:11 by Fco Vasquez MD) Tobacco abuse New onset atrial fibrillation Kidney disease Varicose veins of right lower extremity with inflammation Constipation by delayed colonic transit Pneumonia due to 2019 novel coronavirus Acute respiratory failure COVID-19 Smoking Acute combined systolic and diastolic CHF, NYHA class 3 BPH (benign prostatic hyperplasia) Endocarditis Opiate dependence HCV (hepatitis C virus) COPD (chronic obstructive pulmonary disease) GERD (gastroesophageal reflux disease) Peripheral artery disease Surgical History S/P angiogram of extremity (02/20/23) History of cardiac catheterization Family History Mother Alzheimer disease Father Myocardial infarct Daughter No problems noted. Social History Household Members: Family Household Members Other:: daughter and grandaughter. Housing: House Do you presently have visiting nurse or other home services: No Alcohol intake: never Patient Tobacco Use Status: Former Tobacco user Tobacco use type: Cigarette Years Smoked: 50 e-Cigarette/Vaping Use: Never Used Second Hand Smoke Exposure: No Substance Use Type: Marijuana service: No Current occupational status: retired Cognitive needs: No Hearing needs: No Vision needs: No Questionnaire Thrive Questionnaire Date Thrive assessed: 09/06/23 AUDIT C Alcohol Use Questionnaire (AUDIT-C) 1. How often do you have a drink containing alcohol?: Monthly or less 2. How many drinks containing alcohol do you have on a typical day when you are drinking?: 1 or 2 Total Score: 1 ILIR-7 AMB Questionnaire ILIR-7 Date ILIR - 7 assessed: 09/06/23 Source: Developed by Drs. Nadeem Waters, Denisha Hutton, Nelson Borrego and colleagues, with an educational azul from [employer]. Physical exam (Primary Care) Vital Signs: Last Vital Signs Pulse 58 12/31/23 12:35 BP 86/54 L 12/31/23 12:35 Oxygen Delivery Method Room Air 12/31/23 12:35 BMI result Body Mass Index 18.7 Tobacco/Smoking Status: Tobacco use Status Tobacco use date assessed 09/06/23 12/31/23 12:42 Patient Tobacco Use Status Former Tobacco user 12/31/23 12:42 Tobacco use type Cigarette 12/31/23 12:42 e-Cigarette/Vaping Use Never Used 12/31/23 12:42 Thrive Assessment: Date of Thrive Assessment Date Thrive assessed 09/06/23 12/31/23 12:42 Const General: alert; No acute distress Eyes Conjunctivae: conjunctivae normal Resp Auscultation: clear to auscultation bilaterally Cardio Rate: regular rate Rhythm: regular rhythm GI Inspection: Yes normal to inspection Other: R groin mass large 5 x 6 inches Extrem General: Yes normal to inspection and No edema Assessment and Plan Assessment & Plan (1) COPD (chronic obstructive pulmonary disease): Code(s): J44.9 - Chronic obstructive pulmonary disease, unspecified Plan: Continue with the inhaler on Breo right now and rinse mouth after using (2) Opiate dependence: Code(s): F11.20 - Opioid dependence, uncomplicated Qualifiers: Substance use status: in remission Qualified Code(s): F11.21 - Opioid dependence, in remission Plan: Continue to follow-up with comprehensive care on Suboxone (3) NICM (nonischemic cardiomyopathy): Comment: echo August 2022 ef 34% Code(s): I42.8 - Other cardiomyopathies Plan: Patient continue follow-up with cardiology having ICD checking regularly. (4) BPH (benign prostatic hyperplasia): Code(s): N40.0 - Benign prostatic hyperplasia without lower urinary tract symptoms Plan: Tamsulosin to continue (5) Atherosclerotic cardiovascular disease: Code(s): I25.10 - Atherosclerotic heart disease of [place] coronary artery without angina pectoris Plan: Control the cholesterol, weight, blood pressure, on Eliquis right now (6) Heart failure with reduced ejection fraction: Comment: Heather eMrida undergoing cardiac care/ defibrillator implantation Code(s): I50.20 - Unspecified systolic (congestive) heart failure Plan: Continue with the diuretic furosemide, weigh daily on Farxiga Entresto and spironolactone blood work pending (7) Paroxysmal atrial fibrillation: Code(s): I48.0 - Paroxysmal atrial fibrillation Plan: Continue with anticoagulation with Eliquis (8) GERD (gastroesophageal reflux disease): Comment: Multiple cardiac- Continue ppi avoid culprits- Assess after cardiac-Dr. Mitchell Will pursue GI workup as appropriate Code(s): K21.9 - Gastro-esophageal reflux disease without esophagitis Plan: Avoid the foods that causes that usually spicy foods, tomato products, juices, coffee, soda and foods that your sensitive to. After eating do not lie down, allow 3-4 hours before in lie down. And keep the head of bed above 30 degrees to avoid the acid from going up. (9) Chronic kidney disease, stage 4 (severe): Code(s): N18.4 - Chronic kidney disease, stage 4 (severe) Plan: Continue to follow-up with Nephrology, avoid NSAIDs (10) Constipation: Code(s): K59.00 - Constipation, unspecified (11) Inguinal hernia of left side without obstruction or gangrene: Code(s): K40.90 - Unilateral inguinal hernia, without obstruction or gangrene, not specified as recurrent Plan: will refer to the general surgery Orders: Referrals General Surgery Referral K40.90 - Unilateral inguinal hernia, without obstruction or gangrene, not specified as recurrent Medications: New polyethylene glycol 3350 (Miralax) 17 grams PO DAILY 100 ea 3RF K59.00 - Constipation, unspecified Refilled fluticasone furoate-vilanterol 100-25 mcg/dose (Breo Ellipta) 1 ea inhalation DAILY 60 ea 11RF J44.9 - Chronic obstructive pulmonary disease, unspecified dapagliflozin propanediol (Farxiga) 10 mg PO DAILY 90 tabs 1RF Coding Level of Care Code Est Pt Level 4 (24938) Diagnoses COPD (chronic obstructive pulmonary disease) J44.9 Opioid dependence in remission F11.21 Substance use status: in remission NICM (nonischemic cardiomyopathy) I42.8 BPH (benign prostatic hyperplasia) N40.0 Atherosclerotic cardiovascular disease I25.10 Heart failure with reduced ejection fraction I50.20 Paroxysmal atrial fibrillation I48.0 GERD (gastroesophageal reflux disease) K21.9 Chronic kidney disease, stage 4 (severe) N18.4 Constipation K59.00 Inguinal hernia of left side without obstruction or gangrene K40.90
== END 2023-12-31 13:15 | disposition home or self-care (01) ==
PROVIDERS: PCP Internal Medicine; Visit Provider Internal Medicine
DX: J44.9 Chronic obstructive pulmonary disease, unspecified (principal); F11.21 Opioid dependence, in remission; I42.8 Other cardiomyopathies; I50.20 Unspecified systolic (congestive) heart failure; I48.0 Paroxysmal atrial fibrillation; N18.4 Chronic kidney disease, stage 4 (severe); N40.0 Benign prostatic hyperplasia without lower urinary tract symptoms; I25.10 Atherosclerotic heart disease of native coronary artery without angina pectoris; K21.9 Gastro-esophageal reflux disease without esophagitis; K59.00 Constipation, unspecified; K40.90 Unilateral inguinal hernia, without obstruction or gangrene, not specified as recurrent
CPT/HCPCS: 99214

== ENCOUNTER 2024-01-07 12:43 | Outpatient (REF) | payer MEDICARE, MEDICAID, SELFPAY ==
--- NOTE | ~2024-01-07 | US_ITS ---
EXAMINATION: NONINVASIVE ASSESSMENT OF THE ARTERIES OF BOTH LOWER EXTREMITIES WITH PVR EXAM AND BILATERAL LOWER EXTREMITY DUPLEX Julieta Riggs MD CLINICAL INFORMATION: Peripheral vascular disease TECHNIQUE: Ankle pulse volume recordings, ankle pressure measurements and ankle brachial indices were obtained of the lower extremity arterial system bilaterally in addition to duplex Doppler techniques with wave form analysis and measurement of velocities in the common femoral, profunda femoral, superficial femoral, popliteal and tibial arteries. The study was performed only at rest. COMPARISON: Arterial exam on 05/27/23 FINDINGS: a) AT REST: RIGHT LE. The right ankle-brachial index is: 0.49 * >0.97-1.25 = normal - no significant arterial disease * 0.75-0.96 = mild peripheral arterial disease * 0.5-0.74 = moderate peripheral arterial disease * <0.50 = severe peripheral arterial disease 2. Right ankle pressure: Abnormal 3. Right ankle PVR waveform: Abnormal 4. Right direct duplex Doppler findings: Common femoral artery: 55 cm/s, monophasic Profunda femoris artery: 32 cm/s, monophasic Superficial femoral artery (proximal): patent stent; 46cm/s; monophasic Superficial femoral artery (mid): patent stent; 46cm/s; monophasic Superficial femoral artery (distal): patent stent; 46cm/s; monophasic Proximal Popliteal artery: 26 cm/s, monophasic Mid posterior tibial artery: 24 cm/s, monophasic LEFT LE. The left ankle-brachial index is: 0.50 * >0.97-1.25 = normal - no significant arterial disease * 0.75-0.96 = mild peripheral arterial disease * 0.5-0.74 = moderate peripheral arterial disease * <0.50 = severe peripheral arterial disease 2. Left ankle pressure: Abnormal 3. Left ankle PVR waveform: Abnormal 4. Left direct duplex Doppler findings: Common femoral artery: 81 cm/s, Multiphasic Profunda femoris artery: 65 cm/s, monophasic Superficial femoral artery (proximal): Occluded Superficial femoral artery (mid): Occluded Superficial femoral artery (distal): 22 cm/s, monophasic Proximal Popliteal artery: 26 cm/s, monophasic Mid posterior tibial artery: 17 cm/s, monophasic Incidental note is made of cardiac arrhythmia. US/US arterial duplex BI w/ JOSE A IMPRESSION: RIGHT LEG: Severe peripheral arterial disease. Patent stent in the superficial femoral artery. LEFT LEG: Severe peripheral arterial disease. Occluded proximal and mid superficial femoral artery with reconstitution of the distal superficial femoral artery.
== END 2024-01-07 12:44 | disposition home or self-care (01) ==
LOC: HO.US 12:43
PROVIDERS: PCP Internal Medicine; Visit Provider Surgery Vascular Surgery
DX: I73.9 Peripheral vascular disease, unspecified (principal)
CPT/HCPCS: 93922; 93925

== ENCOUNTER 2024-01-08 11:39 | Outpatient (AMB) | payer MEDICARE, MEDICAID, SELFPAY ==
[2024-01-08 11:46] VITALS: BP 80/50; BMI 18.8
--- NOTE | 2024-01-08 11:46 | HO.NEPHOV ---
Vital Signs 01/08/24 11:46 Height 6 ft 1 in Weight 142 lb 4 oz BMI 18.8 BP 80/50 L Blood Pressure Location Rt brachial Position Sitting 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: 3 mon follow up/ Conf Certified Mortician Required: No Accompanied by: Self / Same As Patient Allergies No Known Allergies Allergy (Verified 01/08/24 11:49) HPI Comments Details: I had the privilege of seeing Freddy in consultation who is a 72-year-old male with nonischemic cardiomyopathy with AICD, coronary artery disease , congestive heart failure ,atrial fibrillation, peripheral vascular disease and chronic kidney disease. He has history of hepatitis C and was treated. Patient has a history of polysubstance abuse presently on Suboxone. He has peripheral arterial disease with a history of right SFA plasty and stent and right popliteal angioplasty in February 2023. His last echocardiogram showed ejection fraction of 34%. He had cardiac catheterization which showed moderate disease in the LAD. He is on anticoagulation. He is not a diabetic. He has prostatic symptoms. He is taking tamsulosin. He is on Entresto, spironolactone, metoprolol, furosemide as well as statins. He has Raynaud's. He denies taking nonsteroidal anti-inflammatories. He denies having sinusitis, epistaxis, hemoptysis, hematuria, nephrolithiasis, dizziness, chest pain, shortness of breath, paroxysmal nocturnal dyspnea, orthopnea. He has not very good with a low-sodium diet. He claims to be compliant with medications and follow ups. His last serum creatinine is 1.49 [facility] Medical History (Updated 01/08/24 @ 11:58 by Pete Calabrese MD) Tobacco abuse New onset atrial fibrillation Kidney disease Varicose veins of right lower extremity with inflammation Constipation by delayed colonic transit Pneumonia due to 2019 novel coronavirus Acute respiratory failure COVID-19 Smoking Acute combined systolic and diastolic CHF, NYHA class 3 BPH (benign prostatic hyperplasia) Endocarditis Opiate dependence HCV (hepatitis C virus) COPD (chronic obstructive pulmonary disease) GERD (gastroesophageal reflux disease) Peripheral artery disease Surgical History S/P angiogram of extremity (02/20/23) History of cardiac catheterization Family History Mother Alzheimer disease Father Myocardial infarct Daughter No problems noted. Social History Household Members: Family Household Members Other:: daughter and grandaughter. Housing: House Do you presently have visiting nurse or other home services: No Alcohol intake: never Patient Tobacco Use Status: Former Tobacco user Tobacco use type: Cigarette Years Smoked: 50 e-Cigarette/Vaping Use: Never Used Second Hand Smoke Exposure: No Substance Use Type: Marijuana service: No Current occupational status: retired Cognitive needs: No Hearing needs: No Vision needs: No Physical Exam Vital Signs: Last Vital Signs BP 80/50 L 01/08/24 11:46 BMI result Body Mass Index 18.8 Const General: comfortable and no acute distress Orientation/consciousness: patient oriented x3 HEENT Head: Yes normocephalic Mouth: Normal oral and palatal mucosa present Eyes EOM: EOMs intact bilaterally Neck Neck: Yes supple Resp Auscultation: clear to auscultation bilaterally Cardio Jugular venous distension: no JVD Rate: regular rate GI Palpation (GI): Soft to palpation Auscultation: normal bowel sounds General: Yes no CVA tenderness Back/Spine/Pelvis Back: no CVA tenderness Skin General skin exam: no rashes or lesions noted Neuro General: patient oriented x3 and moves all extremities Extrem General: Yes no pedal edema Results Reviewed Nephrology Results: Hgb 12.1 g/dl (14.0-18.0) L 12/31/23 WBC 8.9 X10*3/uL (4.8-10.8) 12/31/23 Plt Count 202 X10*3/uL (160-400) 12/31/23 Sodium 141 mmol/L (135-145) 12/31/23 Potassium 4.7 mmol/L (3.3-5.1) 12/31/23 Chloride 107 mmol/L (96-108) 12/31/23 Carbon Dioxide 21 mmol/L (22-29) L 12/31/23 BUN 33 mg/dL (9-16) H 12/31/23 Creatinine 1.49 mg/dL (0.5-1.4) H 12/31/23 Calcium 10.3 mg/dL (8.4-10.2) H 12/31/23 Phosphorus 3.5 mg/dL (2.7-4.5) 12/31/23 PTH Intact 119.3 pg/mL (8.7-77.1) H 12/31/23 Urine Creatinine 171.64 mg/dL 12/31/23 Protein/Creatinin Ratio 1.08 (<0.2) H 12/31/23 Assessment & Plan Assessment & Plan (1) CKD stage 3b, GFR 30-44 ml/min: Code(s): N18.32 - Chronic kidney disease, stage 3b Category: Medical (2) Hypertension: Code(s): I10 - Essential (primary) hypertension Category: Medical Qualifiers: Hypertension type: primary hypertension Qualified Code(s): I10 - Essential (primary) hypertension Plan Liliam has chronic kidney disease most likely due to vascular disease. He has history of cardiomyopathy as well as peripheral arterial disease. He is on Entresto, spironolactone, furosemide. He does not have any orthostatic symptoms. He has prostatic symptoms and is on tamsulosin. He had Doppler of renal arteries which did not show any renal artery stenosis. He avoids nonsteroidal anti-inflammatories. His renal functions currently are better. I did not make any medication changes today. I answered all his questions and follow-up appointment given. Further management is pending evolving data. Orders: Orders Vitamin D 25-OH Total Today I10 - Essential (primary) hypertension, N18.32 - Chronic kidney disease, stage 3b Calcium Today I10 - Essential (primary) hypertension, N18.32 - Chronic kidney disease, stage 3b Creatinine Today I10 - Essential (primary) hypertension, N18.32 - Chronic kidney disease, stage 3b Blood Urea Nitrogen Today I10 - Essential (primary) hypertension, N18.32 - Chronic kidney disease, stage 3b Electrolytes Today I10 - Essential (primary) hypertension, N18.32 - Chronic kidney disease, stage 3b Coding Level of Care Code Est Pt Level 4 (42041) Diagnoses CKD stage 3b, GFR 30-44 ml/min N18.32 Primary hypertension I10 Hypertension type: primary hypertension
== END 2024-01-08 12:02 | disposition home or self-care (01) ==
PROVIDERS: PCP Internal Medicine; Visit Provider Internal Medicine Nephrology
DX: N18.32 Chronic kidney disease, stage 3b (principal); I10 Essential (primary) hypertension
CPT/HCPCS: 99214

== ENCOUNTER → 2024-01-08 11:39 | Outpatient (BNVA) | payer MEDICARE, MEDICAID, SELFPAY | PROVIDERS: PCP Internal Medicine; Visit Provider Internal Medicine Nephrology | DX: I25.10 Atherosclerotic heart disease of native coronary artery without angina pectoris (principal); I50.9 Heart failure, unspecified; I48.91 Unspecified atrial fibrillation; I73.9 Peripheral vascular disease, unspecified; I12.9 Hypertensive chronic kidney disease with stage 1 through stage 4 chronic kidney disease, or unspecified chronic kidney disease; N18.32 Chronic kidney disease, stage 3b | CPT/HCPCS: 99212 ==

== ENCOUNTER → 2024-01-18 23:59 | Outpatient (BNV) | payer MEDICARE, MEDICAID, SELFPAY ==
--- NOTE | 2024-01-23 09:10 | MHC.OFFVIS ---
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: Remote HF monitoring- [employer] Allergies No Known Allergies Allergy (Verified 01/08/24 11:49) [facility] Medical History (Updated 01/08/24 @ 11:58 by Pete Calabrese MD) Tobacco abuse New onset atrial fibrillation Kidney disease Varicose veins of right lower extremity with inflammation Constipation by delayed colonic transit Pneumonia due to 2019 novel coronavirus Acute respiratory failure COVID-19 Smoking Acute combined systolic and diastolic CHF, NYHA class 3 BPH (benign prostatic hyperplasia) Endocarditis Opiate dependence HCV (hepatitis C virus) COPD (chronic obstructive pulmonary disease) GERD (gastroesophageal reflux disease) Peripheral artery disease Surgical History S/P angiogram of extremity (02/20/23) History of cardiac catheterization Family History Mother Alzheimer disease Father Myocardial infarct Daughter No problems noted. Social History Household Members: Family Household Members Other:: daughter and grandaughter. Housing: House Do you presently have visiting nurse or other home services: No Alcohol intake: never Patient Tobacco Use Status: Former Tobacco user Tobacco use type: Cigarette Years Smoked: 50 e-Cigarette/Vaping Use: Never Used Second Hand Smoke Exposure: No Substance Use Type: Marijuana service: No Current occupational status: retired Cognitive needs: No Hearing needs: No Vision needs: No Office Procedures Cardiac Device Check Cardiac Device Check Details: Date of service- 01/18/2024; based on impedance data and physiological variables, there is no evidence of worsening congestive heart failure. [id number] Cardiac Device Interrogation, cardio physiologic monitor Procedure code (CPT) selection complete Assessment & Plan Assessment & Plan (1) NICM (nonischemic cardiomyopathy): Comment: echo August 2022 ef 34% Code(s): I42.8 - Other cardiomyopathies Category: Medical Plan x Coding Level of Care Code Procedure Only Diagnoses NICM (nonischemic cardiomyopathy) I42.8 CPT Codes Cardiac Device Check - Cardiac Device 15: [id number] Cardiac Device Interrogation, cardio physiologic monitor ([id number])
== END ==
PROVIDERS: PCP Internal Medicine; Visit Provider Internal Medicine
DX: I42.8 Other cardiomyopathies (principal); Z95.810 Presence of automatic (implantable) cardiac defibrillator
CPT/HCPCS: 93297

== ENCOUNTER 2024-02-18 12:52 | Outpatient (AMB) | payer MEDICARE, MEDICAID, SELFPAY ==
--- NOTE | 2024-02-18 13:19 | MHC.OFFVIS ---
Vital Signs 02/18/24 13:31 Height 6 ft 1 in Weight 137 lb BMI 18.1 BP 97/60 Blood Pressure Location Rt brachial Position Sitting Pulse 99 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: Unilateral inguinal hernia Intake Note: Patient referred by pcp Dr. Vasquez for unilateral inguinal hernia. Patient unsure of how long hernia's been present for. Patient c/o: constipation, bulging out. Painful. Wardrobe Technician Required: No Accompanied by: Self / Same As Patient Allergies No Known Allergies Allergy (Verified 02/18/24 13:29) HPI Comments Details: Patient presents with a symptomatic enlarging left inguinal hernia. He has had this indeterminate time but he thinks it has been in the stay here to. Because of progression of symptoms, he presents here for further evaluation. He otherwise is tolerating his diet. He is having regular bowel habits. He does not do any strenuous activities anymore. Chart was reviewed and patient evaluated. Patient has a very significant past medical and surgical history. He has had pacemaker x2 and angioplasty with stent for lower extremity peripheral vascular disease. He is currently on [employer] [facility] Medical History Tobacco abuse New onset atrial fibrillation Kidney disease Varicose veins of right lower extremity with inflammation Constipation by delayed colonic transit Pneumonia due to 2019 novel coronavirus Acute respiratory failure COVID-19 Smoking Acute combined systolic and diastolic CHF, NYHA class 3 BPH (benign prostatic hyperplasia) Endocarditis Opiate dependence HCV (hepatitis C virus) COPD (chronic obstructive pulmonary disease) GERD (gastroesophageal reflux disease) Peripheral artery disease Surgical History S/P angiogram of extremity (02/20/23) History of cardiac catheterization Family History Mother Alzheimer disease Father Myocardial infarct Daughter No problems noted. Social History Household Members: Family Household Members Other:: daughter and grandaughter. Housing: House Do you presently have visiting nurse or other home services: No Alcohol intake: never Patient Tobacco Use Status: Former Tobacco user Tobacco use type: Cigarette Years Smoked: 50 e-Cigarette/Vaping Use: Never Used Second Hand Smoke Exposure: No Substance Use Type: Marijuana service: No Current occupational status: retired Cognitive needs: No Hearing needs: No Vision needs: No Physical Exam Vital Signs: Last Vital Signs Pulse 99 02/18/24 13:31 BP 97/60 02/18/24 13:31 BMI result Body Mass Index 18.1 Const Other: Tall slender patient in no acute distress Chest Other: Chest breath sounds bilaterally, HS 1 in 2 GI Other: Abdomen soft, benign. Right groin negative. Genitalia within normal limits. Very large reducible left inguinal hernia. Assessment & Plan Assessment & Plan (1) Inguinal hernia of left side without obstruction or gangrene: Code(s): K40.90 - Unilateral inguinal hernia, without obstruction or gangrene, not specified as recurrent Category: Surgical Plan Risks, benefits, alternatives of open left inguinal hernia repair with mesh reviewed the patient and included but not limited to bleeding, infection, recurrence, numbness, pain, scarring the patient wished to proceed. All questions answered. Arrangements made for this. He will see Cardiology prior to the procedure as well as to address his Eliquis issue. Coding Level of Care Code New Pt Level 5 (50176) Diagnoses Inguinal hernia of left side without obstruction or gangrene K40.90
[2024-02-18 13:31] VITALS: BP 97/60; PULSE 99; BMI 18.1
== END 2024-02-18 13:42 | disposition home or self-care (01) ==
PROVIDERS: PCP Internal Medicine; Visit Provider Surgery
DX: K40.90 Unilateral inguinal hernia, without obstruction or gangrene, not specified as recurrent (principal)
CPT/HCPCS: 99204

== ENCOUNTER → 2024-02-18 12:52 | Outpatient (BNVA) | payer MEDICARE, MEDICAID, SELFPAY | PROVIDERS: PCP Internal Medicine; Visit Provider Surgery | DX: K40.90 Unilateral inguinal hernia, without obstruction or gangrene, not specified as recurrent (principal) | CPT/HCPCS: 99202 ==

== ENCOUNTER → 2024-02-18 23:59 | Outpatient (BNV) | payer MEDICARE, MEDICAID, SELFPAY ==
--- NOTE | 2024-02-23 14:24 | MHC.OFFVIS ---
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: Remote HF monitoring- [employer] Allergies No Known Allergies Allergy (Verified 02/18/24 13:29) PFSH Medical History Tobacco abuse New onset atrial fibrillation Kidney disease Varicose veins of right lower extremity with inflammation Constipation by delayed colonic transit Pneumonia due to 2019 novel coronavirus Acute respiratory failure COVID-19 Smoking Acute combined systolic and diastolic CHF, NYHA class 3 BPH (benign prostatic hyperplasia) Endocarditis Opiate dependence HCV (hepatitis C virus) COPD (chronic obstructive pulmonary disease) GERD (gastroesophageal reflux disease) Peripheral artery disease Surgical History S/P angiogram of extremity (02/20/23) History of cardiac catheterization Family History Mother Alzheimer disease Father Myocardial infarct Daughter No problems noted. Social History Household Members: Family Household Members Other:: daughter and grandaughter. Housing: House Do you presently have visiting nurse or other home services: No Alcohol intake: never Patient Tobacco Use Status: Former Tobacco user Tobacco use type: Cigarette Years Smoked: 50 e-Cigarette/Vaping Use: Never Used Second Hand Smoke Exposure: No Substance Use Type: Marijuana service: No Current occupational status: retired Cognitive needs: No Hearing needs: No Vision needs: No Office Procedures Cardiac Device Check Cardiac Device Check Details: Date of service- 02/18/2024; based on impedance data and physiological variables, there is no evidence of worsening congestive heart failure. [id number] Cardiac Device Interrogation, cardio physiologic monitor Procedure code (CPT) selection complete Assessment & Plan Assessment & Plan (1) NICM (nonischemic cardiomyopathy): Comment: echo August 2022 ef 34% Code(s): I42.8 - Other cardiomyopathies Category: Medical Plan x Coding Level of Care Code Procedure Only Diagnoses NICM (nonischemic cardiomyopathy) I42.8 CPT Codes Cardiac Device Check - Cardiac Device 15: [id number] Cardiac Device Interrogation, cardio physiologic monitor ([id number])
== END ==
PROVIDERS: PCP Internal Medicine; Visit Provider Internal Medicine
DX: I42.8 Other cardiomyopathies (principal); Z95.810 Presence of automatic (implantable) cardiac defibrillator
CPT/HCPCS: 93297

== ENCOUNTER 2024-02-24 14:26 | Outpatient (AMB) | payer MEDICARE, MEDICAID, SELFPAY ==
[2024-02-24 14:40] VITALS: BP 90/58; PULSE 65; BMI 18.1
--- NOTE | 2024-02-24 14:40 | A.OFFVIS_ITS ---
Vital Signs 02/24/24 14:40 Height 6 ft 1 in Weight 137 lb BMI 18.1 BP 90/58 L Blood Pressure Location Lt brachial Position Sitting Pulse 65 Pulse Source Monitor 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: Preop/6 mth f/up w/ [employer] Allergies No Known Allergies Allergy (Verified 02/18/24 13:29) Medication List - Last Reconciled 02/24/24 by Mustapha Newton MD apixaban (Eliquis) 5 mg PO BID 90 days atorvastatin 40 mg PO DAILY buprenorphine-naloxone 2-0.5 mg (Suboxone) 1 film sublingual DAILY dapagliflozin propanediol (Farxiga) 10 mg PO DAILY fluticasone furoate-vilanterol 100-25 mcg/dose (Breo Ellipta) 1 ea inhalation DAILY furosemide 40 mg PO DAILY 90 days linaclotide (Linzess) 290 mcg PO DAILY metoprolol succinate ER (Toprol XL) 12.5 mg (1/2 x 25 mg) PO DAILY 90 days pantoprazole 40 mg PO DAILY polyethylene glycol 3350 (Miralax) 17 grams PO DAILY sacubitril-valsartan 24-26 mg (Entresto) 1 tab PO BID spironolactone 25 mg PO DAILY 90 days tamsulosin 0.4 mg PO DAILY 30 days HPI Comments Details: Freddy returns for follow-up regarding cardiomyopathy, atrial fibrillation, Bi V ICD. Overall, getting along okay. No clear-cut complaints. No angina. Shortness of breath is at his baseline and not bothersome. Otherwise, no new concerns. [facility] Medical History Tobacco abuse New onset atrial fibrillation Kidney disease Varicose veins of right lower extremity with inflammation Constipation by delayed colonic transit Pneumonia due to 2019 novel coronavirus Acute respiratory failure COVID-19 Smoking Acute combined systolic and diastolic CHF, NYHA class 3 BPH (benign prostatic hyperplasia) Endocarditis Opiate dependence HCV (hepatitis C virus) COPD (chronic obstructive pulmonary disease) GERD (gastroesophageal reflux disease) Peripheral artery disease Surgical History S/P angiogram of extremity (02/20/23) History of cardiac catheterization Family History Mother Alzheimer disease Father Myocardial infarct Daughter No problems noted. Social History Household Members: Family Household Members Other:: daughter and grandaughter. Housing: House Do you presently have visiting nurse or other home services: No Alcohol intake: never Patient Tobacco Use Status: Former Tobacco user Tobacco use type: Cigarette Years Smoked: 50 e-Cigarette/Vaping Use: Never Used Second Hand Smoke Exposure: No Substance Use Type: Marijuana service: No Current occupational status: retired Cognitive needs: No Hearing needs: No Vision needs: No Review of Systems Const Denies weakness ENT Denies dizziness Card Denies chest pain, Denies chest pain with activity, Denies syncope, Denies rapid heart rate, Denies pedal edema, Denies edema, Denies leg edema, Denies lightheadedness, Denies palpitations, Denies dyspnea, Denies dyspnea on exertion and Denies orthopnea Resp Denies cough, Denies dyspnea and Denies dyspnea on exertion GI Denies hematochezia and Denies change in stool character Musc Denies abnormal gait, Denies muscle cramps, Denies muscle weakness, Denies numbness, Denies radiating pain into limb and Denies tingling Neuro Denies abnormal gait, Denies dizziness, Denies syncope, Denies numbness, Denies tingling and Denies weakness Endo Denies palpitations Physical Exam Vital Signs: Last Vital Signs Pulse 65 02/24/24 14:40 BP 90/58 L 02/24/24 14:40 BMI result Body Mass Index 18.1 Const General: comfortable and no acute distress Orientation/consciousness: patient oriented x3 HEENT Other: Unremarkable Head: Yes normal to inspection Neck Neck: Yes normal visual inspection Chest Chest palpation & inspection: normal inspection of the chest Resp Auscultation: clear to auscultation bilaterally Cardio Palpation: normal PMI Heart sounds: S1 normal heart sound present, S2 normal heart sound present, no gallops, no murmurs and no rubs GI Palpation (GI): Soft to palpation Back/Spine/Pelvis Other: unremarkable Skin General skin exam: no rashes or lesions noted Neuro General: patient oriented x3 Extrem General: Yes normal to inspection Psych Mental Status: mental status grossly normal Office Procedures Cardiac Device Check Cardiac Device Check Details: ICD interrogated today. Biventricular device. Battery status 5.7 years. Normal lead parameters. No treated VF/VT episodes. No significant atrial fibrillation. Possibly, sinus tachycardia or atrial tachycardia episodes, only minutes. Adequate ventricular pacing. Appropriate changes were made. Overall, normal device function. [id number] Cardiac Device Check, multi lead implantable defibrillator Procedure code (CPT) selection complete EKG Details: EKG with underlying atrial sensed, ventricular paced rhythm; some atrial pacing; [place]. [id number], Complete Assessment & Plan Assessment & Plan (1) NICM (nonischemic cardiomyopathy): Code(s): I42.8 - Other cardiomyopathies Category: Medical Plan: In the echocardiogram from 11/2019, LVEF was less than 10%. Unclear chronicity. In the most recent echocardiogram from 08/2023, LVEF about 40%. Hence, improved. Findings on cardiac catheterization not able to explain the echo findings. Overall, suspected nonischemic cardiomyopathy. On optimal medications including metoprolol ER, Entresto, spironolactone, Farxiga. Occasional dizziness but tolerating meds. If necessary, we can cut back on meds in the future. Creatinine is stable. Most recently 1.49. (2) Atherosclerotic cardiovascular disease: Code(s): I25.10 - Atherosclerotic heart disease of [place] coronary artery without angina pectoris Category: Medical Plan: In the cardiac catheterization, there was moderate disease in the LAD but nothing obstructive. Otherwise unremarkable. Remains on statins. LDL 53 mg/dL. (3) Paroxysmal atrial fibrillation: Code(s): I48.0 - Paroxysmal atrial fibrillation Category: Medical Plan: He had this in the setting of COVID but nothing definitive after that. Remains on Eliquis. (4) Preoperative cardiovascular examination: Code(s): Z01.810 - Encounter for preprocedural cardiovascular examination Category: Medical Plan: Per patient, he needs to go for inguinal hernia surgery. Overall, intermediate cardiac risk. Coding Level of Care Code Est Pt Level 4 (27366) Diagnoses NICM (nonischemic cardiomyopathy) I42.8 Atherosclerotic cardiovascular disease I25.10 Paroxysmal atrial fibrillation I48.0 Preoperative cardiovascular examination Z01.810 CPT Codes Cardiac Device Check - Cardiac Device 6: [id number] Cardiac Device Check, multi lead implantable defibrillator ([id number]) EKG - CPT: 05532-Xfufrpkujxredyqpn, Complete ([id number])
== END 2024-02-24 15:04 | disposition home or self-care (01) ==
PROVIDERS: PCP Internal Medicine; Visit Provider Internal Medicine
DX: I42.8 Other cardiomyopathies (principal); I25.10 Atherosclerotic heart disease of native coronary artery without angina pectoris; I48.0 Paroxysmal atrial fibrillation; Z01.810 Encounter for preprocedural cardiovascular examination
CPT/HCPCS: 93010; 93284; 99214

== ENCOUNTER → 2024-02-24 14:26 | Outpatient (BNVA) | payer MEDICARE, MEDICAID, SELFPAY | PROVIDERS: PCP Internal Medicine; Visit Provider Internal Medicine | DX: Z01.810 Encounter for preprocedural cardiovascular examination (principal); I48.0 Paroxysmal atrial fibrillation; I42.8 Other cardiomyopathies; I25.10 Atherosclerotic heart disease of native coronary artery without angina pectoris; Z45.018 Encounter for adjustment and management of other part of cardiac pacemaker | CPT/HCPCS: 93005; 99212 ==

== ENCOUNTER 2024-03-05 08:53 | Outpatient (AMB) | payer MEDICARE, MEDICAID, SELFPAY ==
--- NOTE | 2024-03-05 08:56 | A.OFFVISCC_ITS ---
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: MAT Tele Allergies No Known Allergies Allergy (Verified 02/18/24 13:29) [facility] MAT Tele: Details: Patient presents for follow up via telehealth continues to take 2mg suboxone no issues with current dose PFSH Medical History Tobacco abuse New onset atrial fibrillation Kidney disease Varicose veins of right lower extremity with inflammation Constipation by delayed colonic transit Pneumonia due to 2019 novel coronavirus Acute respiratory failure COVID-19 Smoking Acute combined systolic and diastolic CHF, NYHA class 3 BPH (benign prostatic hyperplasia) Endocarditis Opiate dependence HCV (hepatitis C virus) COPD (chronic obstructive pulmonary disease) GERD (gastroesophageal reflux disease) Peripheral artery disease Surgical History S/P angiogram of extremity (02/20/23) History of cardiac catheterization Family History Mother Alzheimer disease Father Myocardial infarct Daughter No problems noted. Social History Household Members: Family Household Members Other:: daughter and grandaughter. Housing: House Do you presently have visiting nurse or other home services: No Alcohol intake: never Patient Tobacco Use Status: Former Tobacco user Tobacco use type: Cigarette Years Smoked: 50 e-Cigarette/Vaping Use: Never Used Second Hand Smoke Exposure: No Substance Use Type: Marijuana service: No Current occupational status: retired Cognitive needs: No Hearing needs: No Vision needs: No Review of Systems Const Reports as per [facility] Telehealth Telehealth Telehealth Platform: Telephone Location of provider rendering services: practice address Location of patient: address on file Patient Identification confirmed using: Name, : Yes Telehealth method: voice only Patient verbally consented to treatment: Yes Patient verbally consented to billing insurance company: Yes Minutes spent on Phone/Video with Pt.: 15 Assessment & Plan Assessment & Plan (1) Opiate dependence: Code(s): F11.20 - Opioid dependence, uncomplicated Category: Medical Qualifiers: Substance use status: in remission Qualified Code(s): F11.21 - Opioid dependence, in remission Plan: * continue suboxone at current dose * follow up 3 months
== END 2024-03-05 09:41 | disposition home or self-care (01) ==
PROVIDERS: PCP Internal Medicine; Visit Provider Nurse Practitioner Psychiatric/Mental Health
DX: F11.21 Opioid dependence, in remission (principal)
CPT/HCPCS: 99442

== ENCOUNTER → 2024-03-05 08:53 | Outpatient (BNVA) | payer MEDICARE, MEDICAID, SELFPAY | PROVIDERS: PCP Internal Medicine; Visit Provider Nurse Practitioner Psychiatric/Mental Health | DX: F11.21 Opioid dependence, in remission (principal) ==

== ENCOUNTER → 2024-03-20 23:59 | Outpatient (BNV) | payer MEDICARE, MEDICAID, SELFPAY ==
--- NOTE | 2024-03-24 13:11 | A.OFFVIS_ITS ---
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: Remote HF monitoring- [employer] Allergies No Known Allergies Allergy (Verified 02/18/24 13:29) [facility] Medical History (Updated 03/19/24 @ 11:03 by Christina Graves RN) IBS (irritable bowel syndrome) Tobacco abuse Kidney disease Varicose veins of right lower extremity with inflammation Constipation by delayed colonic transit New onset atrial fibrillation Pneumonia due to 2019 novel coronavirus Acute respiratory failure COVID-19 Smoking Acute combined systolic and diastolic CHF, NYHA class 3 BPH (benign prostatic hyperplasia) Endocarditis Opiate dependence HCV (hepatitis C virus) COPD (chronic obstructive pulmonary disease) GERD (gastroesophageal reflux disease) Peripheral artery disease Surgical History (Updated 03/19/24 @ 08:50 by Christina Graves RN) H/O colonoscopy S/P arterial stent S/P placement of cardiac pacemaker S/P angiogram of extremity (02/20/23) History of cardiac catheterization Family History Mother Alzheimer disease Father Myocardial infarct Daughter No problems noted. Social History Household Members: Family Household Members Other:: daughter and grandaughter. Housing: House Are you a primary behavioral health care manager to a significant other at home: No Do you presently have visiting nurse or other home services: No Alcohol intake: never Patient Tobacco Use Status: Former Tobacco user Tobacco use type: Cigarette Years Smoked: 50 e-Cigarette/Vaping Use: Never Used Second Hand Smoke Exposure: No Substance Use Type: Marijuana service: No Current occupational status: retired Cognitive needs: No Hearing needs: No Vision needs: No Office Procedures Cardiac Device Check Cardiac Device Check Details: Date of service- 03/20/2024; based on impedance data and physiological variables, there is no evidence of worsening congestive heart failure. [id number] Cardiac Device Interrogation, cardio physiologic monitor Procedure code (CPT) selection complete Assessment & Plan Assessment & Plan (1) Biventricular ICD (implantable cardioverter-defibrillator) in place: Code(s): Z95.810 - Presence of automatic (implantable) cardiac defibrillator Category: Medical (2) NICM (nonischemic cardiomyopathy): Code(s): I42.8 - Other cardiomyopathies Category: Medical Plan x Coding Level of Care Code Procedure Only Diagnoses Biventricular ICD (implantable cardioverter-defibrillator) in place Z95.810 NICM (nonischemic cardiomyopathy) I42.8 CPT Codes Cardiac Device Check - Cardiac Device 15: [id number] Cardiac Device Interrogation, cardio physiologic monitor ([id number])
== END ==
PROVIDERS: PCP Internal Medicine; Visit Provider Internal Medicine
DX: I42.8 Other cardiomyopathies (principal); Z95.810 Presence of automatic (implantable) cardiac defibrillator
CPT/HCPCS: 93297

== ENCOUNTER 2024-04-02 06:03 | Day surgery (SDC) | payer MEDICARE, MEDICAID, SELFPAY ==
[2024-03-19 09:17] VITALS: BMI 19.1
--- NOTE | 2024-03-23 12:44 | P.CONAN_ITS ---
Documented by User: Allison Wallace NP 03/23/24 12:52 HPI - Anesthesia Eval Consult details Narrative: 73yo M for Left OPEN Hernia Inguinal Reducible with mesh, 04/02/24 Suboxone daily Optimized per cardiology [place] [facility] [place] cardiomyopathy, atrial fibrillation, Bi V ICD. Last office visit 02/2024: sob at baseline, nonischemic cardiomyopathy. On optimal medications including metoprolol ER, Entresto, spironolactone, Farxiga. Occasional dizziness but tolerating meds. Eliquis for afib. OK to hold. Optimized per renal. [place] [facility] [place] for CKD d/t vascular disease. Stable at 12/2023 office visit. chronic kidney disease most likely due to vascular disease. He has history of cardiomyopathy as well as peripheral arterial disease. He is on Entresto, spironolactone, furosemide. He does not have any orthostatic symptoms. He has prostatic symptoms and is on tamsulosin. He had Doppler of renal arteries which did not show any renal artery stenosis. He avoids nonsteroidal anti- inflammatories. His renal functions currently are better. I did not make any medication changes today. [facility] Active Problems Active Problems: All Active Problems Preoperative cardiovascular examination (Acute) Hypertension (Acute) CKD stage 3b, GFR 30-44 ml/min (Acute) Low TSH level (Acute) Inguinal hernia of left side without obstruction or gangrene (Acute) Constipation (Acute) Cardiomyopathy (Acute) Biventricular ICD (implantable cardioverter-defibrillator) in place (Acute) Chronic kidney disease, stage 4 (severe) (Acute) Anemia (Acute) Leukocytosis (Acute) Pacemaker failure (Acute) Paroxysmal atrial fibrillation (Acute) Encounter for implantable cardioverter-defibrillator discussion (Acute) Heart failure with reduced ejection fraction (Acute) Atherosclerotic cardiovascular disease (Acute) NICM (nonischemic cardiomyopathy) (Acute) GERD (gastroesophageal reflux disease) (Acute) BPH (benign prostatic hyperplasia) (Acute) Opiate dependence (Acute) COPD (chronic obstructive pulmonary disease) (Acute) Peripheral artery disease (Acute) Past Medical History Medical History IBS (irritable bowel syndrome) Tobacco abuse Kidney disease Varicose veins of right lower extremity with inflammation Constipation by delayed colonic transit New onset atrial fibrillation Pneumonia due to 2019 novel coronavirus Acute respiratory failure COVID-19 Smoking Acute combined systolic and diastolic CHF, NYHA class 3 BPH (benign prostatic hyperplasia) Endocarditis Opiate dependence HCV (hepatitis C virus) COPD (chronic obstructive pulmonary disease) GERD (gastroesophageal reflux disease) Peripheral artery disease Family History Family History Mother Alzheimer disease Father Myocardial infarct Daughter No problems noted. Surgical History Surgical History H/O colonoscopy S/P arterial stent S/P placement of cardiac pacemaker S/P angiogram of extremity (02/20/23) History of cardiac catheterization Social History Social History Household Members: Family Household Members Other:: daughter and grandaughter. Housing: House Are you a primary career technical education teacher to a significant other at home: No Do you presently have visiting nurse or other home services: No Alcohol intake: never Patient Tobacco Use Status: Former Tobacco user Tobacco use type: Cigarette Years Smoked: 50 e-Cigarette/Vaping Use: Never Used Second Hand Smoke Exposure: No Use of substances other than those prescribed or required for medical reasons: Yes Substance Use Type: Marijuana Substance Use Frequency: Daily Have you been hit, kicked, punched, or otherwise hurt by someone within the past year? If so, by whom?: No Are you DNR?: No Advance Directives: No Advance Directives Information Provided: Yes Advance Directives on File: No Recently lost weight without trying: Yes How much weight loss: 14-23 pounds Eating poorly because of decreased appetite: No Nutrition screen score: 4 Poor oral hygiene: Yes (upper full denture and missing teeth on the lower) service: No Current occupational status: retired Cognitive needs: No Hearing needs: No Vision needs: No Meds Allergies Allergy/AdvReac Type Severity Reaction Status Date / Time No Known Allergies Allergy Verified 02/18/24 13:29 Home Medications ?Medication ?Instructions ?Recorded ?Confirmed ?Last Taken ?Type atorvastatin 40 mg tablet 40 mg PO BEDTIME 03/19/24 03/19/24 04/01/24 History tamsulosin 0.4 mg capsule 0.4 mg PO BEDTIME 03/19/24 03/19/24 04/01/24 History Exam Height,Weight and Vital Signs: Height 6 ft 1 in Weight 65.771 kg Pertinent Lab Results Pertinent Lab Results: Laboratory Tests 12/31/23 12:11 WBC 8.9 Hgb 12.1 L Hct 37.5 L Plt Count 202 D Sodium 141 Potassium 4.7 Chloride 107 Carbon Dioxide 21 L BUN 33 H Creatinine 1.49 H Narrative Narrative: EKG 02/2024 underlying atrial sensed, ventricular paced rhythm; some atrial pacing; normal OH and corrected QT Cardiac Device Check 02/2024 Details: ICD interrogated today. Biventricular device. Battery status 5.7 years. Normal lead parameters. No treated VF/VT episodes. No significant atrial fibrillation. Possibly, sinus tachycardia or atrial tachycardia episodes, only minutes. Adequate ventricular pacing. Appropriate changes were made. Overall, normal device function. cardiac catheterization, there was moderate disease in the LAD but nothing obstructive. Otherwise unremarkable. ECHO 08/2023 Conclusions: - Visually estimated LVEF about 40%. - No obvious valvular pathology seen on this study. - The inferior vena cava is dilated and collapses less than 50% with inspiration. Assessment and Plan Assessment Anesthesia Assessment: Chart Reviewed Documented by User: Dottie Oliveros MD 04/02/24 08:24 HPI - Anesthesia Eval Anesthesia Pre-Procedure Meds Is the patient on any of the following meds?: SGLT2 Inhib (Last dose of Farxiga 03/30/24) If yes to any meds - educate patient: Pt education - increased risk of aspiration and/or euvolemic DKA [facility] Past Medical History Medical History IBS (irritable bowel syndrome) Tobacco abuse Kidney disease Varicose veins of right lower extremity with inflammation Constipation by delayed colonic transit New onset atrial fibrillation Pneumonia due to 2019 novel coronavirus Acute respiratory failure COVID-19 Smoking Acute combined systolic and diastolic CHF, NYHA class 3 BPH (benign prostatic hyperplasia) Endocarditis Opiate dependence HCV (hepatitis C virus) COPD (chronic obstructive pulmonary disease) GERD (gastroesophageal reflux disease) Peripheral artery disease Family History Family History Mother Alzheimer disease Father Myocardial infarct Daughter No problems noted. Family history of problems with anesthesia: No Surgical History Surgical History H/O colonoscopy S/P arterial stent S/P placement of cardiac pacemaker S/P angiogram of extremity (02/20/23) History of cardiac catheterization History of Problems with Anesthesia: Yes (Low BP) Social History Social History Household Members: Family Household Members Other:: daughter and grandaughter. Housing: House Are you a primary career technical education teacher to a significant other at home: No Do you presently have visiting nurse or other home services: No Alcohol intake: never Patient Tobacco Use Status: Former Tobacco user Tobacco use type: Cigarette Years Smoked: 50 e-Cigarette/Vaping Use: Never Used Second Hand Smoke Exposure: No Use of substances other than those prescribed or required for medical reasons: Yes Substance Use Type: Marijuana Substance Use Frequency: Daily Have you been hit, kicked, punched, or otherwise hurt by someone within the past year? If so, by whom?: No Are you DNR?: No Advance Directives: No Advance Directives Information Provided: Yes Advance Directives on File: No Recently lost weight without trying: Yes How much weight loss: 14-23 pounds Eating poorly because of decreased appetite: No Nutrition screen score: 4 Poor oral hygiene: Yes (upper full denture and missing teeth on the lower) service: No Current occupational status: retired Cognitive needs: No Hearing needs: No Vision needs: No Meds Allergies Allergy/AdvReac Type Severity Reaction Status Date / Time No Known Allergies Allergy Verified 02/18/24 13:29 Home Medications ?Medication ?Instructions ?Recorded ?Confirmed ?Last Taken ?Type atorvastatin 40 mg tablet 40 mg PO BEDTIME 03/19/24 03/19/24 04/01/24 History tamsulosin 0.4 mg capsule 0.4 mg PO BEDTIME 03/19/24 03/19/24 04/01/24 History Exam Height,Weight and Vital Signs: Height 6 ft 1 in Weight 65.771 kg Vital Signs Temp Pulse Resp BP Pulse Ox O2 Del Method 04/02/24 06:06 98.5 F 101 H 18 114/73 95 Room Air Airway Mallampati Class: I TM Dist: >3cm Neck ROM: Full Loose/Missing/Broken Teeth: Yes (Poor dentition. Only a few teeth. Broken ) Heart: RRR Lungs: CTAB Assessment and Plan Assessment Anesthesia Assessment: Anesthesia Plan Discussed and Chart Reviewed Final Anesthetic Review Family History of Problems with Anesthesia: No History of Problems with Anesthesia: Yes (Low BP) NPO: Yes ASA Class: IV Final Preanesthetic Review: No Changes in Pt Med Stat, Meds/Allgs Chart Reviewed, Consent Obtained/Reviewed and Anes Risks/Benef Reviewed Patient Risk: High Procedure Risk: Low Assessment/Block/Sedation in SS: Assess/Block/Sedation-SS Anesthetic Plan Anesthetic Plan: GA Disposition: Standard PACU
--- NOTE | 2024-04-01 12:10 | P.HPSUR_ITS ---
Pre-Procedural Eval Section A - 24 Hr Update-Section A only Date of Service: 04/02/24 The patient is an INPATIENT: No Changes since office visit: No Cold of Flu in the past 2 weeks, No New Medical Problems, No Changes in Medication and No Patient answered all questions Section B - Complete if H&P > 30 days Chief Complaint: Unilateral inguinal hernia, without obstruction Allergies: Allergies Allergy/AdvReac Type Severity Reaction Status Date / Time No Known Allergies Allergy Verified 02/18/24 13:29 Review of Systems Sugical H&P ROS: Negative: Constitution, Cardiovascular, Respiratory, Neurological, Psychiatric, Hem-Onc, Allergic/Immunologic, Gastrointestinal, Genitourinary, Musculoskeletal, Integumentary, Endocrine and Eye s/Ears/Nose/Throat Exam Surgical H&P Exam: Normal: HEENT, Normal: Heart, Normal: Lungs, Normal: Extremities, Normal: Abdomen, Normal: Skin and Normal: Neurological Plan I have reviewed the history and physical and performed a pertinent physical examination on my patient. No changes have occurred unless specified. Time Spent With Patient Time: Total time managing care of this patient today ____ minutes.
[2024-04-02] VITALS (7 sets, daily range): BP systolic 90–114; BP diastolic 53–78; PULSE 92–109; RESP 12–18; TEMP 36.4–36.9; O2SAT 95–99; BMI 17.7
[2024-04-02] MEDS: Lactated Ringers 1,000 ML 100 ML IVCONT (06:38)
--- NOTE | 2024-04-02 08:42 | P.OP_ITS ---
Operative Note Operative Note Date of Service: 04/02/24 Narrative: Preoperative diagnosis: [] Large symptomatic left inguinal hernia Postop diagnosis: [] The same Procedure [] open left inguinal hernia repair with Bard mesh Surgeon: [] Amandeep Fountain Brush Assembler: [] Artur Type of Anesthesia: [] General Indication for surgery: [] Very large indirect hernia sac extending into the scrotum. No direct hernia demonstrated. Very poor quality tissues Findings: [] Patient brought to the operating room, placed on operative table supine position, after an adequate level of general anesthesia was induced, the left groin was prepped and draped in usual sterile fashion. Using a small left para inguinal incision, this carried down through skin, subcutaneous tissue, Vania's fascia. Patient was very thin. External oblique fibers were opened their direction with care to isolate and preserve the ilioinguinal nerve throughout the procedure. Spermatic cord was identified and retracted from the field. A very large indirect hernia sac was reduced from the scrotum and from the spermatic cord. This was then returned into the abdominal cavity. At the indirect hernia site, a Bard plug was placed in this defect and sutured inferiorly to the inguinal ligament, and superiorly to the transversalis fascia using interrupted 0 Ethibond suture. At completion of procedure, mesh was in good position with no tension or gaps. Wound was irrigated, secured hemostasis, and closed in the following manner; external oblique fascia was closed using running 2-0 Vicryl suture. Vania's fascia was reapproximated using interrupted 3-0 Vicryl suture. Interrupted inverted deep dermal 3-0 Vicryl sutures followed by running subcuticular 4-0 Vicryl sutures were placed. Steri-Strips and sterile dressings were applied. Patient underwent infiltration locally and ilioinguinal block with 0.5% Marcaine/1% lidocaine. Sponge, needle, and instrument counts reported correct. Patient tolerated the procedure well and emerged from anesthesia stable condition. EBL minimal. Ipsilateral testicle was intrascrotal at completion.
[2024-04-02] MEDS: oxyCODONE HCl Immed Release 5 MG TABLET PO (09:20)
== END 2024-04-02 10:20 | disposition home or self-care (01) ==
PROVIDERS: PCP Internal Medicine; Visit Provider Surgery
PROC: (CPT 49505; principal; 2024-04-02 07:30)
DX: K40.90 Unilateral inguinal hernia, without obstruction or gangrene, not specified as recurrent (principal); K59.01 Slow transit constipation; K21.9 Gastro-esophageal reflux disease without esophagitis; I50.41 Acute combined systolic (congestive) and diastolic (congestive) heart failure; I48.0 Paroxysmal atrial fibrillation; I42.8 Other cardiomyopathies; I25.10 Atherosclerotic heart disease of native coronary artery without angina pectoris; Z95.810 Presence of automatic (implantable) cardiac defibrillator; J96.00 Acute respiratory failure, unspecified whether with hypoxia or hypercapnia; J44.9 Chronic obstructive pulmonary disease, unspecified; N40.0 Benign prostatic hyperplasia without lower urinary tract symptoms; N28.9 Disorder of kidney and ureter, unspecified; F11.20 Opioid dependence, uncomplicated; Z79.01 Long term (current) use of anticoagulants; Z79.899 Other long term (current) drug therapy; Z87.891 Personal history of nicotine dependence; Z98.890 Other specified postprocedural states
CPT/HCPCS: 49505; C1781; J0690; J1100; J1596; J2003; J2371; J2405; J2704; J2795; J3010

== ENCOUNTER → 2024-04-02 06:03 | Outpatient (BNV) | payer MEDICARE, MEDICAID, SELFPAY | PROVIDERS: PCP Internal Medicine; Visit Provider Surgery | DX: K40.90 Unilateral inguinal hernia, without obstruction or gangrene, not specified as recurrent (principal) | CPT/HCPCS: 49505 ==

== ENCOUNTER 2024-04-14 12:51 | Outpatient (AMB) | payer MEDICARE, MEDICAID, SELFPAY ==
--- NOTE | 2024-04-14 13:08 | A.OFFVIS_ITS ---
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: 6 mo follow up arterial US 01/07/2024 Intake Note: Patient presents for 6 month follow up arterial US performed on 01/07/24. States he has some pain in the right leg. No other complaints. Accompanied by: Self / Same As Patient Allergies No Known Allergies Allergy (Verified 04/14/24 13:09) HPI HPI 6 mo follow up arterial US 01/07/2024: Details: Complex 73-year-old gentleman presents for follow-up regarding peripheral vascular disease. He at the current time reports he can go about a block. He is for routine surveillance status post right SFA intervention. He reports he can climb a flight of stairs. He is being maintained on Eliquis and a statin. Of note he most recently had undergone hernia repair with Dr. Bernstein and reports generalized discomfort from that. He now presents for follow-up with noninvasive arterial testing. [facility] Medical History Left inguinal hernia (03/23/24) IBS (irritable bowel syndrome) Tobacco abuse Kidney disease Varicose veins of right lower extremity with inflammation Constipation by delayed colonic transit New onset atrial fibrillation Pneumonia due to 2019 novel coronavirus Acute respiratory failure COVID-19 Smoking Acute combined systolic and diastolic CHF, NYHA class 3 BPH (benign prostatic hyperplasia) Endocarditis Opiate dependence HCV (hepatitis C virus) COPD (chronic obstructive pulmonary disease) GERD (gastroesophageal reflux disease) Peripheral artery disease Surgical History H/O colonoscopy S/P arterial stent S/P placement of cardiac pacemaker S/P angiogram of extremity (02/20/23) History of cardiac catheterization Family History Mother Alzheimer disease Father Myocardial infarct Daughter No problems noted. Social History Household Members: Family Household Members Other:: daughter and grandaughter. Housing: House Are you a primary health and social care teacher to a significant other at home: No Do you presently have visiting nurse or other home services: No Alcohol intake: never Patient Tobacco Use Status: Former Tobacco user Tobacco use type: Cigarette Years Smoked: 50 e-Cigarette/Vaping Use: Never Used Second Hand Smoke Exposure: No Substance Use Type: Marijuana service: No Current occupational status: retired Cognitive needs: No Hearing needs: No Vision needs: No Review of Systems Const All systems reviewed & are unremarkable except as noted in HPI and below Reports no additional complaints ENT Reports Normal hearing present Card Denies chest pain, Denies chest pain at rest, Denies chest pain with activity and Denies pedal edema Resp Denies cough GI Denies abdominal pain Musc Denies abnormal gait, Denies muscle cramps and Denies radiating pain into limb Skin/Breast Denies skin ulcer and Denies wounds Neuro Reports Normal hearing present and Denies abnormal gait Psych Reports no additional complaints Physical Exam Const General: cooperative, healthy appearing and comfortable Orientation/consciousness: oriented to person, oriented to place and oriented to time HEENT Head: Yes normal to inspection Neck Neck: Yes normal visual inspection Carotids: no bruits Chest Chest palpation & inspection: normal inspection of the chest Resp Effort & Inspection: normal respiratory effort and able to speak in complete sentences Auscultation: clear to auscultation bilaterally, no crackles, no rales, no rhonchi and no wheezes Cardio Other: Bilateral DP signals Rate: regular rate Rhythm: regular rhythm Heart sounds: S1 normal heart sound present and S2 normal heart sound present Bruits: no carotid bruits Peripheral pulses: Peripheral pulses 2+ throughout GI Inspection: Yes normal to inspection Skin Wounds: no wounds Hair: normal Neuro General: oriented to person, oriented to place and oriented to time Cranial nerves: Yes CN's II-XII intact bilaterally and Yes Normal hearing present Cognition (Neuro): normal cognition Motor exam (neuro): 5/5 motor strength present throughout Extrem Other: venous exam: No significant superficial varicosities or spider telangiectasias, minimal edema General: No clubbing, No cyanosis and No edema Psych Appearance: grossly normal Mental Status: mental status grossly normal Speech and movement: Normal speech and movement present Results Reviewed Results Reviewed: Noninvasive arterial testing dated 01/07/2024 demonstrates JOSE A on the right of point 4 9 and on the left of 0.50 with monophasic waveforms. This is a decrease from prior. Assessment & Plan Assessment & Plan (1) Peripheral artery disease: Comment: 02/20/2023 right SFA plasty and stent, right popliteal plasty with DCB Code(s): I73.9 - Peripheral vascular disease, unspecified Category: Medical Plan: In short the patient is a proximally a year out from his endovascular intervention. It does appear that his ABIs are decreasing and would benefit from endovascular intervention. He is walking distances have decreased. At the current time he is refusing all interventions. I did explain the risks benefits of that and the complications if this should progress including limb loss. He did understand this but at the current time he reports that he has been through a lot especially after this hernia operation. I did book him for a 1 year surveillance ultrasound. Should there be interval issues or his legs should progress I did request that he contact us again. Thank you for allowing us to assist in his care. If there are any questions or concerns please do not hesitate to contact us. Orders: Orders US arterial duplex LE BI 1 Year I73.9 - Peripheral vascular disease, unspecified Coding Level of Care Code Est Pt Level 4 (77356) Complex EM visit Add On G2211 Diagnoses Peripheral artery disease I73.9
== END 2024-04-14 13:49 | disposition home or self-care (01) ==
LOC: HO.HVS 12:52
PROVIDERS: PCP Internal Medicine; Visit Provider Surgery Vascular Surgery
DX: I73.9 Peripheral vascular disease, unspecified (principal)
CPT/HCPCS: 99214; G2211

== ENCOUNTER → 2024-04-14 12:51 | Outpatient (BNVA) | payer MEDICARE, MEDICAID, SELFPAY | PROVIDERS: PCP Internal Medicine; Visit Provider Surgery Vascular Surgery | DX: I73.9 Peripheral vascular disease, unspecified (principal) | CPT/HCPCS: 99212 ==

== ENCOUNTER → 2024-04-20 23:59 | Outpatient (BNV) | payer MEDICARE, MEDICAID, SELFPAY ==
--- NOTE | 2024-04-26 09:56 | MHC.OFFVIS ---
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: Remote HF monitoring- [employer] Allergies No Known Allergies Allergy (Verified 04/14/24 13:09) [facility] Medical History (Updated 04/26/24 @ 09:58 by Mustapha Newton MD) History of left inguinal hernia (04/02/24) Left inguinal hernia (03/23/24) IBS (irritable bowel syndrome) Tobacco abuse Kidney disease Varicose veins of right lower extremity with inflammation Constipation by delayed colonic transit New onset atrial fibrillation Pneumonia due to 2019 novel coronavirus Acute respiratory failure COVID-19 Smoking Acute combined systolic and diastolic CHF, NYHA class 3 BPH (benign prostatic hyperplasia) Endocarditis Opiate dependence HCV (hepatitis C virus) COPD (chronic obstructive pulmonary disease) GERD (gastroesophageal reflux disease) Peripheral artery disease Surgical History H/O colonoscopy S/P arterial stent S/P placement of cardiac pacemaker S/P angiogram of extremity (02/20/23) History of cardiac catheterization Family History Mother Alzheimer disease Father Myocardial infarct Daughter No problems noted. Social History Household Members: Family Household Members Other:: daughter and grandaughter. Housing: House Are you a primary medicare insurance specialist to a significant other at home: No Do you presently have visiting nurse or other home services: No Alcohol intake: never Patient Tobacco Use Status: Former Tobacco user Tobacco use type: Cigarette Years Smoked: 50 e-Cigarette/Vaping Use: Never Used Second Hand Smoke Exposure: No Substance Use Type: Marijuana service: No Current occupational status: retired Cognitive needs: No Hearing needs: No Vision needs: No Office Procedures Cardiac Device Check Cardiac Device Check Details: Date of service- 04/20/2024; based on impedance data and physiological variables, there is no evidence of worsening congestive heart failure. [id number] Cardiac Device Interrogation, cardio physiologic monitor Procedure code (CPT) selection complete Assessment & Plan Assessment & Plan (1) Biventricular ICD (implantable cardioverter-defibrillator) in place: Code(s): Z95.810 - Presence of automatic (implantable) cardiac defibrillator Category: Medical (2) Cardiomyopathy: Code(s): I42.9 - Cardiomyopathy, unspecified Category: Medical Plan x Coding Level of Care Code Procedure Only Diagnoses Biventricular ICD (implantable cardioverter-defibrillator) in place Z95.810 Cardiomyopathy I42.9 CPT Codes Cardiac Device Check - Cardiac Device 15: [id number] Cardiac Device Interrogation, cardio physiologic monitor ([id number])
== END ==
PROVIDERS: PCP Internal Medicine; Visit Provider Internal Medicine
DX: I42.9 Cardiomyopathy, unspecified (principal); Z95.810 Presence of automatic (implantable) cardiac defibrillator
CPT/HCPCS: 93297

== ENCOUNTER → 2024-05-21 23:59 | Outpatient (BNV) | payer MEDICARE, MEDICAID, SELFPAY ==
--- NOTE | 2024-05-31 10:18 | A.OFFVIS_ITS ---
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: Remote HF monitoring- [employer] Allergies No Known Allergies Allergy (Verified 04/14/24 13:09) [facility] Medical History (Updated 04/26/24 @ 09:58 by Mustapha Newton MD) History of left inguinal hernia (04/02/24) Left inguinal hernia (03/23/24) IBS (irritable bowel syndrome) Tobacco abuse Kidney disease Varicose veins of right lower extremity with inflammation Constipation by delayed colonic transit New onset atrial fibrillation Pneumonia due to 2019 novel coronavirus Acute respiratory failure COVID-19 Smoking Acute combined systolic and diastolic CHF, NYHA class 3 BPH (benign prostatic hyperplasia) Endocarditis Opiate dependence HCV (hepatitis C virus) COPD (chronic obstructive pulmonary disease) GERD (gastroesophageal reflux disease) Peripheral artery disease Surgical History H/O colonoscopy S/P arterial stent S/P placement of cardiac pacemaker S/P angiogram of extremity (02/20/23) History of cardiac catheterization Family History Mother Alzheimer disease Father Myocardial infarct Daughter No problems noted. Social History Household Members: Family Household Members Other:: daughter and grandaughter. Housing: House Are you a primary home health aide caregiver to a significant other at home: No Do you presently have visiting nurse or other home services: No Alcohol intake: never Patient Tobacco Use Status: Former Tobacco user Tobacco use type: Cigarette Years Smoked: 50 e-Cigarette/Vaping Use: Never Used Second Hand Smoke Exposure: No Substance Use Type: Marijuana service: No Current occupational status: retired Cognitive needs: No Hearing needs: No Vision needs: No Office Procedures Cardiac Device Check Cardiac Device Check Details: Date of service- 05/21/2024; based on impedance data and physiological variables, there is possible optivol fluid accumulation 13 apr to nov. [id number] Cardiac Device Interrogation, cardio physiologic monitor Procedure code (CPT) selection complete Assessment & Plan Assessment & Plan (1) Biventricular ICD (implantable cardioverter-defibrillator) in place: Code(s): Z95.810 - Presence of automatic (implantable) cardiac defibrillator Category: Medical (2) Cardiomyopathy: Code(s): I42.9 - Cardiomyopathy, unspecified Category: Medical Plan x Coding Level of Care Code Procedure Only Diagnoses Biventricular ICD (implantable cardioverter-defibrillator) in place Z95.810 Cardiomyopathy I42.9 CPT Codes Cardiac Device Check - Cardiac Device 15: [id number] Cardiac Device Interrogation, cardio physiologic monitor ([id number])
== END ==
PROVIDERS: PCP Internal Medicine; Visit Provider Internal Medicine
DX: I42.9 Cardiomyopathy, unspecified (principal); Z95.810 Presence of automatic (implantable) cardiac defibrillator
CPT/HCPCS: 93297

== ENCOUNTER 2024-05-29 08:51 | Outpatient (AMB) | payer MEDICARE, MEDICAID, SELFPAY ==
--- NOTE | 2024-05-29 08:52 | MHC.AM.SUB ---
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: MAT Tele Allergies No Known Allergies Allergy (Verified 04/14/24 13:09) Medication List - Last Reconciled 05/29/24 by Gina Sharma CNP apixaban (Eliquis) 5 mg PO BID 90 days atorvastatin 40 mg PO BEDTIME budesonide-formoterol 160-4.5 mcg/actuation (Symbicort) 2 puffs inhalation Q12H buprenorphine-naloxone 2-0.5 mg (Suboxone) 1 film sublingual DAILY dapagliflozin propanediol (Farxiga) 10 mg PO DAILY furosemide 40 mg PO DAILY 90 days linaclotide (Linzess) 290 mcg PO DAILY metoprolol succinate ER (Toprol XL) 12.5 mg (1/2 x 25 mg) PO DAILY 90 days sacubitril-valsartan 24-26 mg (Entresto) 1 tab PO BID spironolactone 25 mg PO DAILY 90 days tamsulosin 0.4 mg PO BEDTIME HPI HPI MAT Tele: Details: Patient presents for follow up via telehealth Currently prescribed Suboxone 2mg QD Taking 1mg daily --has been consistently taking this dose for the last month No issues with sleep, denies any physical discomfort with decreased dose Has been following up with all providers PCP appt in [place] Review of Systems Const Reports as per HPI and Reports no additional complaints Telehealth Telehealth Telehealth Platform: Telephone Location of provider rendering services: practice address Location of patient: address on file Patient Identification confirmed using: Name, : Yes Telehealth method: voice only Patient verbally consented to treatment: Yes Patient verbally consented to billing insurance company: Yes Minutes spent on Phone/Video with Pt.: 15 Assessment & Plan Assessment & Plan (1) Opiate dependence: Code(s): F11.20 - Opioid dependence, uncomplicated Category: Medical Qualifiers: Substance use status: in remission Qualified Code(s): F11.21 - Opioid dependence, in remission Plan: continue suboxone at current dose patient to call when refill is needed follow up 3 months [facility] Medical History (Updated 04/26/24 @ 09:58 by Mustapha Newton MD) History of left inguinal hernia (04/02/24) Left inguinal hernia (03/23/24) IBS (irritable bowel syndrome) Tobacco abuse Kidney disease Varicose veins of right lower extremity with inflammation Constipation by delayed colonic transit New onset atrial fibrillation Pneumonia due to 2019 novel coronavirus Acute respiratory failure COVID-19 Smoking Acute combined systolic and diastolic CHF, NYHA class 3 BPH (benign prostatic hyperplasia) Endocarditis Opiate dependence HCV (hepatitis C virus) COPD (chronic obstructive pulmonary disease) GERD (gastroesophageal reflux disease) Peripheral artery disease Surgical History H/O colonoscopy S/P arterial stent S/P placement of cardiac pacemaker S/P angiogram of extremity (02/20/23) History of cardiac catheterization Family History Mother Alzheimer disease Father Myocardial infarct Daughter No problems noted. Social History Household Members: Family Household Members Other:: daughter and grandaughter. Housing: House Are you a primary care professional to a significant other at home: No Do you presently have visiting nurse or other home services: No Alcohol intake: never Patient Tobacco Use Status: Former Tobacco user Tobacco use type: Cigarette Years Smoked: 50 e-Cigarette/Vaping Use: Never Used Second Hand Smoke Exposure: No Substance Use Type: Marijuana service: No Current occupational status: retired Cognitive needs: No Hearing needs: No Vision needs: No
== END 2024-05-29 09:03 | disposition home or self-care (01) ==
PROVIDERS: PCP Internal Medicine; Visit Provider Nurse Practitioner Psychiatric/Mental Health
DX: F11.21 Opioid dependence, in remission (principal)
CPT/HCPCS: 98967

== ENCOUNTER → 2024-06-20 23:59 | Outpatient (BNV) | payer MEDICARE, MEDICAID, SELFPAY ==
--- NOTE | 2024-06-28 15:07 | A.OFFVIS_ITS ---
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: Remote HF monitoring- [employer] Allergies No Known Allergies Allergy (Verified 04/14/24 13:09) [facility] Medical History (Updated 04/26/24 @ 09:58 by Mustapha Newton MD) History of left inguinal hernia (04/02/24) Left inguinal hernia (03/23/24) IBS (irritable bowel syndrome) Tobacco abuse Kidney disease Varicose veins of right lower extremity with inflammation Constipation by delayed colonic transit New onset atrial fibrillation Pneumonia due to 2019 novel coronavirus Acute respiratory failure COVID-19 Smoking Acute combined systolic and diastolic CHF, NYHA class 3 BPH (benign prostatic hyperplasia) Endocarditis Opiate dependence HCV (hepatitis C virus) COPD (chronic obstructive pulmonary disease) GERD (gastroesophageal reflux disease) Peripheral artery disease Surgical History H/O colonoscopy S/P arterial stent S/P placement of cardiac pacemaker S/P angiogram of extremity (02/20/23) History of cardiac catheterization Family History Mother Alzheimer disease Father Myocardial infarct Daughter No problems noted. Social History Household Members: Family Household Members Other:: daughter and grandaughter. Housing: House Are you a primary attending ambulatory care to a significant other at home: No Do you presently have visiting nurse or other home services: No Alcohol intake: never Patient Tobacco Use Status: Former Tobacco user Tobacco use type: Cigarette Years Smoked: 50 e-Cigarette/Vaping Use: Never Used Second Hand Smoke Exposure: No Substance Use Type: Marijuana service: No Current occupational status: retired Cognitive needs: No Hearing needs: No Vision needs: No Office Procedures Cardiac Device Check Cardiac Device Check Details: Date of service- 06/20/2024; based on impedance data and physiological variables, there is no evidence of worsening congestive heart failure. [id number] Cardiac Device Interrogation, cardio physiologic monitor Procedure code (CPT) selection complete Assessment & Plan Assessment & Plan (1) Biventricular ICD (implantable cardioverter-defibrillator) in place: Code(s): Z95.810 - Presence of automatic (implantable) cardiac defibrillator Category: Medical (2) Cardiomyopathy: Code(s): I42.9 - Cardiomyopathy, unspecified Category: Medical Plan x Coding Level of Care Code Procedure Only Diagnoses Biventricular ICD (implantable cardioverter-defibrillator) in place Z95.810 Cardiomyopathy I42.9 CPT Codes Cardiac Device Check - Cardiac Device 15: [id number] Cardiac Device Interrogation, cardio physiologic monitor ([id number])
== END ==
PROVIDERS: PCP Internal Medicine; Visit Provider Internal Medicine
DX: I42.9 Cardiomyopathy, unspecified (principal); Z95.810 Presence of automatic (implantable) cardiac defibrillator
CPT/HCPCS: 93297

== ENCOUNTER → 2024-06-20 23:59 | Outpatient (BNV) | payer MEDICARE, MEDICAID, SELFPAY ==
--- NOTE | 2024-06-28 15:08 | A.OFFVIS_ITS ---
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: Remote ICD Check- [employer] Allergies No Known Allergies Allergy (Verified 04/14/24 13:09) [facility] Medical History (Updated 04/26/24 @ 09:58 by Mustapha Newton MD) History of left inguinal hernia (04/02/24) Left inguinal hernia (03/23/24) IBS (irritable bowel syndrome) Tobacco abuse Kidney disease Varicose veins of right lower extremity with inflammation Constipation by delayed colonic transit New onset atrial fibrillation Pneumonia due to 2019 novel coronavirus Acute respiratory failure COVID-19 Smoking Acute combined systolic and diastolic CHF, NYHA class 3 BPH (benign prostatic hyperplasia) Endocarditis Opiate dependence HCV (hepatitis C virus) COPD (chronic obstructive pulmonary disease) GERD (gastroesophageal reflux disease) Peripheral artery disease Surgical History H/O colonoscopy S/P arterial stent S/P placement of cardiac pacemaker S/P angiogram of extremity (02/20/23) History of cardiac catheterization Family History Mother Alzheimer disease Father Myocardial infarct Daughter No problems noted. Social History Household Members: Family Household Members Other:: daughter and grandaughter. Housing: House Are you a primary home care music therapist to a significant other at home: No Do you presently have visiting nurse or other home services: No Alcohol intake: never Patient Tobacco Use Status: Former Tobacco user Tobacco use type: Cigarette Years Smoked: 50 e-Cigarette/Vaping Use: Never Used Second Hand Smoke Exposure: No Substance Use Type: Marijuana service: No Current occupational status: retired Cognitive needs: No Hearing needs: No Vision needs: No Office Procedures Cardiac Device Check Cardiac Device Check Details: Date of service 06/20/2024; Battery life >5 years; normal lead parameters; no treated VT/VF; adequate V pacing; normal ICD function. [id number] Cardiac Interrogation, implant defibrillator w/interim Procedure code (CPT) selection complete Assessment & Plan Assessment & Plan (1) Biventricular ICD (implantable cardioverter-defibrillator) in place: Code(s): Z95.810 - Presence of automatic (implantable) cardiac defibrillator Category: Medical (2) Cardiomyopathy: Code(s): I42.9 - Cardiomyopathy, unspecified Category: Medical Plan x Coding Level of Care Code Procedure Only Diagnoses Biventricular ICD (implantable cardioverter-defibrillator) in place Z95.810 Cardiomyopathy I42.9 CPT Codes Cardiac Device Check - Cardiac Device 13: [id number] Cardiac Interrogation, implant defibrillator w/interim ([id number])
== END ==
PROVIDERS: PCP Internal Medicine; Visit Provider Internal Medicine
DX: I42.9 Cardiomyopathy, unspecified (principal); Z95.810 Presence of automatic (implantable) cardiac defibrillator
CPT/HCPCS: 93295

== ENCOUNTER → 2024-07-20 23:59 | Outpatient (BNV) | payer MEDICARE, MEDICAID, SELFPAY ==
--- NOTE | 2024-07-22 18:58 | A.OFFVIS_ITS ---
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: Remote HF monitoring- [employer] Allergies No Known Allergies Allergy (Verified 04/14/24 13:09) [facility] Medical History (Updated 04/26/24 @ 09:58 by Mustapha Newton MD) History of left inguinal hernia (04/02/24) Left inguinal hernia (03/23/24) IBS (irritable bowel syndrome) Tobacco abuse Kidney disease Varicose veins of right lower extremity with inflammation Constipation by delayed colonic transit New onset atrial fibrillation Pneumonia due to 2019 novel coronavirus Acute respiratory failure COVID-19 Smoking Acute combined systolic and diastolic CHF, NYHA class 3 BPH (benign prostatic hyperplasia) Endocarditis Opiate dependence HCV (hepatitis C virus) COPD (chronic obstructive pulmonary disease) GERD (gastroesophageal reflux disease) Peripheral artery disease Surgical History H/O colonoscopy S/P arterial stent S/P placement of cardiac pacemaker S/P angiogram of extremity (02/20/23) History of cardiac catheterization Family History Mother Alzheimer disease Father Myocardial infarct Daughter No problems noted. Social History Household Members: Family Household Members Other:: daughter and grandaughter. Housing: House Are you a primary patient care manager to a significant other at home: No Do you presently have visiting nurse or other home services: No Alcohol intake: never Patient Tobacco Use Status: Former Tobacco user Tobacco use type: Cigarette Years Smoked: 50 e-Cigarette/Vaping Use: Never Used Second Hand Smoke Exposure: No Substance Use Type: Marijuana service: No Current occupational status: retired Cognitive needs: No Hearing needs: No Vision needs: No Office Procedures Cardiac Device Check Cardiac Device Check Details: Date of service- 07/20/2024; based on impedance data and physiological variables, there is possible optivol fluid [place] from [place] to . [id number] Cardiac Device Interrogation, cardio physiologic monitor Procedure code (CPT) selection complete Assessment & Plan Assessment & Plan (1) Biventricular ICD (implantable cardioverter-defibrillator) in place: Code(s): Z95.810 - Presence of automatic (implantable) cardiac defibrillator Category: Medical (2) NICM (nonischemic cardiomyopathy): Code(s): I42.8 - Other cardiomyopathies Category: Medical Plan x Coding Level of Care Code Procedure Only Diagnoses Biventricular ICD (implantable cardioverter-defibrillator) in place Z95.810 NICM (nonischemic cardiomyopathy) I42.8 CPT Codes Cardiac Device Check - Cardiac Device 15: [id number] Cardiac Device Interrogation, cardio physiologic monitor ([id number])
== END ==
PROVIDERS: PCP Internal Medicine; Visit Provider Internal Medicine
DX: I42.8 Other cardiomyopathies (principal); Z95.810 Presence of automatic (implantable) cardiac defibrillator
CPT/HCPCS: 93297

== ENCOUNTER 2024-08-18 13:18 | Outpatient (AMB) | payer MEDICARE, MEDICAID, SELFPAY ==
[2024-08-18 13:27] VITALS: BP 98/60; PULSE 88; BMI 18.3
--- NOTE | 2024-08-18 13:27 | MHC.OFFVIS ---
Vital Signs 08/18/24 13:27 Height 6 ft 1 in Weight 138 lb 14.259 oz BMI 18.3 BP 98/60 Blood Pressure Location Lt brachial Position Sitting Pulse 88 Pulse Source Pulse Oximeter 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: 6 mth f/up Allergies No Known Allergies Allergy (Verified 04/14/24 13:09) Medication List - Last Reconciled 08/18/24 by Mustapha Newton MD apixaban (Eliquis) 5 mg PO BID 90 days atorvastatin 40 mg PO BEDTIME budesonide-formoterol 160-4.5 mcg/actuation (Symbicort) 2 puffs inhalation Q12H buprenorphine-naloxone 2-0.5 mg (Suboxone) 1 film sublingual DAILY dapagliflozin propanediol (Farxiga) 10 mg PO DAILY furosemide 40 mg PO DAILY 90 days linaclotide (Linzess) 290 mcg PO DAILY metoprolol succinate ER (Toprol XL) 12.5 mg (1/2 x 25 mg) PO DAILY 90 days sacubitril-valsartan 24-26 mg (Entresto) 1 tab PO BID spironolactone 25 mg PO DAILY tamsulosin 0.4 mg PO BEDTIME HPI Comments Details: Freddy returns for follow-up regarding cardiomyopathy, atrial fibrillation, Bi V ICD. Overall, he states he feels very well. No clear-cut complaints like angina. Shortness of breath is at baseline. Seems compliant with all his medications. Otherwise, getting along okay. [facility] Medical History (Updated 04/26/24 @ 09:58 by Mustapha Newton MD) History of left inguinal hernia (04/02/24) Left inguinal hernia (03/23/24) IBS (irritable bowel syndrome) Tobacco abuse Kidney disease Varicose veins of right lower extremity with inflammation Constipation by delayed colonic transit New onset atrial fibrillation Pneumonia due to 2019 novel coronavirus Acute respiratory failure COVID-19 Smoking Acute combined systolic and diastolic CHF, NYHA class 3 BPH (benign prostatic hyperplasia) Endocarditis Opiate dependence HCV (hepatitis C virus) COPD (chronic obstructive pulmonary disease) GERD (gastroesophageal reflux disease) Peripheral artery disease Surgical History H/O colonoscopy S/P arterial stent S/P placement of cardiac pacemaker S/P angiogram of extremity (02/20/23) History of cardiac catheterization Family History Mother Alzheimer disease Father Myocardial infarct Daughter No problems noted. Social History Household Members: Family Household Members Other:: daughter and grandaughter. Housing: House Are you a primary account executive healthcare to a significant other at home: No Do you presently have visiting nurse or other home services: No Alcohol intake: never Patient Tobacco Use Status: Former Tobacco user Tobacco use type: Cigarette Years Smoked: 50 e-Cigarette/Vaping Use: Never Used Second Hand Smoke Exposure: No Substance Use Type: Marijuana service: No Current occupational status: retired Cognitive needs: No Hearing needs: No Vision needs: No Review of Systems Const Denies weakness ENT Denies dizziness Card Denies chest pain, Denies chest pain with activity, Denies syncope, Denies rapid heart rate, Denies pedal edema, Denies edema, Denies leg edema, Denies lightheadedness, Denies palpitations, Denies dyspnea, Denies dyspnea on exertion and Denies orthopnea Resp Denies cough, Denies dyspnea and Denies dyspnea on exertion GI Denies hematochezia and Denies change in stool character Musc Denies abnormal gait, Denies muscle cramps, Denies muscle weakness, Denies numbness, Denies radiating pain into limb and Denies tingling Neuro Denies abnormal gait, Denies dizziness, Denies syncope, Denies numbness, Denies tingling and Denies weakness Endo Denies palpitations Physical Exam Vital Signs: Last Vital Signs Pulse 88 08/18/24 13:27 BP 98/60 08/18/24 13:27 BMI result Body Mass Index 18.3 Const General: comfortable and no acute distress Orientation/consciousness: patient oriented x3 HEENT Other: Unremarkable Head: Yes normal to inspection Neck Neck: Yes normal visual inspection Chest Chest palpation & inspection: normal inspection of the chest Resp Auscultation: clear to auscultation bilaterally Cardio Palpation: normal PMI Heart sounds: S1 normal heart sound present, S2 normal heart sound present, no gallops, no murmurs and no rubs GI Palpation (GI): Soft to palpation Back/Spine/Pelvis Other: unremarkable Skin General skin exam: no rashes or lesions noted Neuro General: patient oriented x3 Extrem General: Yes normal to inspection Psych Mental Status: mental status grossly normal Office Procedures EKG Details: EKG with underlying sinus rhythm at 84/Min; possible PVCs/fusion beats versus PACs. Normal MS and corrected QT. Rightward axis. Nonspecific inferior changes. [id number], Complete Assessment & Plan Assessment & Plan (1) NICM (nonischemic cardiomyopathy): Code(s): I42.8 - Other cardiomyopathies Category: Medical Plan: In the echocardiogram from 2019, LVEF <10%. Unclear chronicity. In the last echocardiogram from 08/2023, LVEF about 40%. Hence, improved. Findings on cardiac catheterization not able to explain the echo findings. Overall, suspected nonischemic cardiomyopathy. On optimal medications including metoprolol ER, Entresto, spironolactone, Farxiga. Recheck kidney function. Labs ordered. (2) Atherosclerotic cardiovascular disease: Code(s): I25.10 - Atherosclerotic heart disease of [place] coronary artery without angina pectoris Category: Medical Plan: In the cardiac catheterization, there was moderate disease in the LAD but nothing obstructive. Otherwise unremarkable. Remains on statins. LDL 53 mg/dL. (3) Paroxysmal atrial fibrillation: Code(s): I48.0 - Paroxysmal atrial fibrillation Category: Medical Plan: Notice during COVID but stable after that. On anticoagulation. Orders: Orders B Type Natriuretic Peptide Today I42.9 - Cardiomyopathy, unspecified, I50.9 - Heart failure, unspecified Basic Metabolic Panel Today I42.9 - Cardiomyopathy, unspecified, I50.9 - Heart failure, unspecified Coding Level of Care Code Est Pt Level 4 (72159) Diagnoses NICM (nonischemic cardiomyopathy) I42.8 Atherosclerotic cardiovascular disease I25.10 Paroxysmal atrial fibrillation I48.0 CPT Codes EKG - CPT: 01680-Gaowqcopmtzunzupv, Complete ([id number])
--- OUTSIDE RECORDS SUMMARY | 2024-08-18 16:38 | XMS_ITS | Clinical Summary ---
Author Organization [facility] Facility Address [address] [place] [id number] Care Team Providers Care Imaging Science Professor Name Role Phone Unavailable Primary Care Provider Unavailabl e Allergies No known active allergies Medications tamsulosin (FLOMAX) 0.4 MG 24 hr capsule 3 Active Stimulant Laxative 8.6-50 MG per tablet TAKE 2 TABLETS BY MOUTH EVERY NIGHT AT BEDTIME FOR CONSIPATION 3 Active Entresto 24-26 MG per tablet Take 1 tablet by mouth 2 (two) times a day 3 Active metoprolol succinate XL (TOPROL XL) 25 MG 24 hr tablet Take 12.5 mg by mouth 1 (one) time each day 3 Active Linzess 290 MCG capsule Take 1 capsule by mouth 1 (one) time each day 3 Active furosemide (LASIX) 40 MG tablet Take 40 mg by mouth 1 (one) time each day 3 Active Buprenorphine HCl-Naloxone HCl (SUBOXONE) 8-2 MG per SL film DISSOLVE 1 FILM UNDER TONGUE 2 TIMES A DAY 3 Active atorvastatin (LIPITOR) 40 MG tablet Take 40 mg by mouth 1 (one) time each day 3 Active Eliquis 5 MG tablet Take 5 mg by mouth 2 (two) times a day 3 Active amiodarone (PACERONE) 200 MG tablet Take 200 mg by mouth 1 (one) time each day 3 Active furosemide (LASIX) 20 MG tablet Take 20 mg by mouth in the morning and 20 mg in the evening. Active Active Problems Problem Noted Date Diagnosed Date Stage 3b chronic kidney disease 01/24/2023 Gastroesophageal reflux disease 12/17/2022 Chronic obstructive pulmonary disease 12/17/2022 Chronic kidney disease, stage 4 (severe) 023 Renal osteodystrophy 12/17/2022 Immunizations Name Administration Dates Next Due Tdap 02/02/2014 Family History Relation Status Comments Father Mother Social History Tobacco Use Types Packs/Day Years Used Date Smoking Tobacco: Never Smokeless Tobacco: Never Tobacco Cessation:Counseling Given: Not Answered Alcohol Use Standard Drinks/Week Comments Never 0 (1 standard drink = 0.6 oz pur e alcohol) Sex and Gender Information Value Date Recorded Sex Assigned at Not on file Legal Sex Male 9:30 AM EDT Gender Identity Not on file Sexual Orientation Not on file Last Filed Vital Signs Vital Sign Reading Time Taken Comments Blood Pressure 110/62 12/17/2022 3:11 PM EDT Pulse 54 12/17/2022 3:11 PM EDT Temperature - - Respiratory Rate - - Oxygen Saturation 99% 12/17/2022 3:11 PM EDT Inhaled Oxygen Concentration - - Weight 70.9 kg (156 lb 3.2 oz) 12/17/2022 3:11 P M EDT Height - - Body Mass Index - - Plan of Treatment Health Maintenance Due Date Last Done Comments Pneumococcal Vaccine: 65+ Ye ars (1 of 2 - PCV) 11/06/1956 Colorectal Cancer Screening: Annual FOBT 1998 Colorectal Cancer Screening: Colonoscopy 1998 Colorectal Cancer Screening: Sigmoidoscopy 1998 Influenza Vaccine (#1) 2024 Hepatitis B Vaccine Aged Out No longe r eligible based on patient's age to complete this topic [place]
== END 2024-08-18 13:54 | disposition home or self-care (01) ==
PROVIDERS: PCP Internal Medicine; Visit Provider Internal Medicine
DX: I42.8 Other cardiomyopathies (principal); I25.10 Atherosclerotic heart disease of native coronary artery without angina pectoris; I48.0 Paroxysmal atrial fibrillation
CPT/HCPCS: 93010; 99214

== ENCOUNTER → 2024-08-18 13:18 | Outpatient (BNVA) | payer MEDICARE, MEDICAID, SELFPAY | PROVIDERS: PCP Internal Medicine; Visit Provider Internal Medicine | DX: I42.8 Other cardiomyopathies (principal); I25.10 Atherosclerotic heart disease of native coronary artery without angina pectoris; I48.0 Paroxysmal atrial fibrillation; R94.31 Abnormal electrocardiogram [ECG] [EKG] | CPT/HCPCS: 93005; 99212 ==

== ENCOUNTER → 2024-08-20 23:59 | Outpatient (BNV) | payer MEDICARE, MEDICAID, SELFPAY ==
--- NOTE | 2024-08-25 19:15 | A.OFFVIS_ITS ---
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: Remote HF monitoring- [employer] Allergies No Known Allergies Allergy (Verified 04/14/24 13:09) [facility] Medical History (Updated 04/26/24 @ 09:58 by Mustapha Newton MD) History of left inguinal hernia (04/02/24) Left inguinal hernia (03/23/24) IBS (irritable bowel syndrome) Tobacco abuse Kidney disease Varicose veins of right lower extremity with inflammation Constipation by delayed colonic transit New onset atrial fibrillation Pneumonia due to 2019 novel coronavirus Acute respiratory failure COVID-19 Smoking Acute combined systolic and diastolic CHF, NYHA class 3 BPH (benign prostatic hyperplasia) Endocarditis Opiate dependence HCV (hepatitis C virus) COPD (chronic obstructive pulmonary disease) GERD (gastroesophageal reflux disease) Peripheral artery disease Surgical History H/O colonoscopy S/P arterial stent S/P placement of cardiac pacemaker S/P angiogram of extremity (02/20/23) History of cardiac catheterization Family History Mother Alzheimer disease Father Myocardial infarct Daughter No problems noted. Social History Household Members: Family Household Members Other:: daughter and grandaughter. Housing: House Are you a primary special needs child caregiver to a significant other at home: No Do you presently have visiting nurse or other home services: No Alcohol intake: never Patient Tobacco Use Status: Former Tobacco user Tobacco use type: Cigarette Years Smoked: 50 e-Cigarette/Vaping Use: Never Used Second Hand Smoke Exposure: No Substance Use Type: Marijuana service: No Current occupational status: retired Cognitive needs: No Hearing needs: No Vision needs: No Office Procedures Cardiac Device Check Cardiac Device Check Details: Date of service- 08/20/2024; based on impedance data and physiological variables, there is possible optivol fluid accumulation from 13 jul 2024 to ongoing. [id number] Cardiac Device Interrogation, cardio physiologic monitor Procedure code (CPT) selection complete Assessment & Plan Assessment & Plan (1) Biventricular ICD (implantable cardioverter-defibrillator) in place: Code(s): Z95.810 - Presence of automatic (implantable) cardiac defibrillator Category: Medical (2) Cardiomyopathy: Code(s): I42.9 - Cardiomyopathy, unspecified Category: Medical Plan x Coding Level of Care Code Procedure Only Diagnoses Biventricular ICD (implantable cardioverter-defibrillator) in place Z95.810 Cardiomyopathy I42.9 CPT Codes Cardiac Device Check - Cardiac Device 15: [id number] Cardiac Device Interrogation, cardio physiologic monitor ([id number])
== END ==
PROVIDERS: PCP Internal Medicine; Visit Provider Internal Medicine
DX: I42.9 Cardiomyopathy, unspecified (principal); Z95.810 Presence of automatic (implantable) cardiac defibrillator
CPT/HCPCS: 93297

== ENCOUNTER 2024-08-28 08:50 | Outpatient (AMB) | payer MEDICARE, MEDICAID, SELFPAY ==
--- NOTE | 2024-08-28 08:51 | A.OFFVISCC_ITS ---
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: MAT Tele Allergies No Known Allergies Allergy (Verified 04/14/24 13:09) HPI HPI MAT Tele: Details: Patient presents for follow up via telehealth Currently prescribed Suboxone 2mg daily, but mostly taking 1mg daily Tolerating this dose, did reduce to 1/4 film (0.5mg) but went back to 1mg New insurance requires brand name films PCP appt rescheduled to October Has been following up with cardiology No concerns at this time Review of Systems Const Reports as per HPI and Reports no additional complaints Telehealth Telehealth Telehealth Platform: Telephone Location of provider rendering services: practice address Location of patient: address on file Patient Identification confirmed using: Name, : Yes Telehealth method: voice only Patient verbally consented to treatment: Yes Patient verbally consented to billing insurance company: Yes Minutes spent on Phone/Video with Pt.: 14 [facility] Medical History (Updated 04/26/24 @ 09:58 by Mustapha Newton MD) History of left inguinal hernia (04/02/24) Left inguinal hernia (03/23/24) IBS (irritable bowel syndrome) Tobacco abuse Kidney disease Varicose veins of right lower extremity with inflammation Constipation by delayed colonic transit New onset atrial fibrillation Pneumonia due to 2019 novel coronavirus Acute respiratory failure COVID-19 Smoking Acute combined systolic and diastolic CHF, NYHA class 3 BPH (benign prostatic hyperplasia) Endocarditis Opiate dependence HCV (hepatitis C virus) COPD (chronic obstructive pulmonary disease) GERD (gastroesophageal reflux disease) Peripheral artery disease Surgical History H/O colonoscopy S/P arterial stent S/P placement of cardiac pacemaker S/P angiogram of extremity (02/20/23) History of cardiac catheterization Family History Mother Alzheimer disease Father Myocardial infarct Daughter No problems noted. Social History Household Members: Family Household Members Other:: daughter and grandaughter. Housing: House Are you a primary ocular care technician to a significant other at home: No Do you presently have visiting nurse or other home services: No Alcohol intake: never Patient Tobacco Use Status: Former Tobacco user Tobacco use type: Cigarette Years Smoked: 50 e-Cigarette/Vaping Use: Never Used Second Hand Smoke Exposure: No Substance Use Type: Marijuana service: No Current occupational status: retired Cognitive needs: No Hearing needs: No Vision needs: No Assessment & Plan Assessment & Plan (1) Opiate dependence: Code(s): F11.20 - Opioid dependence, uncomplicated Category: Medical Qualifiers: Substance use status: in remission Qualified Code(s): F11.21 - Opioid dependence, in remission Plan: * continue suboxone at current dose * follow up 3 months Medications: Changed From buprenorphine-naloxone 2-0.5 mg (Suboxone) 1 film sublingual DAILY 30 ea 2RF To Suboxone 2-0.5 mg (buprenorphine-naloxone) 1 film sublingual DAILY 30 ea 2RF NS
--- OUTSIDE RECORDS SUMMARY | 2024-08-28 09:09 | XMS_ITS | Clinical Summary ---
Author Organization [facility] Facility Address [address] [place] [id number] Care Team Providers Care Groundsman Name Role Phone Unavailable Primary Care Provider [...]
== END 2024-08-28 09:09 | disposition home or self-care (01) ==
LOC: HO.HCC 08:50
PROVIDERS: PCP Internal Medicine; Visit Provider Nurse Practitioner Psychiatric/Mental Health
DX: F11.21 Opioid dependence, in remission (principal)
CPT/HCPCS: 99213

== ENCOUNTER → 2024-08-28 08:50 | Outpatient (BNVA) | payer MEDICARE, MEDICAID, SELFPAY | PROVIDERS: PCP Internal Medicine; Visit Provider Nurse Practitioner Psychiatric/Mental Health | DX: F11.21 Opioid dependence, in remission (principal) ==

== ENCOUNTER → 2024-09-20 23:59 | Outpatient (BNV) | payer MEDICARE, MEDICAID, SELFPAY ==
--- NOTE | 2024-09-22 14:20 | A.OFFVIS_ITS ---
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: Remote ICD Check- [employer] Allergies No Known Allergies Allergy (Verified 04/14/24 13:09) [facility] Medical History (Updated 04/26/24 @ 09:58 by Mustapha Newton MD) History of left inguinal hernia (04/02/24) Left inguinal hernia (03/23/24) IBS (irritable bowel syndrome) Tobacco abuse Kidney disease Varicose veins of right lower extremity with inflammation Constipation by delayed colonic transit New onset atrial fibrillation Pneumonia due to 2019 novel coronavirus Acute respiratory failure COVID-19 Smoking Acute combined systolic and diastolic CHF, NYHA class 3 BPH (benign prostatic hyperplasia) Endocarditis Opiate dependence HCV (hepatitis C virus) COPD (chronic obstructive pulmonary disease) GERD (gastroesophageal reflux disease) Peripheral artery disease Surgical History H/O colonoscopy S/P arterial stent S/P placement of cardiac pacemaker S/P angiogram of extremity (02/20/23) History of cardiac catheterization Family History Mother Alzheimer disease Father Myocardial infarct Daughter No problems noted. Social History Household Members: Family Household Members Other:: daughter and grandaughter. Housing: House Are you a primary healthcare network pricing consultant to a significant other at home: No Do you presently have visiting nurse or other home services: No Alcohol intake: never Patient Tobacco Use Status: Former Tobacco user Tobacco use type: Cigarette Years Smoked: 50 e-Cigarette/Vaping Use: Never Used Second Hand Smoke Exposure: No Substance Use Type: Marijuana service: No Current occupational status: retired Cognitive needs: No Hearing needs: No Vision needs: No Office Procedures Cardiac Device Check Cardiac Device Check Details: Date of service 09/20/2024; Battery life >5 years; normal lead parameters; no treated VT/VF; effective BLOW MOLDER 86%; normal ICD function. [id number] Cardiac Interrogation, implant defibrillator w/interim Procedure code (CPT) selection complete Assessment & Plan Assessment & Plan (1) Biventricular ICD (implantable cardioverter-defibrillator) in place: Code(s): Z95.810 - Presence of automatic (implantable) cardiac defibrillator Category: Medical (2) Cardiomyopathy: Code(s): I42.9 - Cardiomyopathy, unspecified Category: Medical Plan x Coding Level of Care Code Procedure Only Diagnoses Biventricular ICD (implantable cardioverter-defibrillator) in place Z95.810 Cardiomyopathy I42.9 CPT Codes Cardiac Device Check - Cardiac Device 13: [id number] Cardiac Interrogation, implant defibrillator w/interim ([id number])
== END ==
PROVIDERS: PCP Internal Medicine; Visit Provider Internal Medicine
DX: I42.9 Cardiomyopathy, unspecified (principal); Z95.810 Presence of automatic (implantable) cardiac defibrillator
CPT/HCPCS: 93295

== ENCOUNTER → 2024-09-20 23:59 | Outpatient (BNV) | payer MEDICARE, MEDICAID, SELFPAY ==
--- NOTE | 2024-09-22 14:18 | MHC.OFFVIS ---
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: Remote HF monitoring- [employer] Allergies No Known Allergies Allergy (Verified 04/14/24 13:09) [facility] Medical History (Updated 04/26/24 @ 09:58 by Mustapha Newton MD) History of left inguinal hernia (04/02/24) Left inguinal hernia (03/23/24) IBS (irritable bowel syndrome) Tobacco abuse Kidney disease Varicose veins of right lower extremity with inflammation Constipation by delayed colonic transit New onset atrial fibrillation Pneumonia due to 2019 novel coronavirus Acute respiratory failure COVID-19 Smoking Acute combined systolic and diastolic CHF, NYHA class 3 BPH (benign prostatic hyperplasia) Endocarditis Opiate dependence HCV (hepatitis C virus) COPD (chronic obstructive pulmonary disease) GERD (gastroesophageal reflux disease) Peripheral artery disease Surgical History H/O colonoscopy S/P arterial stent S/P placement of cardiac pacemaker S/P angiogram of extremity (02/20/23) History of cardiac catheterization Family History Mother Alzheimer disease Father Myocardial infarct Daughter No problems noted. Social History Household Members: Family Household Members Other:: daughter and grandaughter. Housing: House Are you a primary critical care unit nurse to a significant other at home: No Do you presently have visiting nurse or other home services: No Alcohol intake: never Patient Tobacco Use Status: Former Tobacco user Tobacco use type: Cigarette Years Smoked: 50 e-Cigarette/Vaping Use: Never Used Second Hand Smoke Exposure: No Substance Use Type: Marijuana service: No Current occupational status: retired Cognitive needs: No Hearing needs: No Vision needs: No Office Procedures Cardiac Device Check Cardiac Device Check Details: Date of service- 09/20/2024; based on impedance data and physiological variables, there is possible OptiVol fluid accumulation from 13 of July to ongoing. [id number] Cardiac Device Interrogation, cardio physiologic monitor Procedure code (CPT) selection complete Assessment & Plan Assessment & Plan (1) Biventricular ICD (implantable cardioverter-defibrillator) in place: Code(s): Z95.810 - Presence of automatic (implantable) cardiac defibrillator Category: Medical (2) NICM (nonischemic cardiomyopathy): Code(s): I42.8 - Other cardiomyopathies Category: Medical (3) Cardiomyopathy: Code(s): I42.9 - Cardiomyopathy, unspecified Category: Medical Plan x Coding Level of Care Code Procedure Only Diagnoses Biventricular ICD (implantable cardioverter-defibrillator) in place Z95.810 NICM (nonischemic cardiomyopathy) I42.8 Cardiomyopathy I42.9 CPT Codes Cardiac Device Check - Cardiac Device 15: [id number] Cardiac Device Interrogation, cardio physiologic monitor ([id number])
== END ==
PROVIDERS: PCP Internal Medicine; Visit Provider Internal Medicine
DX: I42.8 Other cardiomyopathies (principal); Z95.810 Presence of automatic (implantable) cardiac defibrillator
CPT/HCPCS: 93297

== ENCOUNTER → 2024-10-21 23:59 | Outpatient (BNV) | payer MEDICARE, MEDICAID, SELFPAY ==
--- NOTE | 2024-10-26 14:27 | A.OFFVIS_ITS ---
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: Remote HF monitoring- [employer] Allergies No Known Allergies Allergy (Verified 04/14/24 13:09) [facility]CLUDES [facility] Medical History (Updated 10/26/24 @ 14:28 by Mustapha Newton MD) History of left inguinal hernia (04/02/24) Left inguinal hernia (03/23/24) IBS (irritable bowel syndrome) Tobacco abuse Kidney disease Varicose veins of right lower extremity with inflammation Constipation by delayed colonic transit New onset atrial fibrillation Pneumonia due to 2019 novel coronavirus Acute respiratory failure COVID-19 Smoking Acute combined systolic and diastolic CHF, NYHA class 3 BPH (benign prostatic hyperplasia) Endocarditis Opiate dependence HCV (hepatitis C virus) COPD (chronic obstructive pulmonary disease) GERD (gastroesophageal reflux disease) Peripheral artery disease Surgical History H/O colonoscopy S/P arterial stent S/P placement of cardiac pacemaker S/P angiogram of extremity (02/20/23) History of cardiac catheterization Family History Mother Alzheimer disease Father Myocardial infarct Daughter No problems noted. Social History Household Members: Family Household Members Other:: daughter and grandaughter. Housing: House Are you a primary senior care assistant to a significant other at home: No Do you presently have visiting nurse or other home services: No Alcohol intake: never Patient Tobacco Use Status: Former Tobacco user Tobacco use type: Cigarette Years Smoked: 50 e-Cigarette/Vaping Use: Never Used Second Hand Smoke Exposure: No Substance Use Type: Marijuana service: No Current occupational status: retired Cognitive needs: No Hearing needs: No Vision needs: No Office Procedures Cardiac Device Check Cardiac Device Check Details: Date of service- 10/21/2024; based on impedance data and physiological variables, there is possible OptiVol fluid accumulation from 12 December 2019 10/17/2019 02 October 2024. [employer] pacing is effective < 90% of the time. [id number] Cardiac Device Interrogation, cardio physiologic monitor Procedure code (CPT) selection complete Assessment & Plan Assessment & Plan (1) Biventricular ICD (implantable cardioverter-defibrillator) in place: Code(s): Z95.810 - Presence of automatic (implantable) cardiac defibrillator Category: Medical (2) Cardiomyopathy: Code(s): I42.9 - Cardiomyopathy, unspecified Category: Medical (3) Heart failure with reduced ejection fraction: Code(s): I50.20 - Unspecified systolic (congestive) heart failure Category: Medical Plan x Coding Level of Care Code Procedure Only Diagnoses Biventricular ICD (implantable cardioverter-defibrillator) in place Z95.810 Cardiomyopathy I42.9 Heart failure with reduced ejection fraction I50.20 CPT Codes Cardiac Device Check - Cardiac Device 15: [id number] Cardiac Device Interrogation, cardio physiologic monitor ([id number])
== END ==
PROVIDERS: PCP Internal Medicine; Visit Provider Internal Medicine Cardiovascular Disease
DX: I42.9 Cardiomyopathy, unspecified (principal); Z95.810 Presence of automatic (implantable) cardiac defibrillator; I50.20 Unspecified systolic (congestive) heart failure
CPT/HCPCS: 93297

== ENCOUNTER → 2024-11-13 12:53 | Outpatient (REF) | payer MEDICARE, MEDICAID, SELFPAY ==
--- NOTE | 2024-11-13 12:57 | CA_ITS ---
Transthoracic Echocardiogram Patient (Last, First, Middle): Freddy Alanis, Gender: Male Date of : 1950 Age: 74 Procedure Date: 11/13/2024 Procedure Type: Transthoracic Echocardiogram Location: OP Height: 185.42 cm Weight: 68.04 kg BSA: 1.90 m2 Heart Rate: 62 bpm BP: 115 / 56 mmHg Advice Line Rn: Referring MD: Mustapha Newton MD Tile Inspector: Ezio Asher MD Symptoms: I42.9 - Cardiomyopathy, unspecified Study Quality: Adequate w/Contrast ECG Rhythm: Frequent ventricular premature beats Conclusions: - 1. Normal LV ejection fraction of 55-60% with grade 1 diastolic dysfunction 2. Normal cardiac valvular Dopplers 3. No gross pericardial effusion Findings Procedure Information Contrast agent, definity, is being given per protocol without apparent complications. Left Ventricle Normal left ventricular size, thickness, and systolic function. The visually estimated ejection fraction is between 55-60%. Spectral Doppler is indicative of an impaired relaxation filling pattern. E/E prime ratio is <8, consistent with normal filling pressures. Evidence suggests grade I (mild) diastolic dysfunction. Right Ventricle Mildly increased right ventricular cavity size. There is normal right ventricular systolic function. There is an ICD wire seen in the right ventricle. Atria The left atrium is normal in size. Interatrial shunt cannot be excluded. The right atrium is normal in size. A pacemaker wire is identified in the right atrium. Aortic Valve The aortic valve was not well visualized. There is no aortic valve stenosis. There is no aortic valve regurgitation. Mitral Valve Likely normal mitral valve structure and function. There is no mitral valve regurgitation. There is no mitral valve stenosis. Pulmonic Valve The pulmonic valve was not well visualized. Tricuspid Valve The tricuspid valve was not well visualized. Tricuspid regurgitation envelope is inadequate for calculation of right ventricular systolic pressure. Normal right atrial pressure. Great Vessels All visible segments of the aorta are normal in size. The pulmonary artery was not well visualized. There is no dilatation of the ascending aorta measuring 2.90 cm. Venous The inferior vena cava is normal in size and collapses greater than 50% with inspiration. Pericardium/Pleural There is no evidence of pericardial effusion. Prior Study Comparison Changes noted compared to prior study dated: 08/20/2023. LV ejection has improved Measurements 2D Linear Measurements IVSd: 1.01 0.6-0.9/0.6-1.0 cm LVIDd: 4.33 3.9-5.3/4.2-5.9 cm LVIDd Index: 2.28 2.4-3.2/2.2-3.1 cm/m2 LVIDs: 2.97 2.0-3.6 cm LVPWd: 0.98 0.7-1.1 cm LA Diam: 3.60 2.7-3.8/3.0-4.0 cm LAIDs Index: 1.89 1.5-2.3 cm/m2 LV Mass: 178.48 67-162/88-224 g LV Mass Index: 93.94 43-95/49-115 g/m2 LVOT Diam: 2.30 3.0+(-)1.3 cm 2D Systolic Function EF 4C: 53.70 >55% EF 2C: 58.10 >55% EF BiP: 58.00 >55% Mitral Valve MV Pk E: 0.77 MV PK A: 0.69 MV Decel Time: 220.00 E/A: 1.10 E'Lateral: 11.60 E'Medial: 7.18 E/E' Med: 10.70 E/E' Lat: 6.60 PHT: 64.00 MVA PHT: 3.44 Decel [place]: 3.51 Aortic Valve AoV Pk Stephan: 1.12 AoV Mn Stephan: 0.72 AoV VTI: 0.25 AoV Pk Grad: 5.00 Aov Mn Grad: 2.00 ALMAZ Cont.VTI: 2.84 LVOT LVOT Pk Stephan: 0.77 LVOT Mn Stephan: 0.44 LVOT VTI: 0.17 LVOT Pk Grad: 2.00 LVOT Mn Grad: 1.00 LVOT Diam: 2.30 LVOT Area: 4.15 Diastolic Function MV Pk E: 0.77 MV Pk A: 0.69 E/A: 1.10 E'Medial: 7.18 E/E' Med: 10.70 E' Laterial: 11.60 E/E' Lat: 6.60 Right Ventricle TAPSE (mm): 23.50 TVS' Stephan: 11.10 Tricuspid Valve TR Pk Stephan: 2.81 TR Pk Grad: 32.00 Great Vessels Aorta Sinus of Valsalva: 3.00 2.0-3.5 cm Ao Asc: 2.90 2.1-3.4 cm Pulmonary Valve PV Pk Stephan: 0.98 Peak PV Grad: 4.00 Updated in Other Vendor System with Status of Final Ezio Asher MD electronically signed on 11/14/2024 11:12:38 AM with status of Final
--- OUTSIDE RECORDS SUMMARY | 2024-11-13 13:06 | XMS_ITS | Continuity of Care Document ---
Author Organization [facility] Address [address] [place] [address] Phone Care Team Providers Care Reading Aide Name Role Phone Nadeem Cid MD Unavailable Unavailable Advance Directives Directive Yes / No Effective Date File Name No Information Encounters Encounter Description Practice Location Reason(s) For Visit Diagnoses Date Provider Providers Copied on Encounter [facility], [address], [place], [address], [place] tel:[phone] [place] No Information Jose Roberto Silver. [facility] [place], [place], [id number], [place]. tel:[phone] Referring Provider: Neptali Horne DO, [address] [place] [address], [address]. tel:[phone] Family History Family Member Type Diagnosis Age At Onset No Information Payers Payer name Insurance type Covered constitution party ID Authoriza tion(s) Medicaid [id number] Social History Type Description Quantity Date Captured [...]
[2024-11-13 15:47] LABS: Anion Gap 13 (12-20); Blood Urea Nitrogen 47 mg/dL (9-16); Calcium 9.7 mg/dL (8.4-10.2); Carbon Dioxide 23 mmol/L (22-29); Chloride 106 mmol/L (96-108); Estimated Glomerular Filt Rate 44; Glucose Random 80 mg/dL (60-115); Potassium 5.1 mmol/L (3.3-5.1); Sodium 137 mmol/L (135-145)
[2024-11-13 16:41] LABS: B Type Natriuretic Peptide 652 pg/mL (<100)
== END ==
LOC: HO.CARD 12:53
PROVIDERS: Visit Provider Internal Medicine
DX: I42.9 Cardiomyopathy, unspecified (principal); I50.9 Heart failure, unspecified
CPT/HCPCS: 36415; 80048; 83880; 93306; Q9957

== ENCOUNTER → 2024-11-13 12:57 | Outpatient (BNV) | payer MEDICARE, MEDICAID, SELFPAY | PROVIDERS: Visit Provider Internal Medicine Cardiovascular Disease | DX: I51.89 Other ill-defined heart diseases (principal); R94.31 Abnormal electrocardiogram [ECG] [EKG] | CPT/HCPCS: 93306 ==

== ENCOUNTER 2024-11-18 14:34 | Outpatient (AMB) | payer MEDICARE, MEDICAID, SELFPAY ==
--- NOTE | 2024-11-18 14:37 | HO.NEPHOV ---
Vital Signs 11/18/24 14:38 Height 6 ft 1 in Weight 144 lb 6 oz BMI 19.0 BP 80/50 L Blood Pressure Location Lt brachial Position Sitting 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: CKD-Conf Hand Frame Surgical Elastic Knitter Required: No Accompanied by: Self / Same As Patient Allergies No Known Allergies Allergy (Verified 11/18/24 14:38) HPI Comments Details: I had the privilege of seeing Freddy in follow up for CKD. He is a 72-year-old male with nonischemic cardiomyopathy with AICD, coronary artery disease , congestive heart failure ,atrial fibrillation, peripheral vascular disease and chronic kidney disease. He has history of hepatitis C and was treated. Patient has a history of polysubstance abuse presently on Suboxone. He has peripheral arterial disease with a history of right SFA plasty and stent and right popliteal angioplasty in February 2023. His last echocardiogram showed ejection fraction of 34%. He had cardiac catheterization which showed moderate disease in the LAD. He is on anticoagulation. He is not a diabetic. He has prostatic symptoms. He is taking tamsulosin. He is on Entresto, spironolactone, metoprolol, furosemide as well as statins. His BP has been running low. He has Raynaud's. He denies taking nonsteroidal anti-inflammatories. He denies having sinusitis, epistaxis, hemoptysis, hematuria, nephrolithiasis, dizziness, chest pain, shortness of breath, paroxysmal nocturnal dyspnea, orthopnea. He has not very good with a low-sodium diet. He claims to be compliant with medications and follow ups. His last serum creatinine is stable [facility] Medical History (Updated 10/26/24 @ 14:28 by Mustapha Newton MD) History of left inguinal hernia (04/02/24) Left inguinal hernia (03/23/24) IBS (irritable bowel syndrome) Tobacco abuse Kidney disease Varicose veins of right lower extremity with inflammation Constipation by delayed colonic transit New onset atrial fibrillation Pneumonia due to 2019 novel coronavirus Acute respiratory failure COVID-19 Smoking Acute combined systolic and diastolic CHF, NYHA class 3 BPH (benign prostatic hyperplasia) Endocarditis Opiate dependence HCV (hepatitis C virus) COPD (chronic obstructive pulmonary disease) GERD (gastroesophageal reflux disease) Peripheral artery disease Surgical History H/O colonoscopy S/P arterial stent S/P placement of cardiac pacemaker S/P angiogram of extremity (02/20/23) History of cardiac catheterization Family History Mother Alzheimer disease Father Myocardial infarct Daughter No problems noted. Social History Household Members: Family Household Members Other:: daughter and grandaughter. Housing: House Are you a primary medicare specialist to a significant other at home: No Do you presently have visiting nurse or other home services: No Alcohol intake: never Patient Tobacco Use Status: Former Tobacco user Tobacco use type: Cigarette Years Smoked: 50 e-Cigarette/Vaping Use: Never Used Second Hand Smoke Exposure: No Substance Use Type: Marijuana service: No Current occupational status: retired Cognitive needs: No Hearing needs: No Vision needs: No Review of Systems Const All systems reviewed & are unremarkable except as noted in HPI and below Physical Exam Vital Signs: Last Vital Signs BP 80/50 L 11/18/24 14:38 BMI result Body Mass Index 19.0 Const General: comfortable and no acute distress Orientation/consciousness: patient oriented x3 HEENT Head: Yes normocephalic Mouth: Normal oral and palatal mucosa present Eyes EOM: EOMs intact bilaterally Neck Neck: Yes supple Resp Auscultation: clear to auscultation bilaterally Cardio Jugular venous distension: no JVD Rate: regular rate GI Palpation (GI): Soft to palpation Auscultation: normal bowel sounds General: Yes no CVA tenderness Back/Spine/Pelvis Back: no CVA tenderness Skin General skin exam: no rashes or lesions noted Neuro General: patient oriented x3 and moves all extremities Extrem General: Yes no pedal edema Results Reviewed Nephrology Results: Sodium 137 mmol/L (135-145) 11/13/24 Potassium 5.1 mmol/L (3.3-5.1) 11/13/24 Chloride 106 mmol/L (96-108) 11/13/24 Carbon Dioxide 23 mmol/L (22-29) 11/13/24 BUN 47 mg/dL (9-16) H 11/13/24 Creatinine 1.56 mg/dL (0.5-1.4) H 11/13/24 Calcium 9.7 mg/dL (8.4-10.2) 11/13/24 Assessment & Plan Assessment & Plan (1) CKD stage 3b, GFR 30-44 ml/min: Code(s): N18.32 - Chronic kidney disease, stage 3b Category: Medical Plan Liliam has chronic kidney disease most likely due to vascular disease. He has history of cardiomyopathy as well as peripheral arterial disease. He is on Entresto, spironolactone, furosemide. His BP is running low and I reduced his Spironolactone to 12.5 mg daily. He does not need any midodrine now.He has prostatic symptoms and is on tamsulosin. He had Doppler of renal arteries which did not show any renal artery stenosis. He avoids nonsteroidal anti-inflammatories. His renal functions currently are stable. I answered all his questions and follow-up appointment given. Further management is pending evolving data. Orders: Orders Electrolytes 3 Months N18.32 - Chronic kidney disease, stage 3b Blood Urea Nitrogen 3 Months N18.32 - Chronic kidney disease, stage 3b Creatinine 3 Months N18.32 - Chronic kidney disease, stage 3b Medications: Changed From spironolactone 25 mg PO DAILY 90 tabs 3RF To spironolactone 12.5 mg (1/2 x 25 mg) PO DAILY 90 tabs 3RF Coding Level of Care Code Est Pt Level 4 (91109) Diagnoses CKD stage 3b, GFR 30-44 ml/min N18.32
--- OUTSIDE RECORDS SUMMARY | 2024-11-18 14:37 | XMS_ITS | Clinical Summary ---
Author Organization [facility] Facility Address [address] [place] [address] Care Team Providers Care Senior Electrical Estimator Name Role Phone Unavailable Primary Care Provider [...] 4 (severe) 023 Renal osteodystrophy 12/17/2022 Immunizations Immunization Administration Dates Next Due Tdap 02/02/2014 Family [...] Due Date Last Done Comments Pneumococcal Vaccine: 50+ Ye ars (1 of 2 - PCV) 1968 Colorectal Cancer Screening: Annual FOBT 1998 Colorectal Cancer Screening: Colonoscopy 1998 Colorectal Cancer Screening: Sigmoidoscopy 1998 Influenza Vaccine (Season Ended) 2025 Hepatitis B Vaccine Aged Out No longe r eligible based on patient's age to complete this topic Insurance Medicare [place]
[2024-11-18 14:38] VITALS: BP 80/50; BMI 19.0
== END 2024-11-18 14:58 | disposition home or self-care (01) ==
LOC: HO.HKA 14:35
PROVIDERS: PCP Internal Medicine; Visit Provider Internal Medicine Nephrology
DX: N18.32 Chronic kidney disease, stage 3b (principal)
CPT/HCPCS: 99214

== ENCOUNTER → 2024-11-18 14:34 | Outpatient (BNVA) | payer MEDICARE, MEDICAID, SELFPAY | PROVIDERS: PCP Internal Medicine; Visit Provider Internal Medicine Nephrology | DX: I13.0 Hypertensive heart and chronic kidney disease with heart failure and stage 1 through stage 4 chronic kidney disease, or unspecified chronic kidney disease (principal); I42.9 Cardiomyopathy, unspecified; I25.10 Atherosclerotic heart disease of native coronary artery without angina pectoris; I50.9 Heart failure, unspecified; N18.32 Chronic kidney disease, stage 3b; I48.91 Unspecified atrial fibrillation; I73.9 Peripheral vascular disease, unspecified | CPT/HCPCS: 99212 ==

== ENCOUNTER → 2024-11-21 23:59 | Outpatient (BNV) | payer MEDICARE, MEDICAID, SELFPAY ==
--- NOTE | 2024-11-26 12:31 | MHC.OFFVIS ---
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: Remote HF monitoring- [employer] Allergies No Known Allergies Allergy (Verified 11/18/24 14:38) [facility] Medical History (Updated 10/26/24 @ 14:28 by Mustapha Newton MD) History of left inguinal hernia (04/02/24) Left inguinal hernia (03/23/24) IBS (irritable bowel syndrome) Tobacco abuse Kidney disease Varicose veins of right lower extremity with inflammation Constipation by delayed colonic transit New onset atrial fibrillation Pneumonia due to 2019 novel coronavirus Acute respiratory failure COVID-19 Smoking Acute combined systolic and diastolic CHF, NYHA class 3 BPH (benign prostatic hyperplasia) Endocarditis Opiate dependence HCV (hepatitis C virus) COPD (chronic obstructive pulmonary disease) GERD (gastroesophageal reflux disease) Peripheral artery disease Surgical History H/O colonoscopy S/P arterial stent S/P placement of cardiac pacemaker S/P angiogram of extremity (02/20/23) History of cardiac catheterization Family History Mother Alzheimer disease Father Myocardial infarct Daughter No problems noted. Social History Household Members: Family Household Members Other:: daughter and grandaughter. Housing: House Are you a primary career development director to a significant other at home: No Do you presently have visiting nurse or other home services: No Alcohol intake: never Patient Tobacco Use Status: Former Tobacco user Tobacco use type: Cigarette Years Smoked: 50 e-Cigarette/Vaping Use: Never Used Second Hand Smoke Exposure: No Substance Use Type: Marijuana service: No Current occupational status: retired Cognitive needs: No Hearing needs: No Vision needs: No Office Procedures Cardiac Device Check Cardiac Device Check Details: Date of service- 09/29/2024; based on impedance data and physiological variables, there is no evidence of worsening congestive heart failure. CEPHALOMETRIC ANALYST pacing effective < 90% of the time. Patient activity < 1 hour a day for 4 weeks. [id number] Cardiac Device Interrogation, cardio physiologic monitor Procedure code (CPT) selection complete Assessment & Plan Assessment & Plan (1) Biventricular ICD (implantable cardioverter-defibrillator) in place: Code(s): Z95.810 - Presence of automatic (implantable) cardiac defibrillator Category: Medical (2) Cardiomyopathy: Code(s): I42.9 - Cardiomyopathy, unspecified Category: Medical Plan x Coding Level of Care Code Procedure Only Diagnoses Biventricular ICD (implantable cardioverter-defibrillator) in place Z95.810 Cardiomyopathy I42.9 CPT Codes Cardiac Device Check - Cardiac Device 15: [id number] Cardiac Device Interrogation, cardio physiologic monitor ([id number])
== END ==
PROVIDERS: PCP Internal Medicine; Visit Provider Internal Medicine
DX: I42.9 Cardiomyopathy, unspecified (principal); Z95.810 Presence of automatic (implantable) cardiac defibrillator
CPT/HCPCS: 93297

== ENCOUNTER 2024-12-09 13:14 | Outpatient (AMB) | payer MEDICARE, MEDICAID, SELFPAY ==
--- NOTE | 2024-12-09 13:27 | A.OFFVIS_ITS ---
Vital Signs 12/09/24 13:32 Pulse 51 Pulse Source Pulse Oximeter Pulse Oximetry (%) 97 Oxygen Delivery Method Room Air 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: MAT visit Allergies No Known Allergies Allergy (Verified 12/09/24 13:46) HPI HPI MAT visit: Details: He is doing well He has no complaints [facility] Medical History History of left inguinal hernia (04/02/24) Left inguinal hernia (03/23/24) IBS (irritable bowel syndrome) Tobacco abuse Kidney disease Varicose veins of right lower extremity with inflammation Constipation by delayed colonic transit New onset atrial fibrillation Pneumonia due to 2019 novel coronavirus Acute respiratory failure COVID-19 Smoking Acute combined systolic and diastolic CHF, NYHA class 3 BPH (benign prostatic hyperplasia) Endocarditis Opiate dependence HCV (hepatitis C virus) COPD (chronic obstructive pulmonary disease) GERD (gastroesophageal reflux disease) Peripheral artery disease Surgical History H/O colonoscopy S/P arterial stent S/P placement of cardiac pacemaker S/P angiogram of extremity (02/20/23) History of cardiac catheterization Family History Mother Alzheimer disease Father Myocardial infarct Daughter No problems noted. Social History Household Members: Family Household Members Other:: daughter and grandaughter. Housing: House Are you a primary lead care manager to a significant other at home: No Do you presently have visiting nurse or other home services: No Alcohol intake: never Patient Tobacco Use Status: Former Tobacco user Tobacco use type: Cigarette Years Smoked: 50 e-Cigarette/Vaping Use: Never Used Second Hand Smoke Exposure: No Substance Use Type: Marijuana service: No Current occupational status: retired Cognitive needs: No Hearing needs: No Vision needs: No Review of Systems Const All systems reviewed & are unremarkable except as noted in HPI and below Physical Exam Vital Signs: Last Vital Signs Pulse 51 12/09/24 13:32 Pulse Ox 97 12/09/24 13:32 Oxygen Delivery Method Room Air 12/09/24 13:32 Assessment & Plan Assessment & Plan (1) Opiate dependence: Comment: He is doing well Code(s): F11.20 - Opioid dependence, uncomplicated Category: Medical Qualifiers: Substance use status: in remission Qualified Code(s): F11.21 - Opioid dependence, in remission Plan Check labs Suboxone current dose. See as scheduled. Orders: Orders T Spot TB 12/09/24 F11.21 - Opioid dependence, in remission Hepatitis C Viral Load 12/09/24 F1. - Opioid dependence, in remission Hepatitis A IgG 12/09/24. - Opioid dependence, in remission HIV Ab/Ag 12/09/24. - Opioid dependence, in remission Syphilis Screen 12/09/24. - Opioid dependence, in remission Medications: New buprenorphine-naloxone 2-0.5 mg (Suboxone) place 1 strip/tab under (each) side of tongue 1 film sublingual DAILY 30 ea 2RF 30 days Coding Level of Care Code Est Pt Level 3 (02095) Diagnoses Opioid dependence in remission Substance use status: in remission
[2024-12-09 13:32] VITALS: PULSE 51; O2SAT 97
--- OUTSIDE RECORDS SUMMARY | 2024-12-09 15:32 | XMS_ITS | Clinical Summary ---
Author Organization [facility] Facility Address [address] [place] [id number] Care Team Providers Care Workers Compensation Examiner Name Role Phone Unavailable Primary Care Provider [...]
== END 2024-12-09 14:23 | disposition home or self-care (01) ==
LOC: HO.HID 13:14
PROVIDERS: PCP Internal Medicine; Visit Provider Internal Medicine
DX: F11.21 Opioid dependence, in remission (principal)
CPT/HCPCS: 99213

== ENCOUNTER → 2024-12-09 13:14 | Outpatient (BNVA) | payer MEDICARE, MEDICAID, SELFPAY | PROVIDERS: PCP Internal Medicine; Visit Provider Internal Medicine | DX: F11.21 Opioid dependence, in remission (principal) | CPT/HCPCS: 99212 ==

== ENCOUNTER → 2024-12-22 23:59 | Outpatient (BNV) | payer MEDICARE, MEDICAID, SELFPAY ==
--- NOTE | 2025-01-03 18:38 | MHC.OFFVIS ---
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: Remote HF monitoring- [employer] Allergies No Known Allergies Allergy (Verified 12/09/24 13:46) [facility] Medical History History of left inguinal hernia (04/02/24) Left inguinal hernia (03/23/24) IBS (irritable bowel syndrome) Tobacco abuse Kidney disease Varicose veins of right lower extremity with inflammation Constipation by delayed colonic transit New onset atrial fibrillation Pneumonia due to 2019 novel coronavirus Acute respiratory failure COVID-19 Smoking Acute combined systolic and diastolic CHF, NYHA class 3 BPH (benign prostatic hyperplasia) Endocarditis Opiate dependence HCV (hepatitis C virus) COPD (chronic obstructive pulmonary disease) GERD (gastroesophageal reflux disease) Peripheral artery disease Surgical History H/O colonoscopy S/P arterial stent S/P placement of cardiac pacemaker S/P angiogram of extremity (02/20/23) History of cardiac catheterization Family History Mother Alzheimer disease Father Myocardial infarct Daughter No problems noted. Social History Household Members: Family Household Members Other:: daughter and grandaughter. Housing: House Are you a primary health care sanitary technician to a significant other at home: No Do you presently have visiting nurse or other home services: No Alcohol intake: never Patient Tobacco Use Status: Former Tobacco user Tobacco use type: Cigarette Years Smoked: 50 e-Cigarette/Vaping Use: Never Used Second Hand Smoke Exposure: No Substance Use Type: Marijuana service: No Current occupational status: retired Cognitive needs: No Hearing needs: No Vision needs: No Office Procedures Cardiac Device Check Cardiac Device Check Details: Date of service- 12/22/2024; based on impedance data and physiological variables, there is no evidence of worsening congestive heart failure. [id number] Cardiac Device Interrogation, cardio physiologic monitor Procedure code (CPT) selection complete Assessment & Plan Assessment & Plan (1) Biventricular ICD (implantable cardioverter-defibrillator) in place: Code(s): Z95.810 - Presence of automatic (implantable) cardiac defibrillator Category: Medical (2) NICM (nonischemic cardiomyopathy): Code(s): I42.8 - Other cardiomyopathies Category: Medical Plan x Coding Level of Care Code Procedure Only Diagnoses Biventricular ICD (implantable cardioverter-defibrillator) in place Z95.810 NICM (nonischemic cardiomyopathy) I42.8 CPT Codes Cardiac Device Check - Cardiac Device 15: [id number] Cardiac Device Interrogation, cardio physiologic monitor ([id number])
== END ==
PROVIDERS: PCP Internal Medicine; Visit Provider Internal Medicine
DX: I42.8 Other cardiomyopathies (principal); Z95.810 Presence of automatic (implantable) cardiac defibrillator
CPT/HCPCS: 93297

== ENCOUNTER → 2024-12-22 23:59 | Outpatient (BNV) | payer MEDICARE, MEDICAID, SELFPAY ==
--- NOTE | 2025-01-03 18:40 | A.OFFVIS_ITS ---
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: Remote ICD Check- [employer] Allergies No Known Allergies Allergy (Verified 12/09/24 13:46) [facility] Medical History History of left inguinal hernia (04/02/24) Left inguinal hernia (03/23/24) IBS (irritable bowel syndrome) Tobacco abuse Kidney disease Varicose veins of right lower extremity with inflammation Constipation by delayed colonic transit New onset atrial fibrillation Pneumonia due to 2019 novel coronavirus Acute respiratory failure COVID-19 Smoking Acute combined systolic and diastolic CHF, NYHA class 3 BPH (benign prostatic hyperplasia) Endocarditis Opiate dependence HCV (hepatitis C virus) COPD (chronic obstructive pulmonary disease) GERD (gastroesophageal reflux disease) Peripheral artery disease Surgical History H/O colonoscopy S/P arterial stent S/P placement of cardiac pacemaker S/P angiogram of extremity (02/20/23) History of cardiac catheterization Family History Mother Alzheimer disease Father Myocardial infarct Daughter No problems noted. Social History Household Members: Family Household Members Other:: daughter and grandaughter. Housing: House Are you a primary customer care representative to a significant other at home: No Do you presently have visiting nurse or other home services: No Alcohol intake: never Patient Tobacco Use Status: Former Tobacco user Tobacco use type: Cigarette Years Smoked: 50 e-Cigarette/Vaping Use: Never Used Second Hand Smoke Exposure: No Substance Use Type: Marijuana service: No Current occupational status: retired Cognitive needs: No Hearing needs: No Vision needs: No Office Procedures Cardiac Device Check Cardiac Device Check Details: Date of service 12/22/2024; Battery life 5 years; normal lead parameters; Effective V pacing 88%; no treated VT/VF; normal ICD function. [id number] Cardiac Interrogation, implant defibrillator w/interim Procedure code (CPT) selection complete Assessment & Plan Assessment & Plan (1) Biventricular ICD (implantable cardioverter-defibrillator) in place: Code(s): Z95.810 - Presence of automatic (implantable) cardiac defibrillator Category: Medical (2) NICM (nonischemic cardiomyopathy): Code(s): I42.8 - Other cardiomyopathies Category: Medical Plan x Coding Level of Care Code Procedure Only Diagnoses Biventricular ICD (implantable cardioverter-defibrillator) in place Z95.810 NICM (nonischemic cardiomyopathy) I42.8 CPT Codes Cardiac Device Check - Cardiac Device 13: [id number] Cardiac Interrogation, implant defibrillator w/interim ([id number])
== END ==
PROVIDERS: PCP Internal Medicine; Visit Provider Internal Medicine
DX: I42.8 Other cardiomyopathies (principal); Z95.810 Presence of automatic (implantable) cardiac defibrillator
CPT/HCPCS: 93295

== ENCOUNTER → 2025-01-22 23:59 | Outpatient (BNV) | payer MEDICARE, MEDICAID, SELFPAY ==
--- NOTE | 2025-01-27 20:13 | A.OFFVIS_ITS ---
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: Remote HF monitoring- [employer] Allergies No Known Allergies Allergy (Verified 01/27/25 10:43) [facility] Medical History (Updated 01/27/25 @ 11:30 by Fco Vasquez MD) Chronic kidney disease, stage 4 (severe) History of left inguinal hernia (04/02/24) Left inguinal hernia (03/23/24) IBS (irritable bowel syndrome) Tobacco abuse Kidney disease Varicose veins of right lower extremity with inflammation Constipation by delayed colonic transit New onset atrial fibrillation Pneumonia due to 2019 novel coronavirus Acute respiratory failure COVID-19 Smoking Acute combined systolic and diastolic CHF, NYHA class 3 BPH (benign prostatic hyperplasia) Endocarditis Opiate dependence HCV (hepatitis C virus) COPD (chronic obstructive pulmonary disease) GERD (gastroesophageal reflux disease) Peripheral artery disease Surgical History (Updated 01/27/25 @ 10:50 by MAI Godoy) History of hernia surgery H/O colonoscopy S/P arterial stent S/P placement of cardiac pacemaker S/P angiogram of extremity (02/20/23) History of cardiac catheterization Family History Mother Alzheimer disease Father Myocardial infarct Daughter No problems noted. Social History Household Members: Family Household Members Other:: daughter and grandaughter. Housing: House Are you a primary transitional care liaison to a significant other at home: No Do you presently have visiting nurse or other home services: No Alcohol intake: never Patient Tobacco Use Status: Former Tobacco user Tobacco use type: Cigarette Years Smoked: 50 e-Cigarette/Vaping Use: Never Used Second Hand Smoke Exposure: Yes Substance Use Type: Marijuana service: No Current occupational status: retired Cognitive needs: No Hearing needs: No Vision needs: No Office Procedures Cardiac Device Check Cardiac Device Check Details: Date of service- 01/22/2025; based on impedance data and physiological variables, there is no evidence of worsening congestive heart failure. [id number] Cardiac Device Interrogation, cardio physiologic monitor Procedure code (CPT) selection complete Assessment & Plan Assessment & Plan (1) Biventricular ICD (implantable cardioverter-defibrillator) in place: Code(s): Z95.810 - Presence of automatic (implantable) cardiac defibrillator Category: Medical (2) Cardiomyopathy: Code(s): I42.9 - Cardiomyopathy, unspecified Category: Medical Plan x Coding Level of Care Code Procedure Only Diagnoses Biventricular ICD (implantable cardioverter-defibrillator) in place Z95.810 Cardiomyopathy I42.9 CPT Codes Cardiac Device Check - Cardiac Device 15: [id number] Cardiac Device Interrogation, cardio physiologic monitor ([id number])
== END ==
PROVIDERS: PCP Internal Medicine; Visit Provider Internal Medicine
DX: I42.9 Cardiomyopathy, unspecified (principal); Z95.810 Presence of automatic (implantable) cardiac defibrillator
CPT/HCPCS: 93297

== ENCOUNTER 2025-01-27 10:32 | Outpatient (AMB) | payer MEDICARE, MEDICAID, SELFPAY ==
--- NOTE | 2025-01-27 10:41 | A.OFFPC_ITS ---
Vital Signs 01/27/25 10:43 01/27/25 10:51 Height 6 ft 1 in Weight 142 lb 6 oz BMI 18.8 BP 140/80 H 110/70 Blood Pressure Location Lt brachial Lt brachial Position Sitting Sitting Pulse 73 Pulse Source Pulse Oximeter Temp 97.3 F Temp Source Temporal Artery Scan Pulse Oximetry (%) 100 Oxygen Delivery Method Room Air 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: Rsched from 05/04 cardiomyopathy Intake Note: Patient is here to follow up on Cardiomyopathy. [employer] Electronics Required: No Electrical Instrumentation Technician: Not Required per policy Accompanied by: Self / Same As Patient Allergies No Known Allergies Allergy (Verified 01/27/25 10:43) Tobacco use date assessed: 01/27/25 Fall risk assessment: No Falls in past year Last assessed Fall Risk: 01/27/25 Dental Screening Dental Screen Date: 01/27/25 Did you have a dental visit in the last 12 months?: Yes Did you have a dental problem in the last 6 months where you did not have access to dental care?: No Was dental information given to patient?: Patient has dentist [facility] Medical History (Updated 01/27/25 @ 11:30 by Fco Vasquez MD) Chronic kidney disease, stage 4 (severe) History of left inguinal hernia (04/02/24) Left inguinal hernia (03/23/24) IBS (irritable bowel syndrome) Tobacco abuse Kidney disease Varicose veins of right lower extremity with inflammation Constipation by delayed colonic transit New onset atrial fibrillation Pneumonia due to 2019 novel coronavirus Acute respiratory failure COVID-19 Smoking Acute combined systolic and diastolic CHF, NYHA class 3 BPH (benign prostatic hyperplasia) Endocarditis Opiate dependence HCV (hepatitis C virus) COPD (chronic obstructive pulmonary disease) GERD (gastroesophageal reflux disease) Peripheral artery disease Surgical History (Updated 01/27/25 @ 10:50 by MAI Godoy) History of hernia surgery H/O colonoscopy S/P arterial stent S/P placement of cardiac pacemaker S/P angiogram of extremity (02/20/23) History of cardiac catheterization Family History Mother Alzheimer disease Father Myocardial infarct Daughter No problems noted. Social History Household Members: Family Household Members Other:: daughter and grandaughter. Housing: House Are you a primary nonfarm animal caretaker to a significant other at home: No Do you presently have visiting nurse or other home services: No Alcohol intake: never Patient Tobacco Use Status: Former Tobacco user Tobacco use type: Cigarette Years Smoked: 50 e-Cigarette/Vaping Use: Never Used Second Hand Smoke Exposure: Yes Substance Use Type: Marijuana service: No Current occupational status: retired Cognitive needs: No Hearing needs: No Vision needs: No Questionnaire PHQ-9 Over the last 2 weeks, how often have you been bothered by any of the following problems? 1. Little interest or pleasure in doing things: not at all 2. Feeling down, depressed, or hopeless: not at all 3. Trouble falling or staying asleep, or sleeping too much: not at all 4. Feeling tired or having little energy: not at all 5. Poor appetite or overeating: not at all 6. Feeling bad about yourself - or that you are a failure or have let yourself or your family down: not at all 7. Trouble concentrating on things, such as reading the newspaper or watching television: not at all 8. Moving or speaking so slowly that other people could have noticed. Or the opposite - being so fidgety or restless that you have been moving around a lot more than usual: not at all 9. Thoughts that you would be better off or of hurting yourself in some way: not at all Total score: 0 Depression Screening Interpretation: Negative Depression Screening Done: Yes Source: Developed by Drs. Nadeem Waters, Denisha Hutton, Nelson Borrego and colleagues, with an educational azul from [employer]. Thrive Questionnaire Date Thrive assessed: 01/27/25 I am a: Patient What is your living situation today?: I have a steady place to live Within the past 12 months, did the food you bought not last and you didn't have the money to get more?: Never true Within the past 12 months, did you worry whether your food would run out before you got money to buy more?: Never true Do you have trouble paying for medicines?: No Do you have trouble getting transportation to medical appointments?: No Do you have trouble paying your heating and electricity bill?: No Do you have trouble taking care of your child, family member or friend?: No Do you have trouble with day-to-day activities such as bathing, preparing meals, shopping, managing finances, etc.?: No Are you currently unemployed and looking for a job?: No Are you interested in more education?: No Please select the resources that you would like help with: None Currently or been in a relationship where the following occur: No concerns reported THRIVE Score: 0 AUDIT C Alcohol Use Questionnaire (AUDIT-C) 1. How often do you have a drink containing alcohol?: Monthly or less 2. How many drinks containing alcohol do you have on a typical day when you are drinking?: 1 or 2 Total Score: 1 ILIR-7 AMB Questionnaire ILIR-7 Date ILIR - 7 assessed: 01/27/25 Feeling nervous, anxious, or on edge: 0 = Not at all Not being able to stop or control worryin = Not at all Worrying too much about different things: 0 = Not at all Trouble relaxin = Not at all Being so restless that it is hard to sit still: 0 = Not at all Becoming easily annoyed or irritable: 0 = Not at all Feeling afraid as if something awful might happen: 0 = Not at all Total ILIR-7 score (0-4 normal; 5-9 mild; 10-14 moderate; 15-21 severe): 0 Source: Developed by Drs. Nadeem Waters, Denisha Hutton, Nelson Borrego and colleagues, with an educational azul from [employer]. Physical exam (Primary Care) Vital Signs: Last Vital Signs Temp 97.3 F 01/27/25 10:43 Pulse 73 01/27/25 10:43 BP 110/70 01/27/25 10:51 Pulse Ox 100 01/27/25 10:43 Oxygen Delivery Method Room Air 01/27/25 10:43 BMI result Body Mass Index 18.8 Tobacco/Smoking Status: Tobacco use Status Tobacco use date assessed 01/27/25 01/27/25 10:49 Patient Tobacco Use Status Former Tobacco user 01/27/25 10:49 Tobacco use type Cigarette 01/27/25 10:49 e-Cigarette/Vaping Use Never Used 01/27/25 10:49 PHQ-9: PHQ-9 Score PHQ-9: Total score 0 01/27/25 11:53 Depression Screening Interpretation: Negative Thrive Assessment: Date of Thrive Assessment Date Thrive assessed 01/27/25 01/27/25 10:49 Currently or been in a relationship where the following occur: No concerns repor shala Const General: alert; No acute distress Eyes Conjunctivae: conjunctivae normal Resp Auscultation: clear to auscultation bilaterally Cardio Rate: regular rate Rhythm: regular rhythm GI Inspection: Yes normal to inspection Extrem General: Yes normal to inspection and No edema Immunizations Tenivac (PF) 5 Lf unit-2 Lf unit/0.5 mL intramuscular suspension Performing Provider: Fco Vasquez MD Performing Location: [facility] Administered by: Nette Delgado CMA on 01/27/25 11:47 Dose Route Admin Location Dispensed Lot Number Expiration Date NDC Continuity Editor 0.5 mL IM Left Deltoid 0.5 mL [id number] 09/15/26 88136-099-22 [employer] Total Dispensed Waste 0.5 mL 0 % VIS Given Date VIS Provided VIS Publication Date 01/27/25 Single Vaccine 21 Eligibility Eligibility Date Funding Source Not [facility] Eligible 01/27/25 Private Coding Level of Care Code Est Pt Level 4 (70942) Complex EM visit Add On G2211 Diagnoses Opioid dependence in remission F11.21 Substance use status: in remission Primary hypertension I10 Hypertension type: primary hypertension NICM (nonischemic cardiomyopathy) I42.8 Atherosclerotic cardiovascular disease I25.10 Paroxysmal atrial fibrillation I48.0 Biventricular ICD (implantable cardioverter-defibrillator) in place Z95.810 Peripheral artery disease I73.9 GERD (gastroesophageal reflux disease) K21.9 CKD stage 3b, GFR 30-44 ml/min N18.32 Anemia D64.9 COPD (chronic obstructive pulmonary disease) J44.9 Colon cancer screening Z12.11 Assessment & Plan Assessment & Plan (1) Opiate dependence: Comment: He is doing well Code(s): F11.20 - Opioid dependence, uncomplicated Category: Medical Qualifiers: Substance use status: in remission Qualified Code(s): F11.21 - Opioid dependence, in remission Plan: Continue to follow-up with comprehensive care and has been placed on Suboxone (2) Hypertension: Code(s): I10 - Essential (primary) hypertension Category: Medical Qualifiers: Hypertension type: primary hypertension Qualified Code(s): I10 - Essential (primary) hypertension Plan: Continue with blood pressure medication. Decrease salt intake and exercise patient is on metoprolol 12.5 mg once a day Entresto twice a day spironolactone which was decreased due to hypotension (3) NICM (nonischemic cardiomyopathy): Code(s): I42.8 - Other cardiomyopathies Category: Medical Plan: Continue follow-up with Cardiology. Recent echocardiogram October 2024 EF normal (4) Atherosclerotic cardiovascular disease: Code(s): I25.10 - Atherosclerotic heart disease of three affiliated coronary artery without angina pectoris Category: Medical Plan: Control the cholesterol, weight, blood pressure, continuing with anticoagulation with Eliquis (5) Paroxysmal atrial fibrillation: Code(s): I48.0 - Paroxysmal atrial fibrillation Category: Medical Plan: Continue with anticoagulation (6) Biventricular ICD (implantable cardioverter-defibrillator) in place: Code(s): Z95.810 - Presence of automatic (implantable) cardiac defibrillator Category: Medical Plan: Patient is regularly followed up by Cardiology for ICD check (7) Peripheral artery disease: Comment: 02/20/2023 right SFA plasty and stent, right popliteal plasty with DCB Code(s): I73.9 - Peripheral vascular disease, unspecified Category: Medical Plan: Patient is in need of a procedure from the vascular but patient declined any procedures and continuing to monitor (8) GERD (gastroesophageal reflux disease): Comment: Multiple cardiac- Continue ppi avoid culprits- Assess after cardiac-Dr. Mitchell Will pursue GI workup as appropriate Code(s): K21.9 - Gastro-esophageal reflux disease without esophagitis Category: Medical Plan: Avoid the foods that causes that usually spicy foods, tomato products, juices, coffee, soda and foods that your sensitive to. After eating do not lie down, allow 3-4 hours before in lie down. And keep the head of bed above 30 degrees to avoid the acid from going up. (9) CKD stage 3b, GFR 30-44 ml/min: Code(s): N18.32 - Chronic kidney disease, stage 3b Category: Medical Plan: Avoid NSAIDs, continue with controlling blood pressure, keep well hydrated. (10) Anemia: Code(s): D64.9 - Anemia, unspecified Category: Medical Plan: Continue to monitor (11) COPD (chronic obstructive pulmonary disease): Code(s): J44.9 - Chronic obstructive pulmonary disease, unspecified Category: Medical Plan: Patient on the albuterol inhaler as well as controller. Rinse mouth after using. (12) Colon cancer screening: Code(s): Z12.11 - Encounter for screening for malignant neoplasm of colon Category: Medical Plan History of Present Illness The patient is a 74-year-old male presenting for follow-up care and management of multiple chronic conditions, including COPD, cardiovascular issues, and opiate dependence. The patient has a history of Chronic Obstructive Pulmonary Disease (COPD), which has been managed with inhalers, including albuterol used twice daily. He reports issues with insurance coverage affecting medication access. The patient has a significant cardiovascular history, including nonischemic cardiomyopathy, atherosclerotic cardiovascular disease, and congestive heart failure. He has an implantable cardioverter-defibrillator (ICD) and follows up regularly with cardiology for device checks. His last echocardiogram in October 2024 showed an ejection fraction of 55-60% with grade 1 diastolic dysfunction. The patient has chronic kidney disease stage 3B, attributed to vascular disease and a history of cardiomyopathy and peripheral arterial disease. He was seen by nephrology in November, and his medication spironolactone was reduced due to low blood pressure. The patient is also managing opiate dependence with Suboxone, although he has faced challenges with insurance coverage for the medication. He has a history of benign prostatic hyperplasia (BPH) and is currently on tamsulosin. The patient has hepatitis C and anemia, with the latter noted in blood work showing a hemoglobin level of 12.1. His renal function was stable with a creatinine level of 1.56, and electrolytes were within normal limits. He has undergone hernia surgery, but reports discomfort and a scratchy sensation at the surgical site, suggesting possible complications with the mesh used. A referral to a different surgeon is planned for further evaluation. Preventative care includes a pending colon cancer screening with a stool test, as the patient prefers this over a colonoscopy. Health Maintenance - Colon cancer screening with stool test planned - Blood work follow-up for cholesterol and kidney function - Vaccinations: Shingles shot pending second dose, pneumonia shot up to date, tetanus shot offered Social History - Substance use: Opiate dependence managed with Suboxone - Nutritional intake: Difficulty eating due to denture issues, impacting diet Review of Systems - Respiratory: Reports using albuterol inhaler twice daily, denies dyspnea at rest - Cardiovascular: Denies chest pain, reports regular follow-up for ICD checks - Gastrointestinal: Reports discomfort at hernia site, denies changes in bowel habits - Musculoskeletal: Denies new joint pain or swelling Physical Exam - Cardiovascular: Heart auscultation performed, no abnormalities noted - Respiratory: Breathing assessment conducted, no wheezing or rales detected Results - Labs: Hemoglobin 12.1 g/dL indicating anemia, creatinine 1.56 mg/dL, electrolytes normal - Echocardiogram: Ejection fraction 55-60%, grade 1 diastolic dysfunction, no valvular issues Plan The patient will continue management of COPD with inhalers, ensuring proper use and addressing any insurance issues affecting medication access. Cardiovascular care includes regular follow-ups for ICD checks and monitoring of heart function, with recent echocardiogram results showing stable cardiac function. Chronic kidney disease management involves continued nephrology follow-up and medication adjustments as needed, with spironolactone dosage reduced due to low blood pressure. Opiate dependence is managed with Suboxone, and efforts will be made to resolve insurance coverage issues for this medication. Preventative care includes a stool test for colon cancer screening, preferred over a colonoscopy by the patient. Vaccinations are updated, with a pending second dose of the shingles vaccine and a tetanus shot offered during the visit. A referral to a different surgeon is planned to address the discomfort and pote ntial complications from the previous hernia surgery. Patient was informed and verbally consented to the use of an ambient scribe for clinic note documentation during this visit. Discussion Notes I discussed with the patient the importance of managing his COPD with regular use of inhalers and addressing any insurance issues that may arise. We reviewed his cardiovascular health, emphasizing the need for regular ICD checks and monitoring of heart function. I explained the management plan for his chronic kidney disease, including medication adjustments and nephrology follow-up. We also discussed the management of his opiate dependence with Suboxone and the need to resolve insurance coverage issues. Preventative care was addressed, with a stool test for colon cancer screening planned and vaccinations updated. I recommended a referral to a different surgeon to evaluate the discomfort from his previous hernia surgery. Patient Instructions - Use inhalers as prescribed for COPD management. - Follow up with cardiology for ICD checks. - Schedule nephrology follow-up for kidney disease management. - Continue Suboxone for opiate dependence and address any insurance issues. - Complete stool test for colon cancer screening. - Update vaccinations as needed, including shingles and tetanus shots. - Follow up with a different surgeon for hernia-related discomfort. Orders: Orders Comprehensive Met. Panel Today I42.9 - Cardiomyopathy, unspecified B Type Natriuretic Peptide Today I42.9 - Cardiomyopathy, unspecified Free T4 (Free Thyroxine) Today I42.9 - Cardiomyopathy, unspecified Lipid Panel Today E78.00 - Pure hypercholesterolemia, unspecified, I42.9 - Cardiomyopathy, unspecified Reticulocyte Count Today I42.9 - Cardiomyopathy, unspecified IRON PROFILE Today I42.9 - Cardiomyopathy, unspecified Magnesium Today I42.9 - Cardiomyopathy, unspecified Td Immunization Today Z23 - Encounter for immunization Complete Blood Count Auto Diff Today I42.9 - Cardiomyopathy, unspecified Thyroid Stimulating Hormone Today I42.9 - Cardiomyopathy, unspecified Vitamin B12 and Folate Today I42.9 - Cardiomyopathy, unspecified Ferritin Today I42.9 - Cardiomyopathy, unspecified Referrals General Surgery Referral K40.90 - Unilateral inguinal hernia, without obstruction or gangrene, not specified as recurrent Cologuard Test Z12.11 - Encounter for screening for malignant neoplasm of colon Medications: Refilled linaclotide (Linzess) 290 mcg PO DAILY 90 caps 2RF I42.9 - Cardiomyopathy, unspecified budesonide-formoterol 160-4.5 mcg/actuation (Symbicort) 2 puffs inhalation Q12H 10.2 grams 11RF J44.9 - Chronic obstructive pulmonary disease, unspecified
[2025-01-27 10:43] VITALS: BP 140/80; PULSE 73; TEMP 36.3; O2SAT 100; BMI 18.8
[2025-01-27 10:51] VITALS: BP 110/70
== END 2025-01-27 11:58 | disposition home or self-care (01) ==
LOC: HO.HMCH 10:32
PROVIDERS: PCP Internal Medicine; Visit Provider Internal Medicine
DX: I12.9 Hypertensive chronic kidney disease with stage 1 through stage 4 chronic kidney disease, or unspecified chronic kidney disease (principal); I48.0 Paroxysmal atrial fibrillation; F11.21 Opioid dependence, in remission; N18.32 Chronic kidney disease, stage 3b; I42.8 Other cardiomyopathies; J44.9 Chronic obstructive pulmonary disease, unspecified; I25.10 Atherosclerotic heart disease of native coronary artery without angina pectoris; Z95.810 Presence of automatic (implantable) cardiac defibrillator; I73.9 Peripheral vascular disease, unspecified; K21.9 Gastro-esophageal reflux disease without esophagitis; D64.9 Anemia, unspecified; Z23 Encounter for immunization

== ENCOUNTER → 2025-01-27 10:32 | Outpatient (BNVA) | payer MEDICARE, MEDICAID, SELFPAY | PROVIDERS: PCP Internal Medicine; Visit Provider Internal Medicine | DX: Z23 Encounter for immunization (principal); I12.9 Hypertensive chronic kidney disease with stage 1 through stage 4 chronic kidney disease, or unspecified chronic kidney disease; N18.32 Chronic kidney disease, stage 3b; D64.9 Anemia, unspecified; F11.21 Opioid dependence, in remission; I42.8 Other cardiomyopathies; I25.10 Atherosclerotic heart disease of native coronary artery without angina pectoris; I48.0 Paroxysmal atrial fibrillation; I73.9 Peripheral vascular disease, unspecified; K21.9 Gastro-esophageal reflux disease without esophagitis; J44.9 Chronic obstructive pulmonary disease, unspecified; Z95.810 Presence of automatic (implantable) cardiac defibrillator | CPT/HCPCS: 90471; 90714; 99212 ==

== ENCOUNTER 2025-02-22 12:19 | Outpatient (REF) | payer MEDICARE, MEDICAID, SELFPAY ==
--- OUTSIDE RECORDS SUMMARY | 2013-02-27 11:00 | XMS_ITS | Continuity of Care Document ---
Author Organization [facility] Address [address] [place] [address] Phone Care Team Providers Care Senior Economist Name Role Phone Nadeem Cid MD Unavailable Unavailable Advance Directives Directive Yes / No Effective Date File Name No Information Encounters Encounter Description Practice Location Reason(s) For Visit Diagnoses Date Provider Providers Copied on Encounter [facility], [address], [place], [address], [place] tel:[phone] [place] No Information Jose Roberto Silver. [facility] [place], [place], [id number], [place]. tel:[phone] Referring Provider: Neptali Horne DO, [address] [place] [address], [address]. tel:[phone] Family History Family Member Type Diagnosis Age At Onset No Information Payers Payer name Insurance type Covered libertarian ID Authoriza tion(s) Medicaid [id number] Social History Type Description Quantity Date Captured [...]
--- OUTSIDE RECORDS SUMMARY | 2025-02-22 14:41 | XMS_ITS | Clinical Summary ---
Author Organization [facility] Facility Address [address] [place] [id number] Care Team Providers Care Utility Teller Name Role Phone Unavailable Primary Care Provider [...] Cancer Screening: Sigmoidoscopy 1998 Influenza Vaccine (#1) 2025 Hepatitis B Vaccine Aged Out No longe r eligible based on patient's age to complete this topic Insurance Medicare Medicaid [place]
[2025-02-22 15:13] LABS: Anion Gap 18 (12-20); Blood Urea Nitrogen 61 mg/dL (9-16); Carbon Dioxide 21 mmol/L (22-29); Chloride 106 mmol/L (96-108); Estimated Glomerular Filt Rate 40; Potassium 5.7 mmol/L (3.3-5.1); Sodium 139 mmol/L (135-145)
== END 2025-02-22 12:20 | disposition home or self-care (01) ==
LOC: HO.LAB 12:19
PROVIDERS: PCP Internal Medicine; Visit Provider Internal Medicine Nephrology
DX: Z45.02 Encounter for adjustment and management of automatic implantable cardiac defibrillator (principal); I42.9 Cardiomyopathy, unspecified; I25.10 Atherosclerotic heart disease of native coronary artery without angina pectoris; I48.0 Paroxysmal atrial fibrillation; I49.3 Ventricular premature depolarization; N18.32 Chronic kidney disease, stage 3b; Z79.01 Long term (current) use of anticoagulants; Z87.891 Personal history of nicotine dependence; Z79.899 Other long term (current) drug therapy
CPT/HCPCS: 36415; 80051; 82565; 84520; 99212

== ENCOUNTER 2025-02-22 12:30 | Outpatient (AMB) | payer MEDICARE, MEDICAID, SELFPAY ==
--- NOTE | 2025-02-22 13:00 | MHC.OFFVIS ---
Vital Signs 02/22/25 13:01 Height 6 ft 1 in Weight 143 lb 4.807 oz BMI 18.9 BP 106/60 Blood Pressure Location Lt brachial Position Sitting Pulse 70 Pulse Source Pulse Oximeter 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: 6 mth w/ medtronic ck s/p echo Allergies No Known Allergies Allergy (Verified 01/27/25 10:43) Medication List - Last Reconciled 02/22/25 by Mustapha Newton MD apixaban (Eliquis) 5 mg PO BID 90 days atorvastatin 40 mg PO BEDTIME budesonide-formoterol 160-4.5 mcg/actuation (Symbicort) 2 puffs inhalation Q12H buprenorphine-naloxone 2-0.5 mg (Suboxone) 1 film sublingual DAILY 30 days dapagliflozin propanediol (Farxiga) 10 mg PO DAILY furosemide 40 mg PO DAILY linaclotide (Linzess) 290 mcg PO DAILY metoprolol succinate ER 12.5 mg (1/2 x 25 mg) PO DAILY sacubitril-valsartan 24-26 mg (Entresto) 1 tab PO BID spironolactone 12.5 mg (1/2 x 25 mg) PO DAILY Suboxone 2-0.5 mg (buprenorphine-naloxone) 1 film sublingual DAILY NS tamsulosin 0.4 mg PO BEDTIME HPI Comments Details: Freddy returns for follow-up regarding cardiomyopathy, atrial fibrillation, Bi V ICD. Per patient, doing very well. No clear-cut cardiac complaints. No concerning symptoms. COUNTS INCLUDE 234 BEDS AT THE [facility] Medical History (Updated 02/22/25 @ 13:43 by Mustapha Newton MD) Chronic kidney disease, stage 4 (severe) History of left inguinal hernia (04/02/24) Left inguinal hernia (03/23/24) IBS (irritable bowel syndrome) Tobacco abuse Kidney disease Varicose veins of right lower extremity with inflammation Constipation by delayed colonic transit New onset atrial fibrillation Pneumonia due to 2019 novel coronavirus Acute respiratory failure COVID-19 Smoking Acute combined systolic and diastolic CHF, NYHA class 3 BPH (benign prostatic hyperplasia) Endocarditis Opiate dependence HCV (hepatitis C virus) COPD (chronic obstructive pulmonary disease) GERD (gastroesophageal reflux disease) Peripheral artery disease Surgical History (Updated 01/27/25 @ 10:50 by MAI Godoy) History of hernia surgery H/O colonoscopy S/P arterial stent S/P placement of cardiac pacemaker S/P angiogram of extremity (02/20/23) History of cardiac catheterization Family History Mother Alzheimer disease Father Myocardial infarct Daughter No problems noted. Social History Household Members: Family Household Members Other:: daughter and grandaughter. Housing: House Are you a primary career education teacher to a significant other at home: No Do you presently have visiting nurse or other home services: No Alcohol intake: never Patient Tobacco Use Status: Former Tobacco user Tobacco use type: Cigarette Years Smoked: 50 e-Cigarette/Vaping Use: Never Used Second Hand Smoke Exposure: Yes Substance Use Type: Marijuana service: No Current occupational status: retired Cognitive needs: No Hearing needs: No Vision needs: No Review of Systems Const Denies weakness ENT Denies dizziness Card Denies chest pain, Denies chest pain with activity, Denies syncope, Denies rapid heart rate, Denies pedal edema, Denies edema, Denies leg edema, Denies lightheadedness, Denies palpitations, Denies dyspnea, Denies dyspnea on exertion and Denies orthopnea Resp Denies cough, Denies dyspnea and Denies dyspnea on exertion GI Denies hematochezia and Denies change in stool character Musc Denies abnormal gait, Denies muscle cramps, Denies muscle weakness, Denies numbness, Denies radiating pain into limb and Denies tingling Neuro Denies abnormal gait, Denies dizziness, Denies syncope, Denies numbness, Denies tingling and Denies weakness Endo Denies palpitations Physical Exam Vital Signs: Last Vital Signs Pulse 70 02/22/25 13:01 BP 106/60 02/22/25 13:01 BMI result Body Mass Index 18.9 Const General: comfortable and no acute distress Orientation/consciousness: patient oriented x3 HEENT Other: Unremarkable Head: Yes normal to inspection Neck Neck: Yes normal visual inspection Chest Chest palpation & inspection: normal inspection of the chest Resp Auscultation: clear to auscultation bilaterally Cardio Palpation: normal PMI Heart sounds: S1 normal heart sound present, S2 normal heart sound present, no gallops, no murmurs and no rubs GI Palpation (GI): Soft to palpation Back/Spine/Pelvis Other: unremarkable Skin General skin exam: no rashes or lesions noted Neuro General: patient oriented x3 Extrem General: Yes normal to inspection Psych Mental Status: mental status grossly normal Office Procedures Cardiac Device Check Cardiac Device Check Details: ICD interrogated today. Biventricular device. Battery status 4.9 years. Normal lead parameters. No treated episodes. Effective ventricular pacing 89.6%, could be related to ventricular ectopy. Underlying rhythm is sinus with PVCs. Overall, normal function. [id number] Cardiac Device Check, multi lead implantable defibrillator Procedure code (CPT) selection complete Assessment & Plan Assessment & Plan (1) NICM (nonischemic cardiomyopathy): Code(s): I42.8 - Other cardiomyopathies Category: Medical Plan: In the echocardiogram from 2019, LVEF <10%. Unclear chronicity. In the most recent echocardiogram from 2024, LVEF is 55-60%. Hence essentially normalized. Findings on cardiac catheterization not able to explain the echo findings. Overall, suspected nonischemic cardiomyopathy. On optimal medications including metoprolol ER, Entresto, spironolactone, Farxiga. Follow up labs. (2) Atherosclerotic cardiovascular disease: Code(s): I25.10 - Atherosclerotic heart disease of [place] coronary artery without angina pectoris Category: Medical Plan: In the cardiac catheterization, there was moderate disease in the LAD but nothing obstructive. Otherwise unremarkable. Remains on statins. LDL 53 mg/dL. (3) Paroxysmal atrial fibrillation: Code(s): I48.0 - Paroxysmal atrial fibrillation Category: Medical Plan: Notice during COVID but stable after that. On anticoagulation. (4) PVC (premature ventricular contraction): Code(s): I49.3 - Ventricular premature depolarization Category: Medical Plan: Noted on device check. Clinically, he has got no symptoms from this. LV function has also normalized. We will continue to monitor. Plan Discussion Notes During the visit, we discussed the significant improvement in the patient's cardiac function, which is now normal. We also addressed the presence of irregular heartbeats noted during auscultation, despite the absence of symptoms. The plan includes regular monitoring and a follow-up appointment in six months to ensure continued cardiac stability. Patient was informed and verbally consented to the use of an ambient scribe for clinic note documentation during this visit. Patient Instructions: - Continue regular follow-up appointments every six months to monitor heart health. - Report any new symptoms such as chest pain or palpitations immediately. Coding Level of Care Code Est Pt Level 4 (68248) Complex EM visit Add On G2211 Diagnoses NICM (nonischemic cardiomyopathy) I42.8 Atherosclerotic cardiovascular disease I25.10 Paroxysmal atrial fibrillation I48.0 PVC (premature ventricular contraction) I49.3 CPT Codes Cardiac Device Check - Cardiac Device 6: [id number] Cardiac Device Check, multi lead implantable defibrillator ([id number])
[2025-02-22 13:01] VITALS: BP 106/60; PULSE 70; BMI 18.9
== END 2025-02-22 14:08 | disposition home or self-care (01) ==
LOC: HO.HCS 12:30
PROVIDERS: PCP Internal Medicine; Visit Provider Internal Medicine
DX: I42.8 Other cardiomyopathies (principal); I25.10 Atherosclerotic heart disease of native coronary artery without angina pectoris; I48.0 Paroxysmal atrial fibrillation; I49.3 Ventricular premature depolarization
CPT/HCPCS: 93284; 99214; G2211

== ENCOUNTER → 2025-02-22 23:59 | Outpatient (BNV) | payer MEDICARE, MEDICAID, SELFPAY ==
--- NOTE | 2025-02-24 12:16 | A.OFFVIS_ITS ---
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- [employer] Allergies No Known Allergies Allergy (Verified 01/27/25 10:43) [facility] Medical History (Updated 02/24/25 @ 10:05 by Pete Calabrese MD) Chronic kidney disease, stage 4 (severe) History of left inguinal hernia (04/02/24) Left inguinal hernia (03/23/24) IBS (irritable bowel syndrome) Tobacco abuse Kidney disease Varicose veins of right lower extremity with inflammation Constipation by delayed colonic transit New onset atrial fibrillation Pneumonia due to 2019 novel coronavirus Acute respiratory failure COVID-19 Smoking Acute combined systolic and diastolic CHF, NYHA class 3 BPH (benign prostatic hyperplasia) Endocarditis Opiate dependence HCV (hepatitis C virus) COPD (chronic obstructive pulmonary disease) GERD (gastroesophageal reflux disease) Peripheral artery disease Surgical History (Updated 01/27/25 @ 10:50 by MAI Godoy) History of hernia surgery H/O colonoscopy S/P arterial stent S/P placement of cardiac pacemaker S/P angiogram of extremity (02/20/23) History of cardiac catheterization Family History Mother Alzheimer disease Father Myocardial infarct Daughter No problems noted. Social History Household Members: Family Household Members Other:: daughter and grandaughter. Housing: House Are you a primary medicare nurse to a significant other at home: No Do you presently have visiting nurse or other home services: No Alcohol intake: never Patient Tobacco Use Status: Former Tobacco user Tobacco use type: Cigarette Years Smoked: 50 e-Cigarette/Vaping Use: Never Used Second Hand Smoke Exposure: Yes Substance Use Type: Marijuana service: No Current occupational status: retired Cognitive needs: No Hearing needs: No Vision needs: No Office Procedures Cardiac Device Check Cardiac Device Check Details: Date of service- 02/22/2025; based on impedance data and physiological variables, there is no evidence of worsening congestive heart failure. [id number] Cardiac Device Interrogation, cardio physiologic monitor Procedure code (CPT) selection complete Assessment & Plan Assessment & Plan (1) Biventricular ICD (implantable cardioverter-defibrillator) in place: Code(s): Z95.810 - Presence of automatic (implantable) cardiac defibrillator Category: Medical (2) Cardiomyopathy: Code(s): I42.9 - Cardiomyopathy, unspecified Category: Medical Plan x Coding Level of Care Code Procedure Only Diagnoses Biventricular ICD (implantable cardioverter-defibrillator) in place Z95.810 Cardiomyopathy I42.9 CPT Codes Cardiac Device Check - Cardiac Device 15: [id number] Cardiac Device Interrogation, cardio physiologic monitor ([id number])
== END ==
PROVIDERS: PCP Internal Medicine; Visit Provider Internal Medicine
DX: I42.9 Cardiomyopathy, unspecified (principal); Z95.810 Presence of automatic (implantable) cardiac defibrillator
CPT/HCPCS: 93297

== ENCOUNTER 2025-03-01 11:04 | Outpatient (REF) | payer MEDICARE, MEDICAID, SELFPAY ==
--- OUTSIDE RECORDS SUMMARY | 2013-02-27 11:00 | XMS_ITS | Continuity of Care Document ---
Author Organization [facility] Address [address] [place] [address] Phone Care Team Providers Care Technical Cable Jointer Name Role Phone Nadeem Cid MD Unavailable Unavailable Advance Directives Directive Yes / No Effective Date File Name No Information Encounters Encounter Description Practice Location Reason(s) For Visit Diagnoses Date Provider Providers Copied on Encounter [facility], [address], [place], [address], [place] tel:[phone] [place] No Information Jose Roberto Silver. [facility] [place], [place], [id number], [place]. tel:[phone] Referring Provider: Neptali Horne DO, [address] [place] [address], [id number]. tel:[phone] Family History Family Member Type Diagnosis Age At Onset No Information Payers Payer name Insurance type Covered republican ID Authoriza tion(s) Medicaid [id number] Social History Type Description Quantity Date Captured Comments Sex Male Smoking Status No Information Chief Complaint And Reason For Visit No Information Reason For Referral Reason For Referral No Information History Of Present Illness Encounter Date Complaint History Of Prese nt Illness No Information Functional Status Date Functional Assessmen t No Information Instructions Date Instruction Additional Infor mation No Information Assessments Type Assessment Date No Information Patient Care Teams Name Effective Dates (start - stop) Status Members No Information
[2025-03-01 12:28] LABS: Anion Gap 13 (12-20); Carbon Dioxide 24 mmol/L (22-29); Chloride 104 mmol/L (96-108); Potassium 4.3 mmol/L (3.3-5.1); Sodium 137 mmol/L (135-145)
--- OUTSIDE RECORDS SUMMARY | 2025-03-01 14:46 | XMS_ITS | Clinical Summary ---
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
== END 2025-03-01 11:05 | disposition home or self-care (01) ==
LOC: HO.LAB 11:04
PROVIDERS: PCP Internal Medicine; Visit Provider Internal Medicine Nephrology
DX: I12.9 Hypertensive chronic kidney disease with stage 1 through stage 4 chronic kidney disease, or unspecified chronic kidney disease (principal); N18.32 Chronic kidney disease, stage 3b; E78.5 Hyperlipidemia, unspecified; Z87.891 Personal history of nicotine dependence; Z79.899 Other long term (current) drug therapy; Z79.01 Long term (current) use of anticoagulants
CPT/HCPCS: 36415; 80051; 99212

== ENCOUNTER 2025-03-01 11:25 | Outpatient (AMB) | payer MEDICARE, MEDICAID, SELFPAY ==
[2025-03-01 11:26] VITALS: BP 90/60; BMI 19.0
--- NOTE | 2025-03-01 11:26 | HO.NEPHOV ---
Vital Signs 03/01/25 11:26 Height 6 ft 1 in Weight 144 lb 6 oz BMI 19.0 BP 90/60 Blood Pressure Location Lt brachial Position Sitting 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: 3 MO FU-LVM Pc Tech Required: No Accompanied by: Self / Same As Patient Allergies No Known Allergies Allergy (Verified 03/01/25 11:29) HPI Comments Details: I had the privilege of seeing Freddy in follow up for CKD. He is a 72-year-old male with nonischemic cardiomyopathy with AICD, coronary artery disease , congestive heart failure ,atrial fibrillation, peripheral vascular disease and chronic kidney disease. He has history of hepatitis C and was treated. Patient has a history of polysubstance abuse presently on Suboxone. He has peripheral arterial disease with a history of right SFA plasty and stent and right popliteal angioplasty in February 2023. His last echocardiogram showed ejection fraction of 34%. He had cardiac catheterization which showed moderate disease in the LAD. He is on anticoagulation. He is not a diabetic. He has prostatic symptoms. He is taking tamsulosin. He is on Entresto, spironolactone, metoprolol, furosemide as well as statins. His BP has been running low. He has Raynaud's. He denies taking nonsteroidal anti-inflammatories. He denies having sinusitis, epistaxis, hemoptysis, hematuria, nephrolithiasis, dizziness, chest pain, shortness of breath, paroxysmal nocturnal dyspnea, orthopnea. He has not very good with a low-sodium diet. He claims to be compliant with medications and follow ups. His last serum creatinine had been stable [facility] Medical History (Updated 02/24/25 @ 10:05 by Pete Calabrese MD) Chronic kidney disease, stage 4 (severe) History of left inguinal hernia (04/02/24) Left inguinal hernia (03/23/24) IBS (irritable bowel syndrome) Tobacco abuse Kidney disease Varicose veins of right lower extremity with inflammation Constipation by delayed colonic transit New onset atrial fibrillation Pneumonia due to 2019 novel coronavirus Acute respiratory failure COVID-19 Smoking Acute combined systolic and diastolic CHF, NYHA class 3 BPH (benign prostatic hyperplasia) Endocarditis Opiate dependence HCV (hepatitis C virus) COPD (chronic obstructive pulmonary disease) GERD (gastroesophageal reflux disease) Peripheral artery disease Surgical History History of hernia surgery H/O colonoscopy S/P arterial stent S/P placement of cardiac pacemaker S/P angiogram of extremity (02/20/23) History of cardiac catheterization Family History Mother Alzheimer disease Father Myocardial infarct Daughter No problems noted. Social History Household Members: Family Household Members Other:: daughter and grandaughter. Housing: House Are you a primary palliative care specialist to a significant other at home: No Do you presently have visiting nurse or other home services: No Alcohol intake: never Patient Tobacco Use Status: Former Tobacco user Tobacco use type: Cigarette Years Smoked: 50 e-Cigarette/Vaping Use: Never Used Second Hand Smoke Exposure: Yes Substance Use Type: Marijuana service: No Current occupational status: retired Cognitive needs: No Hearing needs: No Vision needs: No Review of Systems Const All systems reviewed & are unremarkable except as noted in HPI and below Physical Exam Vital Signs: Last Vital Signs BP 80/60 L 03/01/25 11:26 BMI result Body Mass Index 19.0 Const General: comfortable and no acute distress Orientation/consciousness: patient oriented x3 HEENT Head: Yes normocephalic Mouth: Normal oral and palatal mucosa present Eyes EOM: EOMs intact bilaterally Neck Neck: Yes supple Resp Auscultation: clear to auscultation bilaterally Cardio Jugular venous distension: no JVD Rate: regular rate GI Palpation (GI): Soft to palpation Auscultation: normal bowel sounds General: Yes no CVA tenderness Back/Spine/Pelvis Back: no CVA tenderness Skin General skin exam: no rashes or lesions noted Neuro General: patient oriented x3 and moves all extremities Extrem General: Yes no pedal edema Assessment & Plan Assessment & Plan (1) Hypertension: Code(s): I10 - Essential (primary) hypertension Category: Medical Qualifiers: Hypertension type: primary hypertension Qualified Code(s): I10 - Essential (primary) hypertension (2) CKD stage 3b, GFR 30-44 ml/min: Code(s): N18.32 - Chronic kidney disease, stage 3b Category: Medical (3) Hyperkalemia: Code(s): E87.5 - Hyperkalemia Category: Medical Plan Bruise has chronic kidney disease most likely due to vascular disease. He has history of cardiomyopathy as well as peripheral arterial disease. He is on Entresto, spironolactone, furosemide. He can continue Spironolactone 12.5 mg daily. I started him on Kionex 30 Gram once a week. He does not need any midodrine now.He has prostatic symptoms and is on tamsulosin. He had Doppler of renal arteries which did not show any renal artery stenosis. He avoids nonsteroidal anti-inflammatories. His renal functions currently had been stable. I answered all his questions and follow-up appointment given. Further management is pending evolving data. Orders: Orders Creatinine 3 Months E87.5 - Hyperkalemia, I10 - Essential (primary) hypertension, N18.32 - Chronic kidney disease, stage 3b Blood Urea Nitrogen 3 Months E87.5 - Hyperkalemia, I10 - Essential (primary) hypertension, N18.32 - Chronic kidney disease, stage 3b Electrolytes 3 Months E87.5 - Hyperkalemia, I10 - Essential (primary) hypertension, N18.32 - Chronic kidney disease, stage 3b Medications: New sodium polystyrene sulfonate 30 grams orally once a week; 453.6 grams 4RF Coding Level of Care Code Est Pt Level 4 (79552) Diagnoses Primary hypertension I10 Hypertension type: primary hypertension CKD stage 3b, GFR 30-44 ml/min N18.32 Hyperkalemia E87.5
== END 2025-03-01 11:45 | disposition home or self-care (01) ==
LOC: HO.HKA 11:25
PROVIDERS: PCP Internal Medicine; Visit Provider Internal Medicine Nephrology
DX: I10 Essential (primary) hypertension (principal); N18.32 Chronic kidney disease, stage 3b; E87.5 Hyperkalemia
CPT/HCPCS: 99214

== ENCOUNTER 2025-03-08 12:41 | Outpatient (AMB) | payer MEDICARE, MEDICAID, SELFPAY ==
--- NOTE | 2025-03-08 12:53 | A.OFFVIS_ITS ---
Vital Signs 03/08/25 13:13 Height 6 ft 1 in Weight 145 lb BMI 19.1 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: inguinal hernia Intake Note: Patient referred by pcp Dr. Vasquez for evaluation of inguinal hernia. Patient c/o: pain and discomfort at previous hernia site, worsening pain. Hx: open left inguinal hernia repair with Bard mesh by Dr. 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: No Accompanied by: Self / Same As Patient Allergies No Known Allergies Allergy (Verified 03/08/25 13:14) Medication List - Last Reconciled 03/08/25 by Delroy Alex MD apixaban (Eliquis) 5 mg PO BID 90 days atorvastatin 40 mg PO BEDTIME budesonide-formoterol 160-4.5 mcg/actuation (Symbicort) 2 puffs inhalation Q12H buprenorphine-naloxone 2-0.5 mg (Suboxone) 1 film sublingual DAILY 30 days dapagliflozin propanediol (Farxiga) 10 mg PO DAILY furosemide 40 mg PO DAILY linaclotide (Linzess) 290 mcg PO DAILY metoprolol succinate ER 12.5 mg (1/2 x 25 mg) PO DAILY sacubitril-valsartan 24-26 mg (Entresto) 1 tab PO BID sodium polystyrene sulfonate 30 grams orally once a week; spironolactone 12.5 mg (1/2 x 25 mg) PO DAILY Suboxone 2-0.5 mg (buprenorphine-naloxone) 1 film sublingual DAILY NS tamsulosin 0.4 mg PO BEDTIME HPI HPI inguinal hernia: Details: He had undergone repair of a left inguinal hernia with Dr. Bernstein a year ago. He says that for the past 6 months he has been noticing this ?scratchy? feeling on the area. Furthermore, he says he is numb on the inner aspect of the thigh near the groin He concerned that he we will need his hernia fixed again so he came to the office He denies GI complaints. He does not feel any lump on the area. [facility] Medical History (Updated 03/08/25 @ 13:34 by Delroy Alex MD) Inguinal pain Chronic kidney disease, stage 4 (severe) History of left inguinal hernia (04/02/24) Left inguinal hernia (03/23/24) IBS (irritable bowel syndrome) Tobacco abuse Kidney disease Varicose veins of right lower extremity with inflammation Constipation by delayed colonic transit New onset atrial fibrillation Pneumonia due to 2019 novel coronavirus Acute respiratory failure COVID-19 Smoking Acute combined systolic and diastolic CHF, NYHA class 3 BPH (benign prostatic hyperplasia) Endocarditis Opiate dependence HCV (hepatitis C virus) COPD (chronic obstructive pulmonary disease) GERD (gastroesophageal reflux disease) Peripheral artery disease Surgical History History of hernia surgery H/O colonoscopy S/P arterial stent S/P placement of cardiac pacemaker S/P angiogram of extremity (02/20/23) History of cardiac catheterization Family History Mother Alzheimer disease Father Myocardial infarct Daughter No problems noted. Social History Household Members: Family Household Members Other:: daughter and grandaughter. Housing: House Are you a primary healthcare consultant to a significant other at home: No Do you presently have visiting nurse or other home services: No Alcohol intake: never Patient Tobacco Use Status: Former Tobacco user Tobacco use type: Cigarette Years Smoked: 50 e-Cigarette/Vaping Use: Never Used Second Hand Smoke Exposure: Yes Substance Use Type: Marijuana service: No Current occupational status: retired Cognitive needs: No Hearing needs: No Vision needs: No Review of Systems Const Denies chills and Denies fever(s) Card Denies chest pain, Denies dyspnea and Reports dyspnea on exertion Resp Denies cough, Denies dyspnea and Reports dyspnea on exertion GI Denies hematochezia and Denies change in bowel habits Denies hematuria and Denies difficulty urinating Musc Denies back pain and Denies limited range of motion Neuro Denies focal weakness and Denies convulsions Psych Denies depression and Denies mood swings Physical Exam Vital Signs: BMI result Body Mass Index 19.1 Const General: comfortable and no acute distress Orientation/consciousness: patient oriented x3 Neck Neck: Yes no lymphadenopathy Resp Auscultation: clear to auscultation bilaterally Cardio Rhythm: regular rhythm GI Other: No palpable recurrent hernia on the left groin, the left inguinal hernia repair site is well healed, no swelling, induration or redness Has a small reducible right inguinal hernia Palpation (GI): Soft to palpation, nontender and no guarding Neuro General: patient oriented x3 Assessment & Plan Assessment & Plan (1) Inguinal pain: Code(s): R10.30 - Lower abdominal pain, unspecified Category: Medical Plan: He describes ?scratchy? pain discomfort on the incision from his previous left inguinal hernia repair site done by Dr. Bernstein. He is also numb on the skin of the medial aspect of the thigh near the groin I explained to him that all of his symptoms may be explained by his previous surgery with trauma to the nerves in the area I told him that he does not require any surgical intervention for these. There is no evidence of any recurrent hernia either He understood the above and seemed to be comfortable after the discussion I did tell him that he can follow up in the office on a p.r.n. basis. He does have a right inguinal hernia which is reducible but he does not want any surgical intervention at this time. Coding Level of Care Code Est Pt Level 3 (71613) Diagnoses Inguinal pain R10.30
[2025-03-08 13:13] VITALS: BMI 19.1
== END 2025-03-08 13:50 | disposition home or self-care (01) ==
LOC: HO.HGS 12:42
PROVIDERS: PCP Internal Medicine; Visit Provider Surgery
DX: R10.30 Lower abdominal pain, unspecified (principal)
CPT/HCPCS: 99213

== ENCOUNTER → 2025-03-08 12:41 | Outpatient (BNVA) | payer MEDICARE, MEDICAID, SELFPAY | PROVIDERS: PCP Internal Medicine; Visit Provider Surgery | DX: R10.32 Left lower quadrant pain (principal); Z98.890 Other specified postprocedural states | CPT/HCPCS: 99212 ==

== ENCOUNTER 2025-03-10 14:14 | Outpatient (AMB) | payer MEDICARE, MEDICAID, SELFPAY ==
--- NOTE | 2025-03-10 16:43 | MHC.AM.SUB ---
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: MAT Allergies No Known Allergies Allergy (Verified 03/08/25 13:14) HPI Comments Details: History of Present Illness The patient is a 74-year-old male presenting with opioid use disorder. He has found Suboxone insufficient in managing his symptoms and discontinued its use by himself, reducing the dose to 1 mg over the preceding two days before completely stopping. He denies any symptoms typically associated with opioid use, such as depression or constipation, and reports feeling well. Furthermore, he has expressed his decision not to engage further with the addiction services program. Review of Systems - Psychiatric: Denies depression. - Gastrointestinal: Denies constipation. Physical Exam - Vitals- Stable per note. Results Plan Patient was informed and verbally consented to the use of an ambient scribe for clinic note documentation during this visit. 1. Opioid use, unspecified, uncomplicated F11.90 The patient has self-managed by tapering off Suboxone, a medication prescribed for opioid use disorder, and does not wish to continue further treatment. He has been reassured of support should he need it in the future, particularly if cravings or symptoms return. No further interventions are planned in line with the patient?s current preference to discontinue opioid use disorder treatment. Discussion Notes The patient's case was discussed in detail, noting his decision to self-taper and discontinue Suboxone due to its perceived lack of effectiveness. The management plan was aligned with the patient's wishes not to engage further in addiction services. He was informed of the risks associated with discontinuation and was counseled to seek assistance if cravings or symptoms recur. No further tests or studies were suggested, given his current stable condition and refusal of future appointments. The patient was assured of our availability for future support if needed. Medical Decision Making In managing the patient's opioid use disorder, the decision was influenced by his self-reported well-being and his choice to discontinue Suboxone without complications such as depression or constipation. Evaluation of his progress suggests that he is currently stable, with his self-determined cessation of medication not adversely affecting his condition. The recommendation to keep open lines of communication addresses potential future complications. This approach respects his autonomy while ensuring he is informed about possible risks and is prepared to engage support services on his own terms should the need arise. Patient Instructions - You have decided to stop taking Suboxone on your own. - Please contact us if you experience any cravings or wish to discuss treatment options again. - You report doing well without further services. However, feel free to reach out if your situation changes in the future. [facility] Medical History (Updated 03/08/25 @ 13:34 by Delroy Alex MD) Inguinal pain Chronic kidney disease, stage 4 (severe) History of left inguinal hernia (04/02/24) Left inguinal hernia (03/23/24) IBS (irritable bowel syndrome) Tobacco abuse Kidney disease Varicose veins of right lower extremity with inflammation Constipation by delayed colonic transit New onset atrial fibrillation Pneumonia due to 2019 novel coronavirus Acute respiratory failure COVID-19 Smoking Acute combined systolic and diastolic CHF, NYHA class 3 BPH (benign prostatic hyperplasia) Endocarditis Opiate dependence HCV (hepatitis C virus) COPD (chronic obstructive pulmonary disease) GERD (gastroesophageal reflux disease) Peripheral artery disease Surgical History History of hernia surgery H/O colonoscopy S/P arterial stent S/P placement of cardiac pacemaker S/P angiogram of extremity (02/20/23) History of cardiac catheterization Family History Mother Alzheimer disease Father Myocardial infarct Daughter No problems noted. Social History Household Members: Family Household Members Other:: daughter and grandaughter. Housing: House Are you a primary career specialist to a significant other at home: No Do you presently have visiting nurse or other home services: No Alcohol intake: never Patient Tobacco Use Status: Former Tobacco user Tobacco use type: Cigarette Years Smoked: 50 e-Cigarette/Vaping Use: Never Used Second Hand Smoke Exposure: Yes Substance Use Type: Marijuana service: No Current occupational status: retired Cognitive needs: No Hearing needs: No Vision needs: No Assessment & Plan Assessment & Plan (1) Opiate dependence: Comment: He is doing well Code(s): F11.20 - Opioid dependence, uncomplicated Category: Medical Qualifiers: Substance use status: in remission Qualified Code(s): F11.21 - Opioid dependence, in remission Plan per note
--- OUTSIDE RECORDS SUMMARY | 2025-03-10 17:01 | XMS_ITS | Clinical Summary ---
Author Organization [facility] Facility Address [address] [place] [id number] Care Team Providers Care Assistant Site Manager Name Role Phone Unavailable Primary Care Provider [...]
== END 2025-03-10 14:15 | disposition home or self-care (01) ==
LOC: HO.HCC 14:14
PROVIDERS: PCP Internal Medicine; Visit Provider Internal Medicine
DX: F11.21 Opioid dependence, in remission (principal)
CPT/HCPCS: 99213

== ENCOUNTER → 2025-03-10 14:14 | Outpatient (BNVA) | payer MEDICARE, MEDICAID, SELFPAY | PROVIDERS: PCP Internal Medicine; Visit Provider Internal Medicine | DX: F11.20 Opioid dependence, uncomplicated (principal) | CPT/HCPCS: 99212 ==

== ENCOUNTER → 2025-03-25 23:59 | Outpatient (BNV) | payer MEDICARE, MEDICAID, SELFPAY ==
--- NOTE | 2025-04-01 15:48 | MHC.OFFVIS ---
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: Remote ICD check- [employer] Allergies No Known Allergies Allergy (Verified 03/08/25 13:14) [facility] Medical History (Updated 03/08/25 @ 13:34 by Delroy Alex MD) Inguinal pain Chronic kidney disease, stage 4 (severe) History of left inguinal hernia (04/02/24) Left inguinal hernia (03/23/24) IBS (irritable bowel syndrome) Tobacco abuse Kidney disease Varicose veins of right lower extremity with inflammation Constipation by delayed colonic transit New onset atrial fibrillation Pneumonia due to 2019 novel coronavirus Acute respiratory failure COVID-19 Smoking Acute combined systolic and diastolic CHF, NYHA class 3 BPH (benign prostatic hyperplasia) Endocarditis Opiate dependence HCV (hepatitis C virus) COPD (chronic obstructive pulmonary disease) GERD (gastroesophageal reflux disease) Peripheral artery disease Surgical History History of hernia surgery H/O colonoscopy S/P arterial stent S/P placement of cardiac pacemaker S/P angiogram of extremity (02/20/23) History of cardiac catheterization Family History Mother Alzheimer disease Father Myocardial infarct Daughter No problems noted. Social History Household Members: Family Household Members Other:: daughter and grandaughter. Housing: House Are you a primary manager care management to a significant other at home: No Do you presently have visiting nurse or other home services: No Alcohol intake: never Patient Tobacco Use Status: Former Tobacco user Tobacco use type: Cigarette Years Smoked: 50 e-Cigarette/Vaping Use: Never Used Second Hand Smoke Exposure: Yes Substance Use Type: Marijuana service: No Current occupational status: retired Cognitive needs: No Hearing needs: No Vision needs: No Office Procedures Cardiac Device Check Cardiac Device Check Details: Date of service 03/25/2025; Battery life >4 years; normal lead parameters; no treated VT/VF; effective V pacing 86%; normal ICD function. [id number] Cardiac Interrogation, implant defibrillator w/interim Procedure code (CPT) selection complete Assessment & Plan Assessment & Plan (1) Biventricular ICD (implantable cardioverter-defibrillator) in place: Code(s): Z95.810 - Presence of automatic (implantable) cardiac defibrillator Category: Medical (2) Cardiomyopathy: Code(s): I42.9 - Cardiomyopathy, unspecified Category: Medical Plan x Coding Level of Care Code Procedure Only Diagnoses Biventricular ICD (implantable cardioverter-defibrillator) in place Z95.810 Cardiomyopathy I42.9 CPT Codes Cardiac Device Check - Cardiac Device 13: [id number] Cardiac Interrogation, implant defibrillator w/interim ([id number])
== END ==
PROVIDERS: PCP Internal Medicine; Visit Provider Internal Medicine
DX: I42.9 Cardiomyopathy, unspecified (principal); Z95.810 Presence of automatic (implantable) cardiac defibrillator
CPT/HCPCS: 93295

== ENCOUNTER → 2025-03-25 23:59 | Outpatient (BNV) | payer MEDICARE, MEDICAID, SELFPAY ==
--- NOTE | 2025-04-01 08:17 | A.OFFVIS_ITS ---
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: Remote HF management- [employer] Allergies No Known Allergies Allergy (Verified 03/08/25 13:14) [facility] Medical History (Updated 03/08/25 @ 13:34 by Delroy Alex MD) Inguinal pain Chronic kidney disease, stage 4 (severe) History of left inguinal hernia (04/02/24) Left inguinal hernia (03/23/24) IBS (irritable bowel syndrome) Tobacco abuse Kidney disease Varicose veins of right lower extremity with inflammation Constipation by delayed colonic transit New onset atrial fibrillation Pneumonia due to 2019 novel coronavirus Acute respiratory failure COVID-19 Smoking Acute combined systolic and diastolic CHF, NYHA class 3 BPH (benign prostatic hyperplasia) Endocarditis Opiate dependence HCV (hepatitis C virus) COPD (chronic obstructive pulmonary disease) GERD (gastroesophageal reflux disease) Peripheral artery disease Surgical History History of hernia surgery H/O colonoscopy S/P arterial stent S/P placement of cardiac pacemaker S/P angiogram of extremity (02/20/23) History of cardiac catheterization Family History Mother Alzheimer disease Father Myocardial infarct Daughter No problems noted. Social History Household Members: Family Household Members Other:: daughter and grandaughter. Housing: House Are you a primary customer care voice consultant to a significant other at home: No Do you presently have visiting nurse or other home services: No Alcohol intake: never Patient Tobacco Use Status: Former Tobacco user Tobacco use type: Cigarette Years Smoked: 50 e-Cigarette/Vaping Use: Never Used Second Hand Smoke Exposure: Yes Substance Use Type: Marijuana service: No Current occupational status: retired Cognitive needs: No Hearing needs: No Vision needs: No Office Procedures Cardiac Device Check Cardiac Device Check Details: Date of service- 03/25/2025; based on impedance data and physiological variables, there is no evidence of worsening congestive heart failure. [id number] Cardiac Device Interrogation, cardio physiologic monitor Procedure code (CPT) selection complete Assessment & Plan Assessment & Plan (1) Biventricular ICD (implantable cardioverter-defibrillator) in place: Code(s): Z95.810 - Presence of automatic (implantable) cardiac defibrillator Category: Medical (2) NICM (nonischemic cardiomyopathy): Code(s): I42.8 - Other cardiomyopathies Category: Medical Plan x Coding Level of Care Code Procedure Only Diagnoses Biventricular ICD (implantable cardioverter-defibrillator) in place Z95.810 NICM (nonischemic cardiomyopathy) I42.8 CPT Codes Cardiac Device Check - Cardiac Device 15: [id number] Cardiac Device Interrogation, cardio physiologic monitor ([id number])
== END ==
PROVIDERS: PCP Internal Medicine; Visit Provider Internal Medicine
DX: I42.8 Other cardiomyopathies (principal); Z95.810 Presence of automatic (implantable) cardiac defibrillator
CPT/HCPCS: 93297

== ENCOUNTER → 2025-05-18 09:23 | Outpatient (BNV) | payer MEDICARE, MEDICAID, SELFPAY | PROVIDERS: PCP Internal Medicine; Visit Provider Internal Medicine | DX: Z45.02 Encounter for adjustment and management of automatic implantable cardiac defibrillator (principal) | CPT/HCPCS: 93297 ==